=== PATIENT | female | born 1965 | race Caucasian/White ===

== ENCOUNTER → 2018-11-14 10:35 | Outpatient (CLI) | payer OTHER, SELFPAY ==
--- NOTE | 2018-11-14 10:36 | MM_ITS ---
MM Dig screening mamm BI w/CAD CAD Screening COMPARISON: Digital mammograms with CAD 10/29/2014 and analog mammograms 03/30/2007 INDICATION: There is a history of breast cancer in patient's paternal aunt. There is been previous biopsy left breast for benign disease. TECHNIQUE: Standard CC and MLO images were obtained. R2 CAD reviewed. FINDINGS: There is a markedly dense and heterogenic parenchymal pattern somewhat lessening the sensitivity of mammography. The findings are bilateral and symmetrical. There is no suspicious lesion and there are no suspicious microcalcifications. IMPRESSION: Moderately dense parenchymal pattern with no suspicious lesion seen BI-RADS Category: 1 Negative RECOMMENDED FOLLOW-UP: 1YR - 1 YEAR FOLLOW-UP (A letter has been sent to the patient regarding results of the study.)
== END ==
PROVIDERS: PCP Family Medicine; Visit Provider Obstetrics & Gynecology
DX: Z12.31 Encounter for screening mammogram for malignant neoplasm of breast (principal)
CPT/HCPCS: 77067

== ENCOUNTER 2018-12-01 15:30 | Outpatient (RCR) | payer OTHER, SELFPAY ==
--- NOTE | 2018-11-29 17:51 | HMH.PTOPEV ---
PT Outpatient Evaluation Rehab PT Outpatient Evaluation Start: 11/29/18 17:04 Freq: Status: Active Protocol: Document 11/29/18 17:04 ANA MARIA (Rec: 11/29/18 17:50 ANA MARIA [id number]) Electronically Signed By Irving David, PT 11/29/18 17:04 Outpatient Therapy Subjective History Subjective History Patient is a 53 year old female presenting to outpatient PT with reports of righ sided low back pain with RLE radicular symptoms of insidious onset starting 2017. Pt reports pain and numbness/tingling to R foot that centralizes with lumbar extension indicating disc pathology. No other comorbidities to report. Chief Complaint Pain Spasms Paresthesia Symptom Type Ache Dull Numbness Tingling Symptoms Relieved By Ice OTC Meds Prescription Meds Symptoms Aggravated By Supine Sitting Standing Bending/Stooping Physical Activity Walking Lifting Prior Functional Limitations None Current Functional Limitations Reaching Lifting Housework Driving Sleeping Standing Sitting Squatting Recreation Activity Walking Bending/Stooping Symptom Description Intermittent Level of pain today (0-10) 3 Pain scale - at its best (0-10) 0 Pain scale - at its worst (0-10) 6 Lumbopelvic Eval Posture Thoracic Spine Posture Standing Position Neutral Lumbar Spine Posture Standing Position Neutral Assistive device Assistive Devices None / NA Gait Observation General Gait Pattern Observation No Deviations/Normal Palapation tenderness right lumbar spinal tenderness Yes: 2/4 paraspinal tenderness Yes: 3/4 Accessory Movement L4 right L5 right S1
== END 2018-12-01 15:35 | disposition home or self-care (01) ==
LOC: PT 15:30
PROVIDERS: Visit Provider Emergency Medicine
DX: M54.31 Sciatica, right side (principal)
CPT/HCPCS: 97010; 97012; 97014; 97110; 97163; G0283

== ENCOUNTER → 2019-01-03 10:27 | Outpatient (POV) | payer OTHER, SELFPAY | PROVIDERS: Visit Provider Dermatology | DX: Z00.00 Encounter for general adult medical examination without abnormal findings (principal) ==

== ENCOUNTER 2019-06-10 07:56 | Outpatient (CLI) | payer OTHER, SELFPAY ==
[2019-06-10] VITALS (20 sets, daily range): BP systolic 98–125; BP diastolic 53–74; PULSE 72–86; RESP 16–18; TEMP 36.3–36.8; O2SAT 96–100; BMI 27.4
--- NOTE | 2019-06-10 10:11 | PC.NURSE ---
Notified Dr Arevalo that patients HGB today is 5.5, down from 6.3 yesterday; He states to notify him of the 1 hour post HH.
[2019-06-10 16:23] LABS: Hematocrit 27.6 % (37.0-47.0)
[2019-06-10 16:25] LABS: Hemoglobin 7.7 g/dL (12.2-16.2)
--- NOTE | 2019-06-10 16:30 | PC.NURSE ---
Notified Dr Arevalo that 1 hr post HH was 7.7 and 27.6
== END 2019-06-10 16:22 | disposition home or self-care (01) ==
LOC: INF 07:57
PROVIDERS: PCP Family Medicine; Visit Provider Family Medicine
DX: D64.9 Anemia, unspecified (principal)
CPT/HCPCS: 36415; 36430; 85014; 85018; 86850; P9016

== ENCOUNTER → 2019-07-17 09:46 | Outpatient (CLI) | payer BC, SELFPAY ==
--- NOTE | 2019-07-17 09:46 | CT_ITS ---
PROCEDURE: CT CHEST W CON CLINICAL HISTORY: colon cancer Colon cancer, evaluate for possible metastatic disease COMPARISON: No exams were available for comparison TECHNIQUE: 75 mL Optiray 350 Axial images obtained with sagittal and coronal reformats. All CT scans at the facility use one or more dose reduction, viz: automated exposure control, ma/kV adjustment per patient size (including targeted exams where dose is matched to indication, i.e. head), or iterative reconstruction technique. FINDINGS: No mediastinal or hilar mass or adenopathy. Normal heart size. Left lobe of the thyroid gland is enlarged with heterogeneous density which may be better evaluated with ultrasound for the presence of nodules if clinically desired. Calcified granuloma is present in the left upper lobe. There is a 8 mm nodular opacity in the extreme right lung base which is along the hemidiaphragm. This is nonspecific. A subpleural nodular density is present in the right CP angle posteriorly at 6 mm. There is a 4 mm noncalcified nodule in the left lung base posterior laterally. This is subpleural. There is some left apical scarring. No acute bony anomalies are evident. IMPRESSION: 1. Mildly enlarged left lobe of the thyroid gland with heterogeneous density which may be better evaluated with ultrasound if clinically warranted 2. There are 3 noncalcified nodules 2 in the right lung base and 1 in the left lung base. These are nonspecific. Suggest 6 month follow-up to confirm stability. Dictated by: Dillan Barreto MD 07/17/2019 16:24 Signed by: <Electronically signed by Dillan Barreto MD in [place]> 07/18/2019 10:02
--- NOTE | 2019-07-17 09:46 | CT_ITS ---
PROCEDURE: CT ABDOMEN PELVIS W CON CLINICAL HISTORY: colon cancer Evaluate for possible metastatic disease COMPARISON: CT CHEST W CON from 07/17/2019 TECHNIQUE: 75 mL Optiray 350 performed in conjunction with the chest CT Readi-Cat PO Axial images obtained with sagittal and coronal reformats. All CT scans at the facility use one or more dose reduction, viz: automated exposure control, ma/kV adjustment per patient size (including targeted exams where dose is matched to indication, i.e. head), or iterative reconstruction technique. FINDINGS: On the chest CT there was a 3.4 cm area of contrast enhancement in the dome of the liver centrally which would have corresponded to arterial phase images. This area has an unremarkable appearance on the portal phase and the delayed images. In the left hepatic lobe there is a 7 mm hypodense nodule. In the central aspect there is a 5 mm hypodense nodule. In the right hepatic lobe there is a 19 mm area of hypodensity. Just posterior to this in the right hepatic lobe there is an additional 6 mm hypodensity. These may be due to cyst. Suggest ultrasound correlation to confirm cystic nature of these nodules and to evaluate the possibility of a lesion in the hepatic dome. The spleen, adrenal glands, pancreas, gallbladder, and kidneys have an unremarkable appearance. No intestinal obstruction or free air is evident. The location of the colon cancer has not been made available at the time of the reading. There is however, thickening noted within the cecum which may be neoplastic in nature. This does not effect the ileocecal valve. There is some ill definition of the lateral margin of this area of thickening which could be due to subserosal extension. The appendix has an unremarkable appearance there is some increased soft tissue density in the right adnexal region just superior to this area which may be related to ovarian tissue. There are some small nodes in the left adnexa. No acute bony anomalies are evident. No lytic or blastic process apparent aside from probable small bilateral bone islands within the hips and pelvis. IMPRESSION: 1. Unusual immediate area of enhancement in the a padded dome measuring 3.4 cm. This does not persist and blends imperceptibly with the hepatic tissue on the delayed images possibly due to variations in enhancement of the liver. In addition, there are several hypodense lesions of the liver which may be due to cyst. Suggest ultrasound to confirm cystic nature and to evaluate the hepatic dome region. 2. Asymmetric thickening of the tip of the cecum posteriorly suspicious for neoplasm. There is some irregularity of the lateral wall of this area of thickening. Cannot exclude subserosal extension.. 3. Soft tissue density in the right adnexa adjacent to the area of thickening probably related to the right ovary as opposed to an area of adenopathy. Dictated by: Dillan Barreto MD 07/17/2019 16:25 Signed by: <Electronically signed by Dillan Barreto MD in [place]> 07/18/2019 10:16
== END ==
PROVIDERS: PCP Family Medicine; Visit Provider Surgery
DX: C18.9 Malignant neoplasm of colon, unspecified (principal)
CPT/HCPCS: 71260; 74177; Q9967

== ENCOUNTER → 2019-09-14 13:57 | Outpatient (CLI) | payer BC, SELFPAY ==
--- NOTE | 2019-09-14 14:00 | US_ITS ---
PROCEDURE: US THYROID CLINICAL INDICATION: THYROID ENLARGEMENT Thyroid nodule evaluation COMPARISON: CT CHEST W CON from 07/17/2019 FINDINGS: Right lobe: 3.7 x 0.9 x 1.4 cm with homogeneous echogenicity and no discrete nodule. Left lobe: 4.3 x 1.3 x 2 cm. In the upper pole there is a 2.6 x 1.4 cm mixed cystic and solid nodule which is well-circumscribed slightly hypoechoic with no obvious calcifications. This is a TR3 nodule which is mildly suspicious. Ultrasound-guided FNA suggested. In the lower pole there is a well-circumscribed 1.9 x 1.2 cm slightly hyperechoic nodule with small echogenic foci.. This is a TR 4 moderately suspicious nodule. Ultrasound-guided fine needle aspiration is suggested. Isthmus: Unremarkable Additional findings: IMPRESSION: There is a TR 3 mildly and a TR 4 moderately suspicious nodule of the left lobe of the thyroid gland. Fine-needle aspiration of both nodules suggested with ultrasound guidance Dictated by: Dillan Barreto MD 09/14/2019 17:34 Electronically signed by Dillan Barreto MD in [place] 09/14/2019 17:34
== END ==
PROVIDERS: PCP Family Medicine; Visit Provider Family Medicine
DX: E04.9 Nontoxic goiter, unspecified (principal)
CPT/HCPCS: 76536

== ENCOUNTER → 2019-09-27 12:42 | Outpatient (CLI) | payer BC, SELFPAY ==
--- NOTE | 2019-09-27 12:46 | US_ITS ---
PROCEDURE: US FNA THYROID CLINICAL INDICATION: LT TR3 NODULE Suspicious thyroid nodule nodules involving the left lobe COMPARISON: No exams were available for comparison TECHNIQUE: The thyroid nodules on the left were localized pre biopsy and biopsy route planned. Following obtaining informed consent, using aseptic technique and local anesthesia with buffered lidocaine, fine-needle aspiration was performed of the both of the nodules on the left nodule a upper pole and nodule be lower pole using sonographic guidance. 2 passes were made into each nodule with a 21 gauge gauge needle. Specimen was given to cytology. FINDINGS: CYTOLOGY: Nodule A upper pole: Negative for malignant cells. Nodule B lower pole: Negative for malignant cells IMPRESSION: Uneventful ultrasound-guided fine needle aspiration the left lobe of the thyroid gland. FNA was performed of 2 nodules both showing benign findings. The patient tolerated the procedure well without evidence of immediate complications and left the ultrasound suite in stable condition. Dictated by: Dillan Barreto MD 10/18/2019 07:56 Electronically signed by Dillan Barreto MD in [place] 10/18/2019 07:56
== END ==
PROVIDERS: PCP Family Medicine; Visit Provider Family Medicine
DX: E04.1 Nontoxic single thyroid nodule (principal)
CPT/HCPCS: 10005; 76942

== ENCOUNTER → 2020-01-17 09:19 | Outpatient (CLI) | payer BC, SELFPAY ==
--- NOTE | 2020-01-17 09:19 | MM_ITS ---
PROCEDURE: MM DIG SCREENING MAMM BI W/CAD CLINICAL INDICATION: Routine Screening Mammogram There is a history of breast cancer patient's paternal aunt. There has been previous biopsy left breast for benign disease. 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 R2 CAD reviewed. FINDINGS: Moderate diffuse fibroglandular densities are seen in central portions of both breasts and the findings are bilateral and symmetrical. Octavio images were reviewed or showing no suspicious lesion in either breast. There are no suspicious microcalcifications. IMPRESSION: Stable moderately dense parenchymal pattern with no suspicious lesions seen BI-RAD Category: 1 Negative FOLLOW-UP: 1YR 1 Year Follow-up (A letter has been sent to the patient regarding results of the study.) Dictated by: Dr. Ata Cortez MD 01/22/2020 15:[address] Ata Cortez MD in [place] 01/22/2020 15:17
== END ==
PROVIDERS: PCP Obstetrics & Gynecology; Visit Provider Obstetrics & Gynecology
DX: Z12.31 Encounter for screening mammogram for malignant neoplasm of breast (principal)
CPT/HCPCS: 77063; 77067

== ENCOUNTER → 2020-01-23 15:23 | Outpatient (CLI) | payer BC, SELFPAY ==
--- NOTE | 2020-01-23 15:30 | MR_ITS ---
PROCEDURE: MR LUMBAR SPINE WO CON CLINICAL INDICATION: LUMBAGO WITH SCIATICA, DDD Low back pain right leg pain numbness and tingling COMPARISON: CT ABDOMEN PELVIS W CON from 07/17/2019 TECHNIQUE: Standard multiplanar multiecho sequences are performed without contrast. 3-D MIP and myelographic images are also rendered and reviewed FINDINGS: There is normal alignment. Spinal cord ends L1-L2 level. T11-T12, T12-L1, L1-L2 and L2-L3 have an unremarkable appearance. L3-L4: Degenerate disc disease with minimal bulging disc along with mild facet ligamentum hypertrophy with mild bilateral lateral recess and foraminal narrowing. L4-5: Mild concentric bulging disc along with facet ligamentum hypertrophy with bilateral lateral recess and foraminal narrowing. There is a small annular fissure of the disc posteriorly L5-S1: Minimal bulging disc with mild facet ligamentum hypertrophy with mild bilateral lateral recess narrowing. The disc does abut the anterior aspect of both S1 nerve roots slightly greater on the left No extruded herniated disc or canal stenosis is evident. Incidental note made of the hepatic cysts IMPRESSION: 1. L3-L4: Degenerate disc disease with minimal bulging disc along with mild facet ligamentum hypertrophy with mild bilateral lateral recess and foraminal narrowing. 2. L4-5: Mild concentric bulging disc along with facet ligamentum hypertrophy with bilateral lateral recess and foraminal narrowing. There is a small annular fissure of the disc posteriorly 3. L5-S1: Minimal bulging disc with mild facet ligamentum hypertrophy with mild bilateral lateral recess narrowing. The disc does abut the anterior aspect of both S1 nerve roots slightly greater on the left 4. No extruded herniated disc evident Dictated by: Dillan Barreto MD 01/24/2020 13:06 Electronically signed by Dillan Barreto MD in [place] 01/24/2020 13:06
== END ==
PROVIDERS: PCP Family Medicine; Visit Provider Family Medicine
DX: M54.41 Lumbago with sciatica, right side (principal); M51.36 Other intervertebral disc degeneration, lumbar region
CPT/HCPCS: 72148; 76376

== ENCOUNTER → 2021-02-12 16:23 | Outpatient (CLI) | payer BC, SELFPAY ==
--- NOTE | 2021-02-12 16:23 | MM_ITS ---
PROCEDURE: MM DIG SCREENING MAMM BI W/CAD Digital Breast Tomosynthesis Included CLINICAL INDICATION: screening There is a history of breast cancer in the patient's 2 paternal aunts. There has been a previous biopsy left breast for benign disease. COMPARISON: MG [facility] DIG MAMM-SCREEN HANNA from 10/29/2014 [facility] MM Dig screening mamm BI w/CAD from 11/14/2018 MG MM DIG SCREENING MAMM BI W/CAD from 01/17/2020 TECHNIQUE: Standard CC and MLO images and 3D Tomosynthesis was obtained. R2 CAD reviewed. FINDINGS: Moderate somewhat heterogenic fibroglandular densities are seen in the central portions of both breast and the findings are bilateral and symmetrical. There are no CAD markings. There is faint arterial calcification right breast. There is no suspicious lesion and no suspicious microcalcifications. IMPRESSION: Moderate breast density with no suspicious lesions seen BI-RAD Category: 2 Benign Finding(s) FOLLOW-UP: 1YR 1 Year Follow-up (A letter has been sent to the patient regarding results of the study.) Dictated by: Dr. Ata Cortez MD 02/14/2021 13:23 Dr. Ata Cortez MD in [place] 02/14/2021 13:23
== END ==
PROVIDERS: PCP Family Medicine; Visit Provider Obstetrics & Gynecology
DX: Z12.31 Encounter for screening mammogram for malignant neoplasm of breast (principal)
CPT/HCPCS: 77063; 77067

== ENCOUNTER → 2021-02-13 13:31 | Outpatient (POV) | payer BC, SELFPAY ==
[2021-02-13 13:51] VITALS: BP 120/78; PULSE 75; RESP 18; O2SAT 98; BMI 28.3
--- NOTE | 2021-02-13 14:23 | HMH.PMCON ---
Assessment and Plan (1) Degenerative disc disease Status: Chronic Category: Medical (2) Right sided sciatica Status: Chronic Category: Medical Code(s): M54.31 - Sciatica, right side - Assessment and plan all Dx Assessment and Plan for all problems:: Schedule L4-L5 lumbar epidural steroid injection for the patient. Given the efficacy of this in the past I do believe it would benefit her. She has been instructed to call the office if she has any issues prior to her next appointment. Patient is not on any anticoagulation therapy. I will follow-up with her after her injection reassess her symptoms at that time. Dr. Mancilla has reviewed this note and agrees with this plan of care. This note was dictated using voice recognition software and may contain errors or omissions HPI - Data of Consult Consult date: 02/13/21 Requesting Physician: Amber Flor APRN Primary Care Provider: Paul Arevalo MD - Consult Narrative Reason for consult: Back pain History of present illness: Ms. Grajeda is a 55 year old female who presents today for consultation regards to her low back pain. Patient was seen by a neurosurgeon last year. Patient was deemed not a surgical candidate at the time however she does have low back pain with radiation into her right lower leg. Patient was given 1 epidural steroid injection which gave her 6 months relief. Patient got over 80% relief during this time. Patient and I discussed repeating an epidural injection she is agreeable. She is not on any anticoagulation therapy. She tried and failed medication management. CC: Amber Flor APRN [facility] History I have reviewed the patient's past medical history: Yes Medical History: Reports:: Gastroesophageal Reflux Disease(GERD) Denies:: Cancer, Diabetes Mellitus Type 1, Diabetes Mellitus Type 2, Internal Pacemaker, Lung Disease, MRSA, Seizures *Have you ever received a pneumonia vaccine?: Yes *Have you received a flu vaccine this season?: Yes Other Medical History: Reports: Anemia Other Surgeries: Yes: No Previous Surgery, Cancer Surgery, Colonoscopy, Colon Resection, EGD, Tubal Ligation, Other. No: Pacemaker Amputation: No Fractures: No - *Social History Smoking Status: Never smoker Alcohol Intake: never Alcohol Intake Frequency:: holidays/special occasions only Substance Use Type: other, denies use *Occupational Status:: other Housing: house Household Members: spouse *Travel in the last 8 weeks: None Family Hx:: Unable to obtain Review of Systems - Review of Systems ROS General: no recent weight change, no fever, no sleep disturbances Respiratory: no cough, no shortness of air, no recurring pulmonary infections Cardiovascular/Peripheral Vascular: No chest pain, No palpitations, no edema, no shortness of breath. Gastrointestinal: no new onset incontinence, normal bowel movements reported Genitourinary: no new onset incontinence Musculoskeletal: Back pain, leg pain Psychiatric: normal mood/ affect Neurological: [denies new onset weakness in extremities], [denies new onset balance issues] Meds Home Medications Medication Instructions Recorded Confirmed Type cholecalciferol (vitamin D3) 25 1,000 unit PO DAILY 01/12/20 10/11/20 History mcg (1,000 unit) capsule loratadine 10 mg tablet 10 mg PO DAILY 01/12/20 10/11/20 History cephalexin 500 mg capsule 500 mg PO Q12H 10 Days #20 cap 08/31/20 10/11/20 Rx celecoxib 50 mg capsule 50 mg PO DAILY 09/10/20 10/11/20 History fluticasone propionate 50 1 spray INTRANASAL DAILY 09/10/20 10/11/20 History mcg/actuation nasal spray,suspension phentermine 37.5 mg tablet 37.5 mg PO DAILY #30 tab 09/10/20 10/11/20 Rx rhubarb root extract 4 mg tablet mg PO 09/10/20 10/11/20 History bupropion HCl 75 mg tablet 75 mg PO BID #60 tab 10/11/20 10/11/20 Rx Allergies Allergy/AdvReac Type Severity Reaction Status Date / Time No Known Allergies Allergy Verified 02/06/21 15:
== END ==
PROVIDERS: PCP Family Medicine; Visit Provider Clinical Nurse Specialist Family Health
DX: M54.31 Sciatica, right side (principal); M54.9 Dorsalgia, unspecified
CPT/HCPCS: 99202; G0463

== ENCOUNTER 2021-02-21 10:57 | Day surgery (SDC) | payer BC, SELFPAY ==
[2021-02-21 11:57] VITALS: BP 120/78; PULSE 50; RESP 18; TEMP 36.6; O2SAT 100; BMI 28.3
[2021-02-21 12:25] VITALS: BP 133/82; PULSE 82; RESP 20; O2SAT 98
[2021-02-21 12:26] VITALS: BP 132/81; PULSE 74; RESP 20; O2SAT 98
--- NOTE | 2021-02-21 12:26 | HMH.PMPROC ---
- Procedure Date: 02/21/21 Time: 12:26 Anesthesiologist:: Imtiaz Mancilla MD Complications:: None Pre-procedure Diagnosis:: Degenerative disc disease of lumbar spine with lumbar radiculopathy symptoms Post-procedure Diagnosis:: Same Indications for Procedure:: Patient is a pleasant 55-year-old white female who we are treating for low back pain with lumbar radiculopathy symptoms. She has increasing pain in her low back radiating down her right leg. She has had a previous lumbar epidural steroid injection in [place] this did give her significant relief. She did not go back to this doctor because she did not like her however she did get significant relief in her pain is now returned we will do repeat lumbar epidural steroid injection here. Procedure Details:: Lumbar epidural steroid injection under fluoroscopy Informed consent was obtained and the risk and benefits of the procedure was explained to the patient. The patient was taken to the procedure room. The patient was placed prone on the procedure table. The patient was prepped and draped in sterile fashion. C-arm fluoroscopy was used to view the lumbar spine. Skin and subcutaneous tissues were anesthetized using lidocaine. I placed an 18-gauge epidural needle and advanced into the L4-L5 interspace using fluoroscopic guidance and [id number] to air. After confirmation of needle placement in the epidural space with dye I injected 2 mL of lidocaine 1.5% with Depo-Medrol 80 mg. Patient tolerated the procedure well with no complications. Plan and Disposition:: We will follow-up with her in 2 weeks. Will reevaluate symptoms at that time.
[2021-02-21 12:45] VITALS: BP 141/88; PULSE 68; RESP 20; O2SAT 100
== END 2021-02-21 12:45 | disposition home or self-care (01) ==
LOC: SC.PAINP 10:59
PROVIDERS: PCP Family Medicine; Visit Provider Anesthesiology
DX: M51.16 Intervertebral disc disorders with radiculopathy, lumbar region (principal); K21.9 Gastro-esophageal reflux disease without esophagitis; Z90.49 Acquired absence of other specified parts of digestive tract; Z90.79 Acquired absence of other genital organ(s)
CPT/HCPCS: 62323; J1040; Q9966

== ENCOUNTER → 2021-03-08 14:59 | Outpatient (CLI) | payer BC, SELFPAY ==
[2021-03-08 15:07] VITALS: BMI 23.3
== END ==
PROVIDERS: PCP Family Medicine; Visit Provider Nurse Practitioner Family
DX: T78.40XA Allergy, unspecified, initial encounter (principal)

== ENCOUNTER → 2021-03-27 15:17 | Outpatient (POV) | payer BC, SELFPAY ==
[2021-03-27 15:24] VITALS: BP 117/70; PULSE 81; RESP 18; BMI 28.1
--- NOTE | 2021-03-27 15:37 | P.CONS_ITS ---
[facility] Pain Management SOAP Note Subjective:: Patient is a pleasant 55 -year-old white female who presents today for follow-up after L4-L5 lumbar epidural steroid injection. Patient got good relief with her injection. She rates her pain today 2 out of 10 overall doing quite well. Patient I discussed repeating her injection in several weeks. Her pain does come back at times. She did do some traveling which increased her pain. ROS General: no recent weight change, no fever, no sleep disturbances Respiratory: no cough, no shortness of air, no recurring pulmonary infections Cardiovascular/Peripheral Vascular: No chest pain, No palpitations, no edema, no shortness of breath. Gastrointestinal: no new onset incontinence, normal bowel movements reported Genitourinary: no new onset incontinence Musculoskeletal: Back pain, leg pain Psychiatric: normal mood/ affect Neurological: [denies new onset weakness in extremities], [denies new onset balance issues] Objective:: Physical Exam General: Alert and oriented x3, no acute distress, pleasant and cooperative, [on room air] Lungs: Resps E/U, Symmetrical chest expansion, Eyes: PERRL Musculoskeletal: Flexion and extension of lumbar spine somewhat guarded secondary to pain, deep tendon reflexes normal, strength in upper and lower extremities [5/5], slightly antalgic gait noted Neurological: speech clear, firewall security 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 She is been instructed to call the office if she has any issues prior to her next appointment. Dr. Mancilla has reviewed this note and agrees with this plan of care. This note was dictated using voice recognition software and may contain errors or omissions [facility] History I have reviewed the patient's past medical history: Yes Medical History: Reports:: Cancer, Gastroesophageal Reflux Disease(GERD) Denies:: Diabetes Mellitus Type 1, Diabetes Mellitus Type 2, Internal Pacemaker, Lung Disease, MRSA, Seizures *Have you ever received a pneumonia vaccine?: Yes *Have you received a flu vaccine this season?: Yes Other Medical History: Reports: Anemia. Denies: Blood Transfusion Reaction Other Surgeries: Yes: No Previous Surgery, Cancer Surgery, Colonoscopy, Colon Resection, EGD, Tubal Ligation, Other (breast biopsy). No: Pacemaker Amputation: No Fractures: No - *Social History Smoking Status: Never smoker Alcohol Intake: never Alcohol Intake Frequency:: holidays/special occasions only Substance Use Type: other, denies use *Occupational Status:: other Housing: house Household Members: spouse *Travel in the last 8 weeks: None Family Hx:: Unable to obtain
== END ==
PROVIDERS: PCP Family Medicine; Visit Provider Clinical Nurse Specialist Family Health
DX: M51.16 Intervertebral disc disorders with radiculopathy, lumbar region (principal)
CPT/HCPCS: 99212; G0463

== ENCOUNTER 2021-04-25 09:05 | Day surgery (SDC) | payer BC, SELFPAY ==
[2021-04-25 09:28] VITALS: BP 130/70; PULSE 77; RESP 18; TEMP 36.4; O2SAT 97; BMI 29.1
[2021-04-25 09:55] VITALS: BP 141/85; PULSE 75; RESP 18; O2SAT 98
[2021-04-25 09:56] VITALS: BP 141/85; PULSE 75; RESP 18; O2SAT 98
[2021-04-25 10:06] VITALS: BP 136/72; PULSE 73; RESP 18; O2SAT 97
--- NOTE | 2021-04-25 10:16 | HMH.PMPROC ---
- Procedure Date: 04/25/21 Time: 10:16 Anesthesiologist:: Imtiaz Mancilla MD Complications:: None Pre-procedure Diagnosis:: Degenerative disc disease of lumbar spine with lumbar radiculopathy symptoms Post-procedure Diagnosis:: Same Indications for Procedure:: This patient is a pleasant 55-year-old white female who we are treating for low back pain with lumbar radiculopathy symptoms. She has done well with previous injections. Pain is just now starting to come back after traveling. Will do repeat lumbar epidural steroid injection under fluoroscopy today. Procedure Details:: Informed consent was obtained and the risk and benefits of the procedure was explained to the patient. The patient was taken to the procedure room. The patient was placed prone on the procedure table. The patient was prepped and draped in sterile fashion. C-arm fluoroscopy was used to view the lumbar spine. Skin and subcutaneous tissues were anesthetized using lidocaine. I placed an 18-gauge epidural needle and advanced into the L4-L5 interspace using fluoroscopic guidance and [id number] to air. After confirmation of needle placement in the epidural space with dye I injected 2 mL of lidocaine 1.5% with Depo-Medrol 80 mg. Patient tolerated the procedure well with no complications. Plan and Disposition:: We will follow-up with her and 2 weeks. Will reevaluate symptoms at that time.
== END 2021-04-25 10:07 | disposition home or self-care (01) ==
PROVIDERS: PCP Family Medicine; Visit Provider Anesthesiology
DX: M51.16 Intervertebral disc disorders with radiculopathy, lumbar region (principal); K21.9 Gastro-esophageal reflux disease without esophagitis; D64.9 Anemia, unspecified; Z85.038 Personal history of other malignant neoplasm of large intestine; Z90.49 Acquired absence of other specified parts of digestive tract; Z90.79 Acquired absence of other genital organ(s)
CPT/HCPCS: 62323; J1040; Q9966

== ENCOUNTER 2021-06-16 16:59 | Emergency (ER) | payer BC, SELFPAY ==
[2021-06-16 17:00] VITALS: BP 149/73; PULSE 71; RESP 20; O2SAT 98; BMI 28.3
--- NOTE | 2021-06-16 18:17 | HMH.EDUTC ---
[facility] [place] Disposition Clinical Impression: Need for Tdap vaccination Laceration of left index finger Qualifiers: Encounter type: initial encounter Damage to nail status: with damage Foreign body presence: without foreign body Qualified Code(s): S61.311A - Laceration without foreign body of left index finger with damage to nail, initial encounter Disposition: Home, Self-Care Condition on Discharge: Good Instructions: DI for Avulsion Laceration (Not Requiring Sutures) Additional Instructions: Keep the wounds clean and dry. Follow up with your regular doctor. Apply the topical antibiotics as directed. Watch for signs of infection, such as redness, drainage, swelling, etc. GO TO THE ER FOR ANY WORSENING SYMPTOMS If it starts back bleeding, please hold pressure on it for 10 ot 15 minutes. Prescriptions: Mupirocin [Bactroban 2% Ointment 22gm tube] 1 applicatio TP TID 7 Days #1 tube Transmission Status: [facility] Referrals: Paul Arevalo MD [Primary Care Provider] - Time of Disposition: 18:21 Medical Decision Making - Medical Records Medical records reviewed: No: I reviewed the patient's medical records. - Ari Inquiry Pt receiving controlled substance: No Vital Signs: 06/16/21 17:00 06/16/21 18:22 Temperature 98.5 F Temperature Source Oral Pulse Rate 71 Pulse Rate [Left Radial] 71 Respiratory Rate 20 20 Blood Pressure 149/73 H Blood Pressure [Right Arm] 149/73 H Blood Pressure Mean [Right Arm] 98 Blood Pressure Source Automatic Cuff Blood Pressure Source [Right Arm] Automatic Cuff Blood Pressure Position Sitting Blood Pressure Position [Right Arm] Sitting 02 Sat by Pulse Oximetry 98 Oxygen Delivery Method Room Air Room Air Orders (Tests/Meds): ED MEDICATIONS Discontinued Medications Generic Name Dose Route Start Last Admin Trade Name Freq PRN Reason Stop Dose Admin Tetanus/Reduced Diphtheria/Acell Pertussis 0.5 ml 06/16/21 17:18 06/16/21 17:30 Tet/Diphth/Pert-Adult 0.5ml Syringe IM 06/16/21 17:19 0.5 ml .ONCE ONE Administration [facility] [place] HPI - General Stated complaint: AO 06/16 1230 lac L index finger Time Seen by Provider: 06/16/21 17:05 Mode of Arrival: Ambulatory Source of Information: Patient Limitations: No Limitations Description of Symptoms (Recalled from Triage Doc. by RN): cut left finger while cutting butter HEENT Symptoms (Recalled from RN notes): No Resp Symptoms (Recalled from RN notes): No Skin Symptoms (Recalled from RN notes): Yes MS Symptoms (Recalled from RN notes): No Functional Status (Recalled from RN notes): wnl - History of Present Illness Provider Complaint: She has a laceration on her left index finger. She did this right before she came in here. - Related Data Home Medications Medication Instructions Recorded Confirmed cholecalciferol (vitamin D3) 25 1,000 unit PO DAILY 01/12/20 02/21/21 mcg (1,000 unit) capsule loratadine 10 mg tablet 10 mg PO DAILY 01/12/20 02/21/21 celecoxib 50 mg capsule 50 mg PO DAILY 09/10/20 02/21/21 fluticasone propionate 50 1 spray INTRANASAL DAILY 09/10/20 02/21/21 mcg/actuation nasal spray,suspension rhubarb root extract 4 mg tablet 1 mg PO DAILY 09/10/20 02/21/21 Phentermine HCl 37.5 mg PO DAILY 02/21/21 02/21/21 buPROPion HCL [Wellbutrin SR 75mg 75 mg PO BID 02/21/21 02/21/21 Tablet] cephALEXin [Keflex 500mg Cap] 500 mg PO Q12H 02/21/21 02/21/21 Previous Rx's Medication Instructions Recorded Mupirocin [Bactroban 2% Ointment 1 applicatio TP TID 7 Days #1 tube 06/16/21 22gm tube] Allergies Allergy/AdvReac Type Severity Reaction Status Date / Time No Known Allergies Allergy Verified 02/21/21 12:12 - Worker's Comp Is this a Worker's Comp case?: No [facility] History - Hepatitis A Screen Drug use history?: No High risk sexual behaviors?: No History of sexually transmitted infection?: No Currently employe
[2021-06-16 18:22] VITALS: BP 149/73; PULSE 71; RESP 20; TEMP 36.9; O2SAT 98
== END 2021-06-16 18:26 | disposition home or self-care (01) ==
PROVIDERS: Emergency Provider Nurse Practitioner Family; PCP Family Medicine
DX: S61.311A Laceration without foreign body of left index finger with damage to nail, initial encounter (principal); W26.0XXA Contact with knife, initial encounter; Y92.010 Kitchen of single-family (private) house as the place of occurrence of the external cause; K21.9 Gastro-esophageal reflux disease without esophagitis; Z23 Encounter for immunization
CPT/HCPCS: 90471; 90715; 99202; G0463

== ENCOUNTER → 2021-06-17 16:12 | Outpatient (CLI) | payer BC, SELFPAY | PROVIDERS: PCP Family Medicine; Visit Provider Family Medicine | DX: G47.33 Obstructive sleep apnea (adult) (pediatric) (principal); R40.0 Somnolence; R06.83 Snoring; E66.9 Obesity, unspecified | CPT/HCPCS: G0399 ==

== ENCOUNTER → 2021-09-13 09:03 | Outpatient (CLI) | payer BC, SELFPAY | PROVIDERS: PCP Family Medicine; Visit Provider Family Medicine | DX: Z11.52 Encounter for screening for COVID-19 (principal) | CPT/HCPCS: C9803; U0003; U0005 ==

== ENCOUNTER 2021-10-03 08:58 | Emergency (ER) | payer BC, SELFPAY ==
[2021-10-03 09:00] VITALS: BP 142/87; PULSE 85; RESP 16; TEMP 37; O2SAT 99; BMI 29.9
--- NOTE | 2021-10-03 09:32 | HMH.EDUTC ---
[facility] [place] Disposition Clinical Impression: Sinusitis Qualifiers: Sinusitis location: unspecified location Chronicity: unspecified Qualified Code(s): J32.9 - Chronic sinusitis, unspecified Disposition: Home, Self-Care Condition on Discharge: Good Instructions: Sinusitis, DI for Sinusitis Additional Instructions: *Monitor Temp, Over the counter Motrin or Tylenol as directed/as needed Tylenol every 4 hours and Motrin every 6 hours (as long as your family doctor has told you that you can take it) for fever or pain. and straight to ER if unable to lower temp less than 101.0 after medication given *Warm salt water gargles may help to soothe the throat *Throat Lozenges *Warm fluids like tea with honey may help to soothe the throat *Sleep elevated *Humidifier/Vaporizer Take antibiotics as prescribed Follow up IMMEDIATELY for new or worsening symptoms or no Noticeable improvement over the next 48-72 hours. 911 for difficulty breathing or swallowing You were tested for today for COVID19 your test result should be back in the next 24-48 hours, you may check the [facility] My Health Portal for your results You was given a handout with instructions for Self Quarantine and Self isolation for while you wait on test results and what to do if they are positive If you are positive the Health Dept will be contacting you also Make sure to take your Vitamins Vit. C Vit D and Zinc if you can take them Prescriptions: Amoxicillin/Potassium Clav [Augmentin 875-125 Tablet] 1 tab PO Q12H 7 Days #14 tab Transmission Status: Received by [facility] methylPREDNISolone [Medrol 4mg tab] 4 mg PO DIRECTED #21 tab Transmission Status: Received by [facility] Referrals: Paul Arevalo MD [Primary Care Provider] - As needed Forms: Work/School Release Time of Disposition: 09:48 Medical Decision Making - Ari Inquiry Pt receiving controlled substance: No Ari was queried for this patient: No Vital Signs: 10/03/21 09:00 Temperature 98.6 F Temperature Source Oral Pulse Rate [Right Brachial] 85 Respiratory Rate 16 Blood Pressure [Right Arm] 142/87 H Blood Pressure Mean [Right Arm] 105 Blood Pressure Source [Right Arm] Automatic Cuff Blood Pressure Position [Right Arm] Sitting 02 Sat by Pulse Oximetry 99 Oxygen Delivery Method Room Air Orders (Tests/Meds): ORDERS Category Date Time Status Rapid PCR Covid and Flu A/B Stat Lab 10/03/21 09:50 Received Medical Decision Narrative: Discussed xray and patient and she declined states that she will return if pain continues [facility] [place] HPI - General Stated complaint: cough, congestion, pain in back Time Seen by Provider: 10/03/21 09:32 Mode of Arrival: Ambulatory Source of Information: Patient Limitations: No Limitations Description of Symptoms (Recalled from Triage Doc. by RN): PATIENT C/O COUGH, RIGHT SIDE RIB PAIN, CONGESTION, AND RUNNY NOSE X 2 DAYS HEENT Symptoms (Recalled from RN notes): Yes Resp Symptoms (Recalled from RN notes): Yes Skin Symptoms (Recalled from RN notes): No MS Symptoms (Recalled from RN notes): No Functional Status (Recalled from RN notes): WNL - History of Present Illness Provider Complaint: Patient states that she was recently on a cruise States that she has been having sinus pain and pressure along with cough for over week and has started having some pain in her right lower back area States that she is not sure if she may have pulled something from coughing or may have a UTI States that today she was still hurting so she came in - Related Data Home Medications Medication Instructions Recorded Confirmed celecoxib 50 mg capsule 200 mg PO DAILY cap 07/02/21 10/03/21 Previous Rx's Medication Instructions Recorded Amoxicillin/Potassium Clav 1 tab PO Q12H 7 Days #14 tab 10/03/21 [Augmentin 875-125 Tablet] methylPREDNISolone [Medrol 4mg 4 mg PO DIRECTED #21 tab 10/03/21 tab] Allergies Allergy/AdvReac
[2021-10-03 09:54] LABS: Coronavirus 19, PCR Not Detected (NotDetected); Influenza A, PCR Not Detected (NotDetected); Influenza B, PCR Not Detected (NotDetected)
[2021-10-03 10:17] VITALS: BP 142/87; PULSE 85; RESP 16; TEMP 37; O2SAT 99
[2021-10-03 19:02] LABS: Apearance,Urine Clear (Clear); Bilirubin,Urine Negative (Negative); Blood, Urine Negative (Negative); Color,Urine Yellow (Yellow); Glucose,Urine (UA) Negative (Negative); Ketones,Urine Negative (Negative); Protein,Urine Negative (Negative); Specific Gravity, Urine 1.015 (1.005-1.030); UTC Leukocyte Esterase,Urine Negative (Negative); UTC Nitrate,Urine Negative (Negative); Urobilinogen,Urine 0.2 EU/dl (0.2)
== END 2021-10-03 10:20 | disposition home or self-care (01) ==
PROVIDERS: Emergency Provider Nurse Practitioner; PCP Family Medicine
DX: J32.9 Chronic sinusitis, unspecified (principal); K21.9 Gastro-esophageal reflux disease without esophagitis; G43.709 Chronic migraine without aura, not intractable, without status migrainosus; Z79.899 Other long term (current) drug therapy; Z85.038 Personal history of other malignant neoplasm of large intestine
CPT/HCPCS: 81003; 99203; C9803; G0463; U0003; U0005

== ENCOUNTER → 2021-12-12 16:31 | Outpatient (CLI) | payer BC, SELFPAY | PROVIDERS: Visit Provider Nurse Practitioner | DX: Z20.822 Contact with and (suspected) exposure to COVID-19 (principal) | CPT/HCPCS: C9803; U0003; U0005 ==

== ENCOUNTER → 2021-12-16 18:03 | Outpatient (CLI) | payer BC, SELFPAY | PROVIDERS: PCP Family Medicine; Visit Provider Nurse Practitioner | DX: U07.1 COVID-19 (principal) | CPT/HCPCS: C9803; U0003; U0005 ==

== ENCOUNTER → 2022-01-13 14:23 | Outpatient (CLI) | payer BC, SELFPAY ==
--- NOTE | 2022-01-13 14:23 | US_ITS ---
FINAL REPORT CLINICAL HISTORY: post menopausal bleeding FINDINGS: Transvaginal sonographic images of the pelvis were obtained. The uterus is retroverted and measures 5.6 x 3.9 x 3.6 cm. The endometrium measures 3 mm, which is within normal limits. There is a 2.3 cm fundal fibroid. The right ovary measures 1.6 cm in length and left ovary measures 1.7 cm in length. Normal blood flow seen to the ovaries. Small follicles are present. There is no evidence of free fluid. IMPRESSION: Retroverted uterus with a 2.3 cm fundal fibroid. Reviewed, Interpreted and Dictated by Etienne August MD Transcribed by Cherelle Mariano Authenticated by Etienne August MD on 01/13/2022 04:35:49 PM [facility]
== END ==
PROVIDERS: PCP Family Medicine; Visit Provider Obstetrics & Gynecology
DX: N95.0 Postmenopausal bleeding (principal)
CPT/HCPCS: 76830

== ENCOUNTER 2022-03-03 17:45 | Emergency (ER) | payer BC, SELFPAY ==
[2022-03-03 19:30] VITALS: BP 151/88; PULSE 84; RESP 18; TEMP 36.9; O2SAT 97; BMI 30.9
--- NOTE | 2022-03-03 19:40 | XR_ITS ---
PROCEDURE INFORMATION: Exam: XR Chest Exam date and time: 03/03/2022 7:43 PM Age: 56 years old Clinical indication: Cough; Additional info: Cough and congestion TECHNIQUE: Imaging protocol: XR of the chest. Views: 2 views. COMPARISON: CT CHEST W CON 07/17/2019 12:28 PM. Prior report not available. FINDINGS: Lungs: No acute pulmonary findings. No pulmonary consolidation. Lung volumes within normal limits. A tiny nodule seen in the posterior left lung base on the previous CT is not well visualized on this plain x-ray. Pulmonary vessels do not appear significantly congested. Pleural spaces: Unremarkable. No significant pleural effusion. No pneumothorax. Heart/Mediastinum: Borderline enlarged cardiac silhouette. Small calcified aorto-pulmonic window and left hilar lymph nodes, chronic compared with the prior CT. Bones/joints: Mild thoracolumbar scoliosis.There are spinal degenerative changes, with multilevel disc narrrowing and spondylosis. IMPRESSION: 1. Borderline cardiomegaly. 2. No acute pulmonary findings; no consolidation. 3. Additional nonemergency and chronic findings as above.
--- NOTE | 2022-03-03 19:53 | HMH.EDUTC ---
[facility] [place]position Clinical Impression: Acute bronchitis Qualifiers: Bronchitis organism: unspecified organism Qualified Code(s): J20.9 - Acute bronchitis, unspecified Disposition: Home, Self-Care Condition on Discharge: Good Instructions: DI for Acute Bronchitis Additional Instructions: Drink plenty of fluids. Take tylenol or ibuprofen for pain or fever. Take the medications as directed. Follow up with your regular doctor. GO TO THE ER FOR ANY WORSENING SYMPTOMS Don't start the oral steroids until tomorrow, since you had the shot here today. The cough medication (promethazine dm) will make you drowsy, so don't drive or operate heavy machinery after taking it. Prescriptions: Promethazine/Dextromethorphan [Promethazine-Dm Syrup] 5 ml PO Q6HP PRN #240 ml PRN Reason: Cough Transmission Status: Received by [facility] methylPREDNISolone [Medrol] 4 mg PO DIRECTED 6 Days #21 packet Transmission Status: Received by [facility] guaiFENesin [Mucinex 600mg tablet] 1 - 2 tab PO BIDP PRN #30 tab PRN Reason: Congestion Transmission Status: Received by [facility] Azithromycin [Z-Gabe 250mg Tab*] 250 mg PO UD DOSE PK #6 tab Transmission Status: Received by [facility] Referrals: Paul Aervalo MD [Primary Care Provider] - Forms: Work/School Release Time of Disposition: 20:44 Medical Decision Making - Medical Records Medical records reviewed: No: I reviewed the patient's medical records. - Ari Inquiry Pt receiving controlled substance: No Vital Signs: 03/03/22 19:30 03/03/22 20:40 Temperature 98.5 F 98.5 F Temperature Source Oral Pulse Rate 84 Pulse Rate [Right Brachial] 84 Respiratory Rate 18 18 Blood Pressure 151/88 H Blood Pressure [Right Arm] 151/88 H Blood Pressure Mean [Right Arm] 109 Blood Pressure Source [Right Arm] Automatic Cuff Blood Pressure Position [Right Arm] Sitting 02 Sat by Pulse Oximetry 97 Oxygen Delivery Method Room Air - Lab Data Lab results reviewed: Yes: I reviewed the patient's lab results. Orders (Tests/Meds): ED MEDICATIONS Discontinued Medications Generic Name Dose Route Start Last Admin Trade Name Freq PRN Reason Stop Dose Admin Ceftriaxone Sodium 1 gm 03/03/22 20:20 03/03/22 20:35 Ceftriaxone 1gm Vial IM 03/03/22 20:21 1 gm ONCE ONE Administration Lidocaine HCl 0 ml 03/03/22 20:20 03/03/22 20:35 Lidocaine 1% 5ml Pf Vial IM 03/03/22 20:21 2 ml ONCE ONE Administration Methylprednisolone Sodium Succinate 125 mg 03/03/22 20:20 03/03/22 20:35 Methylprednisolone Sod Succ 125mg Vial IM 03/03/22 20:21 125 mg ONCE ONE Administration [facility] [place] - General Stated complaint: cough and congestion Time Seen by Provider: 03/03/22 20:15 Mode of Arrival: Ambulatory Source of Information: Patient Limitations: No Limitations Description of Symptoms (Recalled from Triage Doc. by RN): PATIENT C/O SOA AND COUGH CAUSING PAIN TO CHEST AND UPPER BACK HEENT Symptoms (Recalled from RN notes): No Resp Symptoms (Recalled from RN notes): Yes Skin Symptoms (Recalled from RN notes): No MS Symptoms (Recalled from RN notes): No Functional Status (Recalled from RN notes): WNL - History of Present Illness Provider Complaint: She has been coughing and feeling bad for the past 5 days. She states that she has coughed so much her chest and back is sore. - Related Data Home Medications Medication Instructions Recorded Confirmed celecoxib 50 mg capsule 200 mg PO DAILY cap 07/02/21 03/03/22 Previous Rx's Medication Instructions Recorded Azithromycin [Z-Gabe 250mg Tab*] 250 mg PO UD DOSE PK #6 tab 03/03/22 Promethazine/Dextromethorphan 5 ml PO Q6HP PRN #240 ml 03/03/22 [Promethazine-Dm Syrup] guaiFENesin [Mucinex 600mg tablet] 1 - 2 tab PO BIDP PRN #30 tab 03/03/22 methylPREDNISolone [Medrol] 4 mg PO DIRECTED 6 Days #21 03/03/22 packet
[2022-03-03 20:40] VITALS: BP 151/88; PULSE 84; RESP 18; TEMP 36.9; O2SAT 97
== END 2022-03-03 20:50 | disposition home or self-care (01) ==
PROVIDERS: Emergency Provider Nurse Practitioner Family; PCP Family Medicine
DX: J20.9 Acute bronchitis, unspecified (principal); K21.9 Gastro-esophageal reflux disease without esophagitis; Z85.038 Personal history of other malignant neoplasm of large intestine; Z88.2 Allergy status to sulfonamides
CPT/HCPCS: 71046; 96372; 99213; G0463; J0696

== ENCOUNTER 2022-03-07 14:24 | Emergency (ER) | payer BC, SELFPAY ==
[2022-03-07 14:30] VITALS: BP 129/78; PULSE 69; RESP 19; TEMP 37; O2SAT 98; BMI 29.0
--- NOTE | 2022-03-07 14:54 | HMH.EDUTC ---
[facility] [place] Disposition Clinical Impression: Migraine Qualifiers: Migraine type: unspecified Status migrainosus presence: without status migrainosus Intractability: not intractable Qualified Code(s): G43.909 - Migraine, unspecified, not intractable, without status migrainosus Disposition: Home, Self-Care Condition on Discharge: Good Instructions: DI for Migraine Prescriptions: Promethazine HCl 12.5 mg PO TID PRN 30 Days #10 tab PRN Reason: nausea/vomiting Transmission Status: Received by [id number] Ubrogepant [Ubrelvy] 100 mg PO DAILY PRN 30 Days #16 tab PRN Reason: Migraine Headache Transmission Status: Received by [id number] Referrals: Paul Arevalo MD [Primary Care Provider] - Time of Disposition: 15:23 Medical Decision Making - Ari Inquiry Pt receiving controlled substance: No Vital Signs: 03/07/22 14:30 03/07/22 15:10 Temperature 98.6 F 98.6 F Temperature Source Oral Pulse Rate 69 Pulse Rate [Right Brachial] 69 Respiratory Rate 19 19 Blood Pressure 129/78 Blood Pressure [Right Arm] 129/78 Blood Pressure Mean [Right Arm] 95 Blood Pressure Source [Right Arm] Automatic Cuff Blood Pressure Position [Right Arm] Sitting 02 Sat by Pulse Oximetry 98 Oxygen Delivery Method Room Air Orders (Tests/Meds): ED MEDICATIONS Discontinued Medications Generic Name Dose Route Start Last Admin Trade Name Freq PRN Reason Stop Dose Admin Ketorolac Tromethamine 60 mg 03/07/22 15:03 03/07/22 15:10 Ketorolac 60mg/2ml Vial IM 03/07/22 15:04 60 mg ONCE ONE Administration Promethazine HCl 25 mg 03/07/22 15:03 03/07/22 15:10 Promethazine Hcl 25mg/Ml 1ml Vial IM 03/07/22 15:04 25 mg ONCE ONE Administration Medical Decision Narrative: Patient given Toradol and Phenerghan IM and stated she wanted to go home and lay down [facility] [place] HPI - General Stated complaint: migraine Time Seen by Provider: 03/07/22 14:54 Mode of Arrival: Ambulatory Source of Information: Patient Limitations: No Limitations Description of Symptoms (Recalled from Triage Doc. by RN): PATIENT C/O MIGRAINE AND VOMITING THAT STARTED LAST NIGHT HEENT Symptoms (Recalled from RN notes): Yes Resp Symptoms (Recalled from RN notes): No Skin Symptoms (Recalled from RN notes): No MS Symptoms (Recalled from RN notes): No Functional Status (Recalled from RN notes): WNL - History of Present Illness Provider Complaint: Patient had GI bug last night, then developed migraine headache last night. She gets a migraine 2-3 times a year. Took old RX of Fiorinal, but it didn't help. Has photosensitivity, nausea. Pain behind left eye. Onset (ago): day(s) (1) Location: head Relieving factors: none Exacerbating factors: none Associated symptoms: headaches, nausea/vomiting Treatments prior to arrival: NSAID, aspirin - Related Data Home Medications Medication Instructions Recorded Confirmed celecoxib 50 mg capsule 200 mg PO DAILY cap 07/02/21 03/03/22 Previous Rx's Medication Instructions Recorded Azithromycin [Z-Gabe 250mg Tab*] 250 mg PO UD DOSE PK #6 tab 03/03/22 Promethazine/Dextromethorphan 5 ml PO Q6HP PRN #240 ml 03/03/22 [Promethazine-Dm Syrup] guaiFENesin [Mucinex 600mg tablet] 1 - 2 tab PO BIDP PRN #30 tab 03/03/22 methylPREDNISolone [Medrol] 4 mg PO DIRECTED 6 Days #21 03/03/22 packet Promethazine HCl 12.5 mg PO TID PRN 30 Days #10 tab 03/07/22 Ubrogepant [Ubrelvy] 100 mg PO DAILY PRN 30 Days #16 tab 03/07/22 Allergies Allergy/AdvReac Type Severity Reaction Status Date / Time Sulfa (Sulfonamide Allergy Verified 03/03/22 20:21 Antibiotics) sulfamethoxazole Allergy Verified 03/03/22 20:21 [From Bactrim] trimethoprim [From Bactrim] Allergy Verified 03/03/22 20:21 - Worker's Comp Is this a Worker's Comp case?: No [facility] History - Hepatitis A Screen Drug use history?: No High risk sexual behaviors?: No History of sexually transmitted infection?: No Cu
[2022-03-07 15:10] VITALS: BP 129/78; PULSE 69; RESP 19; TEMP 37; O2SAT 98
== END 2022-03-07 15:29 | disposition home or self-care (01) ==
PROVIDERS: Emergency Provider Physician Assistant; PCP Family Medicine
DX: G43.909 Migraine, unspecified, not intractable, without status migrainosus (principal); K21.9 Gastro-esophageal reflux disease without esophagitis; Z88.2 Allergy status to sulfonamides
CPT/HCPCS: 96372; 99212; G0463

== ENCOUNTER → 2022-06-05 10:03 | Outpatient (CLI) | payer BC, SELFPAY ==
--- NOTE | 2022-06-05 10:07 | XR_ITS ---
FINAL REPORT CLINICAL HISTORY: LT ANKLE PAIN x 6 weeks after a fall FINDINGS: LEFT FOOT Three views were obtained. There is no acute fracture or dislocation. The joint spaces appear normal. No soft tissue abnormality is identified. IMPRESSION: No acute process. Reviewed, Interpreted and Dictated by Etienne August MD Transcribed by Lorena Mcgowan Authenticated and . [facility]
--- NOTE | 2022-06-05 10:07 | XR_ITS ---
FINAL REPORT CLINICAL HISTORY: LT ANKLE PAIN x 6 weeks after a fall FINDINGS: LEFT ANKLE Three views were obtained. There is soft tissue swelling about the ankle. The mortise appears intact. There is a 5 mm ossific density inferior to the lateral malleolus, may be related to a small avulsion fracture of uncertain age. IMPRESSION: Avulsion fragment inferior to the lateral malleolus, age indeterminate. Reviewed, Interpreted and Dictated by Etienne August MD Transcribed by Lorena Mcgowan Authenticated and [facility]
== END ==
PROVIDERS: PCP Family Medicine; Visit Provider Physician Assistant
DX: M25.572 Pain in left ankle and joints of left foot (principal)
CPT/HCPCS: 73610; 73630

== ENCOUNTER 2022-06-26 14:26 | Outpatient (RCR) | payer BC, SELFPAY | END 2022-06-26 15:30 | disposition home or self-care (01) | LOC: PT 14:26 | PROVIDERS: Visit Provider Orthopaedic Surgery | DX: M25.572 Pain in left ankle and joints of left foot (principal) | CPT/HCPCS: 97760 ==

== ENCOUNTER → 2022-07-03 16:32 | Outpatient (CLI) | payer BC, SELFPAY ==
--- NOTE | 2022-07-03 16:32 | MR_ITS ---
PROCEDURE INFORMATION: Exam: MR Left Lower Extremity Joint Without Contrast; Ankle Exam date and time: 07/03/2022 4:42 PM Age: 56 years old Clinical indication: Pain; Ankle; Left; Additional info: Ankle pain. Patient twisted ankle 8wks ago. Lateral sided ankle pain. Swelling in ankle. TECHNIQUE: Imaging protocol: Magnetic resonance imaging of the Left lower extremity without contrast. Exam focused on the ankle. COMPARISON: CR XR ANKLE LT MIN 3V 06/05/2022 10:14 AM FINDINGS: Bones and cartilage: Minimal marrow edema/contusion involving the lateral malleolus. A small adjacent ossific loose body/ avulsed fracture fragment is again seen. Artifact limits this study. Osseous cystic/edematous change adjacent to the calcaneocuboid joint, secondary to arthropathy. No dislocation of the ankle. Joint spaces: Small tibiotalar and subtalar joint effusions visualized. Effusion is identified lateral to the talus. LIGAMENTS: Distal tibiofibular syndesmosis: No visualized tear. Anterior talofibular ligament: No visualized tear. Posterior talofibular ligament: No visualized tear. Calcaneofibular ligament: Mild edema adjacent to the calcaneofibular ligament, suggestive of ligament sprain. Deltoid ligament complex: Heterogeneous signal intensity of the deltoid ligament, without visualized tear. TENDONS: Flexor tendons of foot: Unremarkable as visualized. Tibialis posterior tendon: Unremarkable as visualized. Peroneal tendons: Minimal tenosynovitis of the posterior tibialis tendon and peroneal tendons. Extensor tendons of foot: Unremarkable as visualized. Tibialis anterior tendon: Unremarkable as visualized. Achilles tendon: Edema is seen anterior to the Achilles tendon, consistent with paratenonitis. Tarsal canal (Sinus tarsi): Small cystic collections of fluid are identified dorsal to the talonavicular joint and within the sinus tarsi, consistent with ganglion cysts. Muscles: No visualized acute abnormality. Soft tissues: Minimal fluid within the retrocalcaneal bursa. Plantar fascia: Intact, as visualized. Evaluation limited by artifact. IMPRESSION: 1. Minimal marrow edema/contusion involving the lateral malleolus. A small adjacent ossific loose body/ avulsed fracture fragment is again seen. 2. Small effusions. 3. Achilles paratenonitis. 4. Minimal tenosynovitis of the posterior tibialis tendon and peroneal tendons. 5. Mild edema adjacent to the calcaneofibular ligament, suggestive of ligament sprain. 6. Additional findings described above.
== END ==
PROVIDERS: PCP Family Medicine; Visit Provider Orthopaedic Surgery
DX: M25.572 Pain in left ankle and joints of left foot (principal)
CPT/HCPCS: 73721

== ENCOUNTER 2022-07-13 15:28 | Outpatient (RCR) | payer BC, SELFPAY | END 2022-07-13 15:30 | disposition home or self-care (01) | LOC: PT 15:28 | PROVIDERS: PCP Family Medicine; Visit Provider Orthopaedic Surgery | DX: M25.572 Pain in left ankle and joints of left foot (principal) | CPT/HCPCS: 97163 ==

== ENCOUNTER → 2022-08-21 09:59 | Outpatient (CLI) | payer BC, SELFPAY ==
--- NOTE | 2022-08-21 10:03 | XR_ITS ---
FINAL REPORT CLINICAL HISTORY: ANKLE PAIN HX OF FX COMPARISON: 06/05/2022 FINDINGS: LEFT ANKLE Three views of the left ankle were obtained. A transverse avulsion fracture at the tip of the left lateral malleolus is noted without bony union. The joint spaces and mortise are intact. There is no soft tissue abnormality. IMPRESSION: Transverse avulsion fracture at the tip of the lateral malleolus without bony union. No new abnormality. Reviewed, Interpreted and Dictated by Colten Hogan MD Transcribed by Cherelle Mariano Authenticated and [facility]
== END ==
PROVIDERS: PCP Family Medicine; Visit Provider Orthopaedic Surgery
DX: M25.572 Pain in left ankle and joints of left foot (principal)
CPT/HCPCS: 73610

== ENCOUNTER → 2022-10-19 12:09 | Outpatient (CLI) | payer BC, SELFPAY ==
--- NOTE | 2022-10-19 12:18 | XR_ITS ---
FINAL REPORT CLINICAL HISTORY: lt ankle pain, hx of fx in March COMPARISON: July 2022 FINDINGS: LEFT ANKLE Three views. Redemonstration of an avulsion fracture of the tip of the lateral malleolus. No definite fusion of the fracture fragments. Fracture fragment appears more corticated. IMPRESSION: Stable avulsion fracture of the tip of the lateral malleolus. Reviewed, Interpreted and Dictated by Colten Hogan MD Transcribed by Rl Aguiar Authenticated and [facility]
== END ==
PROVIDERS: PCP Family Medicine; Visit Provider Orthopaedic Surgery
DX: S82.832A Other fracture of upper and lower end of left fibula, initial encounter for closed fracture (principal)
CPT/HCPCS: 73610

== ENCOUNTER 2023-04-14 23:40 | Emergency (ER) | payer BC, SELFPAY ==
[2023-04-14 23:40] VITALS: BP 177/99; PULSE 80; RESP 16; TEMP 37; O2SAT 99; BMI 27.4
--- NOTE | 2023-04-14 23:55 | ECG_ITS ---
APPROVED REPORT Exam: Resting ECG HR:71 bpm ECG Measurements Heart Rate 71 AXES DC 153 P 70 QRSd 84 QRS 34 QT 398 T 50 QTc 420 Conclusion SINUS RHYTHM NORMAL ECG UNCONFIRMED REPORT Electronically signed by : Herman Pedersen MD 04/15/2023 17:12:56
--- NOTE | 2023-04-15 | XR_ITS ---
PROCEDURE INFORMATION: Exam: XR Chest Exam date and time: 04/14/2023 11:56 PM Age: 57 years old Clinical indication: Other: High BP; Prior surgery; Surgery date: 6+ months; Surgery type: Port TECHNIQUE: Imaging protocol: Radiologic exam of the chest. Views: 2 views. COMPARISON: CR XR CHEST 2V 03/03/2022 7:43 PM FINDINGS: Tubes, catheters and devices: Right chest wall Port-A-Cath in good position. Lungs: Clear lungs. Pleural spaces: No pneumothorax. No sizable pleural effusion. Heart/Mediastinum: No cardiomegaly. Bones/joints: Unremarkable. IMPRESSION: Clear lungs.
[2023-04-15 00:01] VITALS: BP 161/98; PULSE 75; O2SAT 96
[2023-04-15 00:09] LABS: Basophils # 0.1 K/mm3 (0-0.2); Basophils % 1.1 % (0.1-2.0); Eosinophils # 0.2 K/mm3 (0.0-0.4); Eosinophils % 3.9 % (0.1-12.0); Hematocrit 40.6 % (37.0-47.0); Hemoglobin 12.8 g/dL (12.2-16.2); Lymphocytes # 1.4 K/mm3 (0.7-4.5); Lymphocytes % 33.5 % (10-50); Mean Corpuscular HGB Conc 31.6 g/dL (31.8-35.4); Mean Corpuscular Hemoglobin 28.6 pg (27.0-31.2); Mean Corpuscular Volume 90.3 fl (81-99); Mean Platelet Volume 10.3 fl (7.4-10.4); Monocytes # 0.8 K/mm3 (0.1-1.0); Monocytes % 19.3 % (1.7-9.3); Neutrophils # 1.7 K/mm3 (1.8-7.8); Neutrophils % 42.1 % (37.0-80.0); Platelet Count 116 K/mm3 (142-424); White Blood Count 4.1 K/mm3 (4.8-10.8)
--- NOTE | 2023-04-15 00:09 | PC.NURSE ---
pt back from xray
[2023-04-15 00:13] LABS: Chloride 99 mmol/L (98-107); Sodium 138 mmol/L (136-145)
[2023-04-15 00:14] LABS: Potassium 3.7 mmoL/L (3.5-5.1)
[2023-04-15 00:16] LABS: Alanine Aminotransferase 64 U/L (12-78); Albumin Level 3.5 g/dl (3.5-5.0); Alkaline Phosphatase 476 U/L (38-126); Anion Gap 10.7 mEq/L (5-15); Aspartate Amino Transferase 90 U/L (14-36); Bilirubin,Total 0.5 mg/dl (0.2-1.3); Blood Urea Nitrogen 8 mg/dl (7-17); Carbon Dioxide 32 mmol/L (22.0-30.0); Creatinine Clearance Estimated 143 mL/min (50-200); Estimated Glomerular Filt Rate 126 ml/min (>60); GFR (African American) 153 ML/MIN (>60)
[2023-04-15 00:17] LABS: Albumin/Globulin Ratio 1.3 (1.1-1.8); Calcium 9.2 mg/dl (8.4-10.2); Globulin 2.8 g/dL (1.3-3.2); Glucose 107 mg/dl (74-100); Total Protein,Serum 6.3 g/dl (6.3-8.2)
[2023-04-15 00:30] VITALS: BP 157/98; PULSE 75; O2SAT 96
--- NOTE | 2023-04-15 00:34 | CT_ITS ---
PROCEDURE INFORMATION: Exam: CT Head Without Contrast Exam date and time: 04/15/2023 12:50 AM Age: 57 years old Clinical indication: Pain; Headache TECHNIQUE: Imaging protocol: Computed tomography of the head without contrast. Radiation optimization: All CT scans at this facility use at least one of these dose optimization techniques: automated exposure control; mA and/or kV adjustment per patient size (includes targeted exams where dose is matched to clinical indication); or iterative reconstruction. REPORTING DATA: Count of CT and Cardiac NM exams in prior 12 months: This patient has received 0 known CTs and 0 known cardiac nuclear medicine studies in the 12 months prior to the current study. COMPARISON: No relevant prior studies available. FINDINGS: Brain: No evidence for acute transcortical infarct. No mass effect or midline shift. No extra-axial collection. No acute intracranial hemorrhage. Basal cisterns are patent. Cerebral ventricles: No ventriculomegaly. Paranasal sinuses: Visualized sinuses are unremarkable. No fluid levels. Mastoid air cells: Visualized mastoid air cells are well aerated. Bones/joints: Unremarkable. No acute fracture. Soft tissues: Unremarkable. IMPRESSION: No hydrocephalus, acute intracranial hemorrhage, or mass effect.
--- NOTE | 2023-04-15 00:46 | HMH.EDHA ---
Discharge Plan Disposition Patient Disposition: Home, Self-Care Chief Complaint: Headache Prescriptions Prescriptions: No Action lisinopril 20 mg tablet 20 mg PO DAILY olanzapine 5 mg tablet 5 mg PO DAILY amlodipine 10 mg tablet 10 mg PO DAILY dexamethasone 4 mg tablet 4 mg PO WEEKLY Ubrelvy 100 mg tablet 100 mg PO DAILY Label Comments: TAKE 1 TABLET BY MOUTH DAILY NEEDED FOR MIGRAINE HEADACHE Referrals Follow up/Referrals: Paul Arevalo MD [Primary Care Provider] - See instructions Clinical Impressions Clinical Impression: Hypertensive urgency, Colon cancer, Headache Instructions Patient Instructions: DI for Headache Discharge ED Provider: Sheri (ED),Ren Fernandez Headache HPI General Chief Complaint: Headache Stated Complaint: HBP Time Seen by Provider: 04/15/23 00:46 Mode of Arrival: Ambulatory Source of Information: Patient, Spouse and Medical Record Limitations: No Limitations Description of Symptoms (Recalled from ER Triage Doc. by RN): pt c/o MOONEY and elevated bp x 2weeks since starting chemo. pt started on norvasc today. History of Present Illness HPI Narrative: pt with elevated bp reported related to chemo for gi cancer - pt with assoc headache - has been compliant with meds Complaint: headache Onset (ago): day(s) Onset description: gradual Location: diffuse Severity: moderate Quality: different than previous headaches Context: other (gi cancer ) Associated symptoms: nausea Treatments prior to arrival: acetaminophen and ibuprofen Related Data Home Medications Medication Instructions Recorded Confirmed amlodipine 10 mg tablet 10 mg PO DAILY High blood pressure 04/14/23 04/14/23 dexamethasone 4 mg tablet 4 mg PO WEEKLY chemo 04/14/23 04/14/23 lisinopril 20 mg tablet 20 mg PO DAILY High blood pressure 04/14/23 04/14/23 olanzapine 5 mg tablet 5 mg PO DAILY . 04/14/23 04/14/23 ubrogepant 100 mg tablet (Ubrelvy) 100 mg PO DAILY Headache 04/14/23 04/14/23 Allergies Allergy/AdvReac Type Severity Reaction Status Date / Time Sulfa (Sulfonamide Allergy Verified 10/20/22 09:46 Antibiotics) sulfamethoxazole Allergy Verified 10/20/22 09:46 [From Bactrim] trimethoprim [From Bactrim] Allergy Verified 10/20/22 09:46 [facility] History Hepatitis A Screen Attestation statement:: This patient has been screened for Hepatitis A risk factors. I have reviewed the patient's past medical history: Yes Medical History: Reports: Cancer, Gastroesophageal Reflux Disease(GERD) and Migraine; Denies: Diabetes Mellitus Type 1, Diabetes Mellitus Type 2, Internal Pacemaker, Lung Disease, MRSA or Seizures Other Medical History: Reports Anemia and Arthritis; Denies Blood Transfusion Reaction Other Surgeries: No Pacemaker Amputation: No Fractures: No Comment: colon cancer, 08/09/19, took 14 inches of bowel ovaries removed 08/09/19 Social History Smoking Status: Never smoker Alcohol Intake: never Alcohol Intake Frequency:: holidays/special occasions only Substance Use Type: denies use Occupational Status: other Housing: house Household Members: spouse Family Hx:: Cancer, Diabetes, Hypertension, Stroke and Other PFSH [facility] Disclaimer: The information contained in this section may have been updated after the patient was seen, as this information can be updated by other users. Social History Smoking Status: Never smoker alcohol intake: never substance use type: denies use current occupational status: other Travel in the last 8 weeks: Inside the [place] household members: spouse housing: house current occupational exposures/hazards: No caffeine: No ROS Obtained: Yes All systems reviewed & no additional complaints except as documented Physical Exam General General appearance: alert Head Head exam: normocephalic Eye Eye exam: Present PERRL and EOMI ENT ENT exam: Present muc
[2023-04-15 00:52] LABS: Troponin I < 0.01 ng/ml (0.00-0.034)
[2023-04-15 01:00] VITALS: BP 147/90; PULSE 69; O2SAT 94
[2023-04-15 01:30] VITALS: BP 141/91; PULSE 78; RESP 16; O2SAT 96
[2023-04-15 01:55] VITALS: BP 141/91; PULSE 68; RESP 16; TEMP 37; O2SAT 96
== END 2023-04-15 02:06 | disposition home or self-care (01) ==
PROVIDERS: Emergency Provider Emergency Medicine; PCP Family Medicine
DX: I16.0 Hypertensive urgency (principal); R51.9 Headache, unspecified; C18.9 Malignant neoplasm of colon, unspecified
CPT/HCPCS: 70450; 71046; 80053; 84484; 85025; 93005; 96374; 96375; 99285; J2405

== ENCOUNTER 2023-05-13 20:30 | Emergency (ER) | payer OTHER, BC, SELFPAY ==
[2023-05-13 20:22] VITALS: BP 158/90; PULSE 90; O2SAT 97
[2023-05-13 20:30] VITALS: BP 154/98; PULSE 109; O2SAT 98
--- NOTE | 2023-05-13 20:37 | ECG_ITS ---
APPROVED REPORT Exam: Resting ECG HR:97 bpm ECG Measurements Heart Rate 97 AXES AR 148 P 62 QRSd 85 QRS 7 QT 340 T 34 QTc 395 Conclusion SINUS RHYTHM NORMAL ECG UNCONFIRMED REPORT Electronically signed by : Herman Pedersen MD 05/14/2023 21:30:44
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
[2023-05-13 21:00] VITALS: BP 155/88; PULSE 100; O2SAT 98
[2023-05-13 21:04] VITALS: BP 160/82; PULSE 98; RESP 16; TEMP 36.8; O2SAT 98
[2023-05-13 21:21] LABS: Chloride 104 mmol/L (98-107)
[2023-05-13 21:22] LABS: Potassium 3.8 mmoL/L (3.5-5.1)
[2023-05-13 21:24] LABS: Alanine Aminotransferase 100 U/L (12-78); Albumin Level 3.7 g/dl (3.5-5.0); Albumin/Globulin Ratio 1.2 (1.1-1.8); Alkaline Phosphatase 454 U/L (38-126); Aspartate Amino Transferase 106 U/L (14-36); Bilirubin,Total 0.5 mg/dl (0.2-1.3); Blood Urea Nitrogen 10 mg/dl (7-17); Calcium 9.2 mg/dl (8.4-10.2); Carbon Dioxide 26 mmol/L (22.0-30.0); Estimated Glomerular Filt Rate 102 ml/min (>60); Ethyl Alcohol < 10 mg/dl (0-10); GFR (African American) 124 ML/MIN (>60); Globulin 3.2 g/dL (1.3-3.2); Glucose 112 mg/dl (74-100); Total Protein,Serum 6.9 g/dl (6.3-8.2)
[2023-05-13 21:30] LABS: Activated Partial Thrombo Time 26.6 seconds (22.8-30.6); INR 0.95 (0.9-1.1); Prothrombin Time 10.3 seconds (10.1-12.5)
--- NOTE | 2023-05-13 21:30 | PC.NURSE ---
rounded on patient at this time. Updated on POC. No new needs and pain remains the same
[2023-05-13 21:36] LABS: Microscopic, Urine URINE MICROSCOPIC (MICROSCOPIC)
[2023-05-13 21:43] LABS: Anion Gap 13.8 mEq/L (5-15)
[2023-05-13 21:44] LABS: Sodium 140 mmol/L (136-145)
[2023-05-13 21:56] VITALS: BMI 25.9
[2023-05-13 21:57] LABS: Appearance,Urine CLEAR (Clear); Bilirubin,Urine Negative (Negative); Blood, Urine Negative (Negative); Color,Urine YELLOW (Yellow); Glucose,Urine (UA) Negative (Negative); Ketones,Urine Negative (Negative); Leukocyte Esterase,Urine TRACE (Negative); Nitrate,Urine Negative (Negative); PH,Urine 5.5 (5.0-8.5); Protein,Urine Negative (Negative); Urobilinogen,Urine 0.2 EU/dl (0.2)
[2023-05-13 22:10] LABS: Bacteria,Urine Trace /lpf; Mucus,Urine Trace /lpf
[2023-05-13 22:18] LABS: Amphetamine/Metha Screen,Urine Negative ng/ml (<1000); Benzodiazepines Screen,Urine Negative ng/ml (<200)
[2023-05-13 22:19] LABS: Barbiturates Screen,Urine Negative ng/ml (<200)
[2023-05-13 22:20] LABS: Cannabinoid Screen,Urine Negative ng/ml (<50); Cocaine Screen,Urine Negative ng/ml (<300)
[2023-05-13 22:21] LABS: Methadone Screen,Urine Negative ng/ml (<300); Opiate Screen,Urine Negative ng/ml (<300)
[2023-05-13 22:22] LABS: Phencyclidine Screen,Urine Negative ng/ml (<25)
--- NOTE | 2023-05-13 23:00 | PC.NURSE ---
rounded on patient at this time. Updated on POC. Drink provided. No new needs
[2023-05-14 00:27] VITALS: BP 150/85; PULSE 901; RESP 16; TEMP 36.6
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
[2023-05-14 03:46] VITALS: BMI 25.9
== END 2023-05-14 00:47 | disposition home or self-care (01) ==
PROVIDERS: Emergency Provider Emergency Medicine; PCP Family Medicine
DX: S20.212A Contusion of left front wall of thorax, initial encounter (principal); R91.8 Other nonspecific abnormal finding of lung field; K76.9 Liver disease, unspecified; K76.89 Other specified diseases of liver; V43.62XA Car passenger injured in collision with other type car in traffic accident, initial encounter
CPT/HCPCS: 70450; 70496; 71045; 71250; 72125; 72128; 72131; 72170; 74176; 80053; 80305; 81001; 85610; 85730; 93005; 93041; 96361; 96374; 99285; J0131; J1642; Q9967

== ENCOUNTER → 2023-09-09 13:13 | Outpatient (CLI) | payer BC, SELFPAY ==
[2023-09-09 13:33] LABS: Hematocrit 31.4 % (37.0-47.0); Hemoglobin 10.3 g/dL (12.2-16.2); Mean Corpuscular HGB Conc 32.9 g/dL (31.8-35.4); Mean Corpuscular Hemoglobin 25.4 pg (27.0-31.2); Mean Corpuscular Volume 77.2 fl (81-99); Platelet Count 276 K/mm3 (142-424); Red Blood Count 4.06 M/mm3 (4.20-5.40); Red Cell Distribution Width 18.2 % (11.5-17.5); White Blood Count 5.9 K/mm3 (4.8-10.8)
[2023-09-09 14:26] LABS: Alanine Aminotransferase 20 U/L (12-78); Albumin Level 3.4 g/dl (3.5-5.0); Albumin/Globulin Ratio 1.2 (1.1-1.8); Alkaline Phosphatase 192 U/L (38-126); Anion Gap 14.3 mEq/L (5-15); Aspartate Amino Transferase 36 U/L (14-36); Bilirubin,Total 0.8 mg/dl (0.2-1.3); Blood Urea Nitrogen 6 mg/dl (7-17); Calcium 9.3 mg/dl (8.4-10.2); Carbon Dioxide 27 mmol/L (22.0-30.0); Chloride 95 mmol/L (98-107); Estimated Glomerular Filt Rate 86 ml/min (>60); GFR (African American) 104 ML/MIN (>60); Globulin 2.8 g/dL (1.3-3.2); Glucose 113 mg/dl (74-100); Potassium 4.3 mmoL/L (3.5-5.1); Sodium 132 mmol/L (136-145); Total Protein,Serum 6.2 g/dl (6.3-8.2)
[2023-09-11 10:11] LABS: Prealbumin 11 mg/dL (10-36)
== END ==
PROVIDERS: PCP Family Medicine; Visit Provider Surgery
DX: C19 Malignant neoplasm of rectosigmoid junction (principal)
CPT/HCPCS: 36415; 80053; 84134; 85014; 85018; 85048; 85049

== ENCOUNTER → 2023-09-10 11:08 | Outpatient (CLI) | payer BC, SELFPAY ==
--- NOTE | 2023-09-10 11:19 | XR_ITS ---
FINAL REPORT CLINICAL HISTORY: SOB COMPARISON: None FINDINGS: Two views of the chest were obtained. A right chest port is present with its tip in the lower superior vena cava. The heart size and pulmonary vascularity are within normal limits. The mediastinum is normal. There is a patchy left base opacity, atelectasis or pneumonia. There is no pneumothorax. The bony thorax is intact. IMPRESSION: Patchy left base opacity, atelectasis or pneumonia. Reviewed, Interpreted and Dictated by Ahmet Rivera III, MD Transcribed by Christi Dunbar Authenticated and [facility]
== END ==
PROVIDERS: PCP Family Medicine; Visit Provider Internal Medicine Pulmonary Disease
DX: R06.02 Shortness of breath (principal)
CPT/HCPCS: 71046

== ENCOUNTER 2023-09-13 15:31 | Observation (INO) | payer BC, SELFPAY ==
[2023-09-13 16:28] VITALS: BP 119/70; PULSE 107; RESP 16; TEMP 36.8; O2SAT 96; BMI 21.8
--- NOTE | 2023-09-13 17:25 | CT_ITS ---
PROCEDURE INFORMATION: Exam: CT Abdomen And Pelvis With Contrast Exam date and time: 09/13/2023 6:05 PM Age: 57 years old Clinical indication: Abdominal pain; Generalized; Additional info: Diffuse pain, previous colon cancer TECHNIQUE: Imaging protocol: Computed tomography of the abdomen and pelvis with contrast. Radiation optimization: All CT scans at this facility use at least one of these dose optimization techniques: automated exposure control; mA and/or kV adjustment per patient size (includes targeted exams where dose is matched to clinical indication); or iterative reconstruction. Contrast material: ISOVUE; Contrast volume: 75 ml; Contrast route: IV; REPORTING DATA: Count of CT and Cardiac NM exams in prior 12 months: This patient has received 8 known CTs and 0 known cardiac nuclear medicine studies in the 12 months prior to the current study. COMPARISON: CT ABDOMEN PELVIS WO CON 05/13/2023 10:01 PM FINDINGS: Tubes, catheters and devices: Central venous catheter terminates in the right atrium. Lungs: Ground-glass opacities in the right upper lobe, lingula, and left lower lobe. Mild right lower lobe atelectasis. 5 mm noncalcified nodule versus atelectasis in the right costophrenic sulcus. Diaphragm: Small hiatal hernia. Liver: Status post resection of the lateral segment of the left hepatic lobe. Resection defect in the posterior segment of the right lobe. New 2.6 cm and 1.2 cm low-density lesions in the medial segment of the left hepatic lobe. Unchanged 0.9 cm medial segment left lobe, 0.5 cm posterior segment right lobe, and 4.1 cm posterior segment right lobe cysts. 2.7 cm hypervascular lesion in the right hepatic lobe at the dome appears to have been present at is a subtle hypodense lesion previously. Scattered calcified granulomas. Gallbladder and bile ducts: Status post cholecystectomy. No significant biliary ductal dilitation. Pancreas: Normal. No ductal dilation. Spleen: Calcified granulomas in the spleen. No splenomegaly. Adrenal glands: Normal. No mass. Kidneys and ureters: Normal. No hydronephrosis. Stomach and bowel: Status post right hemicolectomy. Extensive distal ileal small bowel wall thickening. No bowel obstruction. Sigmoid colon diverticulosis. Appendix: No evidence of appendicitis. Intraperitoneal space: Interval development of a large amount of ascites. Mesenteric fatty infiltration in the right lower quadrant. Vasculature: Unremarkable. No abdominal aortic aneurysm. Lymph nodes: Unremarkable. No enlarged lymph nodes. Urinary bladder: Unremarkable as visualized. Reproductive: Unremarkable as visualized. Bones/joints: Punctate sclerotic lesion at L5 is unchanged and is probably a bone island. Mild lumbar spine degenerative change. Soft tissues: Scarring from previous ventral laparotomy. Small fat containing umbilical hernia. IMPRESSION: 1. Previous hepatic segmentectomy. 2. New low-density lesions in the medial segment left lobe are suspicious for metastatic disease. 3. Interval development of a large amount of ascites. Infiltrative appearance to the mesentery in the right lower quadrant could be secondary to the ascites but raises possibility of omental carcinomatosis. 4. Extensive distal ileal small bowel wall thickening consistent with enteritis which could be secondary to infection, ischemia, or radiation. 5. Ground-glass densities at the lung bases could be atelectasis or pneumonia. 6. Possible 5 mm noncalcified nodule at the right lung base versus atelectasis. Recommend attention on follow-up. 7. 2.7 cm hypervascular lesion at the dome of the liver is probably a benign lesion and, if needed, could be characterized with liver MRI. 8. Prior granulomatous disease. Elect
--- NOTE | 2023-09-13 17:27 | HMH.EDGENADL ---
Discharge Plan Disposition Patient Disposition: Admitted Chief Complaint: Abdominal Pain Clinical Impressions Clinical Impression: Metastatic disease, Abdominal pain, Abdominal carcinomatosis, Nausea Discharge ED Provider: Mook Sierra General Adult HPI General Chief complaint: Abdominal Pain Stated complaint: vomiting, diarrhea Time Seen by Provider: 09/13/23 17:00 Mode of Arrival: Wheelchair Source of Information: Patient Limitations: No Limitations Description of Symptoms (Recalled from ER Triage Doc. by RN): Pt arrives via wheelchair from home. C/O severe abdominal pain with intermittent cramping that began last night. Pt states that she woke up this morning with nausea, vomiting and diarrhea. History of Present Illness HPI narrative: Patient is a 57-year-old female with past medical history of colon cancer status postresection, previous partial lobectomy of the liver who presents emergency department for evaluation of abdominal pain. Onset was acute, occurring last night middle of the night, waking her from sleep, location varies but is predominantly radiating bilateral upper quadrants and periumbilical. There is associated nonbloody vomiting, last bowel movement this afternoon. No other acute complaints at this time. Related Data Home Medications Medication Instructions Recorded Confirmed lisinopril 20 mg tablet 20 mg PO DAILY High blood pressure 04/14/23 09/10/23 olanzapine 5 mg tablet 5 mg PO DAILY . 04/14/23 09/10/23 ubrogepant 100 mg tablet (Ubrelvy) 100 mg PO DAILY Headache 04/14/23 09/10/23 furosemide 40 mg tablet (Lasix) 40 mg PO DAILY 09/10/23 09/10/23 spironolactone 100 mg tablet 100 mg PO DAILY 09/10/23 09/10/23 Allergies Allergy/AdvReac Type Severity Reaction Status Date / Time Sulfa (Sulfonamide Allergy Verified 09/10/23 10:21 Antibiotics) sulfamethoxazole Allergy Verified 09/10/23 10:21 [From Bactrim] trimethoprim [From Bactrim] Allergy Verified 09/10/23 10:21 [facility] Disclaimer: The information contained in this section may have been updated after the patient was seen, as this information can be updated by other users. Medical History (Updated 09/13/23 @ 20:23 by Mook Sierra MD) Dysrhythmia Surgical History (Updated 09/10/23 @ 11:03 by Tonya Larsen) History of colonoscopy History of partial surgical removal of colon History of removal of both ovaries History of surgery of liver History of tubal ligation Family History Other Cancer Hypertension Social History (Updated 09/10/23 @ 10:27 by Tonya Larsen) Smoking Status: Never smoker alcohol intake: never substance use type: denies use current occupational status: other Travel in the last 8 weeks: None household members: spouse housing: house current occupational exposures/hazards: No caffeine: No ROS Obtained: Yes Systems reviewed as appropriate & no additional complaints except as documented Physical Exam General General appearance: alert and in no apparent distress Head Head exam: atraumatic and normocephalic Eye Eye exam: Present PERRL and EOMI ENT ENT exam: Present mucous membranes moist Neck Neck exam: Present normal inspection Chest Chest inspection: Present normal inspection and symmetric chest wall rise Respiratory Respiratory exam: Present normal lung sounds bilaterally; Absent respiratory distress Cardiovascular Cardiovascular exam: Present regular rate and normal rhythm Abdominal Exam Abdominal exam: Present soft, tenderness (Diffuse) and other (Well-healed midline surgical scar); Absent guarding, rebound or rigidity Extremities Exam Extremities exam: Present normal inspection and other (No pitting edema) Neurological Exam Neurological exam: Present alert Psychiatric Psychiatric exam: Present normal affect Skin Skin exam: Present warm and dry Medical Decision Making Ari Inquiry Pt receiving controlled sub
[2023-09-13 17:48] LABS: Basophils % 0.4 % (0.1-2.0); Eosinophils % 0.4 % (0.1-12.0); Hematocrit 38.3 % (37.0-47.0); Hemoglobin 12.5 g/dL (12.2-16.2); Lymphocytes % 11.3 % (10-50); Mean Corpuscular HGB Conc 32.6 g/dL (31.8-35.4); Mean Corpuscular Volume 76.6 fl (81-99); Monocytes # 0.5 K/mm3 (0.1-1.0); Monocytes % 5.7 % (1.7-9.3); Neutrophils # 7.4 K/mm3 (1.8-7.8); Neutrophils % 82.2 % (37.0-80.0); Platelet Count 277 K/mm3 (142-424); Red Blood Count 5.01 M/mm3 (4.20-5.40)
[2023-09-13 17:52] LABS: Chloride 98 mmol/L (98-107)
[2023-09-13 17:53] LABS: Potassium 4.3 mmoL/L (3.5-5.1); Sodium 133 mmol/L (136-145)
[2023-09-13 17:55] LABS: Alanine Aminotransferase 24 U/L (12-78); Alkaline Phosphatase 199 U/L (38-126); Anion Gap 12.3 mEq/L (5-15); Aspartate Amino Transferase 43 U/L (14-36); Bilirubin,Total 0.8 mg/dl (0.2-1.3); Blood Urea Nitrogen 9 mg/dl (7-17); Carbon Dioxide 27 mmol/L (22.0-30.0); Creatinine Clearance Estimated 95 mL/min (50-200); Estimated Glomerular Filt Rate 102 ml/min (>60); GFR (African American) 124 ML/MIN (>60); Lactic Acid 1.3 mmol/L (0.7-2.1)
[2023-09-13 17:56] LABS: Albumin Level 3.5 g/dl (3.5-5.0); Albumin/Globulin Ratio 1.1 (1.1-1.8); Calcium 8.9 mg/dl (8.4-10.2); Globulin 3.2 g/dL (1.3-3.2); Glucose 119 mg/dl (74-100); Lipase 60 U/L (23-300); Total Protein,Serum 6.7 g/dl (6.3-8.2)
[2023-09-13 19:00] VITALS: BP 105/70; PULSE 99; O2SAT 96
--- NOTE | 2023-09-13 19:17 | PC.NURSE ---
Dr. Sierra in room giving update on scans
--- NOTE | 2023-09-13 19:23 | PC.NURSE ---
O/p with transfer center at this time.
--- NOTE | 2023-09-13 19:30 | PC.NURSE ---
o/p with at this time.
[2023-09-13 19:34] LABS: Microscopic, Urine URINE MICROSCOPIC (MICROSCOPIC)
[2023-09-13 19:35] LABS: Appearance,Urine CLEAR (Clear); Blood, Urine Negative (Negative); Color,Urine YELLOW (Yellow); Glucose,Urine (UA) Negative (Negative); Ketones,Urine Negative (Negative); Leukocyte Esterase,Urine Negative (Negative); Nitrate,Urine Negative (Negative); PH,Urine 5.5 (5.0-8.5); Protein,Urine TRACE (Negative); Urobilinogen,Urine 0.2 EU/dl (0.2)
[2023-09-13 19:44] LABS: Bilirubin,Urine 2+ (Negative)
[2023-09-13 20:00] VITALS: BP 119/80; PULSE 103; O2SAT 96
[2023-09-13 20:04] LABS: RBC,Urine Occasional #/hpf (0-3)
[2023-09-13 20:16] VITALS: BMI 22.8
[2023-09-13 20:28] VITALS: BP 119/80; PULSE 109; RESP 17; TEMP 36.6; O2SAT 94
--- NOTE | 2023-09-13 20:33 | PC.NURSE ---
Report to [facility]; awaiting transaport
[2023-09-13 20:50] VITALS: BP 129/87; PULSE 109; RESP 16; TEMP 36.8; O2SAT 97
--- NOTE | 2023-09-13 21:08 | PC.NURSE ---
pt arrived to floor via wheelchair @[id number]
[2023-09-14 04:00] VITALS: BP 118/76; PULSE 94; RESP 16; TEMP 37.1; O2SAT 94; BMI 22.7
--- NOTE | 2023-09-14 06:47 | PC.NURSE ---
pt has rest well since DTA. weakness noted, uses standby and walker. pain controlled per MAR. otherwise, no complaints and still awaiting bed at . pt states her will drive her there when bed opens, refuses EMS transport.
[2023-09-14 07:47] VITALS: BP 144/84; PULSE 96; RESP 17; TEMP 37.1; O2SAT 96
--- NOTE | 2023-09-14 08:57 | EXP.HP ---
History of Present Illness *Admission Date: 09/13/23 *Reason for visit:: Abdominal cramping with nausea and vomiting and some diarrhea [facility] Disclaimer: The information contained in this section may have been updated after the patient was seen, as this information can be updated by other users. Medical History (Updated 09/13/23 @ 21:05 by Mary Alonzo RN) Dysrhythmia Tachycardia Surgical History (Updated 09/13/23 @ 21:05 by Mary Alonzo RN) History of cholecystectomy History of colonoscopy History of partial surgical removal of colon History of removal of both ovaries History of surgery of liver History of tubal ligation Family History (Updated 09/13/23 @ 21:06 by Mary Alonzo RN) Pancreatic cancer Mother Cancer Hypertension Multiple myeloma Father Social History (Updated 09/13/23 @ 21:07 by Mary Alonzo RN) Smoking Status: Never smoker alcohol intake: current substance use type: denies use current occupational status: other Travel in the last 8 weeks: None household members: spouse housing: house current occupational exposures/hazards: No caffeine: No Meds Home Medications and Allergies Home Medications Medication Instructions Recorded Confirmed Type ubrogepant 100 mg tablet (Ubrelvy) 100 mg PO DAILY PRN Headache 04/14/23 09/10/23 History spironolactone 100 mg tablet 100 mg PO DAILY 09/10/23 09/13/23 History Bacillus coagulans-inulin 1 1 cap PO DAILY 09/13/23 09/13/23 History billion cell-250 mg capsule (Probiotic Formula (inulin)) cholestyramine-aspartame 4 gram 1 ea PO BID 09/14/23 History oral powder for susp in a packet (Cholestyramine Light) furosemide 20 mg tablet 20 mg PO DAILY 09/14/23 09/14/23 History lisinopril 20 mg tablet 20 mg PO DAILY 09/14/23 History pantoprazole 40 mg tablet,delayed 40 mg PO DAILY 09/14/23 History release potassium chloride 20 mEq 40 meq PO BID 09/14/23 History tablet,extended release(part/cryst) ursodiol 300 mg capsule 300 mg PO BID 09/14/23 History New Prescriptions to Start Prescriptions: Allergies Allergy/AdvReac Type Severity Reaction Status Date / Time Sulfa (Sulfonamide Allergy Verified 09/10/23 10:21 Antibiotics) sulfamethoxazole Allergy Verified 09/10/23 10:21 [From Bactrim] trimethoprim [From Bactrim] Allergy Verified 09/10/23 10:21 Exam Data for Last 24 hours Vital signs and Labs for Last 24 Hours: Temp Pulse Resp BP Pulse Ox O2 Del Method 98.7 F 96 H 17 144/84 H 96 Room Air 09/14/23 07:47 09/14/23 07:47 09/14/23 07:47 09/14/23 07:47 09/14/23 07:47 09/14/23 07:47 Laboratory Results - last 24 hr 09/13/23 17:37: WBC 9.0, RBC 5.01, Hgb 12.5, Hct 38.3, MCV 76.6 L, MCH 25.0 L, MCHC 32.6, RDW 18.0 H, Plt Count 277, MPV 9.0, Neut % (Auto) 82.2 H, Lymph % (Auto) 11.3, [place] % (Auto) 5.7, Eos % (Auto) 0.4, Baso % (Auto) 0.4, Neut # (Auto) 7.4, Lymph # (Auto) 1.0, [place] # (Auto) 0.5, Eos # (Auto) 0.0, Baso # (Auto) 0.0, Sodium 133 L, Potassium 4.3, Chloride 98, Carbon Dioxide 27, Anion Gap 12.3, BUN 9, Creatinine 0.60, Estimated Creat Clear 95, Estimated GFR 102, Est GFR ( Amer) 124, Glucose 119 H, Lactate 1.3, Calcium 8.9, Total Bilirubin 0.8, AST 43 H, ALT 24, Alkaline Phosphatase 199 H, Total Protein 6.7, Albumin 3.5, Globulin 3.2, Albumin/Globulin Ratio 1.1, Lipase 60 09/13/23 19:27: Urine Color Yellow, Urine Appearance Clear, Urine pH 5.5, Ur Specific [place] 1.020, Urine Protein Trace, Urine Glucose (UA) Negative, Urine Ketones Negative, Urine Blood Negative, Urine Nitrate Negative, Urine Bilirubin 2+ A, Urine Urobilinogen 0.2, Ur Leukocyte Esterase Negative, Urine RBC Occasional, Urine WBC None, Ur Squamous Epith Cells 5-10, Urine Bacteria None I & O for Last 24 hours: Intake & Output 09/11/23 09/12/23 09/13/23 09/14/23 11:59 11:59 11:59 11:59 Intake Total 947 / 947 Output Total 0 / 0 Balance 947 / 947 [place]
--- NOTE | 2023-09-14 12:25 | EXP.ACUTE.PN ---
Subjective *Date: 09/14/23 *Time: 12:25 Interval history: Patient with metastatic colon cancer, treated at , admitted overnight with intractable vomiting with plans to be transferred to . Patient feels better today, does not want to go to now, plan for outpatient f/u with oncologist. Medical Exam Vital signs and Labs for Last 24 Hours: Vital Signs Temp Pulse Pulse Resp BP BP Pulse Ox 09/14/23 11:00 09/14/23 09:00 09/14/23 07:47 98.7 F 96 H 17 144/84 H 96 09/14/23 06:44 09/14/23 04:53 09/14/23 04:00 98.8 F 94 H 16 118/76 94 L 09/14/23 02:38 09/14/23 01:00 09/13/23 23:00 09/13/23 21:56 09/13/23 21:00 09/13/23 20:50 98.3 F 109 H 16 129/87 97 09/13/23 20:28 97.9 F 109 H 17 119/80 09/13/23 20:00 103 H 119/80 96 09/13/23 19:00 99 H 105/70 L 96 09/13/23 16:28 98.2 F 107 H 16 119/70 96 O2 Del Method 09/14/23 11:00 Room Air 09/14/23 09:00 Room Air 09/14/23 07:47 Room Air 09/14/23 06:44 Room Air 09/14/23 04:53 Room Air 09/14/23 04:00 Room Air 09/14/23 02:38 Room Air 09/14/23 01:00 Room Air 09/13/23 23:00 Room Air 09/13/23 21:56 Room Air 09/13/23 21:00 Room Air 09/13/23 20:50 Room Air 09/13/23 20:28 Room Air 09/13/23 20:00 Room Air 09/13/23 19:00 Room Air 09/13/23 16:28 Room Air Intake and Output 09/13/23 09/14/23 09/14/23 23:59 07:59 15:59 Intake Total 947 / 1187 240 / 1187 Output Total 0 / 0 Balance 947 / 1187 240 / 1187 Intake: Intake, Oral Amount 240 / 480 240 / 480 Intake, Other Amount Intake, Total IV Amount 697 / 697 Lactated Ringers 1000ML 1,000 697 / 697 ml @ 75 mls/hr IV .[id number] [facility] Rx#:[id number] Output: Output, Urine Amount 0 / 0 Other: Intake, Other Source Saline Solution Number of Unmeasured Voids 1 Weight 136 lb 14.4 oz 136 lb 9 oz Patient Weight 09/14/23 23:59 Weight 136 lb 9 oz Laboratory Results - last 24 hr 09/13/23 17:37: WBC 9.0, RBC 5.01, Hgb 12.5, Hct 38.3, MCV 76.6 L, MCH 25.0 L, MCHC 32.6, RDW 18.0 H, Plt Count 277, MPV 9.0, Neut % (Auto) 82.2 H, Lymph % (Auto) 11.3, [place] % (Auto) 5.7, Eos % (Auto) 0.4, Baso % (Auto) 0.4, Neut # (Auto) 7.4, Lymph # (Auto) 1.0, [place] # (Auto) 0.5, Eos # (Auto) 0.0, Baso # (Auto) 0.0, Sodium 133 L, Potassium 4.3, Chloride 98, Carbon Dioxide 27, Anion Gap 12.3, BUN 9, Creatinine 0.60, Estimated Creat Clear 95, Estimated GFR 102, Est GFR ( Amer) 124, Glucose 119 H, Lactate 1.3, Calcium 8.9, Total Bilirubin 0.8, AST 43 H, ALT 24, Alkaline Phosphatase 199 H, Total Protein 6.7, Albumin 3.5, Globulin 3.2, Albumin/Globulin Ratio 1.1, Lipase 60 09/13/23 19:27: Urine Color Yellow, Urine Appearance Clear, Urine pH 5.5, Ur Specific [place] 1.020, Urine Protein Trace, Urine Glucose (UA) Negative, Urine Ketones Negative, Urine Blood Negative, Urine Nitrate Negative, Urine Bilirubin 2+ A, Urine Urobilinogen 0.2, Ur Leukocyte Esterase Negative, Urine RBC Occasional, Urine WBC None, Ur Squamous Epith Cells 5-10, Urine Bacteria None I & O for Labs for Last 24 Hours: Intake & Output 09/11/23 09/12/23 09/13/2309/14/23 23:59 23:59 23:59 23:59 Intake Total 1187 / 1187 Output Total 0 / 0 Balance 1187 / 1187 Weight 136 lb 14.4 oz 136 lb 9 oz Constitutional: Present no acute distress (weight loss evident) Assessment and Plan *Assessment and plan (1) Vomiting: Status: Acute Category: Medical Code(s): R11.10 - Vomiting, unspecified (2) Nausea: Status: Acute Category: Medical Code(s): R11.0 - Nausea (3) Abdominal pain: Status: Acute Category: Medical Code(s): R10.9 - Unspecified abdominal pain (4) Abdominal carcinomatosis: Status: Acute Category: Medical Code(s): C76.2 - Malignant neoplasm of abdomen (5) Metastatic disease: Status: Acute Cat
--- NOTE | 2023-09-14 12:40 | EXP.HPDC ---
General Admission date:: 09/13/23 Discharge date: 09/14/23 *Admission Date: 09/13/23 *Chief complaint: Abdominal cramping; nausea and vomiting. *History of present illness: Ms. Grajeda is a 57-year-old female with a history of cecal cancer with Metachromous metastasis to the liver 09/2022 with colon resection 2019 and chemotherapy; 07/05/2023 exploratory lap with lysis of adhesions, liver ultrasound, segment 5 microwave ablation, left lateral segmentectomy, segment 7 partial hepatectomy, cholecystectomy by Dr. Flowers at [facility]. With the latest surgery in June 2023 she was hospitalized for 22 days and required mechanical ventilation for 3 days due to acute respiratory failure. After the acute illness she was unable to walk or even move her legs and that she went to [facility] for rehab. There she was able to again walk with a walker. She did develop abdominal cramping during this time and required 3 more days of hospitalization at for an ileitis. She has had also had several paracentesis for fluid accumulation/ascites. She has developed neuropathy and had extreme lower extremity edema which greatly improved with the addition of Lasix and spironolactone She had sudden onset of abdominal cramping p.m. of 09/12/2023 followed by day of vomiting and some diarrhea. She states since her cholecystectomy she does have diarrhea most of the time in small amounts. She states she had hot and cold chills as well and has sweating episodes. She has a minimal dry cough. She denies any hematemesis hematochezia or melena. With evaluation in the emergency room vital signs were stable. Patient received hydromorphone as well as morphine along with Phenergan and Zofran for discomfort and nausea and vomiting. She received a couple liters of fluid boluses as well. Case was discussed with admitting physician at who accepted the patient and would put her hide on the waiting list. She was admitted at [facility] for symptom control. Kidney function was normal couple of the liver function studies were elevated and electrolytes were normal. BUN and creatinine were normal as well. At the time of this exam patient is to experience some nausea and abdominal cramping. Her wish at this point is to be discharged and to follow-up with her oncology group at the [facility]. She does not want to be admitted to . She will discuss with Dr. Arevalo. [facility] Disclaimer: The information contained in this section may have been updated after the patient was seen, as this information can be updated by other users. Medical History (Updated 09/14/23 @ 12:27 by Paul Arevalo MD) Colon cancer Degenerative disc disease Dysrhythmia Metastatic disease Tachycardia Surgical History (Updated 09/13/23 @ 21:05 by Mary Alonzo RN) History of cholecystectomy History of colonoscopy History of partial surgical removal of colon History of removal of both ovaries History of surgery of liver History of tubal ligation Family History (Updated 09/13/23 @ 21:06 by Mary Alonzo RN) Pancreatic cancer Mother Cancer Hypertension Multiple myeloma Father Social History (Updated 09/13/23 @ 21:07 by Mary Alonzo RN) Smoking Status: Never smoker alcohol intake: current substance use type: denies use current occupational status: other Travel in the last 8 weeks: None household members: spouse housing: house current occupational exposures/hazards: No caffeine: No Review of Systems Constitutional Constitutional: Reports body ache(s), Reports chills, Reports excessive sweating, Reports fatigue, Denies fever(s), Denies frequent falls, Reports headache(s), Reports poor appetite, Reports weakness and Reports weight loss Eyes Eyes: Denies change in vision ENT Ears, Nose, Mouth, and Throat: Reports dizziness, Reports dry mouth, Denies otalgia, Reports headache(s) and Denies sore throat *
--- NOTE | 2023-09-14 13:24 | HMH.PHAINT1 ---
Pharmacy Intervention Comments: DISCHARGE MEDICATION COUNSELING PROVIDED. DISCUSSED STARTING THE FOLLOWING: -ZOFRAN 4 MG ODT (FOR N/V, EVERY 6 HOURS NEEDED, PLACE UNDER TONGUE AND ALLOW TO DISSOLVE, CONSTIPATION/HEADACHE POSSIBLE) -OXYCODONE 5 MG (FOR PAIN, EVERY 4 HOURS NEEDED, IF NOT IN PAIN YOU DONT HAVE TO TAKE, SEDATION, CONSTIPATION, DIZZINESS POSSIBLE, TAKE WITH FOOD/SNACK IT MAY CAUSE UPSET STOMACH) -PROMETHAZINE (FOR N/V, EVERY 6 HOURS NEEDED, DIZZINESS, SEDATION, DRY MOUTH, CONSTIPATION POSSIBLE) PATIENT VERBALIZED NO QUESTIONS AT THIS TIME.
--- NOTE | 2023-09-15 15:27 | CARE MANAGER ---
Called and spoke with patient to discuss recent discharge. Patient states that she is doing better, no concerns voiced at time of call. She also states that she has started all new medication and plans to call and schedule a f/u appt with Dr. Arevalo.
== END 2023-09-14 13:52 | disposition home or self-care (01) ==
LOC: ER 16:15 → 2ND 20:23
PROVIDERS: Admitting Provider Family Medicine; Emergency Provider Emergency Medicine; PCP Family Medicine; Visit Provider Family Medicine
DX: R11.10 Vomiting, unspecified (principal); Z79.899 Other long term (current) drug therapy; R11.0 Nausea; R10.9 Unspecified abdominal pain; C18.0 Malignant neoplasm of cecum; C78.7 Secondary malignant neoplasm of liver and intrahepatic bile duct; C79.89 Secondary malignant neoplasm of other specified sites
CPT/HCPCS: 74177; 80053; 81001; 83605; 83690; 85025; 99285; G0378; J0131; J2405; Q9967

== ENCOUNTER → 2023-09-24 13:07 | Outpatient (CLI) | payer BC, SELFPAY ==
--- NOTE | 2023-09-24 13:53 | CA_ITS ---
APPROVED REPORT EXAM: Comprehensive 2D, Doppler, and color-flow Echocardiogram Copier Operator: Melany Connelly, RT(R) Ht: 5 ft 5 in Wt: 135lbs BSA: 1.67 BP: 119/74 mmHg Indications: cecal Cancer, mets to liver, just completed chemo 05/2023, recent liver resection, arrhythmia, dilated pulmonary artery seen on CT chest. 2D Dimensions LVOT 1.95 cm (M/F) 1.5-2.5 LVEF (Shepherd's) 65.40 % F: 54 - 74 LV Volume 57.30 mL F: 46 - 106 LV Volume Index 34.11 mL/m2 F: 29 - 61 LA Volume 45.30 mL LA Volume Index 26.96 mL/m2 (M/F) 16-34 M-Mode Dimensions RVDd 3.15 cm (0.9-2.6) LA Diam 3.84 cm (1.9-4.0) LVDd 3.76 cm (3.5-5.7) Ao Diam 2.40 cm (2.0-3.7) LVDs 2.94 cm (3.5-5.7) IVSd 0.90 cm (0.6-1.1) PWd 0.72 cm (0.6-1.1) EF (Teich) 44.90% FS 21.80% EDV (Teich) 60.40 mL TAPSE 1.61 (<1.7) ESV (Teich) 33.30 mL LV Diastology E Decel Time 150.00 (160-240 msec) E/A Ratio 0.7 MED E' 8.90 (< 7 cm/sec) E'/MED E' Ratio 6.26 (>14) LAT E' 10.20 (<10 cm/sec) E/LAT E' Ratio 5.46 (>14) Mitral Valve MV E Max Alvaro. 56.00 (40-130 cm/s) MV A Velocity 82.00 (40-130 cm/s) E/A Ratio 0.68 MV Decel. Time 150.00 (160-240 ms) MV PHT 44.00 ms Tricuspid Valve TR P. Velocity 271.00 cm/s RAP Estimate 10.00 mmHg RVSP 39.50 mmHg Left Ventricle The left ventricle is normal size. The left ventricular systolic function is normal. The left ventricular ejection fraction is within the normal range. There is normal left ventricular wall thickness. There is normal LV segmental wall motion. Diastolic function is indeterminate. LVEF is 55%. Right Ventricle Right ventricle moderately is moderately dilated. Mildly dilated. The right ventricular systolic function is mildly reduced. Atria Left atrium is mildly dilated. Right atrium is mildly dilated. The interatrial septum is not well visualized. Aortic Valve The aortic valve is mildly thickened. There is no aortic valvular stenosis. No aortic regurgitation is present. Mitral Valve The mitral valve leaflets are mildly thickened. No evidence of mitral valve stenosis. Mild mitral regurgitation. Tricuspid Valve The tricuspid valve leaflets are thin and pliable. Mild tricuspid regurgitation. RVSP is 30 mmHg+ RA pressure. Pulmonic Valve The pulmonary valve is normal in structure. Trace pulmonic regurgitation. Great Vessels The aortic root is normal in size. The ascending aorta is normal in size. The IVC is not well-visualized. Pericardium There is no pericardial effusion. Other Information Study Quality: Technically Difficult Conclusion The difficult study due to poor acoustic windows. Normal LV systolic function. Moderate RV dilation with mild reduction in RV systolic function. Mild MR. Mild TR. RVSP 30 mmHg + RA pressure. Electronically signed by : Aisha Thomas MD 09/28/2023 20:59:45
== END ==
PROVIDERS: PCP Family Medicine; Visit Provider Internal Medicine Pulmonary Disease
DX: R06.02 Shortness of breath (principal); I49.9 Cardiac arrhythmia, unspecified
CPT/HCPCS: 93225; 93306; 94060; 94618; 94727; 94729

== ENCOUNTER → 2023-10-01 13:29 | Outpatient (CLI) | payer BC, SELFPAY ==
[2023-10-01 13:47] LABS: Hematocrit 35.4 % (37.0-47.0); Hemoglobin 11.5 g/dL (12.2-16.2); Mean Corpuscular HGB Conc 32.5 g/dL (31.8-35.4); Mean Corpuscular Hemoglobin 24.5 pg (27.0-31.2); Mean Corpuscular Volume 75.4 fl (81-99); Platelet Count 319 K/mm3 (142-424); Red Blood Count 4.69 M/mm3 (4.20-5.40); Red Cell Distribution Width 18.4 % (11.5-17.5); White Blood Count 6.7 K/mm3 (4.8-10.8)
[2023-10-01 15:04] LABS: Alanine Aminotransferase 21 U/L (12-78); Albumin Level 3.3 g/dl (3.5-5.0); Albumin/Globulin Ratio 1.1 (1.1-1.8); Alkaline Phosphatase 187 U/L (38-126); Anion Gap 13.2 mEq/L (5-15); Aspartate Amino Transferase 41 U/L (14-36); Bilirubin,Total 0.7 mg/dl (0.2-1.3); Blood Urea Nitrogen 7 mg/dl (7-17); Calcium 9.4 mg/dl (8.4-10.2); Carbon Dioxide 28 mmol/L (22.0-30.0); Chloride 95 mmol/L (98-107); Estimated Glomerular Filt Rate 85 ml/min (>60); GFR (African American) 103 ML/MIN (>60); Glucose 106 mg/dl (74-100); Potassium 4.2 mmoL/L (3.5-5.1); Sodium 132 mmol/L (136-145); Total Protein,Serum 6.3 g/dl (6.3-8.2)
[2023-10-03 08:09] LABS: Prealbumin 10 mg/dL (10-36)
== END ==
PROVIDERS: PCP Family Medicine; Visit Provider Surgery
DX: C18.0 Malignant neoplasm of cecum (principal)
CPT/HCPCS: 36415; 80053; 84134; 85014; 85018; 85048; 85049

== ENCOUNTER 2023-11-02 06:02 | Inpatient (IN) | payer BC, SELFPAY ==
[2023-11-02] VITALS (14 sets, daily range): BP systolic 89–111; BP diastolic 46–66; PULSE 67–90; RESP 18–87; TEMP 36.4–37; O2SAT 90–98; BMI 22.4; BMI 23.5
--- NOTE | 2023-11-02 06:12 | ECG_ITS ---
APPROVED REPORT Exam: Resting ECG HR:81 bpm ECG Measurements Heart Rate 81 AXES LA 149 P 112 QRSd 84 QRS 91 QT 382 T 84 QTc 419 Conclusion SINUS RHYTHM BORDERLINE RIGHT AXIS DEVIATION [QRS AXIS > 90] LOW QRS VOLTAGE IN EXTREMITY LEADS [QRS DEFLECTION < 0.5 mV IN LIMB LEADS] MINIMAL ST DEPRESSION [0.025+ mV ST DEPRESSION] BORDERLINE ECG UNCONFIRMED REPORT Electronically signed by : Herman Pedersen MD 11/02/2023 16:51:57
--- NOTE | 2023-11-02 06:20 | PC.NURSE ---
EKG done on pt, she has been provided with warm blankets, pillow and call light. Family at bedside. No other questions or concerns at this time.
--- NOTE | 2023-11-02 06:39 | XR_ITS ---
FINAL REPORT CLINICAL HISTORY: cp soa,,,hx of cancer COMPARISON: 09/10/2023 FINDINGS: SINGLE-VIEW CHEST There is cardiomegaly. Right chest port terminates at the SVC. The mediastinum is normal. There is large right effusion and consolidation in the right upper lobe. There is no pneumothorax. IMPRESSION: Large right effusion with consolidation in the right upper lobe. Reviewed, Interpreted and Dictated by Etienne August MD Transcribed by Lorena Mcgowan Authenticated and [facility]
--- NOTE | 2023-11-02 06:39 | CT_ITS ---
FINAL REPORT TECHNIQUE: The patient was injected with IV contrast. Axial images were obtained through the chest in a PE protocol. 3-D reconstruction images were also performed. Individualized dose reduction techniques using automated exposure control or adjustment of the MA and/or KV according to patient's size were employed. CLINICAL HISTORY: cp soa Cancer pt 100 cc of isovue 370 40 ml saline COMPARISON: 05/13/2023 FINDINGS: There is a right upper anterior chest port terminating in the SVC. There is heterogeneous thyroid parenchyma which is stable, probably due to diffuse goiter.. Mediastinal vasculature is adequately opacified. No pulmonary artery filling defects are identified to suggest PE. There is no aortic dissection. There is no axillary adenopathy. There is no hilar or mediastinal adenopathy. The heart size is normal. There is no pericardial or pleural effusion. There has been interval development of a large right pleural effusion. Effusion occupies majority of the left hemithorax. There is new airspace opacity and atelectasis in the right upper lobe. There is new, scar or atelectasis at the left base. Limited images of the upper abdomen reveals development of moderate ascites. There are benign-appearing cysts in the liver, largest measures 4.1 cm. There are also scattered calcifications in the liver. IMPRESSION: No pulmonary embolus or dissection. Large right effusion occupying the majority of the right hemithorax. There is shift to the mediastinal structures to the left. Reviewed, Interpreted and Dictated by Etienne August MD Transcribed by Lorena Mcgowan Authenticated and [facility]
--- NOTE | 2023-11-02 06:43 | HMH.EDCP ---
Discharge Plan Disposition Patient Disposition: Admitted Condition: Fair Clinical Impressions Clinical Impression: Malignant pleural effusion Discharge ED Provider: Maximo Marshall HPI <Oleg Williamson MD - Last Filed: 11/02/23 07:20> General Chief Complaint: Chest Pain Stated Complaint: chest pain Time Seen by Provider: 11/02/23 06:30 Mode of Arrival: EMS Source of Information: Patient Limitations: No Limitations Description of Symptoms (Recalled from ER Triage Doc. by RN): pt reports about 1 hour ago she woke up and went to bathroom and started to have right scapula pain that went thru to mid chest, pt reports hurts to take a deep breath, reports having nausea History of Present Illness HPI narrative: This 58-year-old female actively being treated for colon cancer presents to the ER with concerns of right-sided chest pain radiating to the center of her chest, sharp, she is also having shortness of breath. She states it is very painful for her to take a deep breath. Patient also had bilious emesis 2 days ago, but has been able to tolerate oral intake in the last 48 hours. She states she is having dysuria. No fevers. She has no history of blood clot, however she is reportedly being evaluated for potential blood clot in the liver. Her at bedside provides additional history and states that she had paracentesis last week for fluid in the abdomen. They know that her cancer is metastatic to the liver. She gets treatments at . She received 324 mg of aspirin prior to arrival with EMS per their report. Patient states she was recently diagnosed with SVT and started on metoprolol 25 mg for rate control. Related Data Home Medications Medication Instructions Recorded Confirmed ubrogepant 100 mg tablet (Ubrelvy) 100 mg PO DAILY PRN Headache 04/14/23 11/02/23 spironolactone 100 mg tablet 100 mg PO DAILY 09/10/23 11/02/23 pantoprazole 40 mg tablet,delayed 40 mg PO DAILY 09/14/23 11/02/23 release ursodiol 300 mg capsule 300 mg PO BID 09/14/23 11/02/23 Bacillus coagulans-inulin 1 1 cap PO DAILY 11/02/23 11/02/23 billion cell-250 mg capsule (Probiotic Formula (inulin)) gabapentin 300 mg capsule 300 mg PO BID 11/02/23 11/02/23 ondansetron 4 mg disintegrating 4 mg PO Q6HP PRN nausea and 11/02/23 11/02/23 tablet vomiting Previous Rx's Medication Instructions Recorded oxycodone 5 mg tablet 5 mg PO Q4H PRN pain #30 tabs 09/14/23 promethazine 25 mg tablet 25 mg PO Q6H PRN nausea and 09/14/23 vomiting #30 tabs metoprolol succinate 25 mg 25 mg PO DAILY #90 tabs 10/28/23 tablet,extended release 24 hr Allergies Allergy/AdvReac Type Severity Reaction Status Date / Time Sulfa (Sulfonamide Allergy Verified 10/28/23 13:20 Antibiotics) sulfamethoxazole Allergy Verified 10/28/23 13:20 [From Bactrim] trimethoprim [From Bactrim] Allergy Verified 10/28/23 13:20 PFSH <Oleg Williamson MD - Last Filed: 11/02/23 07:20> PFSH Disclaimer: The information contained in this section may have been updated after the patient was seen, as this information can be updated by other users. Medical History (Updated 11/02/23 @ 11:13 by Maximo Marshall MD) Colon cancer Degenerative disc disease Dyspnea on exertion Dysrhythmia Hepatic cyst Lesion of liver Metastatic disease Multiple pulmonary nodules Right sided sciatica Right ventricular hypertrophy SVT (supraventricular tachycardia) Tachycardia Surgical History History of cholecystectomy History of colonoscopy History of partial surgical removal of colon History of removal of both ovaries History of surgery of liver History of tubal ligation Hx of BSO (bilateral salpingo-oophorectomy) Family History Mother Pancreatic cancer Father Multiple myeloma Other Cancer Hypertension Social History Smoking Status: Never smoker alcohol intake: current substance use type: denies use current occupational status: other Travel in the last 8 weeks: None household members: spouse housing: house current occupational exposures/hazards: No caffeine: No <Oleg Willaimson MD - Last Filed: 11/02/23 07:20> ROS Obtained: Yes All systems reviewed & no additional complaints except as documented Constitutional Constitutional: Denies chills, Denies fever(s), Denies headache(s) and Denies weakness Eyes Eyes: Denies change in vision ENT Ears, Nose, Mouth, and Throat: Denies dizziness, Denies headache(s), Denies nasal congestion and Denies sore throat Cardiovascular Cardiovascular: Reports chest pain, Reports dyspnea and Denies leg edema Respiratory Respiratory: Denies cough, Reports dyspnea and Reports pain on inspiration Gastrointestinal Gastrointestingal: Reports vomiting; Denies constipation, diarrhea or nausea Genitourinary Female Genitourinary: Reports dysuria Musculoskeletal Musculoskeletal: Denies arthralgias, Denies myalgias, Denies numbness and Denies tingling Integumentary/Breasts Skin/Breast: Denies change in pigmentation Neurologic Neurologic: Denies dizziness, Denies headache(s), Denies numbness, Denies tingling and Denies weakness Physical Exam <Oleg Williamson MD - Last Filed: 11/02/23 07:20> General General appearance: alert and in no apparent distress Head Head exam: atraumatic and normocephalic Eye Eye exam: Present PERRL and EOMI ENT ENT exam: Present mucous membranes moist Neck Neck exam: Present normal inspection and full ROM Chest Chest inspection: Present symmetric chest wall rise; Absent tenderness Respiratory Respiratory exam: Present normal lung sounds bilaterally and other (Saturating 87% on room air while talking, pain with deep inspiration, placed the patient on 2 L nasal cannula, now saturating 94%); Absent respiratory distress, wheezes or stridor Cardiovascular Cardiovascular exam: Present regular rate and normal rhythm Abdominal Exam Abdominal exam: Present soft and tenderness (Mild epigastric tenderness); Absent distention, guarding or rebound Comment: Nonacute abdomen Extremities Exam Extremities exam: Present full ROM; Absent tenderness Neurological Exam Neurological exam: Present alert, oriented X3 and CN II-XII intact; Absent motor sensory deficit Psychiatric Psychiatric exam: Present normal affect and normal mood Skin Skin exam: Present warm and dry HEART Score <Oleg Williamson MD - Last Filed: 11/02/23 07:20> HEART Score HEART Score assessment performed?: Yes History (anamnesis): Moderately suspicious ECG: Non-specific disturbance Age: 45-65 years Risk factors: 1-2 risk factors Troponin: </= normal limit HEART Score: 4 <Maximo Marshall MD - Last Filed: 11/02/23 11:13> HEART Score HEART Score: 4 Critical Care <Oleg Williamson MD - Last Filed: 11/02/23 07:20> Critical Care Time Critical Care Time: No Medical Decision Making <Oleg Williamson MD - Last Filed: 11/02/23 07:20> Ari Inquiry Pt receiving controlled substance: No Vital Signs Vital Signs: 11/02/23 06:03 11/02/23 06:19 11/02/23 06:30 Temperature 98.2 F Temperature Source Oral Pulse Rate 82 Pulse Rate [Right] 82 Respiratory Rate 18 Blood Pressure 99/58 L Blood Pressure [Right Arm] 111/56 L Blood Pressure Mean 75 Blood Pressure Mean [Right Arm] 74 Blood Pressure Source [Right Arm] Automatic Cuff Blood Pressure Position [Right Arm] Supine 02 Sat by Pulse Oximetry 92 L 90 L Oxygen Delivery Method Room Air Nasal Cannula Oxygen Flow Rate (LPM) 2 11/02/23 07:00 11/02/23 07:30 11/02/23 08:00 Temperature Temperature Source Pulse Rate 87 87 77 Pulse Rate [Right] Respiratory Rate 18 87 H 20 Blood Pressure 89/55 L 102/66 L 96/62 L Blood Pressure [Right Arm] Blood Pressure Mean 66 77 69 Blood Pressure Mean [Right Arm] Blood Pressure Source [Right Arm] Blood Pressure Position [Right Arm] 02 Sat by Pulse Oximetry 96 Oxygen Delivery Method Oxygen Flow Rate (LPM) 11/02/23 08:30 11/02/23 09:00 11/02/23 09:30 Temperature Temperature Source Pulse Rate 78 76 77 Pulse Rate [Right] Respiratory Rate 18 18 Blood Pressure 96/61 L 99/63 L 96/63 L Blood Pressure [Right Arm] Blood Pressure Mean 68 68 68 Blood Pressure Mean [Right Arm] Blood Pressure Source [Right Arm] Blood Pressure Position [Right Arm] 02 Sat by Pulse Oximetry 96 98 96 Oxygen Delivery Method Room Air Oxygen Flow Rate (LPM) 11/02/23 10:00 Temperature Temperature Source Pulse Rate 83 Pulse Rate [Right] Respiratory Rate Blood Pressure 104/61 L Blood Pressure [Right Arm] Blood Pressure Mean 76 Blood Pressure Mean [Right Arm] Blood Pressure Source [Right Arm] Blood Pressure Position [Right Arm] 02 Sat by Pulse Oximetry 97 Oxygen Delivery Method Room Air Oxygen Flow Rate (LPM) Lab Data Labs: Lab Results 11/02/23 06:10: WBC 5.4, RBC 4.59, Hgb 10.5 L, Hct 33.6 L, MCV 73.1 L, MCH 22.9 L, MCHC 31.3 L, RDW 17.9 H, Plt Count 263, MPV 7.8, Neut % (Auto) 60.6, Lymph % (Auto) 24.6, Phillips % (Auto) 12.5 H, Eos % (Auto) 1.8, Baso % (Auto) 0.4, Neut # (Auto) 3.3, Lymph # (Auto) 1.3, Phillips # (Auto) 0.7, Eos # (Auto) 0.1, Baso # (Auto) 0.0, PT 10.9, INR 1.01, Sodium 130 L, Potassium 3.9, Chloride 97 L, Carbon Dioxide 30, Anion Gap 6.9, BUN 8, Creatinine 0.70, Estimated Creat Clear 83, Estimated GFR 85, Est GFR ( Amer) 103, Glucose 111 H, Calcium 8.6, Total Bilirubin 0.6, AST 35, ALT 17, Alkaline Phosphatase 158 H, Troponin I < 0.01, Total Protein 6.5, Albumin 3.1 L, Globulin 3.4 H, Albumin/Globulin Ratio 0.9 L, Lipase 108 11/02/23 08:15: Urine Color Yellow, Urine Appearance Clear, Urine pH 6.0, Ur Specific [place] 1.020, Urine Protein Negative, Urine Glucose (UA) Negative, Urine Ketones Negative, Urine Blood Negative, Urine Nitrate Positive, Urine Bilirubin Negative, Urine Urobilinogen 0.2, Ur Leukocyte Esterase 1+ A, Urine RBC None, Urine WBC 50-100, Ur Squamous Epith Cells Occasional, Urine Bacteria 4+ 11/02/23 09:23: Troponin I < 0.01 11/02/23 06:10 11/02/23 06:10 Response Orders (Tests/Meds): ED MEDICATIONS Discontinued Medications Generic Name Dose Route Start Last Admin Trade Name Freq PRN Reason Stop Dose Admin Lactated Ringer's 1,000 mls @ 999 mls/hr 11/02/23 06:42 11/02/23 06:45 Lactated Ringer's 1000 Ml Bag IV 11/02/23 07:42 999 mls/hr .Q1H1M ONE Administration Iopamidol 100 ml 11/02/23 07:28 12/12/23 07:29 Iopamidol-370 (76%);100ml Bottle IV 11/02/23 07:29 100 ml ONCE ONE Administration Morphine Sulfate 4 mg 11/02/23 06:42 11/02/23 06:46 Morphine 4mg/Ml Syringe IV 11/02/23 06:43 4 mg ONCE ONE Administration Morphine Sulfate 4 mg 11/02/23 10:05 11/02/23 10:15 Morphine 4mg/Ml Syringe IV 11/02/23 10:06 4 mg ONCE ONE Administration Ondansetron HCl 4 mg 11/02/23 06:39 11/02/23 06:45 Ondansetron 4mg/2ml Vial IV 11/02/23 06:40 4 mg ONCE ONE Administration Sodium Chloride 50 ml 11/02/23 07:28 11/02/23 07:30 0.9 % Sodium Chloride 50 Ml Vial IV 11/02/23 07:29 40 ml ONCE ONE Administration Sodium Chloride 10 ml 11/02/23 07:28 11/02/23 07:29 Sodium Chloride 0.9% 10ml Syr (Rad Only) IV 11/02/23 07:29 10 ml ONCE ONE Administration ORDERS Category Date Time Status CTA Chest [CT angio chest PE protocol] Stat Cat Scan 11/02/23 06:39 Completed CXR --portable [XR chest portable] Stat Exams 11/02/23 06:39 Completed CBC w/Auto Diff [Complete Blood Count Auto Diff] Stat Lab 11/02/23 06:10 Completed CMP [Comprehensive Metabolic Panel] Stat Lab 11/02/23 06:10 Completed Complete Blood Count Auto Diff AMLAB Lab 11/03/23 06:00 Ordered Comprehensive Metabolic Panel AMLAB Lab 11/03/23 06:00 Ordered Lipase Stat Lab 11/02/23 06:10 Completed Magnesium AMLAB Lab 11/03/23 06:00 Ordered PT INR [Prothrombin Time INR] Stat Lab 11/02/23 06:10 Completed Trop I [Troponin I] Stat Lab 11/02/23 06:10 Completed Troponin I Q3H Lab 11/02/23 09:23 Completed Troponin I Q3H Lab 11/02/23 12:45 Ordered Urinalysis and Microscopic Stat Lab 11/02/23 08:15 Completed Urine Culture Stat Micro 11/02/23 08:15 Received MDM Narrative Medical Decision Narrative: In summary, this 58year old female with active colon cancer that is metastatic presents to the emergency department today with chest pain, shortness of breath, pain with deep inspiration, recent bilious emesis, dysuria. On initial evaluation patient is not tachycardic, however on my evaluation her blood pressure is 99/56, she was only saturating 87% on room air so I placed her on 2 L nasal cannula which improved her oxygenation to 94%. Cardiopulmonary exam is otherwise reassuring. She has mild epigastric tenderness to palpation, no fluid wave, nonacute abdomen. Differential diagnosis includes but is not limited to ACS, PE, pneumonia, urinary tract infection, bowel obstruction, further metastatic disease, pericarditis. Based on these concerns, I ordered cardiac workup, CT imaging, chest x-ray, urinalysis. ECG personally interpreted demonstrates sinus rhythm, rate 81, borderline right axis deviation, normal intervals, no STEMI. Patient received IV fluids, IV morphine, IV Zofran for treatment. Labs personally reviewed demonstrate CBC with no leukocytosis, mild anemia with hemoglobin 10.5, decreased from 11.51-month ago, CMP with mild hyponatremia, sodium 130, similar to prior. Alkaline phosphatase elevated at 158, potentially consistent with patient's known liver metastases. Initial troponin less than 0.01 additional labs and imaging pending at the time of physician handoff. On reassessment patient remains stable but she is saturating between 90 and 92% on 2 L nasal cannula which is not a significantly robust improvement from her previous, further concerning me for PE. She is stable and does not require acute emergent intervention but continues to be closely monitored Patient handed off to Dr. Marshall for continued management and disposition.. <Maximo Marshall MD - Last Filed: 11/02/23 11:13> Vital Signs Vital Signs: 11/02/23 06:03 11/02/23 06:19 11/02/23 06:30 Temperature 98.2 F Temperature Source Oral Pulse Rate 82 Pulse Rate [Right] 82 Respiratory Rate 18 Blood Pressure 99/58 L Blood Pressure [Right Arm] 111/56 L Blood Pressure Mean 75 Blood Pressure Mean [Right Arm] 74 Blood Pressure Source [Right Arm] Automatic Cuff Blood Pressure Position [Right Arm] Supine 02 Sat by Pulse Oximetry 92 L 90 L Oxygen Delivery Method Room Air Nasal Cannula Oxygen Flow Rate (LPM) 2 11/02/23 07:00 11/02/23 07:30 11/02/23 08:00 Temperature Temperature Source Pulse Rate 87 87 77 Pulse Rate [Right] Respiratory Rate 18 87 H 20 Blood Pressure 89/55 L 102/66 L 96/62 L Blood Pressure [Right Arm] Blood Pressure Mean 66 77 69 Blood Pressure Mean [Right Arm] Blood Pressure Source [Right Arm] Blood Pressure Position [Right Arm] 02 Sat by Pulse Oximetry 96 Oxygen Delivery Method Oxygen Flow Rate (LPM) 11/02/23 08:30 11/02/23 09:00 11/02/23 09:30 Temperature Temperature Source Pulse Rate 78 76 77 Pulse Rate [Right] Respiratory Rate 18 18 Blood Pressure 96/61 L 99/63 L 96/63 L Blood Pressure [Right Arm] Blood Pressure Mean 68 68 68 Blood Pressure Mean [Right Arm] Blood Pressure Source [Right Arm] Blood Pressure Position [Right Arm] 02 Sat by Pulse Oximetry 96 98 96 Oxygen Delivery Method Room Air Oxygen Flow Rate (LPM) 11/02/23 10:00 Temperature Temperature Source Pulse Rate 83 Pulse Rate [Right] Respiratory Rate Blood Pressure 104/61 L Blood Pressure [Right Arm] Blood Pressure Mean 76 Blood Pressure Mean [Right Arm] Blood Pressure Source [Right Arm] Blood Pressure Position [Right Arm] 02 Sat by Pulse Oximetry 97 Oxygen Delivery Method Room Air Oxygen Flow Rate (LPM) Lab Data Labs: Lab Results 11/02/23 06:10: WBC 5.4, RBC 4.59, Hgb 10.5 L, Hct 33.6 L, MCV 73.1 L, MCH 22.9 L, MCHC 31.3 L, RDW 17.9 H, Plt Count 263, MPV 7.8, Neut % (Auto) 60.6, Lymph % (Auto) 24.6, Phillips % (Auto) 12.5 H, Eos % (Auto) 1.8, Baso % (Auto) 0.4, Neut # (Auto) 3.3, Lymph # (Auto) 1.3, Phillips # (Auto) 0.7, Eos # (Auto) 0.1, Baso # (Auto) 0.0, PT 10.9, INR 1.01, Sodium 130 L, Potassium 3.9, Chloride 97 L, Carbon Dioxide 30, Anion Gap 6.9, BUN 8, Creatinine 0.70, Estimated Creat Clear 83, Estimated GFR 85, Est GFR ( Amer) 103, Glucose 111 H, Calcium 8.6, Total Bilirubin 0.6, AST 35, ALT 17, Alkaline Phosphatase 158 H, Troponin I < 0.01, Total Protein 6.5, Albumin 3.1 L, Globulin 3.4 H, Albumin/Globulin Ratio 0.9 L, Lipase 108 11/02/23 08:15: Urine Color Yellow, Urine Appearance Clear, Urine pH 6.0, Ur Specific [place] 1.020, Urine Protein Negative, Urine Glucose (UA) Negative, Urine Ketones Negative, Urine Blood Negative, Urine Nitrate Positive, Urine Bilirubin Negative, Urine Urobilinogen 0.2, Ur Leukocyte Esterase 1+ A, Urine RBC None, Urine WBC 50-100, Ur Squamous Epith Cells Occasional, Urine Bacteria 4+ 11/02/23 09:23: Troponin I < 0.01 Response Orders (Tests/Meds): ED MEDICATIONS Discontinued Medications Generic Name Dose Route Start Last Admin Trade Name Freq PRN Reason Stop Dose Admin Lactated Ringer's 1,000 mls @ 999 mls/hr 11/02/23 06:42 11/02/23 06:45 Lactated Ringer's 1000 Ml Bag IV 11/02/23 07:42 999 mls/hr .Q1H1M ONE Administration Iopamidol 100 ml 11/02/23 07:28 11/02/23 07:29 Iopamidol-370 (76%);100ml Bottle IV 11/02/23 07:29 100 ml ONCE ONE Administration Morphine Sulfate 4 mg 11/02/23 06:42 11/02/23 06:46 Morphine 4mg/Ml Syringe IV 11/02/23 06:43 4 mg ONCE ONE Administration Morphine Sulfate 4 mg 11/02/23 10:05 11/02/23 10:15 Morphine 4mg/Ml Syringe IV 11/02/23 10:06 4 mg ONCE ONE Administration Ondansetron HCl 4 mg 11/02/23 06:39 11/02/23 06:45 Ondansetron 4mg/2ml Vial IV 11/02/23 06:40 4 mg ONCE ONE Administration Sodium Chloride 50 ml 11/02/23 07:28 11/02/23 07:30 0.9 % Sodium Chloride 50 Ml Vial IV 11/02/23 07:29 40 ml ONCE ONE Administration Sodium Chloride 10 ml 11/02/23 07:28 12/12/23 07:29 Sodium Chloride 0.9% 10ml Syr (Rad Only) IV 11/02/23 07:29 10 ml ONCE ONE Administration ORDERS Category Date Time Status CTA Chest [CT angio chest PE protocol] Stat Cat Scan 11/02/23 06:39 Completed CXR --portable [XR chest portable] Stat Exams 11/02/23 06:39 Completed CBC w/Auto Diff [Complete Blood Count Auto Diff] Stat Lab 11/02/23 06:10 Completed CMP [Comprehensive Metabolic Panel] Stat Lab 11/02/23 06:10 Completed Complete Blood Count Auto Diff AMLAB Lab 11/03/23 06:00 Ordered Comprehensive Metabolic Panel AMLAB Lab 11/03/23 06:00 Ordered Lipase Stat Lab 11/02/23 06:10 Completed Magnesium AMLAB Lab 11/03/23 06:00 Ordered PT INR [Prothrombin Time INR] Stat Lab 11/02/23 06:10 Completed Trop I [Troponin I] Stat Lab 11/02/23 06:10 Completed Troponin I Q3H Lab 11/02/23 09:23 Completed Troponin I Q3H Lab 11/02/23 12:45 Ordered Urinalysis and Microscopic Stat Lab 11/02/23 08:15 Completed Urine Culture Stat Micro 11/02/23 08:15 Received MDM Narrative Medical Decision Narrative: In summary, this 58year old female with active colon cancer that is metastatic presents to the emergency department today with chest pain, shortness of breath, pain with deep inspiration, recent bilious emesis, dysuria. On initial evaluation patient is not tachycardic, however on my evaluation her blood pressure is 99/56, she was only saturating 87% on room air so I placed her on 2 L nasal cannula which improved her oxygenation to 94%. Cardiopulmonary exam is otherwise reassuring. She has mild epigastric tenderness to palpation, no fluid wave, nonacute abdomen. Differential diagnosis includes but is not limited to ACS, PE, pneumonia, urinary tract infection, bowel obstruction, further metastatic disease, pericarditis. Based on these concerns, I ordered cardiac workup, CT imaging, chest x-ray, urinalysis. ECG personally interpreted demonstrates sinus rhythm, rate 81, borderline right axis deviation, normal intervals, no STEMI. Patient received IV fluids, IV morphine, IV Zofran for treatment. Labs personally reviewed demonstrate CBC with no leukocytosis, mild anemia with hemoglobin 10.5, decreased from 11.51-month ago, CMP with mild hyponatremia, sodium 130, similar to prior. Alkaline phosphatase elevated at 158, potentially consistent with patient's known liver metastases. Initial troponin less than 0.01 additional labs and imaging pending at the time of physician handoff. On reassessment patient remains stable but she is saturating between 90 and 92% on 2 L nasal cannula which is not a significantly robust improvement from her previous, further concerning me for PE. She is stable and does not require acute emergent intervention but continues to be closely monitored Patient handed off to Dr. Marshall for continued management and disposition.. RICHARD: CTA PE protocol was negative for PE, but was notable for large right-sided pleural effusion, probable malignant effusion. Patient did have mild shift of the mediastinum to the left. At this time, the case was discussed with transfer center who unfortunately did not have any beds available for immediate transfer at this time, the case was discussed with Dr. Arevalo and Dr. Arevalo after interactive discussion, agreed to admit the patient to the service. Pulmonology was consulted, Dr. Garrett, for pigtail catheter placement in the malignant effusion in a more controlled setting compared to the ED. Patient was stable at time of admission, still requiring 1 to 2 L nasal cannula.
[2023-11-02] MEDS: ONDANSETRON 4MG/2ML VIAL 4 MG IV (06:45)
[2023-11-02] MEDS: LACTATED RINGERS 1000ML 1,000 ML 999 ML IV (06:45)
[2023-11-02] MEDS: MORPHINE 4MG/ML SYRINGE 4 MG IV ×6 (06:46→22:16)
[2023-11-02 06:56] LABS: Basophils % 0.4 % (0.1-2.0); Eosinophils # 0.1 K/mm3 (0.0-0.4); Eosinophils % 1.8 % (0.1-12.0); Hematocrit 33.6 % (37.0-47.0); Hemoglobin 10.5 g/dL (12.2-16.2); Lymphocytes # 1.3 K/mm3 (0.7-4.5); Lymphocytes % 24.6 % (10-50); Mean Corpuscular HGB Conc 31.3 g/dL (31.8-35.4); Mean Corpuscular Hemoglobin 22.9 pg (27.0-31.2); Mean Corpuscular Volume 73.1 fl (81-99); Mean Platelet Volume 7.8 fl (7.4-10.4); Monocytes # 0.7 K/mm3 (0.1-1.0); Monocytes % 12.5 % (1.7-9.3); Neutrophils # 3.3 K/mm3 (1.8-7.8); Neutrophils % 60.6 % (37.0-80.0); Platelet Count 263 K/mm3 (142-424); Red Blood Count 4.59 M/mm3 (4.20-5.40); Red Cell Distribution Width 17.9 % (11.5-17.5); White Blood Count 5.4 K/mm3 (4.8-10.8)
[2023-11-02 06:58] LABS: Chloride 97 mmol/L (98-107); Potassium 3.9 mmoL/L (3.5-5.1); Sodium 130 mmol/L (136-145)
[2023-11-02 07:00] LABS: Blood Urea Nitrogen 8 mg/dl (7-17); Creatinine Clearance Estimated 83 mL/min (50-200); Estimated Glomerular Filt Rate 85 ml/min (>60); GFR (African American) 103 ML/MIN (>60)
[2023-11-02 07:01] LABS: Alanine Aminotransferase 17 U/L (12-78); Albumin Level 3.1 g/dl (3.5-5.0); Albumin/Globulin Ratio 0.9 (1.1-1.8); Alkaline Phosphatase 158 U/L (38-126); Anion Gap 6.9 mEq/L (5-15); Aspartate Amino Transferase 35 U/L (14-36); Bilirubin,Total 0.6 mg/dl (0.2-1.3); Calcium 8.6 mg/dl (8.4-10.2); Carbon Dioxide 30 mmol/L (22.0-30.0); Globulin 3.4 g/dL (1.3-3.2); Glucose 111 mg/dl (74-100); Lipase 108 U/L (23-300); Total Protein,Serum 6.5 g/dl (6.3-8.2)
[2023-11-02 07:02] LABS: INR 1.01 (0.9-1.1); Prothrombin Time 10.9 seconds (10.1-12.5)
[2023-11-02 07:14] LABS: Troponin I < 0.01 ng/ml (0.00-0.034)
--- NOTE | 2023-11-02 07:14 | PC.NURSE ---
PT TO CT VIA STRETCHER
[2023-11-02] MEDS: SODIUM CHLORIDE 0.9% 10ML SYR (RAD ONLY) 10 ML IV (07:29)
[2023-11-02] MEDS: IOPAMIDOL-370 (76%);100ML BOTTLE 100 ML IV (07:29)
[2023-11-02] MEDS: 0.9 % SODIUM CHLORIDE 50 ML VIAL IV (07:30)
--- NOTE | 2023-11-02 07:38 | PC.NURSE ---
pt is back to room from ct scan
[2023-11-02 08:18] LABS: Microscopic, Urine URINE MICROSCOPIC (MICROSCOPIC)
[2023-11-02 08:24] LABS: Appearance,Urine CLEAR (Clear); Bilirubin,Urine Negative (Negative); Blood, Urine Negative (Negative); Color,Urine YELLOW (Yellow); Glucose,Urine (UA) Negative (Negative); Ketones,Urine Negative (Negative); Leukocyte Esterase,Urine 1+ (Negative); Nitrate,Urine POSITIVE (Negative); Protein,Urine Negative (Negative); Urobilinogen,Urine 0.2 EU/dl (0.2)
[2023-11-02 08:36] LABS: Bacteria,Urine 4+ /lpf; Squamous Epithelial Cell,Urine Occasional #/hpf (0-5); WBC,Urine 50-100 #/hpf (0-3)
--- NOTE | 2023-11-02 09:30 | PC.NURSE ---
Dr. Marshall at for update on POC/results
--- NOTE | 2023-11-02 09:38 | PC.NURSE ---
calling for transfer to oncology unit
--- NOTE | 2023-11-02 09:44 | PC.NURSE ---
dr quiroga speaking with [facility]
--- NOTE | 2023-11-02 10:06 | PC.NURSE ---
PT COMPLAINING OF PAIN. MD NOTIFIED. 4MG OF MORPHINE ORDERED. AMORRISON VERIFIED
--- NOTE | 2023-11-02 10:11 | PC.NURSE ---
Dr Marshall speaking with Dr Arevalo
--- NOTE | 2023-11-02 10:16 | PC.NURSE ---
attempted to call pulmonology
--- NOTE | 2023-11-02 10:17 | PC.NURSE ---
Called [facility] to admit pt to Dr Arevalo
[2023-11-02 10:18] LABS: Troponin I < 0.01 ng/ml (0.00-0.034)
--- NOTE | 2023-11-02 10:36 | HMH.PHAINT1 ---
Pharmacy Intervention Comments: Med reconciliation completed using external fill history and list from office visit
--- NOTE | 2023-11-02 10:49 | PC.NURSE ---
pt ambulatory to restroom with assistance from spouse. No complications
--- NOTE | 2023-11-02 10:57 | PC.NURSE ---
REPORT GIVEN TO ANDREA PEDRO
--- NOTE | 2023-11-02 12:04 | PC.NURSE ---
COURTESY NOTE: afternoon round completed on pt. pt denies needing assistance at this time. call leander within reach. Akil SRNA
--- NOTE | 2023-11-02 12:38 | P.PN_ITS ---
Subjective *Date: 11/02/23 *Time: 13:04 Interval history: Patient with a history of metastatic colon cancer presented to [facility] ER this morning complaining of shortness of breath. CT PE protocol showed a very large right sided pleural effusion. was contacted and informed the ER doctor that they would not be able to accept a patient in transfer for the next week. Medical Exam Vital signs and Labs for Last 24 Hours: Vital Signs Temp Pulse Pulse Resp BP BP Pulse Ox 11/02/23 11:42 98.1 F 81 18 109/65 L 94 L 11/02/23 11:46 11/02/23 11:10 97.9 F 67 18 104/61 L 11/02/23 10:00 83 104/61 L 97 11/02/23 09:30 77 96/63 L 96 11/02/23 09:00 76 18 99/63 L 98 11/02/23 08:30 78 18 96/61 L 96 11/02/23 08:00 77 20 96/62 L 96 11/02/23 07:30 87 87 H 102/66 L 11/02/23 07:00 87 18 89/55 L 11/02/23 06:30 99/58 L 90 L 11/02/23 06:19 82 11/02/23 06:03 98.2 F 82 18 111/56 L 92 L O2 Del Method O2 Flow Rate 11/02/23 11:42 Nasal Cannula 2 11/02/23 11:46 Nasal Cannula 2 11/02/23 11:10 Nasal Cannula 2 11/02/23 10:00 Room Air 11/02/23 09:30 Room Air 11/02/23 09:00 11/02/23 08:30 11/02/23 08:00 11/02/23 07:30 11/02/23 07:00 11/02/23 06:30 Nasal Cannula 2 11/02/23 06:19 11/02/23 06:03 Room Air Intake and Output 11/01/23 11/02/23 11/02/23 23:59 07:59 15:59 Other: Weight 135 lb 141 lb 3 oz Patient Weight 11/02/23 23:59 Weight 141 lb 3 oz Laboratory Results - last 24 hr 11/02/23 06:10: WBC 5.4, RBC 4.59, Hgb 10.5 L, Hct 33.6 L, MCV 73.1 L, MCH 22.9 L, MCHC 31.3 L, RDW 17.9 H, Plt Count 263, MPV 7.8, Neut % (Auto) 60.6, Lymph % (Auto) 24.6, [place] % (Auto) 12.5 H, Eos % (Auto) 1.8, Baso % (Auto) 0.4, Neut # (Auto) 3.3, Lymph # (Auto) 1.3, [place] # (Auto) 0.7, Eos # (Auto) 0.1, Baso # (Auto) 0.0, PT 10.9, INR 1.01, Sodium 130 L, Potassium 3.9, Chloride 97 L, Carbon Dioxide 30, Anion Gap 6.9, BUN 8, Creatinine 0.70, Estimated Creat Clear 83, Estimated GFR 85, Est GFR ( Amer) 103, Glucose 111 H, Calcium 8.6, Total Bilirubin 0.6, AST 35, ALT 17, Alkaline Phosphatase 158 H, Troponin I < 0.01, Total Protein 6.5, Albumin 3.1 L, Globulin 3.4 H, Albumin/Globulin Ratio 0.9 L, Lipase 108 11/02/23 08:15: Urine Color Yellow, Urine Appearance Clear, Urine pH 6.0, Ur Specific [place] 1.020, Urine Protein Negative, Urine Glucose (UA) Negative, Urine Ketones Negative, Urine Blood Negative, Urine Nitrate Positive, Urine Bilirubin Negative, Urine Urobilinogen 0.2, Ur Leukocyte Esterase 1+ A, Urine RBC None, Urine WBC 50-100, Ur Squamous Epith Cells Occasional, Urine Bacteria 4+ 11/02/23 09:23: Troponin I < 0.01 I & O for Labs for Last 24 Hours: Intake & Output 10/30/23 10/31/23 11/01/23 11/02/23 23:59 23:59 23:59 23:59 Weight 141 lb 3 oz Comment:: Absent breath sounds on right Assessment and Plan *Assessment and plan (1) Chest pain: Status: Acute Category: Medical Code(s): R07.9 - Chest pain, unspecified (2) Dyspnea on exertion: Status: Acute Category: Medical Code(s): R06.09 - Other forms of dyspnea (3) Malignant pleural effusion: Status: Acute Category: Medical Code(s): J91.0 - Malignant pleural effusion (4) Metastatic disease: Status: Acute Category: Medical Code(s): C79.9 - Secondary malignant neoplasm of unspecified site (5) Colon cancer: Status: Acute Category: Medical Code(s): C18.9 - Malignant neoplasm of colon, unspecified (6) Hyponatremia: Status: Acute Category: Medical Code(s): E87.1 - Hypo-osmolality and hyponatremia (7) Anemia: Status: Acute Category: Medical Code(s): D64.9 - Anemia, unspecified Plan Spoke to Dr. Escobar, plan for thoracentesis. H&P to follow.
--- NOTE | 2023-11-02 12:48 | P.HP_ITS ---
History of Present Illness *Admission Date: 11/02/23 *Reason for visit:: chest pain and SOB *History of present illness: Ms. Grajeda is a 58-year-old female with a history of metastatic colon cancer and known liver Metastasis being treated at [facility] who presented to [facility] emergency room after awakening this a.m. around 430 with severe right-sided chest pain radiating up into the right shoulder, shortness of breath, nausea and vomiting. She states she thought she was having a heart attack. She presented to the ER via ambulance. Initial evaluation in the ER showed a blood pressure of 99/56 with O2 sats 87% on room air. She received IV fluids, IV morphine and Zofran for treatment. CBC showed no leukocytosis and mild anemia with a hemoglobin of 10.5. CMP with a sodium of 130. Alkaline phosphatase elevated at 158. Initial troponin troponin was less than 0.01. She was placed on oxygen at 2 L with sats ranging from 90 to 92%. CTA with PE protocol was negative for PE. A large right-sided pleural effusion was noted with probable malignant effusion. She did have mild shift of the mediastinum to the left. Physician in the ER did discuss the case with transfer center who unfortunately did not have a bed available for transfer. She was thus admitted to the services of Dr. Arevalo for ongoing treatment. Pulmonology, Dr. Escobar, was also consulted for removal of the pleural fluid. At the time of this exam patient was more comfortable after receiving morphine. She continued to have pain at a level of 4 from previous 20. Pain was intense with any movement or deep breathing and therefore her respiratory effort was shallow. She was able to speak in clear sentences. Presently she is not nauseated. To note patient did have a paracentesis last week and for a total of 5-6 paracentesis. She also had a second opinion by oncologist, Dr. Lott, at [facility] with extensive discussions over current treatment. He related to them that he felt like they were receiving excellent care from the team at . [facility] Disclaimer: The information contained in this section may have been updated after the patient was seen, as this information can be updated by other users. Medical History (Updated 11/02/23 @ 14:50 by Kathrin Escobar MD) Acute respiratory failure with hypoxia Colon cancer Degenerative disc disease Dyspnea on exertion Dysrhythmia Hepatic cyst Lesion of liver Metastatic disease Multiple pulmonary nodules Pleural effusion on right Right sided sciatica Right ventricular hypertrophy SVT (supraventricular tachycardia) Tachycardia Surgical History History of cholecystectomy History of colonoscopy History of partial surgical removal of colon History of removal of both ovaries History of surgery of liver History of tubal ligation Hx of BSO (bilateral salpingo-oophorectomy) Family History Mother Pancreatic cancer Father Multiple myeloma Other Cancer Hypertension Social History (Updated 11/02/23 @ 11:45 by Gabriela Mills, RN) Smoking Status: Never smoker alcohol intake: current substance use type: denies use current occupational status: other Travel in the last 8 weeks: None household members: spouse housing: house current occupational exposures/hazards: No caffeine: No Review of Systems Constitutional Constitutional: Denies fever(s), Denies frequent falls, Denies headache(s), Reports poor appetite and Denies weakness Eyes Eyes: Denies change in vision ENT Ears, Nose, Mouth, and Throat: Denies dizziness, Denies otalgia, Denies headache(s), Denies sore throat and Denies vertigo *Cardiovascular Cardiovascular: Reports chest pain (right sided into right shoulder), Reports claudication and Reports dyspnea *Respiratory Respiratory: Reports dyspnea, Denies hemoptysis and Reports pain with cough *Gastrointestinal Gastrointestinal: Denies abdominal pain, Denies constipation, Denies diarrhea, Denies dyspepsia, Denies hematemesis, Denies melena, Reports nausea and Reports vomiting *Genitourinary Genitourinary: Denies difficulty voiding *Musculoskeletal Musculoskeletal: Denies numbness and Denies tingling *Neurologic Neurologic: Denies dizziness, Denies frequent falls, Denies headache(s), Denies numbness, Denies tingling, Denies vertigo and Denies weakness Meds Home Medications and Allergies Home Medications Medication Instructions Recorded Confirmed Type ubrogepant 100 mg tablet (Ubrelvy) 100 mg PO DAILY PRN Headache 04/14/23 11/02/23 History spironolactone 100 mg tablet 100 mg PO DAILY 09/10/23 11/02/23 History oxycodone 5 mg tablet 5 mg PO Q4H PRN pain #30 tabs 09/14/23 11/02/23 Rx pantoprazole 40 mg tablet,delayed 40 mg PO DAILY 09/14/23 11/02/23 History release promethazine 25 mg tablet 25 mg PO Q6H PRN nausea and 09/14/23 11/02/23 Rx vomiting #30 tabs ursodiol 300 mg capsule 300 mg PO BID 09/14/23 11/02/23 History metoprolol succinate 25 mg 25 mg PO DAILY #90 tabs 10/28/23 11/02/23 Rx tablet,extended release 24 hr Bacillus coagulans-inulin 1 1 cap PO DAILY 11/02/23 11/02/23 History billion cell-250 mg capsule (Probiotic Formula (inulin)) duloxetine 30 mg capsule,delayed 30 mg PO DAILY 11/02/23 11/02/23 History release gabapentin 300 mg capsule 300 mg PO BID 11/02/23 11/02/23 History ondansetron 4 mg disintegrating 4 mg PO Q6HP PRN nausea and 11/02/23 11/02/23 History tablet vomiting New Prescriptions to Start Prescriptions: Allergies Allergy/AdvReac Type Severity Reaction Status Date / Time Sulfa (Sulfonamide Allergy Verified 10/28/23 13:20 Antibiotics) sulfamethoxazole Allergy Verified 10/28/23 13:20 [From Bactrim] trimethoprim [From Bactrim] Allergy Verified 10/28/23 13:20 Exam Data for Last 24 hours Vital signs and Labs for Last 24 Hours: Temp Pulse Resp BP Pulse Ox O2 Del Method O2 Flow Rate 98.1 F 81 18 109/65 L 94 L Nasal Cannula 2 11/02/23 11:42 11/02/23 11:42 11/02/23 11:42 11/02/23 11:42 11/02/23 11:42 11/02/23 11:46 11/02/23 11:46 Laboratory Results - last 24 hr 11/02/23 06:10: WBC 5.4, RBC 4.59, Hgb 10.5 L, Hct 33.6 L, MCV 73.1 L, MCH 22.9 L, MCHC 31.3 L, RDW 17.9 H, Plt Count 263, MPV 7.8, Neut % (Auto) 60.6, Lymph % (Auto) 24.6, [place] % (Auto) 12.5 H, Eos % (Auto) 1.8, Baso % (Auto) 0.4, Neut # (Auto) 3.3, Lymph # (Auto) 1.3, [place] # (Auto) 0.7, Eos # (Auto) 0.1, Baso # (Auto) 0.0, PT 10.9, INR 1.01, Sodium 130 L, Potassium 3.9, Chloride 97 L, Carbon Dioxide 30, Anion Gap 6.9, BUN 8, Creatinine 0.70, Estimated Creat Clear 83, Estimated GFR 85, Est GFR ( Amer) 103, Glucose 111 H, Calcium 8.6, Total Bilirubin 0.6, AST 35, ALT 17, Alkaline Phosphatase 158 H, Troponin I < 0.01, Total Protein 6.5, Albumin 3.1 L, Globulin 3.4 H, Albumin/Globulin Ratio 0.9 L, Lipase 108 11/02/23 08:15: Urine Color Yellow, Urine Appearance Clear, Urine pH 6.0, Ur Specific [place] 1.020, Urine Protein Negative, Urine Glucose (UA) Negative, Urine Ketones Negative, Urine Blood Negative, Urine Nitrate Positive, Urine Bilirubin Negative, Urine Urobilinogen 0.2, Ur Leukocyte Esterase 1+ A, Urine RBC None, Urine WBC 50-100, Ur Squamous Epith Cells Occasional, Urine Bacteria 4+ 11/02/23 09:23: Troponin I < 0.01 I & O for Last 24 hours: Intake & Output 10/31/23 11/01/23 11/02/23 11/03/23 11:59 11:59 11:59 11:59 Weight 141 lb 3 oz Constitutional Constitutional: mild distress and cooperative *Routine HEENT Exam Head: Present normocephalic and atraumatic Eye: Present PERRL; Absent conjunctival icterus, scleral injection or conjunctivae pink ENT: Present mucous membranes moist and oropharynx clear *Routine Neck Exam Neck: Present supple; Absent carotid bruit, lymphadenopathy or thyromegaly Routine Chest/Breast/Axilla Exam Chest wall: Present tenderness (right sided) *Routine Respiratory Exam Respiratory: Present decreased breath sounds (no audible BS on the right) and able to speak in complete sentences; Absent normal respiratory effort (shallow respiratory effort) Comments: left chest sounds are clear *Routine Cardiovascular Exam Cardiovascular: Present RRR *Routine Abdominal Exam Abdominal: Present soft and normoactive bowel sounds; Absent tenderness, distended or guarding *Routine Rectal Exam Rectal:: deferred *Routine Genitalia Exam Genitalia:: deferred *Routine Extremities Exam Extremities: Absent edema, calf tenderness or tenderness *Routine Neurological Exam Neurological: Present alert and oriented X3 Assessment and Plan *Assessment and plan (1) Chest pain: Status: Acute Category: Medical Code(s): R07.9 - Chest pain, unspecified (2) Dyspnea on exertion: Status: Acute Category: Medical Code(s): R06.09 - Other forms of dyspnea (3) Malignant pleural effusion: Status: Acute Category: Medical Code(s): J91.0 - Malignant pleural effusion (4) Metastatic disease: Status: Acute Category: Medical Code(s): C79.9 - Secondary malignant neoplasm of unspecified site (5) Colon cancer: Status: Acute Category: Medical Code(s): C18.9 - Malignant neoplasm of colon, unspecified (6) Hyponatremia: Status: Acute Category: Medical Code(s): E87.1 - Hypo-osmolality and hyponatremia (7) Anemia: Status: Acute Category: Medical Code(s): D64.9 - Anemia, unspecified Plan Dr. Arevalo did speak with Dr. Escobar who plans for thoracentesis. Will continue with pain and nausea management. Dr. Arevalo entry - Saw patient, agree with above note.
--- NOTE | 2023-11-02 13:03 | US_ITS ---
FINAL REPORT CLINICAL HISTORY: Pleural effusion-- rt thora done bedside per dr cruz-- 2780 ml drained and sent for labs FINDINGS: ULTRASOUND GUIDANCE FOR THORACENTESIS HISTORY: Shortness of breath, pleural effusion. FINDINGS: Ultrasound guidance was provided by radiology to the clinical service for performance of thoracentesis. Multiple images demonstrate a right pleural effusion. Reportedly, 2,780 mL were removed. Radiologist was not present for this procedure. IMPRESSION: Ultrasound guidance provided for thoracentesis. Please see the performing physician's report/notes for details of the findings. Reviewed, Interpreted and Dictated by Etienne August MD Transcribed by Patsy Slaughter PA-C Authenticated and [facility]
[2023-11-02] MEDS: OXYCODONE 5MG IMMEDIATE RELEASE TABLET 5 MG PO ×2 (13:46→21:15)
--- NOTE | 2023-11-02 14:46 | EXP.PULM.CON ---
History of Present Illness History of present illness: Ms. Grajeda is 58-year-old female no significant smoking history, cecal cancer with metachronous metastasis mets to the liver and ascites currently receiving paracentesis every 4 weeks presented to ER with right shoulder pain radiating to her chest and upon further imaging patient noted to have large right-sided pleural effusion pulmonary was called for further evaluation and management. [facility] Disclaimer: The information contained in this section may have been updated after the patient was seen, as this information can be updated by other users. Medical History (Updated 11/02/23 @ 14:50 by Kathrin Escobar MD) Acute respiratory failure with hypoxia Colon cancer Degenerative disc disease Dyspnea on exertion Dysrhythmia Hepatic cyst Lesion of liver Metastatic disease Multiple pulmonary nodules Pleural effusion on right Right sided sciatica Right ventricular hypertrophy SVT (supraventricular tachycardia) Tachycardia Surgical History History of cholecystectomy History of colonoscopy History of partial surgical removal of colon History of removal of both ovaries History of surgery of liver History of tubal ligation Hx of BSO (bilateral salpingo-oophorectomy) Family History Mother Pancreatic cancer Father Multiple myeloma Other Cancer Hypertension Social History (Updated 11/02/23 @ 11:45 by Gabriela Mills, RN) Smoking Status: Never smoker alcohol intake: current substance use type: denies use current occupational status: other Travel in the last 8 weeks: None household members: spouse housing: house current occupational exposures/hazards: No caffeine: No Review of Systems Constitutional Constitutional: Reports fatigue, Denies frequent falls, Denies headache(s) and Denies weakness Eyes Eyes: Denies eye discharge, Denies dry eyes, Denies irritation and Denies itchy eyes ENT Ears, Nose, Mouth, and Throat: Denies dizziness, Denies headache(s), Denies lip swelling, Denies throat swelling and Denies vertigo *Cardiovascular Cardiovascular: Reports chest pain, Reports dyspnea and Reports dyspnea on exertion Comments: Right Shoulder pain *Respiratory Respiratory: Denies chest congestion, Reports cough, Reports dyspnea, Reports dyspnea on exertion, Denies excessive phlegm production and Denies wheezing *Gastrointestinal Gastrointestinal: Denies abdominal pain, Denies belching and Denies cramping *Musculoskeletal Musculoskeletal: Denies numbness and Denies tingling *Neurologic Neurologic: Denies dizziness, Denies frequent falls, Denies headache(s), Denies numbness, Denies tingling, Denies vertigo and Denies weakness Psychiatric Psychiatric: Denies homicidal ideation and Denies suicidal ideation Endocrine Endocrine: Reports fatigue and Denies heat intolerance Hematologic/Lymphatic Hematologic/Lymphatic: Denies easy bleeding and Denies lymphadenopathy Allergic/Immunologic Allergic/Immunologic: Denies itchy eyes, Denies lip swelling, Denies throat swelling and Denies wheezing Pulmonology Exam Inpatient Vital signs and Labs for Last 24 Hours: Temp Pulse Resp BP Pulse Ox O2 Del Method O2 Flow Rate 98.1 F 81 18 109/65 L 94 L Nasal Cannula 2 11/02/23 11:42 11/02/23 11:42 11/02/23 11:42 11/02/23 11:42 11/02/23 11:42 11/02/23 13:00 11/02/23 13:00 Laboratory Results - last 24 hr 11/02/23 06:10: WBC 5.4, RBC 4.59, Hgb 10.5 L, Hct 33.6 L, MCV 73.1 L, MCH 22.9 L, MCHC 31.3 L, RDW 17.9 H, Plt Count 263, MPV 7.8, Neut % (Auto) 60.6, Lymph % (Auto) 24.6, [place] % (Auto) 12.5 H, Eos % (Auto) 1.8, Baso % (Auto) 0.4, Neut # (Auto) 3.3, Lymph # (Auto) 1.3, [place] # (Auto) 0.7, Eos # (Auto) 0.1, Baso # (Auto) 0.0, PT 10.9, INR 1.01, Sodium 130 L, Potassium 3.9, Chloride 97 L, Carbon Dioxide 30, Anion Gap 6.9, BUN 8, Creatinine 0.70, Estimated Creat Clear 83, Estimated GFR 85, Est GFR ( Amer) 103, Glucose 111 H, Calcium 8.6, Total Bilirubin 0.6, AST 35, ALT 17, Alkaline Phosphatase 158 H, Troponin I < 0.01, Total Protein 6.5, Albumin 3.1 L, Globulin 3.4 H, Albumin/Globulin Ratio 0.9 L, Lipase 108 11/02/23 08:15: Urine Color Yellow, Urine Appearance Clear, Urine pH 6.0, Ur Specific [place] 1.020, Urine Protein Negative, Urine Glucose (UA) Negative, Urine Ketones Negative, Urine Blood Negative, Urine Nitrate Positive, Urine Bilirubin Negative, Urine Urobilinogen 0.2, Ur Leukocyte Esterase 1+ A, Urine RBC None, Urine WBC 50-100, Ur Squamous Epith Cells Occasional, Urine Bacteria 4+ 11/02/23 09:23: Troponin I < 0.01 I & O for Labs for Last 24 Hours: Intake & Output 10/30/23 10/31/23 11/01/23 11/02/23 23:59 23:59 23:59 23:59 Intake Total 0 / 0 Balance 0 / 0 Weight 141 lb 3 oz Constitutional: Present moderate distress Head: Present normocephalic and atraumatic ENT: Present normal exam, normal oropharynx and mucous membranes moist Neck: Present normal inspection and full ROM Respiratory: Present respiratory distress, diminished air movement and able to speak in complete sentences; Absent wheezes or crackles Comment:: Decreased breath sounds right-sided lung [place] Cardiac: Present S1/S2, Tachycardia and radial pulses present GI: Present soft and distention; Absent tenderness or guarding Rectal (female): Present deferred (female): Present deferred Skin: Present intact; Absent cyanosis or jaundice Neuro: Present alert, awake and oriented x 3 Extremities: Present normal inspection; Absent clubbing or cyanosis Psychiatric: Present normal affect and cooperative Meds Home Medications and Allergies Home Medications Medication Instructions Recorded Confirmed Type ubrogepant 100 mg tablet (Ubrelvy) 100 mg PO DAILY PRN Headache 04/14/23 11/02/23 History spironolactone 100 mg tablet 100 mg PO DAILY 09/10/23 11/02/23 History oxycodone 5 mg tablet 5 mg PO Q4H PRN pain #30 tabs 09/14/23 11/02/23 Rx pantoprazole 40 mg tablet,delayed 40 mg PO DAILY 09/14/23 11/02/23 History release promethazine 25 mg tablet 25 mg PO Q6H PRN nausea and 09/14/23 11/02/23 Rx vomiting #30 tabs ursodiol 300 mg capsule 300 mg PO BID 09/14/23 11/02/23 History metoprolol succinate 25 mg 25 mg PO DAILY #90 tabs 10/28/23 11/02/23 Rx tablet,extended release 24 hr Bacillus coagulans-inulin 1 1 cap PO DAILY 11/02/23 11/02/23 History billion cell-250 mg capsule (Probiotic Formula (inulin)) duloxetine 30 mg capsule,delayed 30 mg PO DAILY 11/02/23 11/02/23 History release gabapentin 300 mg capsule 300 mg PO BID 11/02/23 11/02/23 History ondansetron 4 mg disintegrating 4 mg PO Q6HP PRN nausea and 11/02/23 11/02/23 History tablet vomiting New Prescriptions to Start Prescriptions: Allergies Allergy/AdvReac Type Severity Reaction Status Date / Time Sulfa (Sulfonamide Allergy Verified 10/28/23 13:20 Antibiotics) sulfamethoxazole Allergy Verified 10/28/23 13:20 [From Bactrim] trimethoprim [From Bactrim] Allergy Verified 10/28/23 13:20 Results Laboratory Findings 11/02/23 06:10 11/02/23 06:10 PT/INR, D-dimer PT 10.9 seconds (10.1-12.5) 11/02/23 06:10 INR 1.01 (0.9-1.1) 11/02/23 06:10 Abnormal lab findings: Abnormal Labs 11/02/23 11/02/23 06:10 08:15 Hgb 10.5 L Hct 33.6 L MCV 73.1 L MCH 22.9 L MCHC 31.3 L RDW 17.9 H [place] % (Auto) 12.5 H Sodium 130 L Chloride 97 L Glucose 111 H Alkaline Phosphatase 158 H Albumin 3.1 L Globulin 3.4 H Albumin/Globulin Ratio 0.9 L Ur Leukocyte Esterase 1+ A Assessment and Plan *Assessment and plan (1) Pleural effusion on right: Status: Acute Category: Medical Code(s): J90 - Pleural effusion, not elsewhere classified (2) Acute respiratory failure with hypoxia: Status: Acute Category: Medical Code(s): J96.01 - Acute respiratory failure with hypoxia Plan Ms. Grajeda is 58-year-old female no significant smoking history, cecal cancer with metachronous metastasis mets to the liver and ascites currently receiving paracentesis every 4 weeks presented to ER with right shoulder pain radiating to her chest and upon further imaging patient noted to have large right-sided pleural effusion pulmonary was called for further evaluation and management. # Acute hypoxic respiratory failure: # Right-sided pleural effusion: Patient admits gradual worsening respiratory distress. New oxygen, needing 2 L upon admission. Chest x-ray and CT chest showed large right-sided pleural effusion. Most recent chest x-ray from 09/10/2023 did not show any effusion. Afebrile. No evidence of leukocytosis. Plan: Will perform thoracentesis and F/U fluid studies along with pleural cytology. Recommend ultrasound abdomen for possible ascites # Thank you for involving pulmonary in this patient care. Will continue to follow.
--- NOTE | 2023-11-02 14:51 | HMH.PROCNOTE ---
[facility] [place] Procedure Note Date: 11/02/23 Time: 13:30 Procedure Note:: Procedure:Right Thoracentesis Indication for procedure: Pleural Effusion, Hypoxic Respiratory failure Referring Physician: Dr. Arevalo A time out was performed, and the chest x-ray was reviewed, the appropriate side was confirmed and marked. My hands were washed immediately prior to the procedure. I wore a surgical cap, mask with protective eyewear, sterile gown, and sterile gloves throughout the procedure. The patient was prepped and draped in a sterile manner using chlorhexidine scrub after the appropriate level was percussed and confirmed by ultrasound. 1% lidocaine was used to anesthetize the skin, ?subcutaneous tissue, superior aspect of the rib periosteum and parietal pleura.? A finder needle was then introduced at the seventh intercoastal space posteriorly?to locate the pleural fluid; straw colored fluid was aspirated. A 10-blade scalpel was used to carlos the skin at the insertion site. The [id number]-[id number] needle was then introduced through the skin incision into the pleural space using negative aspiration pressure and the red colorimetric indicator to confirm appropriate positioning of the needle. The thoracentesis catheter was then threaded without difficulty.? 2780 ml of straw-colored?fluid was removed without difficulty. The catheter was then removed. No immediate complications were noted during the procedure. A post-procedure chest X-ray is pending at the time of this note. The fluid will be sent for routine pleural studies, cultures along with cytopathology.? Patient tolerated the procedure well? Estimated blood loss is 2cc.
--- NOTE | 2023-11-02 14:53 | US_ITS ---
FINAL REPORT CLINICAL HISTORY: EVAL FOR ASCITES COMPARISON: CTA dated 11/02/2023 FINDINGS: Sonographic images of the abdomen were obtained. In the left lobe of the liver, there is a relatively hyperechoic solid mass measuring 1.8 cm in greatest dimension. There is a 2nd relatively hypoechoic mass in the posterior right lobe of the liver measuring 1.5 cm. There is a hyperechoic focus near the shar hepatis measuring 1.2 cm. Findings are concerning for metastases. There is a 3.8 cm cyst in the right lobe of the liver. There is moderate ascites in the pelvis. The focus in the lateral segment of the left lobe of the liver is subtly evident on CT. The common hepatic duct measures 4 mm, which is within normal limits. Limited images of the pancreas are unremarkable. The spleen size is normal. The right kidney measures 9.8 cm in length. The left kidney measures 10.7 cm in length. There is normal renal echogenicity. IMPRESSION: Multiple hyperechoic masses in the liver concerning for metastases. Benign-appearing cyst in the right lobe of the liver. Moderate pelvic ascites. Reviewed, Interpreted and Dictated by Etienne August MD Transcribed by Lorena Mcgowan Authenticated and [facility]
[2023-11-02] MEDS: ENOXAPARIN 40MG/0.4ML SYRINGE 40 MG SQ (16:29)
[2023-11-02 16:44] LABS: Chloride 98 mmol/L (98-107); Sodium 130 mmol/L (136-145)
[2023-11-02 16:45] LABS: Potassium 4.3 mmoL/L (3.5-5.1)
[2023-11-02 16:47] LABS: Alanine Aminotransferase 16 U/L (12-78); Alkaline Phosphatase 141 U/L (38-126); Anion Gap 4.3 mEq/L (5-15); Aspartate Amino Transferase 31 U/L (14-36); Bilirubin,Total 0.6 mg/dl (0.2-1.3); Blood Urea Nitrogen 6 mg/dl (7-17); Calcium 8.4 mg/dl (8.4-10.2); Carbon Dioxide 32 mmol/L (22.0-30.0); Creatinine Clearance Estimated 76 mL/min (50-200); Estimated Glomerular Filt Rate 73 ml/min (>60); GFR (African American) 89 ML/MIN (>60); Glucose 88 mg/dl (74-100)
[2023-11-02 18:12] LABS: Lactate Dehydrogenase 170 U/L (313-618)
--- NOTE | 2023-11-02 18:41 | PC.NURSE ---
Pt post thoracentesis. She remains on 2L O2 NC. Continues to have discomfort to chest area and (R) side. Pain medication increased per MD and administered. Call light within reach.
[2023-11-02] MEDS: PANTOPRAZOLE 40MG TABLET 40 MG PO (21:14)
[2023-11-02] MEDS: SPIRONOLACTONE 25MG TABLET 100 MG PO (21:14)
[2023-11-02] MEDS: METOPROLOL SUCCINATE XL 25MG TABLET 25 MG PO (21:14)
[2023-11-03] VITALS (8 sets, daily range): BP systolic 93–106; BP diastolic 53–59; PULSE 65–85; RESP 17–18; TEMP 36.8–37; O2SAT 92–95; BMI 22.5
[2023-11-03] MEDS: MORPHINE 4MG/ML SYRINGE 4 MG IV ×4 (00:51→12:25)
--- NOTE | 2023-11-03 05:34 | PC.NURSE ---
Patient has not been able to sleep much this shift. Has been in quite some pain. See MAR. states it does get better with medication but does come right back after sometime. Pain has stayed in the mid sternal region and up into the right shoulder. Patient is independent when walking to the bathroom. States the pain is worse when she tries to get up. Patient remains on 2L NC but says she feels much better and would like to go home today. did call this shift with a bed assignment. RN when and told the patient of the assignment and the patient and her both stated they would like to stay at this hospital instead. RN notified Pulmonary and Mickey of the patient refusal to go to they were okay with that. RN educated patient that if they do not take this bed and in the even they would need a bed at they would have to be put back on the waitlist. Patient and voiced understanding. RN notified transfer center of the refusal.
[2023-11-03 06:27] LABS: Chloride 98 mmol/L (98-107); Potassium 4.5 mmoL/L (3.5-5.1); Sodium 129 mmol/L (136-145)
[2023-11-03 06:29] LABS: Blood Urea Nitrogen 6 mg/dl (7-17); Creatinine Clearance Estimated 83 mL/min (50-200); Estimated Glomerular Filt Rate 85 ml/min (>60); GFR (African American) 103 ML/MIN (>60)
[2023-11-03 06:30] LABS: Alanine Aminotransferase 16 U/L (12-78); Albumin Level 2.8 g/dl (3.5-5.0); Albumin/Globulin Ratio 0.9 (1.1-1.8); Alkaline Phosphatase 138 U/L (38-126); Anion Gap 3.5 mEq/L (5-15); Aspartate Amino Transferase 34 U/L (14-36); Bilirubin,Total 0.6 mg/dl (0.2-1.3); Calcium 8.4 mg/dl (8.4-10.2); Carbon Dioxide 32 mmol/L (22.0-30.0); Glucose 90 mg/dl (74-100); Magnesium 1.9 mg/dl (1.6-2.3); Total Protein,Serum 5.8 g/dl (6.3-8.2)
[2023-11-03 07:41] LABS: Basophils % 0.5 % (0.1-2.0); Eosinophils # 0.1 K/mm3 (0.0-0.4); Eosinophils % 2.1 % (0.1-12.0); Hematocrit 30.4 % (37.0-47.0); Hemoglobin 9.6 g/dL (12.2-16.2); Lymphocytes # 1.3 K/mm3 (0.7-4.5); Lymphocytes % 24.5 % (10-50); Mean Corpuscular HGB Conc 31.7 g/dL (31.8-35.4); Mean Corpuscular Hemoglobin 23.3 pg (27.0-31.2); Mean Corpuscular Volume 73.5 fl (81-99); Monocytes # 0.6 K/mm3 (0.1-1.0); Monocytes % 11.1 % (1.7-9.3); Neutrophils # 3.2 K/mm3 (1.8-7.8); Neutrophils % 61.7 % (37.0-80.0); Platelet Count 230 K/mm3 (142-424); Red Blood Count 4.13 M/mm3 (4.20-5.40); Red Cell Distribution Width 17.7 % (11.5-17.5); White Blood Count 5.2 K/mm3 (4.8-10.8)
--- NOTE | 2023-11-03 08:23 | EXP.ACUTE.PN ---
Subjective *Date: 11/03/23 *Time: 08:43 Interval history: Patient feeling better today. Had thoracentesis yesterday and 2780mL of fluid was removed. Denies any SOA. Still having some right shoulder pain and a slight headache. Medical Exam Vital signs and Labs for Last 24 Hours: Vital Signs Temp Pulse Pulse Resp BP BP Pulse Ox 11/03/23 07:44 98.5 F 65 17 106/59 L 95 11/03/23 06:55 11/03/23 04:00 80 11/03/23 05:00 11/03/23 00:00 80 11/02/23 20:00 90 11/03/23 04:00 98.6 F 83 18 93/58 L 94 L 11/03/23 03:00 11/03/23 01:00 11/03/23 00:00 98.4 F 82 18 99/59 L 95 11/02/23 23:00 11/02/23 21:00 11/02/23 20:00 11/02/23 20:00 98.6 F 83 18 100/46 L 96 11/02/23 18:38 11/02/23 17:00 11/02/23 15:56 97.5 F L 74 18 101/60 L 98 11/02/23 14:49 11/02/23 13:00 11/02/23 11:42 98.1 F 81 18 109/65 L 94 L 11/02/23 11:46 11/02/23 11:10 97.9 F 67 18 104/61 L 11/02/23 10:00 83 104/61 L 97 11/02/23 09:30 77 96/63 L 96 11/02/23 09:00 76 18 99/63 L 98 11/02/23 08:30 78 18 96/61 L 96 O2 Del Method O2 Flow Rate 11/03/23 07:44 Nasal Cannula 2 11/03/23 06:55 Nasal Cannula 2 11/03/23 04:00 11/03/23 05:00 Nasal Cannula 2 11/03/23 00:00 11/02/23 20:00 11/03/23 04:00 Nasal Cannula 2 11/03/23 03:00 Nasal Cannula 2 11/03/23 01:00 Nasal Cannula 2 11/03/23 00:00 Nasal Cannula 2 11/02/23 23:00 Nasal Cannula 2 11/02/23 21:00 Nasal Cannula 2 11/02/23 20:00 Nasal Cannula 2 11/02/23 20:00 Nasal Cannula 2 11/02/23 18:38 Nasal Cannula 2 11/02/23 17:00 Nasal Cannula 2 11/02/23 15:56 Room Air 11/02/23 14:49 Nasal Cannula 2 11/02/23 13:00 Nasal Cannula 2 11/02/23 11:42 Nasal Cannula 2 11/02/23 11:46 Nasal Cannula 2 11/02/23 11:10 Nasal Cannula 2 11/02/23 10:00 Room Air 11/02/23 09:30 Room Air 11/02/23 09:00 11/02/23 08:30 Intake and Output 11/02/23 11/03/23 11/03/23 19:59 03:59 11:59 Intake Total 240 / 240 Output Total 0 / 0 0 / 0 0 / 0 Balance 240 / 240 0 / 240 0 / 240 Intake: Intake, Oral Amount 240 / 240 Output: Output, Urine Amount 0 / 0 0 / 0 0 / 0 Other: Number of Unmeasured Voids 1 1 1 Weight 135 lb 4.8 oz Patient Weight 11/03/23 11:59 Weight 135 lb 4.8 oz Laboratory Results - last 24 hr 11/02/23 08:15: Urine Color Yellow, Urine Appearance Clear, Urine pH 6.0, Ur Specific [place] 1.020, Urine Protein Negative, Urine Glucose (UA) Negative, Urine Ketones Negative, Urine Blood Negative, Urine Nitrate Positive, Urine Bilirubin Negative, Urine Urobilinogen 0.2, Ur Leukocyte Esterase 1+ A, Urine RBC None, Urine WBC 50-100, Ur Squamous Epith Cells Occasional, Urine Bacteria 4+ 11/02/23 09:23: Troponin I < 0.01 11/02/23 16:29: Sodium 130 L, Potassium 4.3, Chloride 98, Carbon Dioxide 32 H, Anion Gap 4.3 L, BUN 6 L, Creatinine 0.80, Estimated Creat Clear 76, Estimated GFR 73, Est GFR ( Amer) 89, Glucose 88 D, Calcium 8.4, Total Bilirubin 0.6, AST 31, ALT 16, Alkaline Phosphatase 141 H, Lactate Dehydrogenase 170 L, Total Protein 6.0 L, Albumin 3.0 L, Globulin 3.0, Albumin/Globulin Ratio 1.0 L 11/03/23 05:29: WBC 5.2, RBC 4.13 L, Hgb 9.6 L, Hct 30.4 L, MCV 73.5 L, MCH 23.3 L, MCHC 31.7 L, RDW 17.7 H, Plt Count 230, MPV 9.0, Neut % (Auto) 61.7, Lymph % (Auto) 24.5, [place] % (Auto) 11.1 H, Eos % (Auto) 2.1, Baso % (Auto) 0.5, Neut # (Auto) 3.2, Lymph # (Auto) 1.3, [place] # (Auto) 0.6, Eos # (Auto) 0.1, Baso # (Auto) 0.0, Sodium 129 L, Potassium 4.5, Chloride 98, Carbon Dioxide 32 H, Anion Gap 3.5 L, BUN 6 L, Creatinine 0.70, Estimated Creat Clear 83, Estimated GFR 85, Est GFR ( Amer) 103, Glucose 90, Calcium 8.4, Magnesium 1.9, Total Bilirubin 0.6, AST 34, ALT 16, Alkaline Phosphatase 138 H, Total Protein 5.8 L, Albumin 2.8 L, Globulin 3.0, Albumin/Globulin Ratio 0.9 L I & O for Labs for Last 24 Hours: Intake & Output 10/31/23 11/01/23 11/02/23 11/03/23 11:59 11:59 11:59 11:59 Intake Total 240 / 240 Output Total 0 / 0 Balance 240 / 240 Weight 141 lb 3 oz 135 lb 4.8 oz Constitutional: Present no acute distress Respiratory: Present decreased breath sounds (right) Cardiac: Present Reg Rate and Rhythm GI: Present soft; Absent distention or tenderness Extremities: Absent edema Skin: Present intact Neuro: Present alert and awake Assessment and Plan *Assessment and plan (1) Malignant pleural effusion: Status: Acute Category: Medical Code(s): J91.0 - Malignant pleural effusion (2) Chest pain: Status: Acute Qualifiers: Chest pain type: unspecified Qualified Code(s): R07.9 - Chest pain, unspecified Category: Medical Code(s): R07.9 - Chest pain, unspecified (3) Dyspnea on exertion: Status: Acute Category: Medical Code(s): R06.09 - Other forms of dyspnea (4) Metastatic disease: Status: Acute Qualifiers: Area of secondary neoplastic involvement: unspecified site Qualified Code(s): C79.9 - Secondary malignant neoplasm of unspecified site Category: Medical Code(s): C79.9 - Secondary malignant neoplasm of unspecified site (5) Colon cancer: Status: Acute Qualifiers: Colon location: unspecified part of colon Qualified Code(s): C18.9 - Malignant neoplasm of colon, unspecified Category: Medical Code(s): C18.9 - Malignant neoplasm of colon, unspecified (6) Hyponatremia: Status: Acute Category: Medical Code(s): E87.1 - Hypo-osmolality and hyponatremia (7) Anemia: Status: Acute Qualifiers: Anemia type: unspecified type Qualified Code(s): D64.9 - Anemia, unspecified Category: Medical Code(s): D64.9 - Anemia, unspecified Plan No post procedure CXR in the chart. Will order one today. Abdominal U/S pending. Will discuss further care with Dr. Arevalo. Pulmonology to follow. Dr. Arevalo entry - Saw patient, agree with above note. Supplemental O2 at 3 L now, will wean today, repeat CXR now, await radiology results.
--- NOTE | 2023-11-03 08:28 | XR_ITS ---
FINAL REPORT CLINICAL HISTORY: pleural effusion post thoracentesis FINDINGS: TWO-VIEW CHEST There is moderate cardiomegaly. Chest port tip terminates in the SVC. The mediastinum is normal. There is dense right lower lobe consolidation with overlying atelectasis. There is no pneumothorax. IMPRESSION: Dense right lower lobe consolidation with atelectasis. Reviewed, Interpreted and Dictated by Etienne August MD Transcribed by Lorena Mcgowan Authenticated and [facility]
[2023-11-03] MEDS: ONDANSETRON 4MG/2ML VIAL 4 MG IV ×2 (08:42→15:53)
--- NOTE | 2023-11-03 09:33 | EXP.PULM.PN ---
Subjective *Date: 11/03/23 *Time: 11:51 Interval history: No acute respiratory events overnight. Admits improvement in her symptoms. Pulmonology Exam Inpatient Vital signs and Labs for Last 24 Hours: Temp Pulse Resp BP Pulse Ox O2 Del Method O2 Flow Rate 98.5 F 71 17 106/59 L 95 Nasal Cannula 2 11/03/23 07:44 11/03/23 08:00 11/03/23 07:44 11/03/23 07:44 11/03/23 07:44 11/03/23 07:44 11/03/23 07:44 Laboratory Results - last 24 hr 11/02/23 09:23: Troponin I < 0.01 11/02/23 16:29: Sodium 130 L, Potassium 4.3, Chloride 98, Carbon Dioxide 32 H, Anion Gap 4.3 L, BUN 6 L, Creatinine 0.80, Estimated Creat Clear 76, Estimated GFR 73, Est GFR ( Amer) 89, Glucose 88 D, Calcium 8.4, Total Bilirubin 0.6, AST 31, ALT 16, Alkaline Phosphatase 141 H, Lactate Dehydrogenase 170 L, Total Protein 6.0 L, Albumin 3.0 L, Globulin 3.0, Albumin/Globulin Ratio 1.0 L 11/03/23 05:29: WBC 5.2, RBC 4.13 L, Hgb 9.6 L, Hct 30.4 L, MCV 73.5 L, MCH 23.3 L, MCHC 31.7 L, RDW 17.7 H, Plt Count 230, MPV 9.0, Neut % (Auto) 61.7, Lymph % (Auto) 24.5, [place] % (Auto) 11.1 H, Eos % (Auto) 2.1, Baso % (Auto) 0.5, Neut # (Auto) 3.2, Lymph # (Auto) 1.3, [place] # (Auto) 0.6, Eos # (Auto) 0.1, Baso # (Auto) 0.0, Sodium 129 L, Potassium 4.5, Chloride 98, Carbon Dioxide 32 H, Anion Gap 3.5 L, BUN 6 L, Creatinine 0.70, Estimated Creat Clear 83, Estimated GFR 85, Est GFR ( Amer) 103, Glucose 90, Calcium 8.4, Magnesium 1.9, Total Bilirubin 0.6, AST 34, ALT 16, Alkaline Phosphatase 138 H, Total Protein 5.8 L, Albumin 2.8 L, Globulin 3.0, Albumin/Globulin Ratio 0.9 L I & O for Labs for Last 24 Hours: Intake & Output 10/31/23 11/01/23 11/02/23 11/03/23 23:59 23:59 23:59 23:59 Intake Total 240 / 240 Output Total 0 / 0 0 / 0 Balance 240 / 240 0 / 0 Weight 141 lb 3 oz 135 lb 4.8 oz Constitutional: Present moderate distress Head: Present normocephalic and atraumatic ENT: Present normal exam, normal oropharynx and mucous membranes moist Neck: Present normal inspection and full ROM Respiratory: Present respiratory distress, diminished air movement and able to speak in complete sentences; Absent wheezes or crackles Comment:: Improved aeration. Worsening noted to decreased breath sounds especially on right lower lung field Cardiac: Present S1/S2, Tachycardia and radial pulses present GI: Present soft and distention; Absent tenderness or guarding Rectal (female): Present deferred (female): Present deferred Skin: Present intact; Absent cyanosis or jaundice Neuro: Present alert, awake and oriented x 3 Extremities: Present normal inspection; Absent clubbing or cyanosis Psychiatric: Present normal affect and cooperative Assessment and Plan *Assessment and plan (1) Pleural effusion on right: Status: Acute Category: Medical Code(s): J90 - Pleural effusion, not elsewhere classified (2) Acute respiratory failure with hypoxia: Status: Acute Category: Medical Code(s): J96.01 - Acute respiratory failure with hypoxia Plan Ms. Grajeda is 58-year-old female no significant smoking history, cecal cancer with metachronous metastasis mets to the liver and ascites currently receiving paracentesis every 4 weeks presented to ER with right shoulder pain radiating to her chest and upon further imaging patient noted to have large right-sided pleural effusion pulmonary was called for further evaluation and management. # Acute hypoxic respiratory failure: # Right-sided pleural effusion: Patient admits gradual worsening respiratory distress. New oxygen, needing 2 L upon admission. Chest x-ray and CT chest showed large right-sided pleural effusion. Most recent chest x-ray from 09/10/2023 did not show any effusion. Afebrile. No evidence of leukocytosis. Interval update: Chest X-ray this morning improved but noted to have reaccumulation of fluid. Will hold off on performing any further thoracentesis at this point of time given abdominal ultrasound continue to showe ascitic fluid. Patient exploring the possible Pleurx drain for her ascitic fluid. Respiratory status and oxygen was improved, weaned to room air, this morning saturating 94% on room air. Plan: Incentive spirometry Follow with pleural fluid studies Follow in pulmonary clinic in 4 to 6 weeks with repeat chest x-ray PA lateral. # Thank you for involving pulmonary in this patient care. Will continue to follow.
[2023-11-03] MEDS: DULOXETINE 30MG CAPSULE.DR 30 MG PO (09:48)
[2023-11-03] MEDS: ENOXAPARIN 40MG/0.4ML SYRINGE 40 MG SQ (09:48)
[2023-11-03] MEDS: SPIRONOLACTONE 25MG TABLET 100 MG PO (09:48)
--- NOTE | 2023-11-03 10:29 | PC.NURSE ---
room air saturation 95%
[2023-11-03] MEDS: PROMETHAZINE HCL 25MG/ML 1ML VIAL 6.25 MG IV (13:19)
[2023-11-03] MEDS: PROMETHAZINE 25MG TABLET 25 MG PO (17:11)
[2023-11-04 12:50] LABS: Albumin, Body Fluid 1.2 g/dL (Not Estab.); Glucose, Body Fluid 102 mg/dL (.); Protein, Body Fluid 2.3 g/dL (.)
--- NOTE | 2023-11-04 13:57 | CARE MANAGER ---
Called and spoke with patient regarding recent discharge. She stated that she is doing well and is aware of f/u appts. No concerns voiced at time of call.
[2023-11-08 16:24] LABS: pH, Body Fluid 7.4 (Not Estab.)
--- NOTE | 2023-11-16 15:17 | EXP.DC.SUM ---
General Admission date:: 11/02/23 Discharge date: 11/03/23 HPI HPI HPI: Ms. Grajeda is a 58-year-old female with a history of metastatic colon cancer and known liver Metastasis being treated at [facility] who presented to [facility] emergency room after awakening this a.m. around 430 with severe right-sided chest pain radiating up into the right shoulder, shortness of breath, nausea and vomiting. She states she thought she was having a heart attack. She presented to the ER via ambulance. Initial evaluation in the ER showed a blood pressure of 99/56 with O2 sats 87% on room air. She received IV fluids, IV morphine and Zofran for treatment. CBC showed no leukocytosis and mild anemia with a hemoglobin of 10.5. CMP with a sodium of 130. Alkaline phosphatase elevated at 158. Initial troponin troponin was less than 0.01. She was placed on oxygen at 2 L with sats ranging from 90 to 92%. CTA with PE protocol was negative for PE. A large right-sided pleural effusion was noted with probable malignant effusion. She did have mild shift of the mediastinum to the left. Physician in the ER did discuss the case with transfer center who unfortunately did not have a bed available for transfer. She was thus admitted to the services of Dr. Arevalo for ongoing treatment. Pulmonology, Dr. Escobar, was also consulted for removal of the pleural fluid. At the time of this exam patient was more comfortable after receiving morphine. She continued to have pain at a level of 4 from previous 20. Pain was intense with any movement or deep breathing and therefore her respiratory effort was shallow. She was able to speak in clear sentences. Presently she is not nauseated. To note patient did have a paracentesis last week and for a total of 5-6 paracentesis. She also had a second opinion by oncologist, Dr. Lott, at [facility] with extensive discussions over current treatment. He related to them that he felt like they were receiving excellent care from the team at . Hospital Course Hospital Course Hospital Course: Dr. Arevalo did speak with pulmonology who planned a thoracentesis. Nausea and pain management were continued. The ride attendant saw the patient and performed a thoracentesis removing 2780 mL of straw-colored fluid. The patient did feel much better after the thoracentesis. She denied any shortness of air but was still having some right shoulder pain and a slight headache. She had an abdominal ultrasound done as well to check for fluid in the abdominal cavity. She had a repeat chest x-ray which showed some reaccumulation of fluid. Her abdominal ultrasound continue to show some ascitic fluid as well. The patient was exploring the possibility of a Pleurx drain for her ascitic fluid. Her respiratory status and oxygen had improved and she was weaned to room air. She was stable will be discharged home with an incentive spirometer and will follow-up in the pulmonology clinic in 4 to 6 weeks with a repeat chest x-ray. Exam Data for Last 24 hours Vital signs and Labs for Last 24 Hours: Temp Pulse Resp BP Pulse Ox O2 Del Method O2 Flow Rate 98.2 F 85 17 98/53 L 92 L Room Air 2 11/03/23 11:28 11/03/23 16:00 11/03/23 11:28 11/03/23 11:28 11/03/23 11:28 11/03/23 17:00 11/03/23 09:00 Narrative: Constitutional Constitutional: mild distress and cooperative *Routine HEENT Exam Head: Present normocephalic and atraumatic Eye: Present PERRL; Absent conjunctival icterus, scleral injection or conjunctivae pink ENT: Present mucous membranes moist and oropharynx clear *Routine Neck Exam Neck: Present supple; Absent carotid bruit, lymphadenopathy or thyromegaly Routine Chest/Breast/Axilla Exam Chest wall: Present tenderness (right sided) *Routine Respiratory Exam Respiratory: Present decreased breath sounds (no audible BS on the right) and able to speak in complete sentences; Absent normal respiratory effort (shallow respiratory effort) Comments: left chest sounds are clear *Routine Cardiovascular Exam Cardiovascular: Present RRR *Routine Abdominal Exam Abdominal: Present soft and normoactive bowel sounds; Absent tenderness, distended or guarding *Routine Rectal Exam Rectal:: deferred *Routine Genitalia Exam Genitalia:: deferred *Routine Extremities Exam Extremities: Absent edema, calf tenderness or tenderness *Routine Neurological Exam Neurological: Present alert and oriented X3 DS: Diagnosis Discharge Diagnosis (1) Pleural effusion on right: Status: Acute Code(s): J90 - Pleural effusion, not elsewhere classified (2) Acute respiratory failure with hypoxia: Status: Acute Code(s): J96.01 - Acute respiratory failure with hypoxia Meds Home Medications and Allergies Home Medications Medication Instructions Recorded Confirmed Type ubrogepant 100 mg tablet (Ubrelvy) 100 mg PO DAILY PRN Headache 04/14/23 11/02/23 History spironolactone 100 mg tablet 100 mg PO DAILY 09/10/23 11/02/23 History oxycodone 5 mg tablet 5 mg PO Q4H PRN pain #30 tabs 09/14/23 11/02/23 Rx pantoprazole 40 mg tablet,delayed 40 mg PO DAILY 09/14/23 11/02/23 History release promethazine 25 mg tablet 25 mg PO Q6H PRN nausea and 09/14/23 11/02/23 Rx vomiting #30 tabs ursodiol 300 mg capsule 300 mg PO BID 09/14/23 11/02/23 History metoprolol succinate 25 mg 25 mg PO DAILY #90 tabs 10/28/23 11/02/23 Rx tablet,extended release 24 hr Bacillus coagulans-inulin 1 1 cap PO DAILY 11/02/23 11/02/23 History billion cell-250 mg capsule (Probiotic Formula (inulin)) duloxetine 30 mg capsule,delayed 30 mg PO DAILY 11/02/23 11/02/23 History release gabapentin 300 mg capsule 300 mg PO BID 11/02/23 11/02/23 History ondansetron 4 mg disintegrating 4 mg PO Q6HP PRN nausea and 11/02/23 11/02/23 History tablet vomiting New Prescriptions to Start Prescriptions: Allergies Allergy/AdvReac Type Severity Reaction Status Date / Time Sulfa (Sulfonamide Allergy Verified 10/28/23 13:20 Antibiotics) sulfamethoxazole Allergy Verified 10/28/23 13:20 [From Bactrim] trimethoprim [From Bactrim] Allergy Verified 10/28/23 13:20 Discharge Plan Disposition Patient Disposition: Home, Self-Care Condition: Fair Discharge Order Discharge Orders: Discharge Order (Routine); Ordered 11/03/23 Ordered By: Paul Arevalo Follow up Plan Follow up with: Paul Arevalo MD [Primary Care Provider] - 11/10/23 2:00 pm Kathrin Escobar MD [Physician] - 12/15/23 1:00 pm (4-6 weeks) Prescriptions/Medication Reconciliation: Continued spironolactone 100 mg tablet 100 mg PO DAILY metoprolol succinate 25 mg tablet extended release 24 hr 25 mg PO DAILY Qty: 90 3RF gabapentin 300 mg capsule 300 mg PO BID Probiotic Formula (inulin) 1 billion-250 cell-mg capsule 1 cap PO DAILY ondansetron 4 mg tablet,disintegrating 4 mg PO Q6HP PRN (Reason: nausea and vomiting) duloxetine 30 mg capsule,delayed release(DR/EC) 30 mg PO DAILY Ubrelvy 100 mg tablet 100 mg PO DAILY PRN (Reason: Headache) Patient Comments: TAKE 1 TABLET BY MOUTH DAILY NEEDED FOR MIGRAINE HEADACHE pantoprazole 40 mg tablet,delayed release (DR/EC) 40 mg PO DAILY ursodiol 300 mg capsule 300 mg PO BID promethazine 25 mg tablet 25 mg PO Q6H PRN (Reason: nausea and vomiting) Qty: 30 1RF oxycodone 5 mg tablet 5 mg PO Q4H PRN (Reason: pain) Qty: 30 0RF Other Ambulatory Orders: XR chest 2V (Routine) Timeframe: 4 Weeks Facility: [facility] - Location: Radiology Ordered By: Kathrin Escobar Problem Reconciliation Problems Reviewed?: Yes Patient Discharge Instructions ACTIVITY: Continue current activity DIET: continue same diet Patient Instructions: DI for Thoracentesis, DI for Urinary Tract Infection (UTI), DI for Surgical Site Infection, DI for Pleural Effusion Providers Primary Care Provider: Paul Arevalo Admit Provider: Paul Arevalo Attending Provider: Paul Arevalo
== END 2023-11-03 17:25 | disposition home or self-care (01) | DRG 374 ==
LOC: ER 07:36 → 2ND 10:21
PROVIDERS: Emergency Medicine; Internal Medicine Adolescent Medicine; Internal Medicine Pulmonary Disease; Admitting Provider Family Medicine; Emergency Provider Emergency Medicine; PCP Family Medicine; Visit Provider Family Medicine
DX: C18.0 Malignant neoplasm of cecum (principal); J96.01 Acute respiratory failure with hypoxia; C78.7 Secondary malignant neoplasm of liver and intrahepatic bile duct; E87.1 Hypo-osmolality and hyponatremia; J91.0 Malignant pleural effusion; D63.0 Anemia in neoplastic disease; Z86.718 Personal history of other venous thrombosis and embolism
CPT/HCPCS: 32555; 36415; 71045; 71046; 71275; 76705; 80053; 81001; 82042; 82945; 83615; 83690; 83735; 83986; 84155; 84484; 85025; 85610; 87070; 87086; 87205; 93005; 99285; J2405; Q9967

== ENCOUNTER 2023-11-11 14:00 | Outpatient (RCR) | payer BC, SELFPAY | END 2023-11-11 15:00 | disposition home or self-care (01) | LOC: OT 14:00 | PROVIDERS: PCP Family Medicine; Visit Provider Nurse Practitioner Acute Care | DX: R53.1 Weakness (principal); K52.9 Noninfective gastroenteritis and colitis, unspecified; C78.7 Secondary malignant neoplasm of liver and intrahepatic bile duct | CPT/HCPCS: 97110; 97164; 97165 ==

== ENCOUNTER 2023-11-11 15:00 | Outpatient (RCR) | payer BC, SELFPAY | END 2023-11-11 16:10 | disposition home or self-care (01) | LOC: PT 15:00 | PROVIDERS: PCP Family Medicine; Visit Provider Nurse Practitioner Acute Care | DX: K52.9 Noninfective gastroenteritis and colitis, unspecified (principal); C78.7 Secondary malignant neoplasm of liver and intrahepatic bile duct; R53.1 Weakness | CPT/HCPCS: 97010; 97110; 97112; 97116; 97163; 97164; 97530 ==

== ENCOUNTER 2023-12-01 12:54 | Outpatient (CLI) | payer BC, SELFPAY ==
--- NOTE | 2023-12-01 12:54 | MR_ITS ---
APPROVED REPORT Household Cook: CLINICAL INDICATION Possible moderate RV dilation on TTE, evaluate for ARVC TECHNIQUE Image Acquisition: Cardiac magnetic resonance (CMR) was performed on Siemens Espree MRI 1.5T scanner. Software platform sequences were performed using the Siemens WelVU MR B19 platform. A set of three-plane, low-resolution, large [id number] localizers were initially acquired. Then axial, coronal, sagittal TrueFISP, as well as axial HASTE images, were obtained. These were followed by gated TrueFISP breathold cinematic sequences obtained in the short axis with 8 mm slices and 2 mm gaps, 2-chamber (vertical long axis), 3-chamber, 4-chamber (horizontal long axis). A bolus of contrast was injected intravenously with first-pass sequences obtained in the short axis and four-chamber planes. After approximately 10 minutes, a TI chair inspector sequence was performed to determine the optimal TI time. Using the optimized TI time, delayed contrast enhancement segmented inversion???recovery TurboFLASH sequences were obtained in the short axis, 2-chamber, 3-chamber, and 4-chamber projections. 2D-velocity phase mapping was performed. Functional parameters were calculated by offline analysis on an independent workstation ([employer], [facility]). Contrast: ProHance??? (Gadoteridol) FINDINGS MORPHOLOGY AND FUNCTION Left ventricle: The left ventricle is normal in size. The indexed left ventricular end-diastolic volume (LVEDVi) is 66 ml/m2 (reference range 57-105 ml/m2 in males, 56-96 ml/m2 in females). Normal left ventricular systolic function is present. There is normal left ventricular wall thickness. There are no regional wall motion abnormalities noted. LVEF is calculated at 63% (reference range 57-77%). Right ventricle: The right ventricle is normal in size. The indexed right ventricular end-diastolic volume (RVEDVi) is 87 ml/m2 (reference range 61-121 ml/m2 in males, 48-112 ml/m2 in females). Normal right ventricular systolic function is present. RVEF is calculated at 53% (reference range 52-72% in males, 51-71% in females). Atria: The left atrium is mildly dilated. The maximum indexed left atrial volume is 55 ml/m2 (reference range 26-52 ml/m2 in males, 27-53 ml/m2 in females). The right atrium is normal in size. The maximum indexed right atrial volume is 30 ml/m2 (reference range 18-90 ml/m2). Aorta: The diameter of the aortic annulus is normal, measuring 22 mm (coronal view reference range 21-30 mm in males, 19-27 mm in females). The diameter of the aortic sinus is normal, measuring 30 mm (coronal view reference range 25-42 mm in males, 24-36 mm in females). The diameter of the sinotubular junction is normal, measuring 26 mm (coronal view reference range 18-32 mm in males, 18-28 mm in females). The diameters of the ascending and descending thoracic aorta are normal. Main pulmonary artery: The main pulmonary artery diameter is normal. Pericardium: The pericardial thickness is normal. The pericardial thickness measures 1.0 cm (normal < 4.0 cm). There is no pericardial effusion. VALVES The valvular morphologies in the visualized sequences appear normal. There is no significant valvular stenosis or regurgitation of the mitral, aortic, tricuspid, or pulmonic valve noted visually. Systolic anterior motion of the mitral valve is not visualized. Ratio of pulmonary to systemic flow, Qp:Qs ratio = 1.45 (normal < or = 1.2), demonstrating possible evidence of interatrial shunt. TISSUE CHARACTERIZATION Resting Perfusion: Normal myocardial blood flow at rest. No evidence of resting hypoperfusion. Myocardial Fibrosis and/or edema: Normal gadolinium kinetics are present. No evidence of late gadolinium enhancement is noted, consistent with absence of myocardial scarring, infarction, or necrosis. T2-weighted imaging demonstrates no evidence of myocardial edema or inflammation. OTHER Small, round hyperintense hepatic mass, measuring 5 mm in diameter. This is most consistent with hepatic cyst. IMPRESSION Normal LV size with normal LV systolic function. LVEDVi= 66 ml/m2 and LVEF= 63%. Normal RV size with normal RV systolic function. RVEDVi= 87 ml/m2 and RVEF= 53%. Mild LA enlargement. No CMR evidence of myocardial scarring, infarction, or necrosis. No evidence of myocardial edema or inflammation. Perfusion analysis demonstrates normal blood flow at rest with no evidence of resting hypoperfusion. Ratio of pulmonary to systemic flow, Qp:Qs ratio = 1.45 (normal < or = 1.2), demonstrating possibleevidence of interatrial shunt. Hepatic cyst is incidentally noted. Overall, this CMR demonstrates normal biventricular systolic size and function. There is no CMR-evidence of ARVC. COMPARISON None CRITICAL RESULT None COMMUNICATION Per this written report The findings of this cardiac MR were reviewed, reported, and signed by John Thomas MD (Med Aide). Conclusion Electronically signed by : Aisha Thomas MD 12/14/2023 13:39:07
[2023-12-01] MEDS: SODIUM CHLORIDE 0.9% 10ML SYR (RAD ONLY) 10 ML IV (14:31)
[2023-12-01] MEDS: SODIUM CHLORIDE 0.9% 50ML BAG 25 ML IV (14:31)
[2023-12-01] MEDS: GADOTERIDOL INJ 17ML SYRINGE 13 ML IV (14:31)
== END 2023-12-01 23:59 ==
LOC: RAD 12:54
PROVIDERS: PCP Family Medicine; Visit Provider Internal Medicine
DX: I47.10 Supraventricular tachycardia, unspecified (principal); I51.7 Cardiomegaly; R06.09 Other forms of dyspnea; C18.0 Malignant neoplasm of cecum; C78.7 Secondary malignant neoplasm of liver and intrahepatic bile duct
CPT/HCPCS: 75561; A9576

== ENCOUNTER 2024-09-16 18:58 | Emergency (ER) | payer BC, MEDICARE, SELFPAY ==
[2024-09-16 19:15] VITALS: BP 128/77; PULSE 79; RESP 17; TEMP 36.7; O2SAT 99; BMI 26.1
--- NOTE | 2024-09-16 19:21 | ED_ITS ---
Discharge Plan Disposition Patient Disposition: Home, Self-Care Condition: Good Prescriptions Prescriptions: New amoxicillin 875 mg tablet 875 mg PO BID 10 Days Qty: 20 0RF benzonatate 100 mg capsule 100 mg PO TID PRN (Reason: cough) Qty: 30 0RF No Action metoprolol succinate 25 mg tablet extended release 24 hr 12.5 mg PO BID Qty: 180 3RF duloxetine 30 mg capsule,delayed release(DR/EC) 30 mg PO DAILY pantoprazole 40 mg tablet,delayed release (DR/EC) 40 mg PO DAILY ferrous sulfate [FeroSul] 325 mg (65 mg iron) tablet 325 mg PO DAILY Feosol Bifera 28 mg tablet 1 tab PO DAILY Probiotic Formula (inulin) 1 billion-250 cell-mg capsule 1 cap PO DAILY Referrals Follow up/Referrals: Paul Arevalo MD [Primary Care Provider] - See instructions Activity Restrictions/Add. Instructions Additional Instructions/Restrictions: *Monitor Temp, Over the counter Motrin or Tylenol as directed/as needed Tylenol every 4 hours and Motrin every 6 hours (as long as your family doctor has told you that you can take it) for fever or pain. and straight to ER if unable to lower temp less than 101.0 after medication given *Warm salt water gargles may help to soothe the throat *Throat Lozenges? *Warm fluids like tea with honey may help to soothe the throat? *Sleep elevated *Humidifier/Vaporizer * *If you did not take Penicillin shot or was unable to, start taking antibiotic immediately and make sure that you take it for the FULL length of time although you should start to feel better in 24-48 hours *change toothbrush and toothpaste 24-48 hours after starting to take antibiotics so you do not reinfect yourself Monitor Temp. Tylenol and/or Ibuprofen as needed. ER if fever is no less than 101 despite alternating Tylenol and Ibuprofen * Encourage fluids, water, Gatorade, powerade, pedialyte if infant/toddler/or child *Cold fluids, popsicles and ice cream may feel good on his throat Follow up IMMEDIATELY for new or worsening symptoms or no Noticeable improvement over the next 48-72 hours. 911 for difficulty breathing or swallowing Clinical Impressions Clinical Impression: Strep throat Instructions Patient Instructions: DI for Strep Throat, Strep Throat, Amoxicillin Print Language Print Language: Mongolian Discharge ED Provider: Amie Reyez [facility] General Stated complaint: ? right ear infection Mode of Arrival: Ambulatory Source of Information: Patient Limitations: No Limitations Time Seen by Provider: 09/16/24 19:21 Description of Symptoms (Recalled from Triage Doc. by RN): PATIENT C/O RIGHT EAR PAIN/FULLNESS, COUGH, SORE THROAT AND RUNNY NOSE SINCE WEDNESDAY HEENT Symptoms (Recalled from RN notes): Yes Resp Symptoms (Recalled from RN notes): Yes Skin Symptoms (Recalled from RN notes): No MS Symptoms (Recalled from RN notes): No Functional Status (Recalled from RN notes): WNL History of Present Illness Provider Complaint: Patient states that since about Wed she has been having sore scratchy throat, pain and fullness in her right ear, cough and runny nose States her grandson had strep throat last week and not sure if she may have caught strep off him or have an ear infection Related Data Home Medications ?Medication ?Instructions ?Recorded ?Confirmed pantoprazole 40 mg tablet,delayed 40 mg PO DAILY 09/14/23 09/16/24 release duloxetine 30 mg capsule,delayed 30 mg PO DAILY 11/02/23 09/16/24 release Bacillus coagulans-inulin 1 1 cap PO DAILY 09/16/24 09/16/24 billion cell-250 mg capsule (Probiotic Formula (inulin)) ferrous sulfate 325 mg (65 mg 325 mg PO DAILY 09/16/24 09/16/24 iron) tablet (FeroSul) iron polysaccharide complex-iron 1 tab PO DAILY 09/16/24 09/16/24 heme polypeptide 28 mg tablet (Feosol Bifera) Previous Rx's ?Medication ?Instructions ?Recorded metoprolol succinate 25 mg 12.5 mg (1/2 x 25 mg) PO BID #180 06/13/24 tablet,extended release 24 hr tabs amoxicillin 875 mg tablet 875 mg PO BID 10 days #20 tabs 09/16/24 benzonatate 100 mg capsule 100 mg PO TID PRN cough #30 caps 09/16/24 Allergies Allergy/AdvReac Type Severity Reaction Status Date / Time Sulfa (Sulfonamide Allergy Verified 06/13/24 13:36 Antibiotics) sulfamethoxazole Allergy Verified 06/13/24 13:36 [From Bactrim] trimethoprim [From Bactrim] Allergy Verified 06/13/24 13:36 Worker's Comp Is this a Worker's Comp case?: No [facility] Disclaimer: The information contained in this section may have been updated after the patient was seen, as this information can be updated by other users. Medical History Acute respiratory failure with hypoxia Pleural effusion on right SVT (supraventricular tachycardia) Right ventricular hypertrophy Dyspnea on exertion Tachycardia Metastatic disease Dysrhythmia Lesion of liver Hepatic cyst Multiple pulmonary nodules Degenerative disc disease Colon cancer Right sided sciatica Surgical History History of cholecystectomy History of partial surgical removal of colon History of surgery of liver History of removal of both ovaries History of colonoscopy History of tubal ligation Hx of BSO (bilateral salpingo-oophorectomy) Family History Mother Pancreatic cancer Father Multiple myeloma Other Cancer Hypertension Social History Smoking Status: Never smoker alcohol intake: current alcohol intake frequency: holidays/special occasions only substance use type: denies use current occupational status: other Travel in the last 8 weeks: None household members: spouse housing: house current occupational exposures/hazards: No caffeine: No ROS Obtained: Yes All systems reviewed & no additional complaints except as documented and Yes Systems reviewed as appropriate & no additional complaints except as documented Constitutional Constitutional: Reports system reviewed and no additional complaints, except as documented, Reports as per HPI and Reports headache(s) ENT Ears, Nose, Mouth, and Throat: Reports system reviewed and no additional complaints, except as documented, Reports as per HPI, Reports otalgia, Reports headache(s), Reports nasal congestion, Reports nasal discharge and Reports sore throat Cardiovascular Cardiovascular: Reports system reviewed and no additional complaints, except as documented and Reports as per HPI Respiratory Respiratory: Reports system reviewed and no additional complaints, except as documented, Reports as per HPI and Reports cough Gastrointestinal Gastrointestingal: Reports system reviewed and no additional complaints, except as documented and as per HPI Neurologic Neurologic: Reports headache(s) Physical Exam General General appearance: alert and in no apparent distress ENT ENT exam: Present mucous membranes moist Expanded ENT Exam TM/Canal exam: Right TM: erythema (mild) and bulging Nose exam: Absent sinus tenderness Throat exam: Present tonsillar erythema Respiratory Respiratory exam: Present normal lung sounds bilaterally; Absent respiratory distress or wheezes Cardiovascular Cardiovascular exam: Present regular rate, normal rhythm and normal heart sounds Neurological Exam Neurological exam: Present alert, oriented X3 and normal gait Medical Decision Making Medical Records Screening: Per USPSTF and CDC recommendations, given the prevalence of disease in our region, it is our hospital?s policy to screen for HIV and viral Hepatitis for all patients aged 18 and over and those with ongoing risk factors. Ari Inquiry Pt receiving controlled substance: No Ari was queried for this patient: No Vital Signs: 09/16/24 19:15 Temperature 98.0 F Temperature Source Oral Pulse Rate [Left Brachial] 79 Respiratory Rate 17 Blood Pressure [Left Arm] 128/77 Blood Pressure Mean [Left Arm] 94 Blood Pressure Source [Left Arm] Automatic Cuff Blood Pressure Position [Left Arm] Sitting 02 Sat by Pulse Oximetry 99 Oxygen Delivery Method Room Air Lab Data Lab results reviewed: Yes I reviewed the patient's lab results.
[2024-09-16 19:28] LABS: UTC Strep Screen (Rapid) Positive (Negative)
[2024-09-16 19:35] VITALS: BP 128/77; PULSE 79; RESP 17; TEMP 36.7; O2SAT 99
[2024-09-16] MEDS: AMOXICILLIN 500MG CAPSULE 500 MG PO (19:35)
== END 2024-09-16 19:37 | disposition home or self-care (01) ==
PROVIDERS: Emergency Provider Nurse Practitioner; PCP Family Medicine
DX: J02.0 Streptococcal pharyngitis (principal); H92.01 Otalgia, right ear; R05.9 Cough, unspecified; R09.89 Other specified symptoms and signs involving the circulatory and respiratory systems
CPT/HCPCS: 87880; 99212; G0381

== ENCOUNTER 2024-09-26 18:04 | Emergency (ER) | payer BC, MEDICARE, SELFPAY ==
[2024-09-26] VITALS (7 sets, daily range): BP systolic 107–141; BP diastolic 63–88; PULSE 73–88; RESP 13–16; TEMP 36.6–36.8; O2SAT 93–100; BMI 25.6
--- NOTE | 2024-09-26 18:11 | [facility].EDGENADL ---
Discharge Plan Disposition Patient Disposition: Home, Self-Care Condition: Good Prescriptions Prescriptions: No Action metoprolol succinate 25 mg tablet extended release 24 hr 12.5 mg PO BID Qty: 180 3RF duloxetine 30 mg capsule,delayed release(DR/EC) 30 mg PO DAILY pantoprazole 40 mg tablet,delayed release (DR/EC) 40 mg PO DAILY ferrous sulfate [FeroSul] 325 mg (65 mg iron) tablet 325 mg PO DAILY Feosol Bifera 28 mg tablet 1 tab PO DAILY Probiotic Formula (inulin) 1 billion-250 cell-mg capsule 1 cap PO DAILY amoxicillin 875 mg tablet 875 mg PO BID 10 Days Qty: 20 0RF benzonatate 100 mg capsule 100 mg PO TID PRN (Reason: cough) Qty: 30 0RF Referrals Follow up/Referrals: Paul Arevalo MD [Primary Care Provider] - See instructions Enoc Sidhu II, MD [Staff Physician] - See instructions Activity Restrictions/Add. Instructions Additional Instructions/Restrictions: Try to stay hydrated drinking water or Gatorade in small amounts. If you lose the ability to keep down liquids have increasing pain or any other worsening signs or symptoms return to the ER. I have given you the phone number of Dr. Sidhu of gastroenterology. Please call in the morning to schedule an appointment for endoscopy. Clinical Impressions Clinical Impression: Abdominal pain, epigastric Print Language Print Language: [place] Discharge ED Provider: Yoni Horner General Adult HPI <CONOR Kumar - Last Filed: 09/26/24 21:16> General Chief complaint: PAIN Stated complaint: back pain, severe indigestion Time Seen by Provider: 09/26/24 18:11 History of Present Illness HPI narrative: Patient presents for evaluation of epigastric abdominal pain. Patient has had epigastric abdominal pain since Wednesday. She states is located directly in the middle of her upper abdomen radiating to her back. Patient has a significant past medical history of right sided colon cancer status post right hemicolectomy with primary anastomosis, metastatic disease to her liver status post chemotherapy and resection. She has been doing well for quite some time however this weekend she began having epigastric abdominal pain that radiated to her back. She denied any fevers chills hemoptysis hematochezia melena vomiting or diarrhea but she did report nausea. She also reports that in regards to her bowel movements that she has had liquid bowel movements for some time. She has been able to eat and had pizza today. She is passing flatus. Related Data Home Medications ?Medication ?Instructions ?Recorded ?Confirmed pantoprazole 40 mg tablet,delayed 40 mg PO DAILY 09/14/23 09/16/24 release duloxetine 30 mg capsule,delayed 30 mg PO DAILY 11/02/23 09/16/24 release Bacillus coagulans-inulin 1 1 cap PO DAILY 09/16/24 09/16/24 billion cell-250 mg capsule (Probiotic Formula (inulin)) ferrous sulfate 325 mg (65 mg 325 mg PO DAILY 09/16/24 09/16/24 iron) tablet (FeroSul) iron polysaccharide complex-iron 1 tab PO DAILY 09/16/24 09/16/24 heme polypeptide 28 mg tablet (Feosol Bifera) Previous Rx's ?Medication ?Instructions ?Recorded metoprolol succinate 25 mg 12.5 mg (1/2 x 25 mg) PO BID #180 06/13/24 tablet,extended release 24 hr tabs amoxicillin 875 mg tablet 875 mg PO BID 10 days #20 tabs 09/16/24 benzonatate 100 mg capsule 100 mg PO TID PRN cough #30 caps 09/16/24 Allergies Allergy/AdvReac Type Severity Reaction Status Date / Time Sulfa (Sulfonamide Allergy Verified 06/13/24 13:36 Antibiotics) sulfamethoxazole Allergy Verified 06/13/24 13:36 [From Bactrim] trimethoprim [From Bactrim] Allergy Verified 06/13/24 13:36 [facility] <CONOR Kumar - Last Filed: 09/26/24 21:16> [facility] Disclaimer: The information contained in this section may have been updated after the patient was seen, as this information can be updated by other users. Medical History Acute respiratory failure with hypoxia Pleural effusion on right SVT (supraventricular tachycardia) Right ventricular hypertrophy Dyspnea on exertion Tachycardia Metastatic disease Dysrhythmia Lesion of liver Hepatic cyst Multiple pulmonary nodules Degenerative disc disease Colon cancer Right sided sciatica Surgical History History of cholecystectomy History of partial surgical removal of colon History of surgery of liver History of removal of both ovaries History of colonoscopy History of tubal ligation Hx of BSO (bilateral salpingo-oophorectomy) Family History Mother Pancreatic cancer Father Multiple myeloma Other Cancer Hypertension Social History Smoking Status: Never smoker alcohol intake: current alcohol intake frequency: holidays/special occasions only substance use type: denies use current occupational status: other Travel in the last 8 weeks: None household members: spouse housing: house current occupational exposures/hazards: No caffeine: No Other Medical History Have you received the Flu Vaccine for this season: No Have you received the Pneumonia Vaccine: No <CONOR Kumar - Last Filed: 09/26/24 21:16> ROS Obtained: Yes Systems reviewed as appropriate & no additional complaints except as documented Physical Exam <CONOR Kumar - Last Filed: 09/26/24 21:16> General General appearance: alert and in no apparent distress Respiratory Respiratory exam: Present normal lung sounds bilaterally Cardiovascular Cardiovascular exam: Present regular rate; Absent normal rhythm Abdominal Exam Abdominal exam: Present normal bowel sounds Neurological Exam Neurological exam: Present alert and oriented X3 Medical Decision Making <CONOR Kumar - Last Filed: 09/26/24 21:16> Medical Records Medical records reviewed: Yes I reviewed the patient's medical records. Screening: Per USPSTF and CDC recommendations, given the prevalence of disease in our region, it is our hospital?s policy to screen for HIV and viral Hepatitis for all patients aged 18 and over and those with ongoing risk factors. Ari Inquiry Pt receiving controlled substance: No Vital Signs: 09/26/24 18:24 09/26/24 18:30 09/26/24 19:00 Temperature 98.3 F Temperature Source Oral Pulse Rate 73 88 Pulse Rate [Left Radial] 73 Respiratory Rate 13 Blood Pressure 129/85 112/75 Blood Pressure [Right Arm] 141/88 H Blood Pressure Mean 100 87 Blood Pressure Mean [Right Arm] 105 02 Sat by Pulse Oximetry 100 96 93 L Oxygen Delivery Method Room Air 09/26/24 19:30 09/26/24 20:00 09/26/24 20:30 Temperature Temperature Source Pulse Rate 77 84 84 Pulse Rate [Left Radial] Respiratory Rate Blood Pressure 107/70 L 116/70 108/63 L Blood Pressure [Right Arm] Blood Pressure Mean 82 80 74 Blood Pressure Mean [Right Arm] 02 Sat by Pulse Oximetry 99 96 96 Oxygen Delivery Method 09/26/24 21:05 Temperature 97.8 F Temperature Source Pulse Rate 78 Pulse Rate [Left Radial] Respiratory Rate 16 Blood Pressure 109/65 L Blood Pressure [Right Arm] Blood Pressure Mean Blood Pressure Mean [Right Arm] 02 Sat by Pulse Oximetry Oxygen Delivery Method Room Air Lab Data Lab results reviewed: Yes I reviewed the patient's lab results. Lab Results 09/26/24 18:21: WBC 6.1, RBC 5.17, Hgb 14.3, Hct 42.8, MCV 82.7, MCH 27.7, MCHC 33.5, RDW 18.1 H, Plt Count 150, MPV 9.8, Neut % (Auto) 66.6, Lymph % (Auto) 20.3, [place] % (Auto) 10.1 H, Eos % (Auto) 1.7, Baso % (Auto) 1.3, Neut # (Auto) 4.1, Lymph # (Auto) 1.2, [place] # (Auto) 0.6, Eos # (Auto) 0.1, Baso # (Auto) 0.1, PT 10.5, INR 0.93, Sodium 138, Potassium 4.3, Chloride 101, Carbon Dioxide 30, Anion Gap 11.3, BUN 18 H, Creatinine 0.80, Estimated Creat Clear 65, Estimated GFR 73, Est GFR ( Amer) 88, Glucose 124 H, Calcium 9.5, Magnesium 2.1, Total Bilirubin 0.9, AST 124 H, ALT 97 H, Alkaline Phosphatase 304 H, Troponin I < 0.01, NT-Pro-B Natriuret Pep 101, Total Protein 7.2, Albumin 4.3, Globulin 2.9, Albumin/Globulin Ratio 1.5, Lipase 159, HIV 1&2 Antibody Rapid Nonreactive 09/26/24 19:46: Lactate 1.3 09/26/24 18:21 09/26/24 18:21 Orders (Tests/Meds): ED MEDICATIONS Discontinued Medications Generic Name Dose Route Start Last Admin Trade Name Freq PRN Reason Stop Dose Admin Acetaminophen 1,000 mg 09/26/24 18:33 09/26/24 18:45 Acetaminophen 1,000mg/100ml Vial IV 09/26/24 18:34 1,000 mg ONCE ONE Administration Belladonna Alkaloids 60 ml 09/26/24 18:33 09/26/24 18:45 Belladonna Alkaloids 60 Ml Ml PO 09/26/24 18:34 60 ml ONCE ONE Administration Iopamidol 80 ml 09/26/24 19:15 09/26/24 19:16 Iopamidol-370 (76%);100ml Bottle IV 09/26/24 19:16 80 ml ONCE ONE Administration Morphine Sulfate 2 mg 09/26/24 18:33 09/26/24 18:45 Morphine 2mg/Ml Syringe IV 09/26/24 18:34 2 mg ONCE ONE Administration Sodium Chloride 50 ml 09/26/24 19:15 09/26/24 19:16 0.9 % Sodium Chloride 50 Ml Vial IV 09/26/24 19:16 50 ml ONCE ONE Administration Sodium Chloride 10 ml 09/26/24 19:15 09/26/24 19:16 Sodium Chloride 0.9% 10ml Syr (Rad Only) IV 09/26/24 19:16 10 ml ONCE ONE Administration ORDERS Category Date Time Status CT abdomen pelvis w con Stat Cat Scan 09/26/24 18:[address] angio chest - dissection Stat Cat Scan 09/26/24 18:33 Completed BNP [NT Pro Brain Natriuretic Pep.] Stat Lab 09/26/24 18:21 Completed CBC w/Auto Diff [Complete Blood Count Auto Diff] Stat Lab 09/26/24 18:21 Completed CMP [Comprehensive Metabolic Panel] Stat Lab 09/26/24 18:21 Completed HIV (1&2) Antibody Rapid Stat Lab 09/26/24 18:21 Completed Hep C Ab with Reflex to RNA Stat Lab 09/26/24 18:21 Received INR [Prothrombin Time INR] Stat Lab 09/26/24 18:21 Completed Lactic Acid Stat Lab 09/26/24 19:46 Completed Lipase Stat Lab 09/26/24 18:21 Completed Magnesium Stat Lab 09/26/24 18:21 Completed Trop I [Troponin I] Stat Lab 09/26/24 18:21 Completed Medical Decision Narrative: In summary patient is a 1-year-old female who presents to the emergency department for evaluation of epigastric abdominal pain. Patient is hemodynamically stable upon arrival, afebrile. Physical exam is remarkable for exquisite tenderness to palpation in the epigastrium without rebound or guarding or rigidity. Bowel sounds normal active. No lower abdominal tenderness. Normal breath sounds normal heart sounds normal sinus rhythm on the bedside monitor.. Differential diagnosis includes pancreatitis versus gastritis versus esophagitis versus bowel obstruction versus cancer recurrence etc. Initial workup will be conducted with hematologic labs CT scan chest abdomen pelvis. Initial interventions include crystalloid bolus Tylenol morphine. Initial workup reviewed by me shows that her CBC shows a normal white count with no shift, glucose of 124, and AST of 124 and ALT of 97 and alk phos of 384 and a bilirubin 0.9, troponin is less than 0.01 lipase is 159 and the remainder of her hematologic labs are nonactionable. My informal interpretation of her CT scan of her chest abdomen pelvis shows no acute thoracic abnormalities however patient does have a dilated debris-filled stomach but no obvious bowel obstruction bowel dilatation free fluid etc. patient does have a large amount of stool in her colon but again no colonic distention.. Upon repeat evaluation patient reported significant improvement in her discomfort and is tolerating oral intake. I had interactive discussion with the patient regarding her findings and gave her the option of either admission for possible endoscopy versus a trial of going home. Patient via patient directed decision making and discharge elected to go home with strict return precautions.. <Yoni Horner MD - Last Filed: 09/26/24 22:53> Vital Signs: 09/26/24 18:24 09/26/24 18:30 09/26/24 19:00 Temperature 98.3 F Temperature Source Oral Pulse Rate 73 88 Pulse Rate [Left Radial] 73 Respiratory Rate 13 Blood Pressure 129/85 112/75 Blood Pressure [Right Arm] 141/88 H Blood Pressure Mean 100 87 Blood Pressure Mean [Right Arm] 105 02 Sat by Pulse Oximetry 100 96 93 L Oxygen Delivery Method Room Air 09/26/24 19:30 09/26/24 20:00 09/26/24 20:30 Temperature Temperature Source Pulse Rate 77 84 84 Pulse Rate [Left Radial] Respiratory Rate Blood Pressure 107/70 L 116/70 108/63 L Blood Pressure [Right Arm] Blood Pressure Mean 82 80 74 Blood Pressure Mean [Right Arm] 02 Sat by Pulse Oximetry 99 96 96 Oxygen Delivery Method 09/26/24 21:05 Temperature 97.8 F Temperature Source Pulse Rate 78 Pulse Rate [Left Radial] Respiratory Rate 16 Blood Pressure 109/65 L Blood Pressure [Right Arm] Blood Pressure Mean Blood Pressure Mean [Right Arm] 02 Sat by Pulse Oximetry Oxygen Delivery Method Room Air Lab Data Lab Results 09/26/24 18:21: WBC 6.1, RBC 5.17, Hgb 14.3, Hct 42.8, MCV 82.7, MCH 27.7, MCHC 33.5, RDW 18.1 H, Plt Count 150, MPV 9.8, Neut % (Auto) 66.6, Lymph % (Auto) 20.3, [place] % (Auto) 10.1 H, Eos % (Auto) 1.7, Baso % (Auto) 1.3, Neut # (Auto) 4.1, Lymph # (Auto) 1.2, [place] # (Auto) 0.6, Eos # (Auto) 0.1, Baso # (Auto) 0.1, PT 10.5, INR 0.93, Sodium 138, Potassium 4.3, Chloride 101, Carbon Dioxide 30, Anion Gap 11.3, BUN 18 H, Creatinine 0.80, Estimated Creat Clear 65, Estimated GFR 73, Est GFR ( Amer) 88, Glucose 124 H, Calcium 9.5, Magnesium 2.1, Total Bilirubin 0.9, AST 124 H, ALT 97 H, Alkaline Phosphatase 304 H, Troponin I < 0.01, NT-Pro-B Natriuret Pep 101, Total Protein 7.2, Albumin 4.3, Globulin 2.9, Albumin/Globulin Ratio 1.5, Lipase 159, HIV 1&2 Antibody Rapid Nonreactive 09/26/24 19:46: Lactate 1.3 Orders (Tests/Meds): ED MEDICATIONS Discontinued Medications Generic Name Dose Route Start Last Admin Trade Name Freq PRN Reason Stop Dose Admin Acetaminophen 1,000 mg 09/26/24 18:33 09/26/24 18:45 Acetaminophen 1,000mg/100ml Vial IV 09/26/24 18:34 1,000 mg ONCE ONE Administration Belladonna Alkaloids 60 ml 09/26/24 18:33 09/26/24 18:45 Belladonna Alkaloids 60 Ml Ml PO 09/26/24 18:34 60 ml ONCE ONE Administration Iopamidol 80 ml 09/26/24 19:15 09/26/24 19:16 Iopamidol-370 (76%);100ml Bottle IV 09/26/24 19:16 80 ml ONCE ONE Administration Morphine Sulfate 2 mg 09/26/24 18:33 09/26/24 18:45 Morphine 2mg/Ml Syringe IV 09/26/24 18:34 2 mg ONCE ONE Administration Sodium Chloride 50 ml 09/26/24 19:15 09/26/24 19:16 0.9 % Sodium Chloride 50 Ml Vial IV 09/26/24 19:16 50 ml ONCE ONE Administration Sodium Chloride 10 ml 09/26/24 19:15 09/26/24 19:16 Sodium Chloride 0.9% 10ml Syr (Rad Only) IV 09/26/24 19:16 10 ml ONCE ONE Administration ORDERS Category Date Time Status CT abdomen pelvis w con Stat Cat Scan 09/26/24 18:[address] angio chest - dissection Stat Cat Scan 09/26/24 18:33 Completed BNP [NT Pro Brain Natriuretic Pep.] Stat Lab 09/26/24 18:21 Completed CBC w/Auto Diff [Complete Blood Count Auto Diff] Stat Lab 09/26/24 18:21 Completed CMP [Comprehensive Metabolic Panel] Stat Lab 09/26/24 18:21 Completed HIV (1&2) Antibody Rapid Stat Lab 09/26/24 18:21 Completed Hep C Ab with Reflex to RNA Stat Lab 09/26/24 18:21 Received INR [Prothrombin Time INR] Stat Lab 09/26/24 18:21 Completed Lactic Acid Stat Lab 09/26/24 19:46 Completed Lipase Stat Lab 09/26/24 18:21 Completed Magnesium Stat Lab 09/26/24 18:21 Completed Trop I [Troponin I] Stat Lab 09/26/24 18:21 Completed ECG Data Tracing #1: I reviewed this ECG and interpreted as documented below: (Sinus rhythm 69 beats a minute without ST or T wave changes concerning for acute ischemia. NC 162, QRS 82, QTc 411) Medical Decision Narrative: In summary patient is a 59-year-old female who presents to the emergency department for evaluation of epigastric abdominal pain. Patient is hemodynamically stable upon arrival, afebrile. Physical exam is remarkable for exquisite tenderness to palpation in the epigastrium without rebound or guarding or rigidity. Bowel sounds normal active. No lower abdominal tenderness. Normal breath sounds normal heart sounds normal sinus rhythm on the bedside monitor.. Differential diagnosis includes pancreatitis versus gastritis versus esophagitis versus bowel obstruction versus cancer recurrence etc. Initial workup will be conducted with hematologic labs CT scan chest abdomen pelvis. Initial interventions include crystalloid bolus Tylenol morphine. Initial workup reviewed by me shows that her CBC shows a normal white count with no shift, glucose of 124, and AST of 124 and ALT of 97 and alk phos of 384 and a bilirubin 0.9, troponin is less than 0.01 lipase is 159 and the remainder of her hematologic labs are nonactionable. My informal interpretation of her CT scan of her chest abdomen pelvis shows no acute thoracic abnormalities however patient does have a dilated debris-filled stomach but no obvious bowel obstruction bowel dilatation free fluid etc. patient does have a large amount of stool in her colon but again no colonic distention.. Upon repeat evaluation patient reported significant improvement in her discomfort and is tolerating oral intake. I had interactive discussion with the patient regarding her findings and gave her the option of either admission for possible endoscopy versus a trial of going home. Patient via patient directed decision making and discharge elected to go home with strict return precautions. I was consulted by the NEPTALI, and we discussed the complexity of the problems being addressed. I approved the treatment and management plan for this patient's care in the Emergency Department, thus performing a substantive portion of the medical decision making. Yoni Horner MD Critical Care <CONOR Kumar - Last Filed: 09/26/24 21:16> Critical Care Time Critical Care Time: No
--- NOTE | 2024-09-26 18:22 | ECG_ITS ---
APPROVED REPORT Exam: Resting ECG HR:69 bpm ECG Measurements Heart Rate 69 AXES MO 162 P 72 QRSd 82 QRS 30 QT 391 T 54 QTc 411 Conclusion Sinus rhythm Low voltage EKG Electronically signed by : RODERICK MELISSA, 09/26/2024 23:06:46
--- NOTE | 2024-09-26 18:33 | CT_ITS ---
PROCEDURE INFORMATION: Exam: CTA Chest With Contrast Exam date and time: 09/26/2024 7:14 PM Age: 59 years old Clinical indication: Other: Epigastric abd pain; Additional info: Epigastric abdominal pain TECHNIQUE: Imaging protocol: Computed tomographic angiography of the chest with contrast. Exam focused on the arteries. 3D rendering (Not supervised by radiologist): MIP and/or 3D reconstructed images were created by the technologist. Radiation optimization: All CT scans at this facility use at least one of these dose optimization techniques: automated exposure control; mA and/or kV adjustment per patient size (includes targeted exams where dose is matched to clinical indication); or iterative reconstruction. Contrast material: ISOVUE 370; Contrast volume: 80 ml; Contrast route: INTRAVENOUS (IV); COMPARISON: CT ANGIO CHEST PE PROTOCOL 11/02/2023 7:17 AM FINDINGS: Pulmonary arteries: Normal. No pulmonary emboli. Aorta: Unremarkable. No aortic aneurysm. No aortic dissection. Lungs: Scattered atelectasis left lower lobe. No consolidation. No masses. Pleural spaces: Unremarkable. No pneumothorax. No pleural effusion. Heart: Unremarkable. No cardiomegaly. No pericardial effusion. Lymph nodes: Unremarkable. No enlarged lymph nodes. Bones/joints: Unremarkable. No acute fracture. Soft tissues: Unremarkable. IMPRESSION: No acute findings.
--- NOTE | 2024-09-26 18:33 | CT_ITS ---
PROCEDURE INFORMATION: Exam: CT Abdomen And Pelvis With Contrast Exam date and time: 09/26/2024 7:14 PM Age: 59 years old Clinical indication: Abdominal pain; Additional info: Gastric abdominal pain TECHNIQUE: Imaging protocol: Computed tomography of the abdomen and pelvis with contrast. 3D rendering (Not supervised by radiologist): MIP and/or 3D reconstructed images were created by the technologist. Radiation optimization: All CT scans at this facility use at least one of these dose optimization techniques: automated exposure control; mA and/or kV adjustment per patient size (includes targeted exams where dose is matched to clinical indication); or iterative reconstruction. Contrast material: ISOVUE; Contrast volume: 80 ml; Contrast route: IV; COMPARISON: CT ABDOMEN PELVIS W CON 09/13/2023 6:05 PM FINDINGS: Liver: Status post resection of the lateral segment of the left hepatic lobe. Resection defect in the posterior segment of the right lobe. 2.6 cm and 1.2 cm low-density lesions in the medial segment of the left hepatic lobe. Unchanged 0.9 cm medial segment left lobe, 0.5 cm posterior segment right lobe, and 4.1 cm posterior segment right lobe cysts Gallbladder and biliary ducts: Cholecystectomy. No ductal dilation. Pancreas: Normal. No ductal dilation. Spleen: Normal. No splenomegaly. Adrenal glands: Normal. No mass. Kidneys and ureters: Normal. No hydronephrosis. Stomach and bowel: Constipation. No colitis or bowel obstruction Appendix: Appendectomy Intraperitoneal space: Unremarkable. No free air. No significant fluid collection. Vasculature: Unremarkable. No abdominal aortic aneurysm. Lymph nodes: Unremarkable. No enlarged lymph nodes. Urinary bladder: Unremarkable as visualized. Reproductive: Unremarkable as visualized. Bones/joints: Unremarkable. No acute fracture. Soft tissues: Diastasis of the rectus abdominis muscles without hina hernia. IMPRESSION: No change in liver lesions when compared to 09/13/2023. MRI can be obtained to further evaluate these findings No acute intra-abdominal or intrapelvic abnormality.
[2024-09-26 18:45] LABS: Basophils # 0.1 K/mm3 (0-0.2); Basophils % 1.3 % (0.1-2.0); Eosinophils # 0.1 K/mm3 (0.0-0.4); Eosinophils % 1.7 % (0.1-12.0); Hematocrit 42.8 % (37.0-47.0); Hemoglobin 14.3 g/dL (12.2-16.2); Lymphocytes # 1.2 K/mm3 (0.7-4.5); Lymphocytes % 20.3 % (10-50); Mean Corpuscular HGB Conc 33.5 g/dL (31.8-35.4); Mean Corpuscular Hemoglobin 27.7 pg (27.0-31.2); Mean Corpuscular Volume 82.7 fl (81-99); Mean Platelet Volume 9.8 fl (7.4-10.4); Monocytes # 0.6 K/mm3 (0.1-1.0); Monocytes % 10.1 % (1.7-9.3); Neutrophils # 4.1 K/mm3 (1.8-7.8); Neutrophils % 66.6 % (37.0-80.0); Platelet Count 150 K/mm3 (142-424); Red Blood Count 5.17 M/mm3 (4.20-5.40); Red Cell Distribution Width 18.1 % (11.5-17.5); White Blood Count 6.1 K/mm3 (4.8-10.8)
[2024-09-26] MEDS: BELLADONNA ALKALOIDS 60 ML ML PO (18:45)
[2024-09-26] MEDS: ACETAMINOPHEN 1,000MG/100ML VIAL 1000 MG IV (18:45)
[2024-09-26] MEDS: MORPHINE 2MG/ML SYRINGE 2 MG IV (18:45)
[2024-09-26 18:56] LABS: Albumin Level 4.3 g/dl (3.5-5.0); Chloride 101 mmol/L (98-107); Potassium 4.3 mmoL/L (3.5-5.1); Sodium 138 mmol/L (136-145)
[2024-09-26 18:58] LABS: Lipase 159 U/L (23-300)
[2024-09-26 18:59] LABS: Alanine Aminotransferase 97 U/L (12-78); Albumin/Globulin Ratio 1.5 (1.1-1.8); Alkaline Phosphatase 304 U/L (38-126); Anion Gap 11.3 mEq/L (5-15); Aspartate Amino Transferase 124 U/L (14-36); Bilirubin,Total 0.9 mg/dl (0.2-1.3); Blood Urea Nitrogen 18 mg/dl (7-17); Carbon Dioxide 30 mmol/L (22.0-30.0); Creatinine Clearance Estimated 65 mL/min (50-200); Estimated Glomerular Filt Rate 73 ml/min (>60); GFR (African American) 88 ML/MIN (>60); Globulin 2.9 g/dL (1.3-3.2); Magnesium 2.1 mg/dl (1.6-2.3); Total Protein,Serum 7.2 g/dl (6.3-8.2)
[2024-09-26 19:00] LABS: Calcium 9.5 mg/dl (8.4-10.2); Glucose 124 mg/dl (74-100)
[2024-09-26 19:02] LABS: INR 0.93 (0.9-1.1); Prothrombin Time 10.5 seconds (10.1-12.5)
[2024-09-26 19:09] LABS: NT Pro Brain Natriuretic Pep. 101 pg/mL (0-125)
[2024-09-26] MEDS: IOPAMIDOL-370 (76%);100ML BOTTLE 80 ML IV (19:16)
[2024-09-26] MEDS: 0.9 % SODIUM CHLORIDE 50 ML VIAL IV (19:16)
[2024-09-26] MEDS: SODIUM CHLORIDE 0.9% 10ML SYR (RAD ONLY) 10 ML IV (19:16)
[2024-09-26 19:23] LABS: Troponin I < 0.01 ng/ml (0.00-0.034)
[2024-09-26 20:21] LABS: Lactic Acid 1.3 mmol/L (0.7-2.1)
[2024-09-26 20:54] LABS: HIV (1&2) Antibody Rapid NONREACTIVE (NONREACTIVE)
[2024-09-28 07:20] LABS: HCV Ab Non Reactive (Non Reactive)
== END 2024-09-26 21:06 | disposition home or self-care (01) ==
PROVIDERS: Physician Assistant; Emergency Provider Emergency Medicine; PCP Family Medicine
DX: R10.13 Epigastric pain (principal); M54.9 Dorsalgia, unspecified
CPT/HCPCS: 71275; 74177; 80053; 83605; 83690; 83735; 83880; 84484; 85025; 85610; 86803; 87389; 93005; 96374; 96375; 99285; J0131; J2270; Q9967

== ENCOUNTER 2024-09-26 22:51 | Inpatient (IN) | payer BC, MEDICARE, SELFPAY ==
--- NOTE | 2024-09-26 22:59 | ED_ITS ---
Discharge Plan Disposition Patient Disposition: Admitted Condition: Fair Clinical Impressions Clinical Impression: Epigastric abdominal pain Discharge ED Provider: Yoni Horner General Adult HPI <CONOR Kumar - Last Filed: 09/26/24 23:18> General Chief complaint: Nausea/Vomiting/Diarrhea Stated complaint: nausea Time Seen by Provider: 09/26/24 22:59 History of Present Illness HPI narrative: Patient Jimmy presents for epigastric abdominal pain and nausea. Patient was just seen here's evening by myself. She was going to attempt to manage at home however patient has had return of her symptoms. She is intolerant of any oral intake. Please see my H&P earlier this date for previous medical history. Related Data Home Medications ?Medication ?Instructions ?Recorded ?Confirmed pantoprazole 40 mg tablet,delayed 40 mg PO HS 09/14/23 09/27/24 release Bacillus coagulans-inulin 1 1 cap PO DAILY 09/16/24 09/27/24 billion cell-250 mg capsule (Probiotic Formula (inulin)) ferrous sulfate 325 mg (65 mg 325 mg PO DAILY 09/16/24 09/27/24 iron) tablet (FeroSul) duloxetine 60 mg capsule,delayed 60 mg PO DAILY 09/27/24 09/27/24 release Previous Rx's ?Medication ?Instructions ?Recorded metoprolol succinate 25 mg 12.5 mg (1/2 x 25 mg) PO BID #180 06/13/24 tablet,extended release 24 hr tabs Allergies Allergy/AdvReac Type Severity Reaction Status Date / Time Sulfa (Sulfonamide Allergy Verified 06/13/24 13:36 Antibiotics) sulfamethoxazole Allergy Verified 06/13/24 13:36 [From Bactrim] trimethoprim [From Bactrim] Allergy Verified 06/13/24 13:36 PFSH <CONOR Kumar - Last Filed: 09/26/24 23:18> [facility] Disclaimer: The information contained in this section may have been updated after the patient was seen, as this information can be updated by other users. Medical History (Updated 09/28/24 @ 09:08 by Paul Arevalo MD) Metastatic colon cancer to liver Acute respiratory failure with hypoxia Pleural effusion on right SVT (supraventricular tachycardia) Right ventricular hypertrophy Dyspnea on exertion Tachycardia Dysrhythmia Lesion of liver Hepatic cyst Multiple pulmonary nodules Degenerative disc disease Right sided sciatica Surgical History History of cholecystectomy History of partial surgical removal of colon History of surgery of liver History of removal of both ovaries History of colonoscopy History of tubal ligation Hx of BSO (bilateral salpingo-oophorectomy) Family History Mother Pancreatic cancer Father Multiple myeloma Other Cancer Hypertension Social History Smoking Status: Never smoker alcohol intake: current alcohol intake frequency: holidays/special occasions only substance use type: denies use current occupational status: other Travel in the last 8 weeks: None household members: spouse housing: house current occupational exposures/hazards: No caffeine: No Other Medical History Have you received the Flu Vaccine for this season: No Have you received the Pneumonia Vaccine: No <CONOR Kumar - Last Filed: 09/26/24 23:18> ROS Obtained: Yes Systems reviewed as appropriate & no additional complaints except as documented Physical Exam <CONOR Kumar - Last Filed: 09/26/24 23:18> General General appearance: alert Respiratory Respiratory exam: Present normal lung sounds bilaterally Cardiovascular Cardiovascular exam: Present regular rate Neurological Exam Neurological exam: Present alert Medical Decision Making <CONOR Kumar - Last Filed: 09/26/24 23:18> Medical Records Medical records reviewed: Yes I reviewed the patient's medical records. Screening: Per USPSTF and CDC recommendations, given the prevalence of disease in our region, it is our hospital?s policy to screen for HIV and viral Hepatitis for all patients aged 18 and over and those with ongoing risk factors. Ari Inquiry Pt receiving controlled substance: No Vital Signs: 09/26/24 23:01 09/27/24 01:23 Temperature 97.6 F 98.7 F Temperature Source Oral Oral Pulse Rate 73 Pulse Rate [Apical] 73 Respiratory Rate 20 18 Blood Pressure 106/61 L Blood Pressure [Right Arm] 127/91 H Blood Pressure Mean [Right Arm] 103 Blood Pressure Source [Right Arm] Manual Cuff/ Auscultation Blood Pressure Position [Right Arm] Supine 02 Sat by Pulse Oximetry 98 Oxygen Delivery Method Room Air Room Air Lab Data Lab results reviewed: Yes I reviewed the patient's lab results. 09/28/24 06:50 09/28/24 06:50 Orders (Tests/Meds): ED MEDICATIONS Generic Name Dose Route Start Last Admin Trade Name Edward PRN Reason Stop Dose Admin Acetaminophen 650 mg 09/27/24 13:53 09/28/24 11:54 Acetaminophen 325mg Tab PO 10/27/24 13:52 650 mg Q6HP PRN Administration Breakthru Mild Pain (1-3) Enoxaparin Sodium 40 mg 09/27/24 10:15 09/28/24 08:30 Enoxaparin 40mg/0.4ml Syringe SUBCUT 10/27/24 10:14 40 mg DAILY SANDRA Administration Heparin Sodium (Porcine) 500 unit 09/28/24 15:45 Heparin Lock Flush 500 Units/5ml Syr IV 09/28/24 15:46 ONCE ONE Sodium Chloride 1,000 mls @ 50 mls/hr 09/27/24 01:21 09/27/24 20:42 Sod Chlor 0.9% 1000ml Bag IV 10/26/24 23:14 50 mls/hr .Q20H SANDRA Administration Metoclopramide HCl 5 mg 09/27/24 15:15 09/28/24 08:30 Metoclopramide Hcl 10mg/2ml Vial IVP 10/27/24 15:14 5 mg Q6H SANDRA Administration Morphine Sulfate 2 mg 09/27/24 01:21 09/28/24 06:05 Morphine 2mg/Ml Syringe IV 10/26/24 23:09 2 mg Q4HP PRN Administration Severe Pain (7-10) Ondansetron HCl 4 mg 09/27/24 08:55 09/28/24 06:05 Ondansetron 4mg/2ml Vial IV 10/27/24 08:54 4 mg Q8HP PRN Administration Nausea Phenol 0 ml 09/27/24 13:52 09/27/24 13:57 Phenol Throat [place] 177 Ml Bottle MM 10/27/24 13:51 1 spray NEEDED PRN Administration Cough Sodium Chloride 10 ml 09/27/24 10:18 Sodium Chloride 0.9% 10ml Flush Syringe IV 10/27/24 10:17 NEEDED PRN Maintain IV Site Discontinued Medications Generic Name Dose Route Start Last Admin Trade Name Edward PRN Reason Stop Dose Admin Benzocaine/Butamben/Tetracaine HCl 1 gm 09/26/24 23:41 Tetracaine/Benzocaine/Butamben 56 Gm [place] TP 10/26/24 23:40 NEEDED PRN (AIR DEFENSE SPECIALIST USE ONLY) Pain per Pt Gadoteridol 15 ml 09/28/24 11:04 09/28/24 11:05 Gadoteridol Inj 20ml Syringe IV 09/28/24 11:05 15 ml ONCE ONE Administration Sodium Chloride 1,000 mls @ 999 mls/hr 09/26/24 23:07 09/26/24 23:46 Sod Chlor 0.9% 1000ml Bag IV 09/27/24 00:07 999 mls/hr .Q1H1M ONE Administration Sodium Chloride 1,000 mls @ 50 mls/hr 09/26/24 23:15 09/27/24 06:11 Sod Chlor 0.9% 1000ml Bag IV 10/26/24 23:14 Not Given .Q20H SANDRA Magnesium Citrate 10 oz 09/28/24 08:00 09/28/24 08:30 Magnesium Citrate 10oz Bottle PO 09/28/24 08:01 10 oz ONCE ONE Administration Morphine Sulfate 2 mg 09/26/24 23:10 Morphine 2mg/Ml Syringe IV 10/26/24 23:09 Q4HP PRN Severe Pain (7-10) Morphine Sulfate 2 mg 09/26/24 23:23 09/26/24 23:46 Morphine 2mg/Ml Syringe IV 09/26/24 23:24 2 mg ONCE ONE Administration Ondansetron HCl 4 mg 09/26/24 23:23 09/26/24 23:46 Ondansetron 4mg/2ml Vial IV 09/26/24 23:24 4 mg ONCE ONE Administration Sodium Chloride 10 ml 09/28/24 11:04 09/28/24 11:05 Sodium Chloride 0.9% 10ml Syr (Rad Only) IV 09/28/24 11:05 10 ml ONCE ONE Administration Sodium Chloride 25 ml 09/28/24 11:04 09/28/24 11:05 Sodium Chloride 0.9% 50ml Bag IV 09/28/24 11:05 25 ml ONCE ONE Administration ORDERS Category Date Time Status KUB (single view) [XR KUB] Stat Exams 09/26/24 23:07 Completed Medical Decision Narrative: In summary patient is a 59-year-old female who presents to the emergency department for evaluation of gastric abdominal pain. Patient is hemodynamically stable upon arrival, afebrile. Physical exam is remarkable for redemonstration of epigastric abdominal pain with no rebound or guarding or rigidity.. Differential diagnosis includes slow gastric transit versus gastric outlet obstruction either functional or mechanical etc. Initial workup was completed earlier this date during her previous visit. Initial interventions include our crystalloid bolus n.p.o. NG tube insertion and to intermittent low wall suction. As I described earlier I disagree with radiology read is that the patient has a markedly enlarged stomach with detritus suggestive of delayed gastric emptying either via mechanical or functional reasons. She attempted conservative management and went home however she has had return of her symptoms and is now intolerant of even water intake. Given that I had interactive discussion with Dr. Garcia who is on-call for Dr. Arevalo and she will be admitted for Dr. Arevalo were for further evaluation and care. <Yoni Horner MD - Last Filed: 09/28/24 15:44> Vital Signs: 09/26/24 23:01 09/27/24 01:23 Temperature 97.6 F 98.7 F Temperature Source Oral Oral Pulse Rate 73 Pulse Rate [Apical] 73 Respiratory Rate 20 18 Blood Pressure 106/61 L Blood Pressure [Right Arm] 127/91 H Blood Pressure Mean [Right Arm] 103 Blood Pressure Source [Right Arm] Manual Cuff/ Auscultation Blood Pressure Position [Right Arm] Supine 02 Sat by Pulse Oximetry 98 Oxygen Delivery Method Room Air Room Air Orders (Tests/Meds): ED MEDICATIONS Generic Name Dose Route Start Last Admin Trade Name Edward PRN Reason Stop Dose Admin Acetaminophen 650 mg 09/27/24 13:53 09/28/24 11:54 Acetaminophen 325mg Tab PO 10/27/24 13:52 650 mg Q6HP PRN Administration Breakthru Mild Pain (1-3) Enoxaparin Sodium 40 mg 09/27/24 10:15 09/28/24 08:30 Enoxaparin 40mg/0.4ml Syringe SUBCUT 10/27/24 10:14 40 mg DAILY SANDRA Administration Heparin Sodium (Porcine) 500 unit 09/28/24 15:45 Heparin Lock Flush 500 Units/5ml Syr IV 09/28/24 15:46 ONCE ONE Sodium Chloride 1,000 mls @ 50 mls/hr 09/27/24 01:21 09/27/24 20:42 Sod Chlor 0.9% 1000ml Bag IV 10/26/24 23:14 50 mls/hr .Q20H SANDRA Administration Metoclopramide HCl 5 mg 09/27/24 15:15 09/28/24 08:30 Metoclopramide Hcl 10mg/2ml Vial IVP 10/27/24 15:14 5 mg Q6H SANDRA Administration Morphine Sulfate 2 mg 09/27/24 01:21 09/28/24 06:05 Morphine 2mg/Ml Syringe IV 10/26/24 23:09 2 mg Q4HP PRN Administration Severe Pain (7-10) Ondansetron HCl 4 mg 09/27/24 08:55 09/28/24 06:05 Ondansetron 4mg/2ml Vial IV 10/27/24 08:54 4 mg Q8HP PRN Administration Nausea Phenol 0 ml 09/27/24 13:52 09/27/24 13:57 Phenol Throat [place] 177 Ml Bottle MM 10/27/24 13:51 1 spray NEEDED PRN Administration Cough Sodium Chloride 10 ml 09/27/24 10:18 Sodium Chloride 0.9% 10ml Flush Syringe IV 10/27/24 10:17 NEEDED PRN Maintain IV Site Discontinued Medications Generic Name Dose Route Start Last Admin Trade Name Freq PRN Reason Stop Dose Admin Benzocaine/Butamben/Tetracaine HCl 1 gm 09/26/24 23:41 Tetracaine/Benzocaine/Butamben 56 Gm [place] TP 10/26/24 23:40 NEEDED PRN (AIR DEFENSE SPECIALIST USE ONLY) Pain per Pt Gadoteridol 15 ml 09/28/24 11:04 09/28/24 11:05 Gadoteridol Inj 20ml Syringe IV 09/28/24 11:05 15 ml ONCE ONE Administration Sodium Chloride 1,000 mls @ 999 mls/hr 09/26/24 23:07 09/26/24 23:46 Sod Chlor 0.9% 1000ml Bag IV 09/27/24 00:07 999 mls/hr .Q1H1M ONE Administration Sodium Chloride 1,000 mls @ 50 mls/hr 09/26/24 23:15 09/27/24 06:11 Sod Chlor 0.9% 1000ml Bag IV 10/26/24 23:14 Not Given .Q20H SANDRA Magnesium Citrate 10 oz 09/28/24 08:00 09/28/24 08:30 Magnesium Citrate 10oz Bottle PO 09/28/24 08:01 10 oz ONCE ONE Administration Morphine Sulfate 2 mg 09/26/24 23:10 Morphine 2mg/Ml Syringe IV 10/26/24 23:09 Q4HP PRN Severe Pain (7-10) Morphine Sulfate 2 mg 09/26/24 23:23 09/26/24 23:46 Morphine 2mg/Ml Syringe IV 09/26/24 23:24 2 mg ONCE ONE Administration Ondansetron HCl 4 mg 09/26/24 23:23 09/26/24 23:46 Ondansetron 4mg/2ml Vial IV 09/26/24 23:24 4 mg ONCE ONE Administration Sodium Chloride 10 ml 09/28/24 11:04 09/28/24 11:05 Sodium Chloride 0.9% 10ml Syr (Rad Only) IV 09/28/24 11:05 10 ml ONCE ONE Administration Sodium Chloride 25 ml 09/28/24 11:04 09/28/24 11:05 Sodium Chloride 0.9% 50ml Bag IV 09/28/24 11:05 25 ml ONCE ONE Administration ORDERS Category Date Time Status KUB (single view) [XR KUB] Stat Exams 09/26/24 23:07 Completed Medical Decision Narrative: In summary patient is a 59-year-old female who presents to the emergency department for evaluation of gastric abdominal pain. Patient is hemodynamically stable upon arrival, afebrile. Physical exam is remarkable for redemonstration of epigastric abdominal pain with no rebound or guarding or rigidity.. Differential diagnosis includes slow gastric transit versus gastric outlet obstruction either functional or mechanical etc. Initial workup was completed earlier this date during her previous visit. Initial interventions include our crystalloid bolus n.p.o. NG tube insertion and to intermittent low wall suction. As I described earlier I disagree with radiology read is that the patient has a markedly enlarged stomach with detritus suggestive of delayed gastric emptying either via mechanical or functional reasons. She attempted conservative management and went home however she has had return of her symptoms and is now intolerant of even water intake. Given that I had interactive discussion with Dr. Garcia who is on-call for Dr. Arevalo and she will be admitted for Dr. Arevalo were for further evaluation and care I was consulted by the NEPTALI, and we discussed the complexity of the problems being addressed. I approved the treatment and management plan for this patient's care in the Emergency Department, thus performing a substantive portion of the medical decision making. Yoni Horner MD. Critical Care <CONOR Kumar - Last Filed: 09/26/24 23:18> Critical Care Time Critical Care Time: No
[2024-09-26 23:01] VITALS: BP 127/91; PULSE 73; RESP 20; TEMP 36.4; O2SAT 98; BMI 25.7
--- NOTE | 2024-09-26 23:07 | XR_ITS ---
PROCEDURE INFORMATION: Exam: XR Abdomen Exam date and time: 09/26/2024 11:48 PM Age: 59 years old Clinical indication: Device placement; Gi device; Nasogastric tube; Additional info: Ng tube placement after placement TECHNIQUE: Imaging protocol: Radiologic exam of the abdomen. Views: Frontal supine view of the abdomen. 1 View. COMPARISON: CT ABDOMEN PELVIS W CON 09/26/2024 7:14 PM FINDINGS: NG tube is seen with its tip in the stomach along the greater curvature. Gastrointestinal tract: Normal. No bowel dilation. Bones/joints: Unremarkable. IMPRESSION: NG tube is seen with its tip in the stomach along the greater curvature.
[2024-09-26] MEDS: MORPHINE 2MG/ML SYRINGE 2 MG IV (23:46)
[2024-09-26] MEDS: ONDANSETRON 4MG/2ML VIAL 4 MG IV (23:46)
[2024-09-26] MEDS: 0.9 % SODIUM CHLORIDE 1000ML 1,000 ML 999 ML IV (23:46)
[2024-09-27] VITALS (7 sets, daily range): BP systolic 101–150; BP diastolic 61–90; PULSE 66–81; RESP 16–18; TEMP 36.6–37.1; O2SAT 94–96; BMI 25.7
[2024-09-27] MEDS: 0.9 % SODIUM CHLORIDE 1000ML 1,000 ML 50 ML IV ×2 (02:20→20:42)
[2024-09-27] MEDS: MORPHINE 2MG/ML SYRINGE 2 MG IV ×3 (02:44→12:37)
--- NOTE | 2024-09-27 02:55 | PC.NURSE ---
patient arrived to overflow unit via stretcher @01:31
--- NOTE | 2024-09-27 06:08 | PC.NURSE ---
pt has rested t/o shift, has ambulated to bathroom two times this shift, no complaints of nausea, did complain of pain one time and was treated per JAZMINE REARDON at 58 in R nare, remains on room air
--- NOTE | 2024-09-27 08:55 | P.HP_ITS ---
History of Present Illness *Admission Date: 09/27/24 *Reason for visit:: epigastric pain, nausea *History of present illness: In summary patient is a 59-year-old female who presents to the emergency department for evaluation of gastric abdominal pain. Patient is hemodynamically stable upon arrival, afebrile. Physical exam is remarkable for redemonstration of epigastric abdominal pain with no rebound or guarding or rigidity.. Differential diagnosis includes slow gastric transit versus gastric outlet obstruction either functional or mechanical etc. Initial workup was completed earlier this date during her previous visit. Initial interventions include our crystalloid bolus n.p.o. NG tube insertion and to intermittent low wall suction. As I described earlier I disagree with radiology read is that the patient has a markedly enlarged stomach with detritus suggestive of delayed gastric emptying either via mechanical or functional reasons. She attempted conservative management and went home however she has had return of her symptoms and is now intolerant of even water intake. Given that I had interactive discussion with Dr. Dominguez who is on-call for Dr. Arevalo and she will be admitted for Dr. Arevalo were for further evaluation and care. (above as per ER physician) The patient states she has had horrible reflux type symptoms for the past few weeks that have progressively worsened. She was having epigastric pain and nausea but did not vomit. Her bowels have been moving normally. She states she has had some mild relief of her abdominal pain since the NG tube was inserted. [facility] Disclaimer: The information contained in this section may have been updated after the patient was seen, as this information can be updated by other users. Medical History (Updated 09/27/24 @ 10:07 by Paul Arevalo MD) Metastatic colon cancer to liver Acute respiratory failure with hypoxia Pleural effusion on right SVT (supraventricular tachycardia) Right ventricular hypertrophy Dyspnea on exertion Tachycardia Dysrhythmia Lesion of liver Hepatic cyst Multiple pulmonary nodules Degenerative disc disease Right sided sciatica Surgical History History of cholecystectomy History of partial surgical removal of colon History of surgery of liver History of removal of both ovaries History of colonoscopy History of tubal ligation Hx of BSO (bilateral salpingo-oophorectomy) Family History Mother Pancreatic cancer Father Multiple myeloma Other Cancer Hypertension Social History Smoking Status: Never smoker alcohol intake: current alcohol intake frequency: holidays/special occasions only substance use type: denies use current occupational status: other Travel in the last 8 weeks: None household members: spouse housing: house current occupational exposures/hazards: No caffeine: No Other Medical History Have you received the Flu Vaccine for this season: No Have you received the Pneumonia Vaccine: No Review of Systems Constitutional Constitutional: Denies chills, Denies fever(s), Reports headache(s) and Reports weakness Eyes Eyes: Denies blurry vision and Denies diplopia ENT Ears, Nose, Mouth, and Throat: Reports headache(s), Denies nasal congestion and Denies sore throat *Cardiovascular Cardiovascular: Reports chest pain (epigastric pain radiating into her chest) and Reports dyspnea *Respiratory Respiratory: Denies cough, Reports dyspnea and Denies wheezing *Gastrointestinal Gastrointestinal: Reports abdominal pain (epigastric), Reports nausea and Denies vomiting *Genitourinary Genitourinary: Denies difficulty voiding and Denies dysuria *Musculoskeletal Musculoskeletal: Denies arthralgias *Neurologic Neurologic: Reports headache(s) and Reports weakness Allergic/Immunologic Allergic/Immunologic: Denies wheezing Meds Home Medications and Allergies Home Medications ?Medication ?Instructions ?Recorded ?Confirmed ?Type pantoprazole 40 mg tablet,delayed 40 mg PO HS 09/14/23 09/27/24 History release metoprolol succinate 25 mg 12.5 mg (1/2 x 25 mg) PO BID #180 06/13/24 09/27/24 Rx tablet,extended release 24 hr tabs Bacillus coagulans-inulin 1 1 cap PO DAILY 09/16/24 09/27/24 History billion cell-250 mg capsule (Probiotic Formula (inulin)) ferrous sulfate 325 mg (65 mg 325 mg PO DAILY 09/16/24 09/27/24 History iron) tablet (FeroSul) duloxetine 60 mg capsule,delayed 60 mg PO DAILY 09/27/24 09/27/24 History release New Prescriptions to Start Prescriptions: Allergies Allergy/AdvReac Type Severity Reaction Status Date / Time Sulfa (Sulfonamide Allergy Verified 06/13/24 13:36 Antibiotics) sulfamethoxazole Allergy Verified 06/13/24 13:36 [From Bactrim] trimethoprim [From Bactrim] Allergy Verified 06/13/24 13:36 Exam Data for Last 24 hours Vital signs and Labs for Last 24 Hours: Temp Pulse Resp BP Pulse Ox O2 Del Method 97.9 F 66 16 110/67 96 Room Air 09/27/24 08:00 09/27/24 08:00 09/27/24 08:00 09/27/24 08:00 09/27/24 08:00 09/27/24 08:00 I & O for Last 24 hours: Intake & Output 09/24/24 09/25/24 09/26/24 09/27/24 10:59 11:59 11:59 11:59 Output Total 0 / 0 Balance 0 / 0 Weight 154 lb 8.175 oz Constitutional Constitutional: no acute distress *Routine HEENT Exam Head: Present normocephalic and atraumatic Eye: Present EOMI and PERRL ENT: Present mucous membranes dry and other ( NG tube in place) *Routine Neck Exam Neck: Present supple and full ROM *Routine Respiratory Exam Respiratory: Present CTA bilaterally *Routine Cardiovascular Exam Cardiovascular: Present RRR *Routine Abdominal Exam Abdominal: Present soft, normoactive bowel sounds and tenderness (epigastric area) *Routine Rectal Exam Rectal:: deferred *Routine Genitalia Exam Genitalia:: deferred *Routine Extremities Exam Extremities: Absent cyanosis, clubbing or edema *Routine Skin Exam Skin: Present intact; Absent erythema *Routine Neurological Exam Neurological: Present alert and oriented X3 H&P: Result Impressions Abdominal CT No change in liver lesions when compared to 09/13/2023. MRI can be obtained to further evaluate these findings No acute intra-abdominal or intrapelvic abnormality. Chest CTA - nothing acute KUB - NG tube is seen with its tip in the stomach along the greater curvature. Assessment and Plan *Assessment and plan (1) Epigastric abdominal pain: Status: Acute Category: Medical Code(s): R10.13 - Epigastric pain (2) Nausea: Status: Acute Category: Medical Code(s): R11.0 - Nausea (3) Vomiting: Status: Resolved Category: Medical Code(s): R11.10 - Vomiting, unspecified Plan NG has helped abdominal pain slightly. Will order zofran for nausea. May need GI consult. Will discuss with Dr. Arevalo. Dr. Arevalo entry - Saw patient, agree with above note. She has improved since NG tube was placed. Will continue to monitor for now, she does not need GI consult at this time, add DVT prophylaxis
--- NOTE | 2024-09-27 09:13 | HMH.PHAINT1 ---
Pharmacy Intervention Comments: Home medication list verified using list from outpatient pharmacy
[2024-09-27] MEDS: ENOXAPARIN 40MG/0.4ML SYRINGE 40 MG SUBCUT (10:34)
[2024-09-27] MEDS: ONDANSETRON 4MG/2ML VIAL 4 MG IV (12:37)
[2024-09-27] MEDS: ACETAMINOPHEN 325MG TAB 650 MG PO (13:57)
[2024-09-27] MEDS: PHENOL THROAT SPRAY 177 ML BOTTLE MM (13:57)
--- NOTE | 2024-09-27 15:04 | EXP.GE.CONS ---
History of Present Illness *Admission Date: 09/27/24 *History of present illness: Mrs. Grajeda is a 59-year-old female with a prior history of colon cancer in 2019. She underwent right hemicolectomy (Etienne Novak MD at the [facility]). In 2021 she was discovered to have hepatic metastasis. She did have chemotherapy between November and May 2023 and then had right hepatectomy with a couple of ablations. The patient did have postop complications after right hepatectomy and spent 17 days in the hospital. She has done fairly well subsequently and has had surveillance imaging (MRI and CAT scan) show full remission. Over the last week she has developed progressive nausea and epigastric abdominal pain that radiates into her shoulders. She has had bloating, belching and early satiety. She reports no nausea. She states this has been accompanied by a headache. She does not have heartburn and is on pantoprazole. Her last EGD was at the time of her colonoscopy in 2019. She has had routine surveillance colonoscopy since her surgery. The patient did have imaging here showing evidence of liver resection of lateral segment of the left hepatic lobe and posterior segment of the right lobe. There was evidence of obstipation. She states she has had some mild relief of her abdominal pain since the NG tube was inserted. [facility] Disclaimer: The information contained in this section may have been updated after the patient was seen, as this information can be updated by other users. Medical History (Updated 09/27/24 @ 15:10 by Enoc Sidhu II, MD) Metastatic colon cancer to liver Acute respiratory failure with hypoxia Pleural effusion on right SVT (supraventricular tachycardia) Right ventricular hypertrophy Dyspnea on exertion Tachycardia Dysrhythmia Lesion of liver Hepatic cyst Multiple pulmonary nodules Degenerative disc disease Right sided sciatica Surgical History History of cholecystectomy History of partial surgical removal of colon History of surgery of liver History of removal of both ovaries History of colonoscopy History of tubal ligation Hx of BSO (bilateral salpingo-oophorectomy) Family History Mother Pancreatic cancer Father Multiple myeloma Other Cancer Hypertension Social History Smoking Status: Never smoker alcohol intake: current alcohol intake frequency: holidays/special occasions only substance use type: denies use current occupational status: other Travel in the last 8 weeks: None household members: spouse housing: house current occupational exposures/hazards: No caffeine: No Review of Systems Constitutional Constitutional: Reports headache(s) and Reports weakness ENT Ears, Nose, Mouth, and Throat: Reports headache(s) *Neurologic Neurologic: Reports headache(s) and Reports weakness Meds Home Medications and Allergies Home Medications ?Medication ?Instructions ?Recorded ?Confirmed ?Type pantoprazole 40 mg tablet,delayed 40 mg PO HS 09/14/23 09/27/24 History release metoprolol succinate 25 mg 12.5 mg (1/2 x 25 mg) PO BID #180 06/13/24 09/27/24 Rx tablet,extended release 24 hr tabs Bacillus coagulans-inulin 1 1 cap PO DAILY 09/16/24 09/27/24 History billion cell-250 mg capsule (Probiotic Formula (inulin)) ferrous sulfate 325 mg (65 mg 325 mg PO DAILY 09/16/24 09/27/24 History iron) tablet (FeroSul) duloxetine 60 mg capsule,delayed 60 mg PO DAILY 09/27/24 09/27/24 History release New Prescriptions to Start Prescriptions: Allergies Allergy/AdvReac Type Severity Reaction Status Date / Time Sulfa (Sulfonamide Allergy Verified 06/13/24 13:36 Antibiotics) sulfamethoxazole Allergy Verified 06/13/24 13:36 [From Bactrim] trimethoprim [From Bactrim] Allergy Verified 06/13/24 13:36 Exam (Inpt) Vital signs and Labs for Last 24 Hours: Temp Pulse Resp BP Pulse Ox O2 Del Method 97.9 F 66 16 110/67 96 Room Air 09/27/24 08:00 09/27/24 08:00 09/27/24 08:00 09/27/24 08:00 09/27/24 08:00 09/27/24 12:57 I & O for Labs for Last 24 Hours: Intake & Output 09/24/24 09/25/24 09/26/24 09/27/24 22:59 23:59 23:59 23:59 Output Total 0 / 0 Balance 0 / 0 Weight 154 lb 8.19 oz 154 lb 8.175 oz GI: Present distention and tenderness Comments:: The abdomen is somewhat decompressed after NG tube and normoactive bowel sounds, surgical abdomen scars noted, no hernias, no rebound or guarding, no masses Assessment and Plan *Assessment and plan (1) Nausea: Status: Acute Category: Medical Code(s): R11.0 - Nausea (2) Epigastric abdominal pain: Status: Acute Category: Medical Code(s): R10.13 - Epigastric pain (3) Abdominal distention: Status: Acute Category: Medical Code(s): R14.0 - Abdominal distension (gaseous) Plan 1. Nausea with epigastric abdominal pain, bloating and early satiety. There is no evidence of any gastric outlet obstruction on CAT scan or KUB. Given the fact that this is new onset, I would recommend EGD in the morning after decompression. The NG tube has been clamped but she did get relief from this. I would like to rule out gastric outlet obstruction or any other etiology (peptic ulcer disease, gastritis, gastroparesis, etc.). Her CAT scan did show evidence of some obstipation which may be playing some role. I will place her on low-dose metoclopramide through her IV.
[2024-09-27] MEDS: METOCLOPRAMIDE HCL 10MG/2ML VIAL 5 MG IVP ×2 (15:49→20:42)
--- NOTE | 2024-09-27 17:20 | PC.NURSE ---
Pt is currently sitting up in bed. NG is currently clamped per MD Arevalo order. Monitor for discomfort and distention. If symptoms reappear. Place pt back on low wall intermittent suction. Consent obtained for EGD and placed on chart. She denies any discomfort at this time. No abdominal distention. Pt has ambulated to with standby assist. Medications administered per jan. Call light within reach.
[2024-09-28] VITALS (13 sets, daily range): BP systolic 103–127; BP diastolic 54–80; PULSE 79–95; RESP 16–18; TEMP 36.8–36.9; O2SAT 91–98; BMI 25.7
--- NOTE | 2024-09-28 00:13 | PC.NURSE ---
pt asleep in bed. pt has had no complaints so far this shift.
[2024-09-28] MEDS: METOCLOPRAMIDE HCL 10MG/2ML VIAL 5 MG IVP ×2 (03:57→08:30)
--- NOTE | 2024-09-28 04:33 | PC.NURSE ---
Pt has rested well, has had no complaints, and denies nausea. Abdomen is soft and non tender. NG tube in place, and remained clamped t/o the night. NS is infusing @50 ml/hr to port in right chest. Pt ambulated to the bathroom, and tolerated well. Call light in reach, no needs at this time.
[2024-09-28] MEDS: ONDANSETRON 4MG/2ML VIAL 4 MG IV (06:05)
[2024-09-28] MEDS: MORPHINE 2MG/ML SYRINGE 2 MG IV (06:05)
[2024-09-28 07:04] LABS: Basophils % 0.7 % (0.1-2.0); Eosinophils # 0.1 K/mm3 (0.0-0.4); Eosinophils % 1.3 % (0.1-12.0); Hematocrit 40.1 % (37.0-47.0); Lymphocytes # 0.9 K/mm3 (0.7-4.5); Lymphocytes % 16.9 % (10-50); Mean Corpuscular HGB Conc 32.4 g/dL (31.8-35.4); Mean Corpuscular Hemoglobin 27.7 pg (27.0-31.2); Mean Corpuscular Volume 85.6 fl (81-99); Mean Platelet Volume 10.1 fl (7.4-10.4); Monocytes # 0.4 K/mm3 (0.1-1.0); Monocytes % 7.9 % (1.7-9.3); Neutrophils # 3.8 K/mm3 (1.8-7.8); Neutrophils % 73.2 % (37.0-80.0); Platelet Count 105 K/mm3 (142-424); Red Blood Count 4.68 M/mm3 (4.20-5.40); Red Cell Distribution Width 17.8 % (11.5-17.5); White Blood Count 5.2 K/mm3 (4.8-10.8)
[2024-09-28 07:13] LABS: Alanine Aminotransferase 101 U/L (12-78); Albumin Level 3.5 g/dl (3.5-5.0); Albumin/Globulin Ratio 1.5 (1.1-1.8); Alkaline Phosphatase 288 U/L (38-126); Anion Gap 15.2 mEq/L (5-15); Aspartate Amino Transferase 74 U/L (14-36); Bilirubin,Total 0.9 mg/dl (0.2-1.3); Blood Urea Nitrogen 13 mg/dl (7-17); Calcium 8.9 mg/dl (8.4-10.2); Carbon Dioxide 20 mmol/L (22.0-30.0); Chloride 105 mmol/L (98-107); Creatinine Clearance Estimated 65 mL/min (50-200); Estimated Glomerular Filt Rate 85 ml/min (>60); GFR (African American) 103 ML/MIN (>60); Globulin 2.3 g/dL (1.3-3.2); Glucose 66 mg/dl (74-100); Potassium 4.2 mmoL/L (3.5-5.1); Sodium 136 mmol/L (136-145); Total Protein,Serum 5.8 g/dl (6.3-8.2)
--- NOTE | 2024-09-28 07:20 | [facility].PROCNOTE ---
[facility] Procedure Note Date: 09/28/24 Time: 07:35 Procedure Note:: Upper Endoscopy Procedure Report: Esophagogastroduodenoscopy [] Endoscopost: Enoc Sidhu II, MD Referring Physician: Paul Arevalo MD Date of Procedure: September 28, 2024 Equipment: Olympus GIF 190 standard upper endoscope Sedation: MAC sedation Indications: Mrs. Grajeda is a 59-year-old female who is here for diagnostic upper endoscopy because have her epigastric pain and nausea. She has a prior history of colon cancer in 2019. She underwent right hemicolectomy (Etienne Novak MD at the [facility]). In 2021 it was discovered that she did have hepatic metastasis. She did have chemotherapy between November and May 2023 and then had right hepatectomy with a couple of ablations. The patient did have postop complications after right hepatectomy (Ren Saeed MD) and spent 17 days in the hospital. She has done fairly well subsequently and has had surveillance imaging (MRI and CAT scan) which have shown full remission. Over the last week she has developed progressive nausea and epigastric abdominal pain that radiates into her shoulders. She has had bloating, belching and early satiety. She reports no nausea. She states this has been accompanied by a headache. She does not have heartburn and is on pantoprazole. Her last EGD was at the time of her colonoscopy in 2019. She has had routine surveillance colonoscopy since her surgery. The patient did have imaging here showing evidence of liver resection of lateral segment of the left hepatic lobe and posterior segment of the right lobe. There was evidence of obstipation. She states she has had some mild relief of her abdominal pain since the NG tube was inserted. She has done well overnight. Her hemoglobin and hematocrit are normal. On 09/26, she did have CT scan of the abdomen and pelvis with no acute or intra-abdominal findings other than the surgical changes. She has had prior cholecystectomy. KUB showed no obstructive pattern either. Interestingly, the patient's liver chemistries yesterday were elevated with AST 74, ALT 101 and alkaline phosphatase 288. Her total bilirubin was 0.9. Her CAT scan had shown some obstipation. Procedure: Prior to the procedure, a history and physical exam was performed, and patient's medications and allergies were reviewed. The risks, benefits and alternatives of the sedation and procedure were discussed with the patient. All questions were answered and informed consent was obtained. The patient was brought to the procedure room. Patient identification and proposed procedure were verified by the physician and the nurse. The patient was placed in a left lateral decubitus position and the scope was passed under direct vision. Throughout the procedure, the patient's blood pressure, pulse, and oxygen saturations were monitored continuously. The upper GI endoscopy was accomplished without difficulty. The patient tolerated the procedure well. Findings: The scope was passed directly into the upper esophagus and advanced to the third portion of the duodenum. The post bulbar duodenum, ampulla and duodenal bulb were normal with normal mucosa and conniventes. Cold biopsies were taken from the duodenum. The scope was withdrawn through a normal duodenal bulb and pylorus into the stomach. There was evidence of moderate to marked linear reactive erosive gastropathy of the antrum and body which is presumably reactive. There was some coffee-ground and small amount of heme around some of the linear erosions. Cold biopsies were taken from the lesser curvature and incisura. Upon retroflexion, there were no fundic varices and there was a small 2 cm hiatal hernia. The scope was then withdrawn into the esophagus. There was no evidence of reflux esophagitis. There were very faint esophageal varices. The remainder of the esophageal mucosa was normal. Impression: 1. Moderate to marked linear erosive gastropathy of antrum/body with some small amount of heme/coffee-ground adjacent to erosions 2. Small 2 cm hiatal hernia 3. Very faint esophageal varices Plan: There was certainly no evidence of gastric outlet obstruction or retention of marked amount of fluid in the stomach. She was using NSAIDs fairly sparingly. I would discontinue these. Certainly her obstipation may be playing some role and we will address this. Lastly, she does have moderately elevated liver chemistries. There was no biliary ductal dilation on CAT scan. However, upon review there was a marked amount of retained digestive content with distended stomach. I would treat obstipation and continue oral metoclopramide presently and advance diet. Because of her elevated liver chemistries, I would consider MRCP. I will follow-up the biopsies.
--- NOTE | 2024-09-28 07:31 | SUR.OPER ---
Noted that pt's BS on AM labs was 66. FSBS obtained, 67. Anesthesia made aware of this. V/O for 1/2 amp of D50 to be admin. Med obtained from omni and given by Herbert Pappas CRNA.
--- NOTE | 2024-09-28 07:52 | MR_ITS ---
FINAL REPORT CLINICAL HISTORY: Epigastric pain/elevated LFTs and prior hepatobili COMPARISON: None FINDINGS: Multiplanar MR imaging of the abdomen was performed without and with contrast. 3D images were obtained and reviewed. The liver has an abnormal appearance. There are 2 hepatic cysts. The larger measures 31 mm and is located in the posterior right hepatic lobe. There is also a 13 mm mass in the medial segment of the left hepatic lobe which does not appear to represent a cyst or hemangioma. There is also a 23 mm area in the anterior segment of the right hepatic lobe which shows partial delayed enhancement. A presumed mass is noted in the posterior medial right hepatic lobe measuring 37 mm with tubular low-attenuation anterior to it which may represent thrombosed portal vein branch. The non cystic areas in the liver are of uncertain etiology but are most worrisome for neoplasm. This could represent metastatic disease or other neoplasm. The patient is post cholecystectomy. There is splenomegaly with the spleen measuring 13.6 cm in length. The kidneys are unremarkable. The adrenal glands and pancreas are within normal limits. IMPRESSION: Non cystic areas in the liver of uncertain etiology most worrisome for neoplasm. This could represent metastatic disease or other neoplasm. Reviewed, Interpreted and Dictated by Ahmet Rivera III, MD Transcribed by Mica Merino Authenticated and [facility]
[2024-09-28 08:00] LABS: POC Glucose,Bedside 109 (70-110)
[2024-09-28] MEDS: MAGNESIUM CITRATE 10OZ BOTTLE 10 OZ PO (08:30)
[2024-09-28] MEDS: ENOXAPARIN 40MG/0.4ML SYRINGE 40 MG SUBCUT (08:30)
[2024-09-28 08:36] LABS: POC Glucose,Bedside 67 (70-110)
--- NOTE | 2024-09-28 08:41 | EXP.ACUTE.PN ---
Subjective *Date: 09/28/24 *Time: 09:08 Interval history: Patient is feeling better this am. Went for an EGD this am and it showed moderate to marked linear erosive gastropathy of antrum/body with some small amount of heme/coffee-ground adjacent to erosions and faint esophageal varices. Her NG has been removed. Medical Exam Vital signs and Labs for Last 24 Hours: Vital Signs Temp Pulse Resp BP Pulse Ox O2 Del Method O2 Flow Rate 09/28/24 07:59 91 H 18 105/58 L 94 L Room Air 09/28/24 07:54 93 H 18 104/59 L 95 Room Air 09/28/24 07:44 98.4 F 95 H 18 116/64 98 Room Air 09/28/24 07:19 Nasal Cannula 5 09/28/24 05:00 Room Air 09/28/24 04:00 98.3 F 91 H 16 104/65 L 94 L Room Air 09/28/24 02:56 Room Air 09/28/24 01:00 Room Air 09/27/24 23:00 Room Air 09/27/24 21:00 Room Air 09/27/24 20:00 Room Air 09/27/24 19:42 98.3 F 81 18 107/66 L 94 L Room Air 09/27/24 18:33 Room Air 09/27/24 17:00 Room Air 09/27/24 15:47 98 F 74 16 103/65 L 94 L 09/27/24 15:00 Room Air 09/27/24 15:00 Room Air 09/27/24 12:57 Room Air 09/27/24 11:00 Room Air 09/27/24 09:00 Room Air Intake and Output 09/27/24 09/28/24 09/28/24 19:59 03:59 11:59 Intake Total 500 / 926 426 / 926 Output Total 375 / 375 0 / 375 0 / 375 Balance 125 / 551 426 / 551 0 / 551 Intake: Intake, Total IV Amount 500 / 926 426 / 926 0.9 % Sodium Chloride 1000ML 1, 500 / 926 426 / 926 000 ml @ 50 mls/hr IV .Q20H [facility] Rx#:[id number] Output: Output, Urine Amount 0 / 0 0 / 0 0 / 0 Output, Gastric Drainage Amount 375 / 375 Right Nare 375 / 375 Other: Number of Unmeasured Voids 3 1 1 Weight 154 lb 8.175 oz Patient Weight 09/28/24 11:59 Weight 154 lb 8.175 oz Laboratory Results - last 24 hr 09/28/24 06:50: WBC 5.2, RBC 4.68, Hgb 13.0, Hct 40.1, MCV 85.6, MCH 27.7, MCHC 32.4, RDW 17.8 H, Plt Count 105 L D, MPV 10.1, Neut % (Auto) 73.2, Lymph % (Auto) 16.9, [place] % (Auto) 7.9, Eos % (Auto) 1.3, Baso % (Auto) 0.7, Neut # (Auto) 3.8, Lymph # (Auto) 0.9, [place] # (Auto) 0.4, Eos # (Auto) 0.1, Baso # (Auto) 0.0, Sodium 136, Potassium 4.2, Chloride 105, Carbon Dioxide 20 L, Anion Gap 15.2 H, BUN 13 D, Creatinine 0.70, Estimated Creat Clear 65, Estimated GFR 85, Est GFR ( Amer) 103, Glucose 66 L, Calcium 8.9, Total Bilirubin 0.9, AST 74 H D, ALT 101 H, Alkaline Phosphatase 288 H, Total Protein 5.8 L, Albumin 3.5, Globulin 2.3, Albumin/Globulin Ratio 1.5 09/28/24 07:23: POC Glucose 67 L 09/28/24 07:52: POC Glucose 109 I & O for Labs for Last 24 Hours: Intake & Output 09/25/24 09/26/24 09/27/24 09/28/24 11:59 11:59 11:59 11:59 Intake Total 926 / 926 Output Total 0 / 0 375 / 375 Balance 0 / 0 551 / 551 Weight 154 lb 8.175 oz 154 lb 8.175 oz Constitutional: Present no acute distress Respiratory: Present CTA bilaterally Cardiac: Present Reg Rate and Rhythm GI: Present soft and tenderness (epigastric area); Absent distention Extremities: Absent edema Skin: Present intact Neuro: Present alert and awake Assessment and Plan *Assessment and plan (1) Epigastric abdominal pain: Status: Acute Category: Medical Code(s): R10.13 - Epigastric pain (2) Nausea: Status: Acute Category: Medical Code(s): R11.0 - Nausea (3) Vomiting: Status: Resolved Category: Medical Code(s): R11.10 - Vomiting, unspecified (4) Obstipation: Status: Acute Category: Medical Code(s): K59.00 - Constipation, unspecified (5) Gastropathy: Status: Acute Category: Medical Code(s): K31.9 - Disease of stomach and duodenum, unspecified (6) Elevated LFTs: Status: Acute Category: Medical Code(s): R79.89 - Other specified abnormal findings of blood chemistry Plan Dr. Sidhu wanted to treat the obstipation and continue oral metoclopramide. Due to her elevated liver chemistries, he has ordered an MRCP. Dr. Arevalo entry - Saw patient, agree with above note.
--- NOTE | 2024-09-28 09:07 | PC.NURSE ---
REPORT GIVEN TO JENNIFER MENDEZ AROUND 09. PT MOVED TO ROOM 207 AT THIS TIME VIS W/C.
[2024-09-28] MEDS: GADOTERIDOL INJ 20ML SYRINGE 15 ML IV (11:05)
[2024-09-28] MEDS: SODIUM CHLORIDE 0.9% 10ML SYR (RAD ONLY) 10 ML IV (11:05)
[2024-09-28] MEDS: SODIUM CHLORIDE 0.9% 50ML BAG 25 ML IV (11:05)
[2024-09-28] MEDS: ACETAMINOPHEN 325MG TAB 650 MG PO (11:54)
--- NOTE | 2024-09-28 13:29 | EXP.ANES.CKL ---
[facility] Disclaimer: The information contained in this section may have been updated after the patient was seen, as this information can be updated by other users. Medical History (Updated 09/28/24 @ 09:08 by Paul Arevalo MD) Metastatic colon cancer to liver Acute respiratory failure with hypoxia Pleural effusion on right SVT (supraventricular tachycardia) Right ventricular hypertrophy Dyspnea on exertion Tachycardia Dysrhythmia Lesion of liver Hepatic cyst Multiple pulmonary nodules Degenerative disc disease Right sided sciatica Surgical History History of cholecystectomy History of partial surgical removal of colon History of surgery of liver History of removal of both ovaries History of colonoscopy History of tubal ligation Hx of BSO (bilateral salpingo-oophorectomy) Family History Mother Pancreatic cancer Father Multiple myeloma Other Cancer Hypertension Social History Smoking Status: Never smoker alcohol intake: current alcohol intake frequency: holidays/special occasions only substance use type: denies use current occupational status: other Travel in the last 8 weeks: None household members: spouse housing: house current occupational exposures/hazards: No caffeine: No [facility] Anesthesia Checklist Patient Identification Patient Identification: Arm Band and Family Structural Data Admitted From: Inpatient Planned Operative Procedure/s: EGD Consent for Planned Operative Procedure(s) Verified: Yes Verified Documents: Surgical Consent and History and Physical NPO Status Verified Time NPO: 00:00 Additional verifications Patient : No Anesthesia Reactions: No Hx Blood Transfusions: No Blood Transfusion Reaction: No Cephalosporin Allergy: No Previous Colonoscopy: Yes Airway Assessment Mallampati Score:: Class III C-Spine Mobility Assessed: Yes TMJ Mobility Assessed: Yes Neurological Assessment Level of Consciousness: Awake, Alert, Appropriate and Follows Commands Hx Seizures: No Numbness or tingling in extremities: No Anesthesia Plan Anesthesia Risk discussed: Yes ASA Class: II Anesthesia Type: MAC
--- NOTE | 2024-09-29 13:17 | CARE MANAGER ---
Contacted patient related to hospital discharge. She had no new medications and is aware of follow up appointment. Denies questions or concerns. ANDREA Lindo
--- NOTE | 2024-10-02 16:12 | EXP.DC.SUM ---
General Admission date:: 09/27/24 Discharge date: 09/28/24 HPI HPI HPI: *History of present illness: In summary patient is a 59-year-old female who presents to the emergency department for evaluation of gastric abdominal pain. Patient is hemodynamically stable upon arrival, afebrile. Physical exam is remarkable for redemonstration of epigastric abdominal pain with no rebound or guarding or rigidity.. Differential diagnosis includes slow gastric transit versus gastric outlet obstruction either functional or mechanical etc. Initial workup was completed earlier this date during her previous visit. Initial interventions include our crystalloid bolus n.p.o. NG tube insertion and to intermittent low wall suction. As I described earlier I disagree with radiology read is that the patient has a markedly enlarged stomach with detritus suggestive of delayed gastric emptying either via mechanical or functional reasons. She attempted conservative management and went home however she has had return of her symptoms and is now intolerant of even water intake. Given that I had interactive discussion with Dr. Dominguez who is on-call for Dr. Arevalo and she will be admitted for Dr. Arevalo were for further evaluation and care. (above as per ER physician) The patient states she has had horrible reflux type symptoms for the past few weeks that have progressively worsened. She was having epigastric pain and nausea but did not vomit. Her bowels have been moving normally. She states she has had some mild relief of her abdominal pain since the NG tube was inserted. As per GI consult: Mrs. Grajeda is a 59-year-old female with a prior history of colon cancer in 2019. She underwent right hemicolectomy (Etienne Novak MD at the [facility]). In 2021 she was discovered to have hepatic metastasis. She did have chemotherapy between November and May 2023 and then had right hepatectomy with a couple of ablations. The patient did have postop complications after right hepatectomy and spent 17 days in the hospital. She has done fairly well subsequently and has had surveillance imaging (MRI and CAT scan) show full remission. Over the last week she has developed progressive nausea and epigastric abdominal pain that radiates into her shoulders. She has had bloating, belching and early satiety. She reports no nausea. She states this has been accompanied by a headache. She does not have heartburn and is on pantoprazole. Her last EGD was at the time of her colonoscopy in 2019. She has had routine surveillance colonoscopy since her surgery. The patient did have imaging here showing evidence of liver resection of lateral segment of the left hepatic lobe and posterior segment of the right lobe. There was evidence of obstipation. She states she has had some mild relief of her abdominal pain since the NG tube was inserted. Hospital Course Hospital Course Hospital Course: NG tube helped significantly to decrease the abdominal pain. She had Zofran for nausea as well. She was seen by gastroenterology who performed the EGD procedure with the following results:: Impression: 1. Moderate to marked linear erosive gastropathy of antrum/body with some small amount of heme/coffee-ground adjacent to erosions 2. Small 2 cm hiatal hernia 3. Very faint esophageal varices Plan: There was certainly no evidence of gastric outlet obstruction or retention of marked amount of fluid in the stomach. She was using NSAIDs fairly sparingly. I would discontinue these. Certainly her obstipation may be playing some role and we will address this. Lastly, she does have moderately elevated liver chemistries. There was no biliary ductal dilation on CAT scan. However, upon review there was a marked amount of retained digestive content with distended stomach. I would treat obstipation and continue oral metoclopramide presently and advance diet. Because of her elevated liver chemistries, I would consider MRCP. I will follow-up the biopsies. The above as per Dr. Sidhu NG tube was removed after EGD. She tolerated full liquids. She had multiple bowel movements after taking mag citrate. In the p.m. of 09/28/2024 she was okay to be discharged home with follow-up at [facility] the following week. MRCP was to be scheduled. She was also to follow-up with Dr. Arevalo. Exam Data for Last 24 hours Vital signs and Labs for Last 24 Hours: Temp Pulse Resp BP Pulse Ox O2 Del Method O2 Flow Rate 98.4 F 84 18 122/80 97 Room Air 5 09/28/24 07:44 09/28/24 12:30 09/28/24 12:30 09/28/24 12:30 09/28/24 12:30 09/28/24 12:30 09/28/24 07:19 Narrative: Constitutional: Present no acute distress Respiratory: Present CTA bilaterally Cardiac: Present Reg Rate and Rhythm GI: Present soft and tenderness (epigastric area); Absent distention Extremities: Absent edema Skin: Present intact Neuro: Present alert and awake DS: Diagnosis Discharge Diagnosis (1) Epigastric abdominal pain: Status: Acute Code(s): R10.13 - Epigastric pain (2) Nausea: Status: Acute Code(s): R11.0 - Nausea (3) Vomiting: Status: Resolved Code(s): R11.10 - Vomiting, unspecified (4) Obstipation: Status: Acute Code(s): K59.00 - Constipation, unspecified (5) Gastropathy: Status: Acute Code(s): K31.9 - Disease of stomach and duodenum, unspecified (6) Elevated LFTs: Status: Acute Code(s): R79.89 - Other specified abnormal findings of blood chemistry Meds Home Medications and Allergies Home Medications ?Medication ?Instructions ?Recorded ?Confirmed ?Type pantoprazole 40 mg tablet,delayed 40 mg PO HS 09/14/23 09/27/24 History release metoprolol succinate 25 mg 12.5 mg (1/2 x 25 mg) PO BID #180 06/13/24 09/27/24 Rx tablet,extended release 24 hr tabs Bacillus coagulans-inulin 1 1 cap PO DAILY 09/16/24 09/27/24 History billion cell-250 mg capsule (Probiotic Formula (inulin)) ferrous sulfate 325 mg (65 mg 325 mg PO DAILY 09/16/24 09/27/24 History iron) tablet (FeroSul) duloxetine 60 mg capsule,delayed 60 mg PO DAILY 09/27/24 09/27/24 History release New Prescriptions to Start Prescriptions: Allergies Allergy/AdvReac Type Severity Reaction Status Date / Time Sulfa (Sulfonamide Allergy Verified 06/13/24 13:36 Antibiotics) sulfamethoxazole Allergy Verified 06/13/24 13:36 [From Bactrim] trimethoprim [From Bactrim] Allergy Verified 06/13/24 13:36 Discharge Plan Disposition Patient Disposition: Home, Self-Care Condition: Fair Discharge Order Discharge Orders: Discharge Order (Routine); Ordered 09/28/24 Ordered By: Paul Arevalo Follow up Plan Follow up with: Paul Arevalo MD [Primary Care Provider] - 11/02/24 11:00 am Prescriptions/Medication Reconciliation: Continued metoprolol succinate 25 mg tablet extended release 24 hr 12.5 mg PO BID Qty: 180 3RF duloxetine 60 mg capsule,delayed release(DR/EC) 60 mg PO DAILY pantoprazole 40 mg tablet,delayed release (DR/EC) 40 mg PO HS ferrous sulfate [FeroSul] 325 mg (65 mg iron) tablet 325 mg PO DAILY Probiotic Formula (inulin) 1 billion-250 cell-mg capsule 1 cap PO DAILY Problem Reconciliation Problems Reviewed?: Yes Patient Discharge Instructions ACTIVITY: Ambulate as tolerated DIET: advance to your usual diet Patient Instructions: DI for Nausea -- Adult Print Language: Georgian Providers Primary Care Provider: Paul Arevalo Admit Provider: Colten Dominguez Attending Provider: Paul Arevalo
== END 2024-09-28 16:35 | disposition home or self-care (01) | DRG 392 ==
LOC: ER 23:18 → ICU 09-27 01:08 → 2ND 09-28 15:24 → ICU 09-28 15:24
PROVIDERS: Internal Medicine Adolescent Medicine; Internal Medicine Gastroenterology; Admitting Provider Family Medicine; Emergency Provider Emergency Medicine; PCP Family Medicine; Visit Provider Family Medicine
PROC: 0DJ08ZZ Inspection of Upper Intestinal Tract, Via Natural or Artificial Opening Endoscopic (ICD-10-PCS; CPT 43235; principal; 2024-09-28 07:30)
DX: K59.00 Constipation, unspecified (principal); I85.00 Esophageal varices without bleeding; Z85.038 Personal history of other malignant neoplasm of large intestine; R11.2 Nausea with vomiting, unspecified; K31.9 Disease of stomach and duodenum, unspecified; K44.9 Diaphragmatic hernia without obstruction or gangrene
CPT/HCPCS: 74018; 74183; 80053; 82962; 85025; 99285; A9576; J1642; J1650; J2270; J2405; J2765; J7030

== ENCOUNTER → 2025-04-12 06:41 | Outpatient (CLI) | payer BC, SELFPAY ==
--- OUTSIDE RECORDS SUMMARY | 2025-04-12 06:42 | XMS_ITS | Data Portability ---
Author Organization O[facility] Orta SEDGWICK CLOSED Address [address] [facility] [place] [address] Assessment Encounter Date Assessment Date Assessment LastModified by Organization Details LastModified Time 03/25/2020 03/25/2020 54-year-old female presenting for evaluation of lumbar back pain. Patient reports a 1-2 year history of worsening axial back pain with radiation down the right posterior lateral thigh to the knee. She does note neuropathic pain down to the foot. Pain is worse with increase his physical activity. She was able to do physical therapy as well as chiropractic therapy with limited benefit. She's been seen and evaluated by neurosurgery, Dr. Dash, and referred for injection therapy. She is undergone lumbar MRI imaging at [facility] but we do not currently have the MRI for review. Per Dr. 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 We did discuss injection therapy to help improve pain complaints. She would likely benefit from L5-S1 lumbar epidural steroid injection. Risks and benefits of the procedure were explained to the patient she wishes to proceed. We will plan to schedule the patient for L5-S1 lumbar epidural steroid injection at the next available appointment. I will plan to wait for review of her lumbar MRI before proceeding with injection therapy. In terms of medication management, patient currently takes gabapentin 600 mg twice a day and Celebrex when necessary. She does note some improvement in symptoms with the use of the medication. She recently underwent dose escalation of gabapentin. Patient will follow-up in one month for further evaluation. [email or web address] Not available 03/25/2020 13:15:51 10/19/2022 10/19/2022 Follow up yearly [email or web address] Not available 08/06/2022 07:56:56 03/01/2024 03/01/2024 Follow up yearly [email or web address] Not available 02/29/2024 09:00:37 11/06/2024 11/06/2024 F/u pending path [email or web address] Not available 11/06/2024 14:27:52 Plan of Treatment Reminders Order Date Submit Date Provider Last Modified By Organization Details Last Modified Time Details Appointments None recorded. Lab surgical pathology study 2023 024 [facility], [address] [place] [address], [phone], 16:21:01 surgical pathology study 2023 024 [facility], [address] [place] [address], [phone], 15:18:52 Referral None recorded. Procedures None recorded. Surgeries None recorded. Imaging None recorded. Medication Orders betamethaso ne dipropionat e 0.05 % topical cream 2021 022 [email or web address] Not available 14:59:24 Patient TargetsNo targets recorded. Patient Instructions Encounter Date Encounter Id Patient Instructions Last Modified By Organization Details Last Modified Time 03/25/2020 [id number] WRAP-UP Thank you for visiting [facility] at [facility] today. At today's visit the following were addressed: - MRI - SCHEDULE L5S1 LESI Thank you for visiting the [facility]. -Because of the high volume of calls we receive and the high demand for our clinical services, please allow for 24 hours for us to respond to patient calls. We are generally unable to discuss patient care advice over the telephone. If you are experiencing a medication side effect or complication, you can call and let us know, but we will typically not make a medication substitution or roll changer the telephone. -Acute exacerbations of pain and flare ups are quite common in chronic pain states and need to be dealt with as part of the long-term management plan. Please make an appointment with us if you wish to discuss a matter in any detail. Should you still need to call, please do so at . For additional information and services provided by our clinic you may visit our Pain Management Clinic website at: [email or web address] Thank you for choosing [facility]. It was a pleasure to see you in clinic today. Please contact us with any questions or concerns at . Not available 03/25/2020 12:36:11 Spent {{30# }} total minutes with the patient today. Greater than 50% of this time was spent counseling/coordin ation of care as documented in my assessment and plan above. We discussed injection therapy to assist with pain control. We reviewed conservative measures including gentle stretching as well as yoga/Pilates. We also discussed use of adjuncts including OTC NSAIDS/Tylenol when appropriate as well as use of ice/heat, massage and TENS. Not available 03/25/2020 12:36:48 10/19/2022 [id number] Risks/Benefits/O pt ions/Side Effects of diagnosis and treatment discussed. UV protection and signs of skin cancer discussed [email or web address] Not available 08/06/2022 07:56:56 03/01/2024 [id number] Risks/Benefits/O pt ions/Side Effects of diagnosis and treatment discussed. UV protection and signs of skin cancer discussed [email or web address] Not available 02/29/2024 09:00:40 11/06/2024 [id number] Risks/Benefits/O pt ions/Side Effects of diagnosis and treatment discussed. UV protection and signs of skin cancer discussed [email or web address] Not available 11/03/2024 12:59:29 Reason for Referral None Reported. 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 SEE SCANN ED REFER ENCE LAB REPOR T. PRINT ED REPOR T RECEI HANNY IN THE LABOR ATORY : 04/02 Not Available [facility] [address] [facility], [place], [address], 04/02/2020 17:31:28 03/01/20 24 03/01/2024 [facility] surgical SEE BELOW abnormal Depar tment of Patho logy Surgi lloyd Patho logy Repor t NAME: MARISA REYES PATH. :[id number] Copy to: Diagn osis: Right nasal bridg e: Basal cell carci noma, nodul ar type; incom plete ly excis ed. SOURC E OF SPECI MEN: SKIN BIOPS Y, RIGHT NASAL BRIDG E CLINI [facility] INFOR MATIO N: SPECI MEN COLLE CTION NOTES : ? BCC D48.5 NEOPL ASM OF UNCER TAIN BEHAV IOR OF SKIN Gross Descr iptio n: Recei hanny in forma enrique label ed with the patie nt's name and desig nated righ t nasal bridg e is a shave biops y of skin (0.6 x 0.3 x 0.1 cm). The epide rmal surfa ce is white and rough ened. The miguel n is inked blue. The speci men is bisec pam and entir tayler submi tted in one casse tte label ed A1. MT 03/02 09:35 AM Micro scopi c Descr iptio n: A micro scopi c exami natio n has been perfo rmed and the resul t(s) are as noted above . ELIZABETH GILBERT M.D. Caitlyn d Out Date: 03/03 15:18 Page 1 of 1 Not Available [facility] [address] [place] [address], [place], [phone], 03/03/2024 15:18:51 11/06/20 24 11/06/2024 [facility] surgical SEE BELOW abnormal Surgi lloyd Patho logy Repor t NAME: MARISA REYES PATH: [id number] DATE of : 09/20 8 Copy to: Diagn osis: Nasal bridg e scar: Basal cell carci noma, nodul ar type; incom plete ly excis ed. SOURC E OF SPECI MEN: SKIN BIOPS Y, SCAR ON NASAL BRIDG E CLINI [facility] INFOR MATIO N: D48.5 SPECI MEN COLLE CTION NOTES : R/O RECUR RENT BCC Gross Descr iptio n: Robby nt's name and date of verif ied. Recei hanny in forma enrique label ed with the patie nt's name and desig nated nasa l bridg e scar is a shave biops y of skin (0.5 x 0.5 x 0.1 cm). The epide rmal surfa ce is pale- starks/w mich, focal ly eryth emato us, and rough ened. The miguel n is inked blue. The speci men is bisec pam and entir tayler submi tted in one casse tte label ed A1. SB 11/06 08:25 PM Micro scopi c Descr iptio n: A micro scopi c exami natio n has been perfo rmed and the resul t(s) are as noted above . ELIZABETH GILBERT M.D. Caitlyn d Out Date: 11/07 16:20 Page 1 of 1 Not Available [facility] [address] [place] [address], [phone], 11/07/2024 16:21:01 Result Notes None recorded. Problems Name Problem SNOMED Code Status Onset Date Resolution Date Notes Provider Name and Address Organization Details Recorded Time Eczematou s dermatiti s of lower eyelid 445867873 Active 2015 From Automated Load;Provi lori: Olivia Mahan tatus: Active Not Available [facility] 6 10:39:48 Eczematou s dermatiti s of upper eyelid 577189579 Active 2015 From Automated Load;Provi lori: Andrei Mahan;Jim tatus: Active Not Available [facility] 6 10:39:48 Problem Notes None recorded. Procedures Surgical History Date Name Laterality Status Provider Name and Address Organization Details Recorded Time 11/06/20 24 Destruction MN Lesion; face, ear, eyelid, nose, lip completed BONNIE CHAVIRA MD [address] [place] [address], [phone], [facility] 11/08/2024 13:10:58 11/06/20 24 Destruction BN Lesions completed Stephanie Rick [facility] 11/06/2024 14:14:39 03/01/20 24 Biopsy Skin Lesion; Tangential completed Jerrica Seble [facility] 03/01/2024 09:14:35 10/19/20 22 Destruction Premalignant Lesion(s) completed [place] DyerWahl [facility] 10/19/2022 14:21:13 04/03/20 20 Injection, Interlaminar Epidural Steroid completed BRADFORD VERMA MD [address] [place] [address], [phone], [facility] 04/03/2020 09:29:39 11/03/20 19 Destruction Premalignant Lesion(s) [facility] [place] [facility] 11/03/2019 14:37:59 01/26/20 18 Destruction Premalignant Lesion(s) completed Clarita Graham [facility] 01/25/2018 16:54:11 Partial removal of colon completed Raya Cavazos [facility] 03/25/2020 11:58:21 Imaging Results None recorded. Procedure Notes None recorded. Medical Equipment None Reported. Allergies No known drug allergies Medications Name Sig Start Date Stop Date Status Note LastModified by Organization Details LastModified Time gabapenti n 600 mg tablet Take 1 tablet twice a day by oral route. active Not Available Not Available No t Available doxycycli ne hyclate 100 mg capsule Take 1 capsule twice a day by oral route. 2017 active Not Available Not Available Not Avai lable Claritin 10 mg tablet Every morning active Instruct ions: Take one tablet in the morning; Frequenc y: qam;Medi cation Descript ion: loratadi ne; Dosage:1 ; Route:or al; refills: 0; Quantity :30 tablet Not Available Not Available Not Available Celebrex 200 mg capsule Take 1 capsule every day by oral route. active Not Available Not Available No t Available betametha sone dipropion ate 0.05 % topical cream apply to affected areas PRN 2021 active Not Available Not Available Not Avai lable doxycycli ne hyclate 20 mg tablet 2 PO QHS 2017 active Not Available Not Available Not Avai lable Bactrim DS 800 mg-160 mg tablet Take 1 tablet every 12 hours by oral route for 10 days. 01/25 completed Not Available Not Available Not Available Vitamin D active Medicati on Descript ion: ergocalc iferol; Route:or al; refills: 0 Not Available Not Available Not Available Vitamin B12 active Medicati on Descript ion: cyanocob alamin; refills: 0 Not Available Not Available Not Available Vitals Date Recorded Body weight Body mass index (BMI) Body height Provider Name and Address Organization Details Last Updated DateTime 03/25/2020 36023.78 g 26.6 kg/m2 165.1 cm Raya Reeds [facility] 03/25/2020 11:41:53 Social History Question Answer Notes LastModified by Organizat ion Details LastModified Time Tobacco Smoking Status [facility] 12/03/2016 08:20:37 What Was The Date Of Your Most Recent Tobacco Screening? 03/25/2020 [email or web address] Information not available 03/25/2020 Sex: Female Functional Status None recorded. Mental Status None recorded. Family History Nothing Reported Notes:NO FAMILY HX OF MM SKI N CANCER Medical History Condition Response Varicose Veins Y Autoimmune disease N Skin Problems N Squamous Cell Carcinoma N Basal Cell Carcinoma Y Skin Cancer N Cancer Y Eczema Y Melanoma N Other Skin Condition N Acne Y Gynecological HistoryNo gynecological history recorded. Obstetrics History GPAL:G 0 P 0 0 0 0 Past Encounters Encounter ID Performer Location Encounter Start Date Encounter Closed Date Diagnosis/Indication Diagnosis SNOMED-CT Code Diagnosis ICD10 Code Diagnosis Note [id number] NOLA MARTINES [place] [address] [place] [address] 12/03/2016 08:04:36 12/03/2016 09:12:55 Rosacea 977450517 L71.9 flaring not clearing with 40mg qd and topicals not helped in pastincrea se Doxy 100mg qd-bid prn flare usually only has to take couple weeks for intermitte nt flares to control after she completes the last 3 days of bactrim she is on she will start doxy [id number] NOLA MARTINES [facility] [address] [place] [address] 01/25/2018 15:57:44 01/26/2018 08:02:07 Senile hyperkeratosis 384929025 L82.1 BENIGN APPEARANCE , PT REASSURED Actinic keratosis 007 L57.0 CRYO X 3AK'S VS SUPERFICIA L BCC DISCUSSED BIOPSY IF PERSISTANT RTCSEE PROCEDURE NOTEPATIEN T ADVISED WHAT TO EXPECT FROM FREEZING Solar lentiginosis 46829 2006 L81.4 BENIGN APPEARANCE , PT REASSURED Multiple b enign melanocytic nevi 446983586 D22.9 BENIGN APPEARANCE , PT REASSURED Rosacea 510950362 L71.9 MILD -MODERATE FLARES CONTINUE DOXYCYCLIN E 100 MG BID PRN FLARES THEN DECREASE TO DOXYCYCLIN E 40MG QHS MAINTENANC E CONT UV PROTECTION DAILY TOPICALS INEFFECTIV E IN PAST History of malignant basal cell neoplasm of skin 422612599 Z85.828 NO RECURENCE 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 Actinic keratosis 007 L57.0 Mid nasal bridge - LN Solar lentiginosis 49345 2006 L81.4 Reassuranc e and education regarding the disorder and options. Multiple b enign melanocytic nevi 499369726 D22.9 Reassuranc e and education regarding the disorder and options. History of malignant basal cell neoplasm of skin 066604103 Z85.828 left anterior vertex - doing well Generalize d essential telangiectasia 864355035 I78.1 Reassuranc e and education regarding the disorder and options. [id number] EPHRAIM DASH MD [facility] [address] [place] [address] 03/18/2020 10:05:43 03/18/2020 10:43:11 Lumbar radiculopathy 831555674 M54.16 [id number] BRADFORD VERMA MD [facility] [place] [address] 03/25/2020 11:40:59 03/25/2020 13:21:04 Lumbar radiculopathy 205212186 M54.16 [id number] BRADFORD VERMA MD [facility] [address] [facility], [address] [place] [id number] 04/03/2020 09:18:44 04/05/2020 08:49:28 Lumbar radiculopathy 257826709 M54.16 [id number] BONNIE CHAVIRA MD [facility] [address] [place] [address] 10/19/2022 13:44:15 10/19/2022 15:12:01 History of malignant basal cell neoplasm of skin 526606420 Z85.828 left anterior vertex - doing well Senile hyperkeratosis 39 6768171 L82.1 Reassuranc e Solar lentiginosis 26624 2006 L81.4 Reassuranc e Multiple b enign melanocytic nevi 920824257 D22.9 Reassuranc e Generalize d essential telangiectasia 925005712 I78.1 Reassuranc e Actinic keratosis 616410 007 L57.0 Left brow - LN Hemangioma 875741536 D18 .00 Reassuranc e and education regarding the disorder and options. Eczema 26422688 L30.9 per historyRef ill Betamethas one dipropiona te cream [id number] BONNIE CHAVIRA MD [facility] [address] [place] [address] 03/01/2024 08:37:31 03/01/2024 11:05:44 History of malignant basal cell neoplasm of skin 698096206 Z85.828 Left anterior vertex - doing well Solar lentiginosis 24208 2006 L81.4 Reassuranc e Multiple b enign melanocytic nevi 259959478 D22.9 Reassuranc e Hemangioma 603905694 D18 .00 Reassuranc e Raised duran orrheic keratosis 1083162152 83051 L82.1 Reassuranc e Neoplasm o f uncertain behavior of skin 27085112 D48.5 right nasal bridge -Recommend ed shave biopsy - r/o BCCpatient agreeable - informed consent signedphot o in chartsee procedure noteWould lean toward Mohs if (+)Wound care instructio n providedfo llow up pending path results [id number] BONNIE CHAVIRA MD [facility] [address] [place] [address] 11/06/2024 13:46:59 11/06/2024 14:49:19 History of malignant basal cell neoplasm of skin 677331624 Z85.828 Left anterior vertex - doing well Right nasal bridge - s/p Mohs - see below Raised duran orrheic keratosis 4854092553 34748 L82.1 Reassuranc e Solar lentiginosis 51851 2006 L81.4 Reassuranc e Neoplasm o f uncertain behavior of skin 01494705 D48.5 Inflamed s eborrheic keratosis 506921143 L82.0 LN x 1 Basal cell carcinoma of nose 342510144 C44.311 Scar on nasal bridge has a 4mm crust on rightEduca tion, thenshave removaland base destroyed with electrodes sication.R /O recurrent BCCConsent and photo obtainedSe e procedure notePt tolerated wellWound care informatio n providedF/ u pending path Health Concerns Section Related Observation LastModified by Organization Detai ls LastModified Time None Recorded Concern Status LastModified by Organization Details LastModified Time None Recorded Advance Directives Directive None Recorded Payers Insurance Date Sequence Insurance Name Policy Number Policy Crowley Covered Member ID Crowley Member ID Guarantor Name 04/03/2020 1 [employer] [id number] Marisa Grajeda [id number] Marisa Grajeda 10/16/[address] [facility] [id number] Marisa Grajeda [id number] Marisa Grajeda 11/16/2024 1 [place] [id number] Anselmo Grajeda [id number] 1 Marisa Grajeda Notes Date Note Type Note Provider Name and Address Organization Details Recorded Time 03/25/2020 text/html 54-year-old fema holger presenting for evaluation of lumbar back pain. Patient reports axial back pain with radiation down the right posterior thigh to the foot. She has undergone MRI imaging but we do not have the images for review. His undergone physical therapy and chiropractic therapy with only temporary relief. Her current regimen consists of gabapentin 600 mg twice a day and Celebrex when necessary. Visit today is being conducted via telehealth using both audio and video. Patient has expressed an understanding of the telehealth process and has consented. BRADFORD VERMA MD [address] [place] [address], [phone], [facility] 03/25/2020 13:16:12 10/19/2022 text/html ESTABLISHED [facility] ent Monitor: BCC LOCATION: left browDURATION: x monthsSYMPTOMS: roughTREATMENTS: none Denies any other new, changing, or bleeding lesions, or other rashes, feels {{well * not well}}, good mood and has {{no * a positive}} family history of melanoma. BONNIE CHAVIRA MD [address] [place] [address], [phone] 10/19/2022 14:56:41 03/01/2024 text/html Established [facility] ent Monitor: BCC LOCATION: mid nasal bridgeDURATION: x monthsSYMPTOMS: bleedsTREATMENTS: LN in 2019 Denies any other new, changing, or bleeding lesions, or other rashes, feels {{well * not well}}, good mood and has {{no * a positive}} family history of melanoma. BONNIE CHAVIRA MD [address] [place] [address], [phone] 03/01/2024 09:17:42 11/06/2024 text/html Established Ratna ent - presents for 4 month recheck s/p Mohs for bx proven BCC on Rt nasal bridge. Pt reports site continues to bleed and she thinks BCC is returning. Monitor: BCC denies any other new, changing, or bleeding lesions, or other rashes, feels {{well * not well}}, good mood and has {{no * a positive}} family history of melanoma. BONNIE CHAVIRA MD [address] [place] [address], [phone] 11/08/2024 13:11:51 OBGyn Episode No OBEpisode recorded.
== END ==
LOC: SL 06:41
PROVIDERS: PCP Family Medicine; Visit Provider Family Medicine
DX: R06.83 Snoring (principal); R06.81 Apnea, not elsewhere classified
CPT/HCPCS: G0399

== ENCOUNTER 2025-08-28 07:38 | Emergency (ER) | payer BC, SELFPAY ==
--- OUTSIDE RECORDS SUMMARY | 2024-11-02 07:00 | XMS_ITS ---
Author Organization [facility] Address [address] [facility] [address] [facility] [address] [place] [place] [id number] Care Team Providers Care Tile Erector Name Role Phone Paul Arevalo Primary Care Provider Allergies Allergen (clinical drug ingredient) Drug/Non Drug Allergy documented on EMR Reaction Allergy Type Onset Date Status sulfamethoxazole / trimethoprim Bactrim rash Drug Allergy Active REASON FOR VISIT discharge [facility] Encounters Encounter Location Date Provider Diagnosis [facility] [address] [facility] [address] [facility] [address] [place] [phone] 11/02/2024 Paul Arevalo Plan Of Treatment No Information Progress Notes * TARAS ERICB:1965 (59 yo F)Acc No.[id number]:11/02/2024 Progress Notes Patient: ALTHEA CHEN Provider: Thomas Arevalo M.D. :1965 A ge:59 Y S ex:Female Date:11/02/2024 Address[place] [id number] Subjective: * Chief Complaints: * 1 . discharge [facility]. * HPI: H PI: 59 year old female presents with c/o Here for follow up on:?[facility] hospitalization, see pt docs. * ROS: D [...] Sciatica, s/p lumbar epidural March 2020 at [facility] in [place], Metastatic disease of liver 2021, treated at . * Surgical History: B lood Transfusion- 2 units 05/2019, Colonoscopy - Adenocarcinoma 06/2019, [facility] - 08/09/2019, Epidural Injection - Rgiht leg 03/2020. * Hospitalization/Major Diagno stic [place]: [place] [facility] [place] * Family History: F ather: alive, [...] Electronic signature of Francine Arevalo MD on 08/28/2025 at 07:49 AM EDT Sign off status: Pending * Provider: Thomas Arevalo M.D. Date: 01/03/2024 Generated for Alicia bardales/Jad/Esa on: 07:49 AM EDT History and Physical Notes * HPI (History of Present Illness) Category Sub-Category Detail Notes Category Not es HPI Here for follow up on: [facility] hospitalizatio n, see pt docs
--- OUTSIDE RECORDS SUMMARY | 2025-02-17 06:00 | XMS_ITS ---
[facility] Address [address] [place] [phone] Care Team Providers Care Relay Tester Helper Name Role Phone Mickey Paul Primary Care Provider Allergies Allergen (clinical drug ingredient) Drug/Non Drug Allergy documented on EMR Reaction Allergy Type Onset Date Status sulfamethoxazole / trimethoprim Bactrim rash Drug Allergy Active Results Component Value Reference Range Notes sleep study Reviewed date:04/26/2025 07:55:03 AM Interpretation:severe ENEDINA and severe O2 desat Performing Lab: Notes/Report: severe ENEDINA and severe O2 desat REASON FOR VISIT migraine meds refilled and talk about a sleep study Medications Medication SIG (Take, Route, Frequency, Duration) Notes Start Date End Date Status DULoxetine HCl 60 MG 1 capsule Orally On ce a day; Duration: 30 day(s) Active Metoprolol Succinate 25 MG 1 capsule Ora lly Once a day Active Probiotic - as directed Orally Active Pantoprazole Sodium 40 MG 1 tablet Orall y Once a day; Duration: 30 day(s) Active Ursodiol 300 MG 1 capsule Orally Twi ce a day Active Feosol Bifera 28 MG 1 tablet Orally Once a day; Duration: 90 days 09/11/2024 Active Ubrelvy 100 MG 1 tablet as needed, may take second dose at least 2 hours after first dose up to 2 tablets per day as needed Orally Once a day 02/17/2025 Active Enoxaparin Sodium 30 MG/0.3ML 0.3 mL Injection every 12 hrs Active Methocarbamol 500 MG 1 tablet Orally randolph ry 4 hrs Active Ferrous Sulfate 325 (65 Fe) MG 1 tablet Orally bid Active Problems Problem Type SNOMED Code ICD Code Onset Dates Problem Status W/U Status Risk Notes Problem Migraine with aura (5392298) Migraine with aura and without status migrainosus, not intractable (G43.109) Active confirmed Vital Signs Blood pressure systolic 122 mm Hg 02/18/20 25 Blood pressure diastolic 72 mm Hg 025 Heart Rate 90 /min 02/17/2025 Height 65 in 02/17/2025 Weight 165.5 lbs 02/17/2025 BMI 27.54 kg/m2 02/17/2025 Encounters Encounter Location Date Provider Diagnosis [facility] [address] [place] [id number] 02/17/2025 Paul Arevalo Migraine with aura a nd without status migrainosus, not intractable G43.109 ; Snores R06.83 and Witnessed apneic spells R06.81 Assessments Encounter Date Diagnosis (ICD Code) Assessment Notes Treatment Notes Treatment Clinical Notes Section Notes 02/17/2025 Migraine with aura and without status migrainosus, not intractable (ICD-10 - G43.109) 02/17/2025 Snores (ICD-10 - R06.83) 02/17/2025 Witnessed apneic spells (ICD-10 - R06.81) Plan Of Treatment Medication Medication Name Sig Start Date Stop Date Notes Ubrelvy 100 MG 1 tablet as needed, may take second dose at least 2 hours after first dose up to 2 tablets per day as needed Orally Once a day 02/17/2025 Next Appt Details Follow Up: via phone to repo rt test results, Reason: Progress Notes * ERIC GRAJEDAB:1965 (59 yo F)Acc No.[id number]:02/17/2025 Progress Notes Patient: ALTHEA CHEN Provider: Thomas Arevalo M.D. :1965 A ge:59 Y S ex:Female Date:02/17/2025 Address:[address] [place], [place] [id number] Subjective: * Chief Complaints: * 1 . Migraine meds refilled and talk about a sleep study. * HPI: N eurology: 59 year old female presents with c/o headache P t presents today to discuss getting Ubrelvy. Pt sts that she was started on it at an ER visit and would like to see if this is something that Dr. Arevalo would prescribe for her. E NT/respiratory: Sleep Study: P t sts that her would like for her to get a sleep study done. * ROS: D ERMATOLOGY: no R supriya. [...] Sciatica, s/p lumbar epidural March 2020 at [facility] in [place], Metastatic disease of liver 2021, treated at . * Surgical History: B lood Transfusion- 2 units 05/2019, Colonoscopy - Adenocarcinoma 06/2019, [facility] 08/09/2019, RT Leg Epidural Injection - Rgiht leg 03/2020, Resection of Small Intestine 02/05/2025. * Hospitalization/Major Diagno stic Procedure: B [place]ck Pain- [facility] [place] 07/[place]. * Family History: F ather: alive, [...] ouside [place]: no. * Medications: T aking Methocarbamol 500 MG Tablet 1 tablet Orally every 4 hrs , Taking Enoxaparin Sodium 30 MG/0.3ML Solution Prefilled Syringe 0.3 mL Injection every 12 hrs , Taking Ferrous Sulfate 325 (65 Fe) MG Tablet [...] capsule Orally Once a day , Taking Feosol Bifera 28 MG Tablet 1 tablet Orally Once a day , Medication List reviewed and reconciled with the patient * Allergies: B actrim: rash - Allergy. Objective: * Vitals: W t: 165.5, Temp: 97.3, BP: 122/72, HR: 90, Nurse: FRANCINE, Ht: 65, BMI:27.54. * Examination: G eneral Examination: General Appearance: N AD. N eurologic Exam: I ntact, gait normal. Assessment: * Assessment: 1. M igraine with aura and without status migrainosus, not intractable - G43.109 (Primary) 2 . S nores - R06.83 3 . W itnessed apneic spells - R06.81 ? Plan: * Treatment: 2. S nores I maging: sleep study (Performed Date - 04/07/2025) s evere ENEDINA and severe O2 desat 3.?Witnessed apneic spells?Imaging: sleep study (Performed Date - 04/07/2025)?severe ENEDINA and severe O2 desat* Zaira Boyer 02/19/2025 11:59 :30 AM > faxed to Brittny Tompkins 04/18/2025 12:01:09 PM > pt is calling inquiring about these results, I do not see anything available on [employer] pt sts that [facility] no longer does them. sent to Zaira to contact Amie Peterson and see if they have any results.Zaira Boyer 04/18/2025 01:02:33 PM > lvm with sleep lab to get informationTaylorCorbinnn 04/18/2025 01:06:24 PM > spoke with Madalyn in the sleep lab; they are waiting for Dr. Shanks to read the results; patient informedSangPaul love 04/25/2025 10:43:59 PM EDT > Test shows severe sleep apnea. Patient needs to start CPAP treatment with AutoPAP 05/07, from [facility], sent to to inform.Brittny Ng 04/26/2025 07:54:58 AM EDT > see TE * Procedure Codes: 3 074F SYST BP LT 130 MM HG, 3078F DIAST BP < 80 MM HG * Follow Up: v ia phone to report test results * Images: Billing Information: * Visit Code: 43107 Office Visit, Est Pt., Level 3. * Procedure Codes: 3074F SYST BP LT 130 MM HG. 3078F DIAST BP < 80 MM HG. * Electronic signature of Francine Arevalo MD on 08/28/2025 at 07:50 AM EDT Sign off status: Pending * Provider: Thomas Arevalo M.D. Date: 0 02/17/2025 Generated for Alicia bardales/Jad/eTransmitting on: 1 07:50 AM EDT History and Physical Notes * HPI (History of Present Illness) Category Sub-Category Detail Notes Category Not es ENT/respiratory Sleep Study: Pt sts that her would like for her to get a sleep study done Neurology headache Pt presents toda y to discuss getting Ubrelvy. Pt sts that she was started on it at an ER visit and would like to see if this is something that Dr. Arevalo would prescribe for her Examination Category Sub-Category Detail Notes Category Not es General Examination General Appearance: NAD Neurologic Exam: Intact, gait normal
--- OUTSIDE RECORDS SUMMARY | 2025-02-23 06:00 | XMS_ITS ---
Author Organization [facility] Address [address] [place] [phone] Care Team Providers Care Aerospace Project Manager Name Role Phone Paul Arevalo Primary Care Provider REASON FOR VISIT Discharge F/U from , Discuss Order for Sleep Study Encounters Encounter Location Date Provider Diagnosis [facility] [address] [facility] [address] [place] [phone] 02/23/2025 Paul Arevalo Plan Of Treatment No Information Progress Notes * DEDE GRAJEDAMIRYAMB:1965 (59 yo F)Acc No.[id number]:02/23/2025 Progress Notes Patient: ALTHEA CHEN Provider: Thomas [...] 02/23/2025 Generated for Alicia bardales/Jad/Esa on: 1 07:49 AM EDT
--- OUTSIDE RECORDS SUMMARY | 2025-06-26 10:10 | XMS_ITS | Encounter Summary ---
Author Organization [facility] Address [address] [place] [address] Care Team Providers Care Video Game Creator Name Role Phone Paul Arevalo MD Primary Care Provider + [phone] Emerita Gao DDS Unavailable + Tuyet Hogue Unavailable Unavailable Suha Marshall MD Unavailable [phone] Reason for Referral * Imaging (Routine) - Pending Review Specialty Diagnoses / Procedures Referred By Contac t Referred To Contact Radiology Diagnoses Colon cancer metastasized to liver Procedures CT Pelvis w IV Contrast Ren Saeed MD [address] [address] Phone: tel: fax: Referral ID Status Reason Start Date Expiration Date V isits Requested Visits Authorized [id number] Pending Review 06/26/2025 12/26/2026 1 1 * Imaging (Routine) - Pending Review Specialty Diagnoses / Procedures Referred By Contac t Referred To Contact Radiology Diagnoses Colon cancer metastasized to liver Procedures CT Chest w IV Contrast Ren Saeed MD [address] [address] Phone: tel: fax: Referral ID Status Reason Start Date Expiration Date V isits Requested Visits Authorized [id number] Pending Review 06/26/2025 12/26/2026 1 1 * Imaging (Routine) - Pending Review Specialty Diagnoses / Procedures Referred By Chago zavala Referred To Contact Radiology Diagnoses Colon cancer metastasized to liver Procedures MR Abdomen w and wo IV Contrast Ren Saeed MD [address] [address] Phone: tel: fax: Referral ID Status Reason Start Date Expiration Date V isits Requested Visits Authorized [id number] Pending Review 06/26/2025 12/26/2026 1 1 Reason for Visit * Reason Comments Follow-up Encounter Details Date Type Department Care Team (Latest Contact Info) Description 06/26/2025 10:10 AM EDT Office Visit [facility] Multidisciplinary Oncology Clinic [address] [place] [phone] Ren Saeed MD [address] [phone] Colon cancer metastasized to liver (CMS/HCC) (Primary Dx) Social History Tobacco Use Types Packs/Day Years Used Date Smoking Tobacco: Never Passive Smoke Exposure: Never Smokeless Tobacco: Never Alcohol Use Standard Drinks/Week Comments Not Currently 0 (1 standard drink = 0.6 oz pur e alcohol) ocassionally, Humiliation, Afraid, Rape, and Kick questionnair e Answer Date Recorded Within the last year, have y ou been afraid of your partner or ex-partner? No 02/06/2025 Within the last year, have y ou been humiliated or emotionally abused in other ways by your partner or ex-partner? No Within the last year, have y ou been kicked, hit, slapped, or otherwise physically hurt by your partner or ex-partner? No 02/06/2025 Within the last year, have y ou been raped or forced to have any kind of sexual activity by your partner or ex-partner? No 02/06/2025 PHQ-2 Answer Date Recorded Patient Health Questionnaire-2 Score 0 06/26/2025 Hunger Vital Sign Answer Date Recorded Within the past 12 months, y ou worried that your food would run out before you got the money to buy more. Never true 02/07/20 Within the past 12 months, t he food you bought just didn't last and you didn't have money to get more. Never true 02/06/2025 PRAPARE - Transportation Answer Date Re corded In the past 12 months, has l ack of transportation kept you from medical appointments or from getting medications? No 01/20 In the past 12 months, has l ack of transportation kept you from meetings, work, or from getting things needed for daily living? No 02/06/2025 PHQ-9 Answer Date Recorded Patient Health Questionnaire-9 Score 0 03/06/2025 Housing Stability Vital Sign Answer Mehul e Recorded In the last 12 months, was t here a time when you were not able to pay the mortgage or rent on time? No 02/06/2025 In the past 12 months, how m any times have you moved where you were living? 0 02/06/2025 At any time in the past 12 m [facility], were you homeless or living in a [facility] (including now)? No 02/06/2025 CAGE ASSESSMENT Answer Date Recorded Cage unable to access Not on file 08/16/2023 Maximum number of drinks you had on a given occasion in the last month? 0 drinks 08/16/2023 How many alcoholic Beverages do you typically drink in a week? 0 - 7 per week 08/16/2023 Have you ever felt you should CUT down on your d rinking? 0 08/16/2023 Have you been ANNOYED by peo ple criticizing your drinking? 0 08/16/2023 Have you felt GUILTY about your drinking? 0 08/16/2023 Have you had a drink first t kim in the morning (EYE-FUR TRAPPER) to steady your nerves or to get rid of a hangover? 0 08/16/2023 CAGE Questionnaire Score 0 023 Utilities Answer Date Recorded In the past 12 months has th e electric, gas, oil, or water company threatened to shut off services in your home? No 02/06/2025 PHQ-2A Answer Date Recorded Depression Risk 2 08/26/2023 Comments No Sex and Gender Information Value Date Recorded Sex Assigned at Not on file Legal Sex Female 7:29 PM EDT Gender Identity Not on file Sexual Orientation Not on file documented as of this encounter Last Filed Vital Signs Vital Sign Reading Time Taken Comments Blood Pressure 113/76 06/26/2025 10:00 AM EDT Pulse 72 06/26/2025 10:00 AM EDT Temperature 37.2 C (98.9 F) 06/26/2025 10:00 AM EDT Respiratory Rate - - Oxygen Saturation 97% 06/26/2025 10: 00 AM EDT Inhaled Oxygen Concentration - - Weight 75.7 kg (166 lb 14.2 oz) 025 10:00 AM EDT Height 167.6 cm (5' 6 ) 06/26/2025 10:0 0 AM EDT Body Mass Index 26.94 06/26/2025 10:00 AM EDT documented in this encounter Functional Status * Over the past 2 weeks, how often have you been bothered by any of the following problems? Question Answer Date of Assessment Author Little interest or pleasure in doing things Not at all 06/26/2025 10:00 AM EDT Patricia Méndez Feeling down, depressed, or hopeless Not at all 06/26/2025 10:00 AM EDT Patricia Méndez Patient Health Questionnaire -2 Score 0 06/26/2025 10:00 AM EDT Patriica Méndez * Question Answer Date of Assessment Author Thoughts that you would be b shelton off or hurting yourself in some way Not at all 06/26/2025 10:00 AM EDT Patricia Méndez documented as of this encounter Miscellaneous Notes * Progress Notes - Mckenzie Leblanc - 06/26/2025 10:10 AM EDT Surgical Oncology Outpatient Progress note Chief complaint: Marisa Grajeda is a 59 y.o. seen in post-op follow-up s/p exploratory laparotomy, small bowel resection x2 with mesenteric lympadenopathy by Dr. Saeed and open incisional hernia repair by Dr. Robison in January 2025. Interval History: Pt reports that she feels tired today. She has been consistently fatigued. She was diagnosed with ENEDINA and started CPAP at night, which she states has not helped. She has been struggling with constipation daily. She has tried Miralax and OTC laxatives without relief. She has been taking an iron supplement for approximately one year. She reports some upper midline abdominal pain that feels like a muscle ache, particularly after sitting for long periods of time. She also has some sporadic sharp pains throughout the abdomen, but these are not precipitate and resolve quickly. She is wondering about the possibility of taking Wegovy for weight loss given her medical and surgical history. Treatment History: 08/09/19: terminal ileum, right colon , appendix, right colectomy revealed 3.7cm invasive moderatelydifferentiated adenocarcinoma, pT3 Negative margins, 0 of 14 nodes, no tumor deposits/perforation/LVI/PNI Right and left ovary and fallopian tube without pathologic alteration. NATALIA. 11/07/19: Chest: Stable left lower lobe 4 mm pulmonary nodule. Stable left upper lobe apical wedge-shaped scarring with focal calcification. No evidence of disease progression. Abdomen/Pelvis: Postsurgical changes from right colectomy and ileocolonic anastomosis. No evidence of disease recurrence or progression at the site of anastomosis. There is mild adjacent peritoneal inflammatory fat stranding and subcentimeter lymph nodes, nonspecific 10/22/20: Chest/Abdomen/Pelvis: No evidence of local recurrence or new met astatic disease in the abdomen. 10/21/21: Chest: No evidence of disease progression. Abdomen/Pelvis: No evidence of disease progression. 10/13/22: CT CAP No thoracic mets, at least 2 seemingly new low-attenuation liver lesions, bringingto bear the consideration of metastatic disease. 10/22/22: MRI Previously questioned 19 mm segment 3/left hepatic lesion is consistent with a new metastatic focus with 2 additional metastases in the superior and inferior right hepatic lobes (segment7 and 5). These were all present on recent CT from 10/13/2022 but appear new since 10/21/2021. Multiple other scattered hepatic cysts are scattered throughout the liver and stable hepatic dome focal nodular hyperplasia. No hepatic steatosis or morphologic features of cirrhosis. No additional metastases in the visualized upper abdomen. 11/24/2022: Chest: Stable small noncalcified nodules at the lung bases as described above. No new evidence of metastases in the thorax. Abdomen/Pelvis: Small interval increase in size of the previouslydemonstrated lesions in segment 3 in segment 7/6 as described above suspicious for metastases. Remainder of the previously described liver lesions are unchanged. MRI scan of the abdomen with contrastmay be more appropriate as part of follow-up imaging for evaluation of liver lesions. 07/05-07/27/23: Underwent an exploratory laparotomy with lysis of adhesions, left lateral segmentectomy, partial hepatectomy of segment 7, microwave ablation of segment 5, and cholecystectomy. Postop course notable for respiratory failure requiring reintubation, bronchoscopy, abx. Developed ascites and signs of decompensated cirrhosis physiology postop. Discharged to [facility]. 08/10/23: postop visit - still at [facility] but going home soon. Pt with large amount of fluid weight gain of ascites and peripheral edema which is pitting. Recommended increased diuretics. Will arrange paracentesis, hepatology consultation for management of what is decompensated cirrhosis physiology. 08/16- [facility] - underwent paracentesis x 2, diuresis, low salt diet. 08/26/23: follow-up. Slowly improving. Increased lasix to 40 qam and 20 qpm, continue spironolactone. Arranged repeat paracentesis. RTC 2 weeks. Keep hepatology appt for 1 mo. 09/07/23: follow-up. Continues to improve. Decreased Lasix to 40mg. Repeat labs to check potassium 09/09 locally. RTC [address] 09/20: No definitive evidence of recurrent cancer on outside CT imaging (peritoneal thickening/omental nodularity which is felt unchanged just looked different due to less ascites), signatera sent, plan for paracentesis with cytology with repeat CT scan after, recommend continuation of spironolactone 100mg with potassium supplementation repeat labs in 1 week locally. 09/29/23 CT a/p: 1. New hypoenhancing lesion in the posterior medial aspect of hepatic segment 8, nonspecific. Findings may represent an area of focal fat infiltration, however a metastatic lesion cannot be entirely excluded. Further evaluation with MRI is recommended. 2. Stable postsurgical changesin the liver and bowel. 3. Otherwise, no new site of disease in the abdomen or pelvis. 10/04/23 MRI liver: The abnormality described on the prior CT likely represents focal fat along themargin of hepatic segment 4 anterior to the right portal vein. There is a 10 mm nodule at the junction of hepatic segments 4 and 8 which is T1 hypointense, mildly T2 hyperintense, and does not retainEovist and 20 minute delay and is consistent with a small metastatic nodule. It is new compared to MRI June 14, 2023. 10/05/23 followup- will arrange IR MWA of new liver lesion. Repeat scan one month later and RTC. 11/02/23- Hospitalized in [facility] for right pleural effusion, drainage of 2.8L. Discussed PleurX catheter and proceeding with IR ablation after the new year. 11/12/23: Placement of tunneled peritoneal catheter placement 12/02/23: MWA 1cm R hepatic segment IV/VIII junctional lesion, met. 01/01/24: MRI shows no residual/recurrent disease. CEA undetectable. Signatera sent. Obtain CT chest. IR to remove pleurX catheter. RTC 3mo with repeat imaging. 04/11/24: Follow-up. CT chest/pelvis notable for L sided PNA confirmed clinically. MRI liver QASIM, stable FNH. Will give levofloxacin for CAP. Low iron levels, will give oral iron supplement and start bowel regimen. RTC 3mo with same imaging. 07/18/24: CT chest/pelvis and MRI liver QASIM. CEA <1.8. Signatera 0.17 (positive below analytical level), down from previous 1.2. Iron levels still low but not taking supplements. RTC 3mo. 10/03/24: Reviewed outside MRI which shows QASIM. CEA 2.7. Signatera 1.47. LFTs elevated, resume ursodiol. Continue iron supplementation (levels now normal). RTC 3mo with repeat scans and labs. 01/02/25: Imaging concerning for segment 7 and mesenteric progression. PET ordered and will discuss her at tumor board next week. 01/16/2025: Follow up for PET with Dr. Saeed. IR MWA scheduled for 01/25/2025, surgery with Dr. Saeed scheduled for 02/05/2025 01/25/25- IR MWA of seg 7 liver lesion 02/05/2025: patient underwent exploratory laparotomy, small bowel resection x2 with mesenteric lymphadenectomy by Dr. Saeed and open incisional hernia(5x8cm) repaired primarily with Dr. Robison. The procedure was tolerated well with no intraoperative complications. Surgical Pathology was significantfor no evidence of malignancy . The remainder of her hospital course was routine. [facility] Patient doing well and tolerating a soft diet. Incision looksgood with no issues. Will plan follow up with Dr. Saeed in 2 weeks for second post op visit. 03/06/2025: [facility] post follow up #2. Imaging shows appropriate ablation of known lesion, resectionof mesenteric mass, but concern for possible lesion growing along area of known portal vein clot. Plan for SHEILA MRI liver with eovist and follow-up signatera. 06/26/2025 - Follow-up. Imaging shows no evidence of metastatic disease with stable chronic post-operative changes. Plan for 3mo f/u with repeat scans. Past Medical History: Past Medical History: Diagnosis Date Abnormal uterine and vaginal bleeding, unspecified Abnormal uterine bleeding (AUB) Acute respiratory failure with hypoxia 07/08/2023 Intubated 07/15, Bronch with extensive mucous secretions 07/17: extubated, d/c Merrem COVID, resp viral panel, s. Penumo, legionella negative BAL NGTD Pulm consults following. Likely non-infectious inflammatory process Weaned methylpred to 60mg Prednisone daily 07/18: chest tube removed Benign neoplasm of connective and other soft tissue, unspecified Fibroids Colon cancer (CMS/HCC) Conversions - Other Ulcer Cough in adult pt states allergy related. MD randle done 06/29/23. states lungs clear Decompensated hepatic cirrhosis (CMS/HCC) 08/19/2023 Generalized hyperhidrosis Night sweats GERD (gastroesophageal reflux disease) History of transfusion 2019 Ileitis 08/16/2023 Liver cancer (CMS/HCC) Malignant neoplasm of colon, unspecified (CMS/HCC) Colon cancer Migraine, unspecified, not intractable, without status migrainosus Migraines Motion sickness Neuromuscular disorder (CMS/HCC) neuropathy Pain of upper abdomen Physical deconditioning 07/19/2023 Deconditioning from critical illness PT/OT following Pleural effusion 07/10/2023 Continued right pleural effusion on xray with large pocket on ultrasound 07/10 Thoracentesis performed, pigtail left in Place to WS today Continue to follow xray Postoperative anemia 07/06/2023 Trend Transfuse <7 Postoperative pain 07/08/2023 Continue prn oxy and dilaudid Sleep apnea no cpap. mouth guard in use Thyroid nodule Ventral hernia without obstruction or gangrene 02/01/2025 Past Surgical History: Past Surgical History: Procedure Laterality Date CHOLECYSTECTOMY 07/08/23 COLECTOMY PARTIAL / TOTAL Right w/appendectomy COLON SURGERY 07/2019 COLONOSCOPY N/A Colonoscopy from [facility] LIVER SURGERY Right 07/05/2023 ex lap, partial hepatectomy x 2 (seg 2/3, seg 7), MWA x 1 (seg 5), cholecystectomy OOPHORECTOMY 07/2019 with Colon surgery SMALL INTESTINE SURGERY 02/05/2025 small bowel resection x 2, ventral hernia repair TUBAL LIGATION N/A Tubal ligation from [facility] UPPER GASTROINTESTINAL ENDOSCOPY Social History: Tobacco: Tobacco Use: Low Risk (03/09/2025) Patient History Smoking Tobacco Use: Never Smokeless Tobacco Use: Never Passive Exposure: Never Alcohol: Alcohol Use: Low Risk (08/16/2023) CAGE ASSESSMENT Cage unable to access: Not on file Cage max number of drinks: 0 drinks Cage Beverages a week: 0 - 7 per week Cage Questionnaire cut down: 0 Cage questionnaire annoyed: 0 Cage questionnaire guilty: 0 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 Home Medications: Prior to Admission medications Medication Sig Start Date End Date Taking? Authorizing Provider Bacillus Coagulans-Inulin (Probiotic Formula) 1-250 BILLION-MG capsule Take 1 tablet by mouth daily. 02/12/25 Yes Richard Ghotra MD DULoxetine (Cymbalta) [address] capsule Take 1 capsule by mouth daily. Do not crush or chew. Yes Suha Marshall MD FeroSul 325 (65 Fe) MG tablet TAKE ONE TABLET BY MOUTH 2 TIMES A DAY WITH MEALS 02/02/25 Yes Suha Marshall MD pantoprazole (Protonix) 40 MG EC tablet Take 1 tablet (40 mg) by mouth daily. 01/05/25 Yes Richard Ghotra MD Probiotic Product (acidophilus probiotic blend) capsule Take 1 capsule by mouth daily. Yes Provider, Historical, MD promethazine (Phenergan) 25 MG tablet TAKE ONE TABLET BY MOUTH EVERY 8 HOURS NEEDED FOR NAUSEA/VOMITING 05/05/24 Yes Suha Marshall MD ubrogepant (Ubrelvy) 100 MG tablet Take 1 tablet by mouth 1 (one) time each day at the same time. 02/17/25 Yes Richard Ghotra MD ursodiol (Actigall) 300 MG capsule Take 1 capsule (300 mg) by mouth 2 (two) times a day. 01/05/25 Yes Richard Ghotra MD verapamil ER (Veralan PM) 120 MG 24 hr capsule Take 1 capsule (120 mg) by mouth nightly. 01/15/25 Yes Richard Ghotra MD methocarbamol (Robaxin) 500 MG tablet Take 1 tablet (500 mg) by mouth in the morning and 1 tablet (500 mg) at noon and 1 tablet (500 mg) in the evening and 1 tablet (500 mg) before bedtime. Do all this for 5 days. Patient not taking: Reported on 03/06/2025 02/11/25 02/16/25 Ren Saeed MD oxyCODONE (Roxicodone) 5 MG immediate release tablet Take 1 tablet (5 mg) by mouth every 6 hours asneeded for severe pain. Patient not taking: Reported on 03/06/2025 02/11/25 Robert Cervantes MD pantoprazole (Protonix) 40 MG EC tablet Take 1 tablet (40 mg) by mouth daily before breakfast. Do not crush, chew, or split. Patient not taking: Reported on 03/06/2025 02/11/25 Ren Saeed MD sodium phosphates (Osmoprep) 1.102-0.398 g tablet 10am take dose of 4 OsmoPrep tablets Q 15 w/ 8 oz. clear liquids for a total of 5 doses or 20 tablets. 6pm take dose of 4 OsmoPrep tablets Q 15 w/8 oz. clear liquids for a total of 3 doses or 12 tablets. 06/19/25 Etienne Novak MD Sodium Sulfate-Mag Sulfate-KCl (Sutab) 0103-183-118 MG tablet Take 12 tablets by mouth 1 time for 1dose. Follow retort condenser attendant instructions for colonoscopy. 06/19/25 06/19/25 Etienne Novak MD Review of Systems: 14 ROS was conducted and is otherwise negative unless noted in HPI. Physical exam: GENERAL: WD, WN, NAD. EYES: No scleral icterus or conjunctivitis HENT: Atraumatic, normocephalic, nares patent, mucus membranes moist NECK: Supple, no JVD, no evidence of bruit bilaterally RESP/CHEST: Symmetric expansion; non labored. CTA bilaterally. CARD: Regular rate and rhythm, no murmur Extremities: No cyanosis or clubbing. Pedal pulses palpable +2. GI: No organomegaly or masses. Soft, nondistended. BS present and normoactive x 4 quadrants. Mild tenderness to palpation just R of prior midline incision. SKIN: No rash, sores, lesions or subcutaneous nodules. NEURO: AAOx4. Motor intact and no focal deficits PSYCH: Mood and affect congruent and appropriate to situation. Objective: All laboratory, images, tracings, and vital sign data are personally reviewed unless otherwise noted. VITALS Visit Vitals BP 113/76 Pulse 72 Temp 37.2 ??C (98.9 ??F) Ht 1.676 m (5' 6 ) Wt 75.7 kg (166 lb 14.2 oz) SpO2 97% BMI 26.94 kg/m?? LABS Lab Results Component Value Date WBC 4.17 06/26/2025 HGB 12.6 06/26/2025 HCT 39.1 06/26/2025 PLT 116 (L) 06/26/2025 NA 141 06/26/2025 K 4.1 06/26/2025 CL 106 06/26/2025 CO2 24 06/26/2025 BUN 11 06/26/2025 CREATININE 0.74 06/26/2025 GLUCOSE 100 (H) 06/26/2025 CALCIUM 9.3 06/26/2025 MG 1.9 02/11/2025 PHOS 3.3 02/11/2025 Lab Results Component Value Date TP 6.3 06/26/2025 ALBUMIN 4.0 06/26/2025 AST 32 06/26/2025 ALT 31 06/26/2025 BILITOT 0.5 06/26/2025 CBIL <0.2 10/26/2023 ALKPHOS 329 (H) 06/26/2025 Lab Results Component Value Date APTT 25 01/04/2024 INR 1.0 01/18/2025 Lab Results Component Value Date PREALBUMIN 17.6 (L) 06/26/2025 PREALBUMIN 14.8 (L) 03/06/2025 PREALBUMIN 16.5 (L) 02/19/2025 Lab Results Component Value Date CEA <1.8 06/26/2025 CEA 2.5 03/06/2025 CEA 2.7 10/03/2024 Radiographics/Diagnostics: MR Abdomen w and wo IV Contrast (Results Pending) CT Chest w IV Contrast (Results Pending) CT Pelvis w IV Contrast (Results Pending) Pathology: Final Diagnosis (no units) Date/Time Value 02/05/2025 0826 A. ABDOMINAL WALL, EXCISION: - SKIN AND SUBCUTANEOUS TISSUE WITH SCAR AND FOREIGN BODY TYPE GIANT CELL REACTION. NEGATIVE FOR MALIGNANCY. B. OMENTUM, RESECTION: - NEGATIVE FOR MALIGNANCY. C. SIGMOID EPIPLOICA, EXCISION: - FAT NECROSIS. NEGATIVE FOR MALIGNANCY. D. SMALL BOWEL #1, RESECTION: - TWO (2) NODULES OF FIBROSIS WITH HYALINIZATION, 1.6 CENTIMETERS IN GREATEST DIMENSION. - NEGATIVE FOR MALIGNANCY. E. SMALL BOWEL #2, RESECTION: - ONE (1) NODULE OF FIBROSIS WITH HYALINIZATION, 1.5 CENTIMETERS IN GREATEST EXTENT. - NEGATIVE FOR MALIGNANCY. Comment (no units) Date/Time Value 11/06/2022 0939 The history of colonic adenocarcinoma is noted. The morphological and immunohistochemical profile (see below) support the above diagnosis. Addendum (no units) Date/Time Value 07/05/2023 0900 Per request, trichrome stain is performed on section of non-neoplastic liver. There is no significant fibrosis. Special Stain: B1-2 Carlos Manuel Trichrome Stain IHC: There are no tasks to display for the given criteria. All controls show appropriate reactivity. All immunohistochemistry, in situ hybridization, and histochemical tests were developed by and are performed at the [facility], [address] [place] [address]. All tests reported here, except those addressing HER2 (breast) and PD-L1 expression as predictive markers, have not been cleared by or approved by the US Food and Drug Administration (FDA). The FDA has determined that such clearance or approval is not necessary. The laboratory is regulated under CLIA as qualified to perform high-complexity testing. The tests are used for clinical purposes. They should not be regarded as investigational or for research. This assay has not been validated on decalcified tissues. Results should be interpreted with caution given the likelihood of false negativity on decalcified specimens. Assessment & Plan: Marisa Grajeda is a 59yo female with PMHx of colon cancer with metastasis to liver, peritoneal nodule, and incisional hernia now 5 months post-op from ex lap peritoneal nodule excision, small bowel resection x2, and incisional hernia repair. She is doing well clinically with minimal residual pain. Her signatera remains low-level positive, but her most recent result was decreased. Her scans show no evidence of metastatic disease with stable post-op changes. She does have persistent constipation, which is likely related to her iron supplementation. We willobtain iron studies from her lab work today. Pending those results, she will likely be able to stopher iron tablet. We also discussed the use of Metamucil, diet changes, and other laxative options (Milk of Magnesia, Magnesium citrate) to help improve her constipation. She does have a colonoscopy scheduled for October; if her constipation does not improve with discontinuation of iron and changesin bowel regiment, moving up her colonoscopy may be warranted. We recommend waiting to consider Wegovy until her constipation has resolved. We will see her back in clinic in 3 months with repeat scans. Mckenzie Leblanc, MS3 06/26/25 12:53 PM Iron levels WNL, messaged pt to stop iron. I saw and evaluated the patient with the medical/MANAGER COST/PA student. I discussed the case with the medical/MANAGER COST/PA student and agree with the findings and plan as documented. I personally performed the Examand Medical Decision Making. Ren Saeed MD [1] Allergies Allergen Reactions Sulfa Drugs Hives, Itching, Swelling and Rash Sulfamethoxazole-Trimethoprim Rash Cosigned by Ren Saeed MD at 07/09/2025 4:03 PM EDT documented in this encounter Plan of Treatment Upcoming Encounters Date Type Department Care Team (Late st Contact Info) Description 09/25/2025 7:30 AM EST Appointment [facility] [address], [address] [place] [address] 09/25/2025 9:20 AM EST Appointment [facility] [address] [place] [address] 10/02/2025 9:10 AM EST Office Visit [facility] Multidisciplinary Oncology Clinic [address] [place] [address] Ren Saeed MD [address] [facility] [address] [place] [address] 10/29/2025 10:10 AM EST Appointment [facility] Endoscopy [address] [place] [address] Etienne Novak MD [address] [place] [address] Scheduled Orders Name Type Priority Associated Diagnoses Orde r Schedule MR Abdomen w and wo IV Contrast Imaging Routine Colon cancer metastasized to liver (CMS/HCC) Expected: 09/25/2025, Expires: 12/28/2026 CT Chest w IV Contrast Imaging Routine Colon cancer metastasized to liver (CMS/HCC) Expected: 09/25/2025, Expires: 12/28/2026 CT Pelvis w IV Contrast Imaging Routine Colon cancer metastasized to liver (CMS/HCC) Expected: 09/25/2025, Expires: 12/28/2026 documented as of this encounter Goals Goal Patient Goal Type Associated Problems Recent Progress Patient-Stated? Author Autogenerat ed Goal Care Plan Autogenerated Problem Eve Gil documented as of this encounter Results * Iron & Total Iron Binding Capacity, Plasma (Includes Transferrin) (06/26/2025 9:58 AM EDT) Iron, Plasma 117 30 - 160 ug/dL 06/26/2025 11:16 AM EDT [facility] Transferrin, Plasma 233 200 - 360 mg/dL 06/26/2025 11:16 AM EDT [facility] Total Iron Binding Capacity, Plasma 291 240 - 450 ug/mL 06/26/2025 11:16 AM EDT [facility] Transferrin Saturation 40 14 - 50 % 06/26/2025 11:16 AM EDT [facility] Blood Venous blood specimen / Unknown (Port) Long-term Catheter / Unknown 06/26/2025 9:58 AM EDT 06/26/2025 10:21 AM EDT us Ren Saeed MD LAB BLOOD ORDERABLES Final R esult [facility] [address] [place] [address] * (ABNORMAL) Signatera Only Single Draw (06/26/2025 9:58 AM EDT) SIGNATERA TEST RESULT POSITIVE (A) 07/05/2025 11:13 PM EDT [facility] SIGNATERA MTM READOUT 5.35(A) MTM/ml 11:13 PM EDT [facility] Comment: Please see the attached PDF for more information. Limitations Signatera is a personalized, tumor-informed test for the longitudinal detection of circulating tumor DNA (ctDNA). Interval testing is recommended for all patients. Studies have demonstrated that when ctDNA is detected (Signatera Positive) following surgery or definitive treatment, the risk for disease relapse is high without further treatment. Conversely, when ctDNA is not detected, the patient may be considered at lower risk for relapse. For those with multiple timepoints, upward trending ctDNA levels are suggestive of increasing tumor burden (1,2). For a single time point in isolation, the absolute MTM/mL value has no known clinical significance and should not be compared across patients. Test results should be interpreted in context of other clinicopathological features. ctDNA detection sensitivity may be limited due to blood collection within two weeks of surgery and while the patient is on therapy. Signatera is a quantitative test and reports in units of mean tumor molecules per ml (MTM/mL), which is comprised of three measured components (plasma volume, cell free DNA (cfDNA) concentration, and Variant Allele Frequency (VAF)). The MTM/mL number will be qualified if any measured component falls outside the analytical measurement range for that component. The analytical sensitivity is 95% at the limit of detection (0.3 MTM/mL). Results obtained are specific to the assessed time point. A negative test result does not definitively indicate the absence of cancer. This test is not designed to detect or report germline variation, nor does it infer hereditary cancer risk for the patient. Each Signatera assay is designed to a single tumor for a given patient. At this time, multiple personalized Signatera assays cannot be developed for the same patient. This test is designed to detect ctDNA from the assayed tumor only; new primary tumors will not be detected. There is a low risk that a new primary may share a variant that could interfere with the Signatera test. Testing cannot be performed in patients who are , have a history of bone marrow transplant, or history of blood transfusion within three months. This test is expected to have limited sensitivity in cancer types such as GIST, renal cell carcinomas, primary brain tumors, and lymphoma due to limited ctDNA shed. 1 Ihsan SV, Devyn DE LEONC, Héctor JOE, et al. Personalized circulating tumor DNA analysis as a predictive biomarker in solid tumor patients treated with pembrolizumab. Nature Cancer. 2020;1(9):873-881. 2 Stuart TV, Kednal N, et al., Circulating Tumor DNA in Stage III Colorectal Cancer, beyond Minimal Residual Disease Detection, toward Assessment of Adjuvant Therapy Efficacy and Clinical Behavior of Recurrences. Clin Cancer Res. 2020; 28(3):507-517. Methodology FFPE samples are assessed by a pathologist to identify tumor margins and percent tumor content. Tumor DNA is extracted using Qiagen AllPrep. Whole genomic DNA is isolated from peripheral blood using QIAamp DNA Blood Mini Kit to provide a baseline DNA sequence. Circulating tumor DNA (ctDNA) is extracted from plasma derived from whole blood samples collected in cell-free DNA blood tubes (iPawn) using the QIAsymphony automated or manual extraction method (Qiagen). Using a proprietary algorithm, putative, clonal variants present in the tumor but absent in the germline DNA are identified to design the customized multiplex PCR assay. Whole-exome sequencing is performed on tumor and peripheral blood DNA using the proprietary RED INNOVA whole-exome sequencing assay. Pathology services are performed at [facility], [address] [place] [address], and whole exome sequencing is performed at [facility] (CLIA ID# [id number]), [address] [place] [address]. Disclaimer The extraction, library preparation, and sequencing for this test were performed by [facility] [address] [facility] [address], [place] [address] (CLIA ID [id number]). The data analysis and reporting for this test were performed by [employer] [address], [place] [address] (CLIA ID [id number]). This test was developed and its performance characteristics determined by [employer]. The test has not been cleared or approved by the U.S. Food and Drug Administration (FDA). CAP accredited, ISO 29853 certified, and CLIA certified. Pathology services and whole exome sequencing for this test were performed by [facility], [address] [place] [address] (CLIA ID [id number]). 2020 [employer]. All Rights Reserved. Blood Venous blood specimen / Unknown (Port) Long-term Catheter / Unknown 06/26/2025 9:58 AM EDT 06/26/2025 10:00 AM EDT us Ren Saeed MD [email or web address] BLOOD ORDERABLES Telma l Result [email or web address] [address] [place] [address], * CEA, Serum (06/26/2025 9:58 AM EDT) CEA, Serum <1.8 <4.0 ng/mL 06/26/2025 11:47 AM EDT [facility] Blood Venous blood specimen / Unknown (Port) Long-term Catheter / Unknown 06/26/2025 9:58 AM EDT 06/26/2025 10:21 AM EDT Narrative [facility] - 06/26/2025 11:47 AM EDT Normal range for smokers: < 5.5 ng/ml Normal range for non-smokers: <=4.0 ng/ml Performed by [employer] electrochemiluminescent immunoassay. Results obtained with different test methods or kits cannot be used interchangeably. Ren Saeed MD LAB BLOOD ORDERABLES Final R [facility] Performing Organization Address [facility] Co de Phone Number [facility] [address] [place] [address] * (ABNORMAL) Prealbumin, Plasma (06/26/2025 9:58 AM EDT) Prealbumin, Plasma 17.6(L) 20.0 - 41.0 mg/dL 06/26/2025 11:16 AM EDT [facility] Blood Venous blood specimen / Unknown (Port) Long-term Catheter / Unknown 06/26/2025 9:58 AM EDT 06/26/2025 10:21 AM EDT Ren Saeed MD LAB BLOOD ORDERABLES Final R [facility] Performing Organization Address [facility] Co de Phone Number [facility] [address] [place] [address] * (ABNORMAL) Comprehensive Metabolic Panel, Plasma (06/26/2025 9:58 AM EDT) Glucose, Plasma 100(H) 74 - 99 mg/dL 06/26/2025 11:16 AM EDT [facility] BUN, Plasma 11 8 - 23 mg/dL 06/26/2025 11:16 AM EDT [facility] Creatinine, Plasma 0.74 0.60 - 1.10 mg/dL 06/26/2025 11:16 AM EDT [facility] BUN/Creatinine Ratio 15 06/26/2025 11:16 AM EDT [facility] Sodium, Plasma 141 136 - 145 mmol/L 06/26/2025 11:16 AM EDT [facility] Potassium, Plasma 4.1 3.6 - 4.9 mmol/L 06/26/2025 11:16 AM EDT [facility] Chloride, Plasma 106 97 - 107 mmol/L 06/26/2025 11:16 AM EDT [facility] CO2, Plasma 24 22 - 29 mmol/L 06/26/2025 11:16 AM EDT [facility] Anion Gap 11 6 - 16 mmol/L 06/26/2025 11:16 AM EDT [facility] Total Calcium, Plasma 9.3 8.9 - 10.2 mg/dL 06/26/2025 11:16 AM EDT [facility] Total Protein 6.3 6.3 - 7.9 g/dL 06/26/2025 11:16 AM EDT [facility] Albumin, Plasma 4.0 3.5 - 5.2 g/dL 06/26/2025 11:16 AM EDT [facility] AST, Plasma 32 10 - 35 U/L 06/26/2025 11:16 AM EDT [facility] ALT, Plasma 31 10 - 35 U/L 06/26/2025 11:16 AM EDT [facility] Alkaline Phosphatase, Plasma 329(H) 46 - 142 U/L 06/26/2025 11:16 AM EDT [facility] Total Bilirubin, Plasma 0.5 0.2 - 1.1 mg/dL 06/26/2025 11:16 AM EDT [facility] eGFRcr 92.2 mL/min/1.7 3m*2 06/26/2025 11:16 AM EDT [facility] Comment:Reported eGFRcr in m L/min/1.73m2 is based the CKD-EPI 2020 equation that does not use a race coefficient. Blood Venous blood specimen / Unknown (Port) Long-term Catheter / Unknown 06/26/2025 9:58 AM EDT 06/26/2025 10:21 AM EDT us Ren Saeed MD LAB BLOOD ORDERABLES Final R esult [facility] [address] [place] [address] * (ABNORMAL) CBC and Differential (06/26/2025 9:58 AM EDT) WBC Count 4.17 3.70 - 10.30 10*3/uL LAB HEMATOLOGY METHOD 06/26/2025 10:32 AM EDT [facility] RBC Count 4.37 3.90 - 5.20 10*6/uL LAB HEMATOLOGY METHOD 06/26/2025 10:32 AM EDT [facility] HGB 12.6 11.2 - 15.7 g/dL LAB HEMATOLOGY METHOD 06/26/2025 10:32 AM EDT [facility] HCT 39.1 34.0 - 45.0 % LAB HEMATOLOGY METHOD 06/26/2025 10:32 AM EDT [facility] Platelet Count 116(L) 155 - 369 10*3/uL LAB HEMATOLOGY METHOD 06/26/2025 10:32 AM EDT [facility] MCV 90 79 - 98 fL LAB HEMATOLOGY METHOD 06/26/2025 10:32 AM EDT [facility] MCH 28.8 26.0 - 32.0 pg LAB HEMATOLOGY METHOD 06/26/2025 10:32 AM EDT [facility] MCHC 32.2 30.7 - 35.5 g/dL LAB HEMATOLOGY METHOD 06/26/2025 10:32 AM EDT [facility] RDW 13.6 11.5 - 14.5 % LAB HEMATOLOGY METHOD 06/26/2025 10:32 AM EDT [facility] MPV 12.7(H) 8.8 - 12.5 fL LAB HEMATOLOGY METHOD 06/26/2025 10:32 AM EDT [facility] nRBC 0.0 <=0.0 per 100 WBCs LAB HEMATOLOGY METHOD 06/26/2025 10:32 AM EDT [facility] Differential Type Automated LAB HEMATOLOGY METHOD 06/26/2025 10:32 AM EDT [facility] Neutrophils % 69 % LAB HEMATOLOGY METHOD 06/26/2025 10:32 AM EDT [facility] Lymphocytes % 15 % LAB HEMATOLOGY METHOD 06/26/2025 10:32 AM EDT [facility] Monocytes % 12 % LAB HEMATOLOGY METHOD 06/26/2025 10:32 AM EDT [facility] Eosinophils % 2 % LAB HEMATOLOGY METHOD 06/26/2025 10:32 AM EDT [facility] Basophils % 1 % LAB HEMATOLOGY METHOD 06/26/2025 10:32 AM EDT [facility] Immature Granulocytes % 1 % LAB HEMATOLOGY METHOD 06/26/2025 10:32 AM EDT [facility] Neutrophils Absolute 2.89 1.60 - 6.10 10*3/uL LAB HEMATOLOGY METHOD 06/26/2025 10:32 AM EDT [facility] Lymphocytes Absolute 0.64(L) 1.20 - 3.90 10*3/uL LAB HEMATOLOGY METHOD 06/26/2025 10:32 AM EDT [facility] Monocytes Absolute 0.49 0.30 - 0.90 10*3/uL LAB HEMATOLOGY METHOD 06/26/2025 10:32 AM EDT [facility] Eosinophils Absolute 0.09 0.00 - 0.50 10*3/uL LAB HEMATOLOGY METHOD 06/26/2025 10:32 AM EDT [facility] Basophils Absolute 0.04 0.00 - 0.10 10*3/uL LAB HEMATOLOGY METHOD 06/26/2025 10:32 AM EDT [facility] Immature Granulocytes Absolute 0.02 0.00 - 0.06 10*3/uL LAB HEMATOLOGY METHOD 06/26/2025 10:32 AM EDT [facility] Blood Venous blood specimen / Unknown (Port) Long-term Catheter / Unknown 06/26/2025 9:58 AM EDT 06/26/2025 10:23 AM EDT Narrative [facility] - 06/26/2025 10:32 AM EDT Therapeutic decision making should be based on absolute values, rather than percentages. us Ren Saeed MD LAB BLOOD ORDERABLES Final R esult [facility] [address] [place] [address] documented in this encounter Visit Diagnoses Diagnosis Colon cancer metastasized to liver- Primary documented in this encounter Additional Health Concerns Active Problems Noted Date Diagnosed Date Autogenerated Problem 06/11/2025 Assessment Noted Time PHQ-9 Depression Total Score: 0 03/06/20 25 2:14 PM EDT A fall risk assessment has been complete d for the patient 06/26/2025 10:00 AM EDT A Body Mass Index follow-up plan has been documented for the patient 07/04/2025 12:11 PM EDT documented as of this encounter Care Teams Video Game Creator Relationship Specialty Start Date End Date Paul Arevalo MD [address] [facility] [address] [place] [address] PCP - General 04/04/21 Emerita Gao DDS [address] [facility] [address] [place] [address] Dentist Dentist 07/21/21 Tuyet Hogue Dentist Dental Research Assistant Member 07/21/21 Suha Marshall MD [address] [facility] [address] [place] [address] Medical Oncologist Medical Oncology 11/29/22 documented as of this encounter
--- OUTSIDE RECORDS SUMMARY | 2025-07-26 06:30 | XMS_ITS ---
Author Organization [facility] Address [address] [facility] [address] [facility] [address] [place] [id number] Care Team Providers Care Pump Servicer Supervisor Name Role Phone Paul Arevalo Primary Care Provider Allergies Allergen (clinical drug ingredient) Drug/Non Drug Allergy documented on EMR Reaction Allergy Type Onset Date Status sulfamethoxazole / trimethoprim Bactrim rash Drug Allergy Active REASON FOR VISIT lower back pain; going into leg Encounters Encounter Location Date Provider Diagnosis [facility] [address] [place] [id number] 07/26/2025 Paul Arevalo Plan Of Treatment No Information Progress Notes * DEDE VILLAVICENCIOMIRYAMB:1965 (59 yo F)Acc No.[id number]:07/26/2025 Progress Notes Patient: ALTHEA CHEN Provider: Thomas [...] Sciatica, s/p lumbar epidural March 2020 at [facility] in [place], Metastatic disease of liver 2021, treated at . * Surgical History: B lood Transfusion- 2 units 05/2019, Colonoscopy - Adenocarcinoma 06/2019, [facility] 08/09/2019, RT Leg Epidural Injection - Rgiht leg 03/2020, Resection of Small Intestine 02/05/2025. * Hospitalization/Major Diagno stic Procedure: B ack Pain- [facility] [place] 07/[place]. * Family [...] * Procedure Codes: * Electronic signature of Frnacine Arevalo MD on 08/28/2025 at 07:49 AM EDT Sign off status: Pending * Provider: Thomas Arevalo M.D. Date: 0 07/26/2025 Generated for Alicia bardales/Jad/Esa on: 1 07:49 AM EDT History and Physical Notes * HPI (History of Present Illness) Category Sub-Category Detail Notes Category Not es Lower back Low Back Pain Pt states she is having lower back pain that raidates down her leg. Pt states this has been going on since
--- OUTSIDE RECORDS SUMMARY | 2025-08-14 06:30 | XMS_ITS ---
Author Organization [facility] Address [address] [place] [id number] Care Team Providers Care Cold Type Artist Name Role Phone Paul Arevalo Primary Care Provider [phone] Allergies Allergen (clinical drug ingredient) Drug/Non Drug [...] 01:37:41 PM Interpretation:Normal Performing Lab: Notes/Report: CLIA: [id number] Sen Tena MD, Packing Machine Pilot Can Router [facility]0 [facility] , [address], [place] [address] Test performed by [employer] Vitamin B12 739 934-1877 pg/mL P-Comprehensive Metabolic Pa laurie (CMP) Reviewed date:08/15/2025 01:37:41 PM Interpretation:alk phos 399 Performing Lab: Notes/Report: Test performed by [email or web address] [address] [place] [address] , [address], [place] [address] Sen Tena MD, Packing Machine Pilot Can Router CLIA: [id number] Sodium 142 135-145 mmol/L Potassium 4.4 3.5-5.3 [...] Interpretation:Normal Performing Lab: Notes/Report: Test performed by [email or web address] [address] [place] [address] , [place] [id number] Sen Tena MD, Packing Machine Pilot Can Router CLIA: [id number] Thyroxine Free (free T4) 1.35 0.86-1.76 ng/dL P-Iron Reviewed date:08/15/2025 01:37:41 PM Interpretation:Normal Performing Lab: Notes/Report: Test performed by [email or web address] [address] [place] [address] , [address], [place] [id number] Sen Tena MD, Packing Machine Pilot Can Router CLIA: [id number] Iron 93 37-145 ug/dL P-TSH reflex to FT4 Reviewed date:08/15/2025 01:37:41 PM Interpretation:0.02 Performing Lab: Notes/Report: Test performed by [email or web address] [address] [place] [address] , [address], [place] [address] Sen Tena MD, Packing Machine Pilot Can Router CLIA: [id number] TSH reflex to FT4 0.02 0.43-5.25 mU/L P-Vitamin D 25-Hydroxy Reviewed date:08/15/2025 01:37:41 PM Interpretation:40.9 Performing Lab: Notes/Report: Test performed by [email or web address] [address] [place] [address] , [address], [place] [address] Sen Tena MD, Packing Machine Pilot Can Router CLIA: [id number] Vitamin D 25-Hydroxy 40.9 30.0-100.0 ng/mL Interpretation [...] Risk Notes Problem Obstructive sleep apnea syndrome (98814858) ENEDINA on CPAP (G47.33) Active confirmed Vital Signs Blood pressure systolic 122 mm Hg 08/14/20 25 Blood pressure diastolic 70 mm Hg 025 Heart Rate 93 /min 08/14/2025 Height 65 in 08/14/2025 Weight 169 lbs 08/14/2025 BMI 28.12 kg/m2 08/14/2025 Encounters Encounter Location Date Provider Diagnosis [facility] [address] [place] [id number] 08/14/2025 Paul Arevalo ENEDINA on CPAP G47.33 [...] Notes * ERIC GRAJEDAB:1965 (59 yo F)Acc No.[id number]:08/14/2025 Patient: ALTHEA CHEN Provider: Thomas Arevalo M.D. :1965 A ge:59 Y S ex:Female Date:08/14/2025 Address:[address] [place], [place] [id number] Subjective: * Chief Complaints: * 1 . [...] Sciatica, s/p lumbar epidural March 2020 at [facility] in [place], Metastatic disease of liver 2021, treated at [...] Temp: 97.9, BP: 122/70, HR: 93, Nurse: igll, Ht: 65, BMI:28.12. * Examination: G eneral [...] - K59.09 & #160; 6 . B ME 28.0-28.9,adult - Z68.28 Plan: * Treatment: 2. [...] AM)?Normal* Value Reference Range V itamin B12 510 506-9324 - pg/mL * Brittny Ng 08/15/2025 01: [...] by Creatinine 79 >59 - mL/min/1.73m2 * Birttny Ng 08/15/2025 01: 37:35 PM EDT > [...] T4) 1.35 0.86-1.76 - ng/d L * [facility], IT support 08/15/2025 08:25:06 : This order [...] * Images: Billing Information: * Visit Code: 99871 Office Visit, Est Pt., Level 4. * Procedure Codes: 80511 CBC WITH AUTO DIFF. 1036F TOBACCO NON-USER. 3074F SYST BP LT 130 MM HG. 3078F DIAST BP < 80 MM HG. * Electronic signature of Francine Arevalo MD on 08/28/2025 at 07:49 AM EDT Sign off status: Pending * Provider: Thomas Arevalo M.D. Date: 0 08/14/2025 Generated for Jamarcusi ng/Faxing/eTransmitting on: 1 07:49 AM EDT History and [...]
[2025-08-28] VITALS (7 sets, daily range): BP systolic 108–132; BP diastolic 53–103; PULSE 65–85; RESP 15; TEMP 36.6–36.9; O2SAT 94–99; BMI 28.3
--- OUTSIDE RECORDS SUMMARY | 2025-08-28 07:52 | XMS_ITS | Encounter Summary ---
Author Organization [facility] Address [address] [place] [address] Care Team Providers Care Solutions Architect Consultant Name Role Phone Paul Arevalo MD Primary Care Provider + [phone] Emerita Gao DDS Unavailable + Tuyet Hogue Unavailable Unavailable Suha Marshall MD Unavailable [phone] Encounter Details Date Type Department Care Team (Late st Contact Info) Description 07/19/2023 Lab Requisition [facility] [address] [place] [address] Charles Mojica MD [address] [facility] [address] [place] [address] Encounter for general adult medical examination without abnormal findings Social History Tobacco Use Types Packs/Day Years Used Date Smoking Tobacco: Never Smokeless Tobacco: Never Alcohol Use Standard Drinks/Week Comments Yes 0 (1 standard drink = 0.6 oz pur e alcohol) ocassionally PHQ-2 Answer Date Recorded Patient Health Questionnaire-2 Score 0 06/15/2023 CAGE ASSESSMENT Answer Date Recorded Cage unable to access Not on file 07/12/2023 Cage max number of drinks Not on file 2022 Cage Beverages a week Not on file 07/12/2023 Have you ever felt you should CUT down on your d rinking? 0 07/12/2023 Have you been ANNOYED by people criticizing your drinking? 0 07/12/2023 Have you felt GUILTY about your drinking? 0 07/12/2023 Have you had a drink first t kim in the morning (EYE-METAL TILE SETTER) to steady your nerves or to get rid of a hangover? 0 07/12/2023 CAGE Questionnaire Score 0 023 Comments No Sex and Gender Information Value Date Recorded Sex Assigned at Not on file Legal Sex Female 7:29 PM EDT Gender Identity Not on file Sexual Orientation Not on file documented as of this encounter Functional Status * Calculated C-SSRS Risk Score (Lifetime/Recent) Answer Date of Assessment Author No Risk Indicated 07/22/2023 8:00 PM EDT Ahmet Diop RN * Question Answer Date of Assessment Author 1. Wish to be (Past 1 Month) No 023 8:00 PM EDT Ahmet Diop RN 2. Non-Specific Active Suici binu Thoughts (Past 1 Month) No 07/22/2023 8:00 PM EDT Peña Diop RN 6. Suicidal Behavior (Lifetime) No 8:00 PM EDT Ahmet Diop RN documented as of this encounter Plan of Treatment Upcoming Encounters Date Type Department Care Team (Late st Contact Info) Description 09/25/2025 7:30 AM EST Appointment [facility] Radiology [address] [place] [address] 09/25/2025 9:20 AM EST Appointment [facility] [address] [place] [address] 10/02/2025 9:10 AM EST Office Visit [facility] [address] [place] [address] Ren Saeed MD [address] [address] 10/29/2025 10:10 AM EST Appointment [facility] [address] [place] [address] Etienne Novak MD [address] [place] [address] documented as of this encounter Procedures Procedure Name Priority Date/Time Associated Diagnosis Comments MULTI DRUG RESISTANCE TEST Routine 07/19/2023 12:30 PM EDT Encounter for general adult medical examination without abnormal findings documented in this encounter Results * Multi Drug Resistance Test (07/19/2023 12:30 PM EDT) Culture No growth at day 2 07/21/2023 11:28 AM EDT [facility] Swab (Nares and Chantale Rectal) 07/19/2023 12:30 PM EDT 07/19/2023 6:47 PM EDT us Charles Mojica MD LAB MICROBIOLOGY - GEN ERAL ORDERABLES Final Result [facility] [address] [place] [address] documented in this encounter Visit Diagnoses Diagnosis Encounter for general adult medical examination without abnormal findings documented in this encounter Additional Health Concerns Infection Onset Date Last Indicated Resolved Time C. difficile Rule-Out 07/21/2023 07/21/20232022 11:41 AM EDT Gastrointestinal Rule-Out 07/22/2023 07/21/2023 9:16 AM EDT Assessment Noted Time A fall risk assessment has been complete d for the patient 06/29/2023 3:19 PM EDT A Body Mass Index follow-up plan has been documented for the patient 06/30/2023 1:27 PM EDT documented as of this encounter Care Teams Solutions Architect Consultant Relationship Specialty Start Date End Date Paul Arevalo MD [address] [facility] [address] [place] [address] PCP - General 04/04/21 Emerita Gao DDS [address] [place] [address] Dentist Dentist 07/21/21 Tuyet Hogue Dentist Dental Sheet Taker 07/21/21 Suha Marshall MD [address] [address] Medical Oncologist Medical Oncology 11/29/22 documented as of this encounter
--- OUTSIDE RECORDS SUMMARY | 2025-08-28 07:52 | XMS_ITS | Encounter Summary ---
Author Organization [facility] Address [address] [place] [address] Care Team Providers Care Shank Sander Name Role Phone Paul Arevalo MD Primary Care Provider + [phone] Emerita Gao DDS Unavailable + Tuyet Hogue Unavailable Unavailable Suha Marshall MD Unavailable [phone] Reason for Visit * Reason Comments Med Refill Encounter Details Date Type Department Care Team (Late st Contact Info) Description 09/05/2024 Refill [facility] [address] [place] [address] Eve Wayne, [place] [address] [phone] Social History Tobacco Use Types Packs/Day Years Used Date Smoking Tobacco: Never Passive Smoke Exposure: Never Smokeless Tobacco: Never Alcohol Use Standard Drinks/Week Comments Not Currently 0 (1 standard drink = 0.6 oz pur e alcohol) ocassionally, PHQ-2 Answer Date Recorded Patient Health Questionnaire-2 Score 0 04/11/2024 CAGE ASSESSMENT Answer Date Recorded Cage unable [...] drink first t kim in the morning (EYE-WATER RESTORATION TECHNICIAN) to steady your nerves or to get rid of a hangover? 0 08/16/2023 CAGE Questionnaire Score 0 023 PHQ-2A Answer Date Recorded Depression Risk 2 08/26/2023 Comments No Sex and Gender Information Value Date Recorded Sex Assigned at Not on file Legal Sex Female 7:29 PM EDT Gender Identity Not on file Sexual Orientation Not on file documented as of this encounter Plan of Treatment Upcoming Encounters Date Type Department Care Team (Late st Contact Info) Description 09/25/2025 7:30 AM EST Appointment [facility] Radiology [address] [place] [address] 09/25/2025 9:20 AM EST Appointment [facility] [address] [place] [address] 10/02/2025 9:10 AM EST Office Visit [facility] [address] [place] [phone] Ren Saeed MD [address] [phone] 10/29/2025 10:10 AM EST Appointment [facility] [address] [place] [phone] Etienne Novak MD [address] [facility] [address] [place] [phone] documented as of this encounter Visit Diagnoses Not on filedocumented in this encounter Additional Health Concerns Assessment Noted Time A fall risk assessment has been complete d for the patient 07/18/2024 2:49 PM EDT A Body Mass Index follow-up plan has been documented for the patient 07/27/2024 11:36 AM EDT documented as of this encounter Care Teams Shank Sander Relationship Specialty Start Date End Date Paul Arevalo MD [address] [facility] [address] [place] [id number] PCP - General 04/04/21 Emerita Gao DDS [address] [facility] [address] [place] [address] Dentist Dentist 07/21/21 Tuyet Hogue Dentist Dental Otolaryngologist 07/21/21 Suha Marshall MD [address] [facility] [address] [place] [address] Medical Oncologist Medical Oncology 11/29/22 documented as of this encounter
--- OUTSIDE RECORDS SUMMARY | 2025-08-28 07:52 | XMS_ITS | Encounter Summary ---
Author Organization [facility] Address [address] [place] [address] Care Team Providers Care Cable Installer Repairer Helper Name Role Phone Paul Arevalo MD Primary Care Provider + [phone] Emerita Gao DDS Unavailable + Tuyet Hogue Unavailable Unavailable Suha Marshall MD Unavailable [phone] Encounter Details Date Type Department Care Team (Late st Contact Info) Description 07/12/2023 Lab Requisition [facility] [address] [place] [address] Charles Mojica MD [address] [facility] [address] [place] [address] Encounter for general adult medical [...] drink first t kim in the morning (EYE-BUILDING CONSTRUCTION CONTRACTOR) to steady your nerves or to get [...] Date of Assessment Author No Risk Indicated 07/14/2023 8:00 PM EDT Patsy Etienne * Question Answer Date of Assessment Author 1. Wish to be (Past 1 Month) No 023 8:00 PM EDT Patsy Etienne 2. Non-Specific Active Suici binu Thoughts (Past 1 Month) No 07/14/2023 8:00 PM EDT Mali Etienne 6. Suicidal Behavior (Lifetime) No 8:00 PM EDT Patsy Etienne documented as of this encounter Plan of Treatment Upcoming Encounters Date Type Department Care Team (Late st Contact Info) Description 09/25/2025 7:30 AM EST Appointment [facility] Radiology [address]st [place] [address] 09/25/2025 9:20 AM EST Appointment [facility] CT [address]nd [place] [address] 10/02/2025 9:10 AM EST Office Visit [facility] Multidisciplinary Oncology Clinic [address] [place] [phone] Ren Saeed MD 800 [facility] [address] [place] [phone] 10/29/2025 10:10 AM EST Appointment [facility] Endoscopy [address] [place] [phone] Etienne Novak MD [address] [place] [phone] documented as of this encounter Procedures Procedure Name Priority Date/Time Associated Diagnosis Comments MULTI DRUG RESISTANCE TEST Routine 07/12/2023 9:00 AM EDT Encounter for general adult medical examination without abnormal findings documented in this encounter Results * Multi Drug Resistance Test (07/12/2023 9:00 AM EDT) Culture No growth at day 2 07/14/2023 11:28 AM EDT [facility] Swab Both anterior nares / Unknown 07/12/2023 9:00 AM EDT 07/12/2023 7:00 PM EDT us Charles Mojica MD LAB MICROBIOLOGY - GEN ERAL ORDERABLES Final Result [facility] [address] [place] [address] documented in this encounter Visit Diagnoses Diagnosis Encounter for general adult medical examination without abnormal findings documented in this encounter Additional Health Concerns Infection Onset Date Last Indicated Resolved Time Respiratory Rule-Out 07/14/2023 07/14/2023 023 11:58 AM EDT C. difficile Rule-Out 07/21/2023 07/21/20232022 11:41 AM EDT Gastrointestinal Rule-Out 07/22/2023 07/21/2023 9:16 AM EDT Assessment Noted Time A fall risk assessment has been complete d for the patient 06/29/2023 3:19 PM EDT A Body Mass Index follow-up plan has been documented for the patient 06/30/2023 1:27 PM EDT documented as of this encounter Care Teams Cable Installer Repairer Helper Relationship Specialty Start Date End Date Paul Arevalo MD [address] [facility] [address] [place] [address] PCP - General 04/04/21 Emerita Gao DDS [address] [place] [address] Dentist Dentist 07/21/21 Tuyet Hogue Dentist Dental Machine Rigger 07/21/21 Suha Marshall MD [address] [address] Medical Oncologist Medical Oncology 11/29/22 documented as of this encounter
--- OUTSIDE RECORDS SUMMARY | 2025-08-28 07:52 | XMS_ITS ---
Author Organization [facility] Address [address] [place] [address] Care Team Providers Care Rug Cleaner Hand Name Role Phone Paul Arevalo MD Primary Care Provider + [phone] Emerita Gao DDS Unavailable + Tuyet Hogue Unavailable Unavailable Suha Marshall MD Unavailable [phone] Active Problems Problem Noted Date Diagnosed Date Abdominal carcinomatosis 03/06/2025 Avulsion fracture of distal fibula 03/06/2025 Contusion of rib on left side 03/06/2025 Bulging lumbar disc 03/06/2025 DDD (degenerative disc disease), lumbar 03/06/20 25 Facet hypertrophy of lumbar region 03/06/2025 Dyspnea on exertion 03/06/2025 Dysrhythmia 03/06/2025 Headache 03/06/2025 Hepatic cyst 03/06/2025 Hx of BSO (bilateral salpingo-oophorectomy) 02/20 Hyperlipidemia 03/06/2025 Hypertensive urgency 03/06/2025 Hyponatremia 03/06/2025 Iron deficiency anemia due to chronic blood loss 03/06/2025 Iron deficiency anemia 03/06/2025 Laceration of left index finger 03/06/2025 Lesion of liver 03/06/2025 Malignant pleural effusion 03/06/2025 Metastatic disease 03/06/2025 Migraine with aura and witho ut status migrainosus, not intractable 03/06/2025 Migraine 03/06/2025 Multiple pulmonary nodules 03/06/2025 Nausea 03/06/2025 Obesity (BMI 30.0-34.9) 03/06/2025 Obstipation 03/06/2025 Other chronic pain 03/06/2025 Overweight (BMI 25.0-29.9) 03/06/2025 Polydipsia 03/06/2025 Postmenopausal bleeding 03/06/2025 Right ventricular hypertrophy 03/06/2025 Lumbago with sciatica, right side 03/06/2025 Sciatica, right side 03/06/2025 Strep throat 03/06/2025 SVT (supraventricular tachycardia) 03/06/2025 Thyroid enlargement 03/06/2025 Thyroid nodule 03/06/2025 Vitamin D deficiency 03/06/2025 Vomiting 03/06/2025 Malignant neoplasm of colon 03/06/2025 Abdominal pain, epigastric 03/06/2025 Chest pain 03/06/2025 Pleural effusion on right 03/06/2025 Incisional hernia, without obstruction or gangre ne 02/05/2025 Overview (02/06/2025): 02/05/2025: ex lap, SBRx2 w/ mesenteric lymphadenectomy [Cavnar] Primary hernia repair [Ricki] Overlapping malignant neoplasm of colon 10/29/20 Electrolyte abnormality 07/09/2023 Overview (02/06/2025): - daily/PRN CMP, Mg, Phos - replete as appropriate - goal: K>4, phos>3, mg>2 Transaminitis 07/08/2023 Overview (07/23/2023): - US duplex of portal venous and hepatic artery flow obtained 07/23/23 Anemia 07/06/2023 Overview (07/17/2023): Stable Transfuse <7 Neuropathy 07/06/2023 Overview (07/06/2023): 2/2 to chemotherapy Hypertension 07/06/2023 GERD (gastroesophageal reflux disease) Overview (07/14/2023): PPI History of migraine 07/06/2023 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 - OR on 07/05 for exlap with lysis of adhesions, liver US, segment 5 microwave ablation, left lateral segmentectomy, segment 7 partial hepatectomy, cholecystectomy with Dr. Saeed. . - 07/08 CT abdomen showing Extensive post procedural changes of the liver parenchyma. There is a gas containing fluid collection along the medial aspect of the right lobe as discussed. Sterility of this collection is indeterminate though an abscess could have a similar appearance. Eczematous dermatitis of left lower eyelid 01/22 Overview (03/06/2025): From Automated Load;Provider: Andrei Mahan;Status: Active Current Treatment and Therapy Plans (ONC) MED ONC OUTPATIENT ELECTROLYTE REPLACEMENT PROTOCOL* Plan Start Date: 03/08/2023 Plan Provider:Suha Marshall MD Linked Problems Adenocarcinoma of cecum (CMS /HCC) Treatment Medications No medications scheduled. Past Treatment and Therapy Plans Oncology Treatment Plan Name Start Date Discontinue Date Treatment Medications Discontinue Reason Plan Provider Cycles [id number]-PM C: BXQ-350 with [id number] + Bevacizumab: Leucovorin + Fluorouracil + OXALIplatin + Bevacizumab Every 14 Days x 2 Every 28 Days 11/30/2022 10/05/2023 5-FU (Adrucil) infusion - for home use ([facility] supplied)5-FU CHEMO INFUSION ([facility] SUPPLIED) CADD ORDERABLEbevacizu mab-awwb (MVASI)bevacizuma b-awwb (Mvasi) IVPBOxaliplatin (Eloxatin)OXALIpl atin (Eloxatin) IVPBRES - BXQ-350 1.5 mg/mL IVPBRES - BXQ-350 IVPB Therapy Complete Suha Marshall MD 7 of 9 cycles started Lifetime Dose Tracking * Chemical Lifetime Dose Automatic Entry Manual Entr y Fluoro Time 1.5 minutes 1.5 minutes 0 minutes Air Kerma 10 mGy 10 mGy 0 mGy CTDIvol 399 mGy 399 mGy 0 mGy Air Kerma Area Product 222.71 Gym 222.71 Gym 0 Gym Radiation (DLP) 1,609 mGy-cm 1,609 mGy-cm 0 mGy-cm Resolved Problems Problem Noted Date Diagnosed Date Resolved Date Sinusitis 03/06/2025 08/12/2025 Acute bronchitis 03/06/2025 08/12/2025 Ventral hernia without obstr uction or gangrene 02/01/2025 02/06/2025 Colon cancer metastasized to multiple sites 01/16/2025 03/03/2025 Overview (02/06/2025): 02/05/2025: ex lap, SBRx2 w/ mesenteric lymphadenectomy [Cavnar] Primary hernia repair [Ricki] Hepatocellular carcinoma 12/02/202310/2025 Decompensated hepatic cirrhosis 08/19/2023 02/06/2025 Ileitis 08/16/2023 02/06/2025 Physical deconditioning 07/19/202301/20 Overview (07/19/2023): Deconditioning from critical illness PT/OT following Pneumonia 07/14/2023 07/17/2023 Overview (07/14/2023): See acute respiratory failure Pleural effusion 07/10/2023 07/14/2023 Overview (07/11/2023): Continued right pleural effusion on xray with large pocket on ultrasound 07/10 Thoracentesis performed, pigtail left in Place to WS today Continue to follow xray Postoperative pain 07/08/2023 Overview (07/16/2023): Continue prn oxy and dilaudid Acute respiratory failure with hypoxia 07/08/2023 02/06/2025 Overview (07/19/2023): Intubated 07/15, Bronch with extensive mucous secretions 07/17: extubated, d/c Merrem COVID, resp viral panel, s. Penumo, legionella negative BAL NGTD Pulm consults following. Likely non-infectious inflammatory process Weaned methylpred to 60mg Prednisone daily 07/18: chest tube removed Metastasis to liver 07/08/2023 10/11/20 Overview (07/08/2023): See adenoma of cecum Leukocytosis 07/06/2023 07/18/2023 Overview (07/14/2023): WBCs downtrending Afebrile See PNA Pain of upper abdomen 2024
--- OUTSIDE RECORDS SUMMARY | 2025-08-28 07:52 | XMS_ITS | Encounter Summary ---
Author Organization [facility] Address [address] [place] [address] Care Team Providers Care Back Facer Name Role Phone Paul Arevalo MD Primary Care Provider + [phone] Emerita Gao DDS Unavailable + Tuyet Hogue Unavailable Unavailable Suha Marshall MD Unavailable [phone] Encounter Details Date Type Department Care Team (Late st Contact Info) Description 11/11/2022 Lab Requisition [facility] [address] [place] [phone] Suha Marshall MD 800 [facility] [address] [place] [address] Malignant neoplasm of cecum (CMS/HCC) Social History Tobacco Use Types Packs/Day Years Used Date Smoking Tobacco: Never Smokeless Tobacco: Never Alcohol Use Standard Drinks/Week Comments Yes 0 (1 standard drink = 0.6 oz pur e alcohol) ocassionally Comments No Sex and Gender Information Value Date Recorded Sex Assigned at Not on file Legal Sex Female 7:29 PM EDT Gender Identity Not on file Sexual Orientation Not on file COVID-19 Exposure Response Date Recorded In the last 10 days, have yo u been in contact with someone who was confirmed or suspected to have Coronavirus/COVID-19? No / Unsure 11/10/2022 1:21 PM EST documented as of this encounter Plan of Treatment Upcoming Encounters Date Type Department Care Team (Late st Contact Info) Description 09/25/2025 7:30 AM EST Appointment [facility] Radiology [address] 1st [place] [address] 09/25/2025 9:20 AM EST Appointment [facility] [address]nd [place] [address] 10/02/2025 9:10 AM EST Office Visit [facility] Multidisciplinary Oncology Clinic [address] [place] [address] Ren Saeed MD 800 [facility] [address] [place] [address] 10/29/2025 10:10 AM EST Appointment [facility] Endoscopy [address] [place] [address] Etienne Novak MD [address] [place] [address] documented as of this encounter Procedures Procedure Name Priority Date/Time Associated Diagnosis Comments PATHOLOGY TECHNICAL ONLY Routine 11/12/2022 7:04 AM EST Malignant neoplasm of cecum (CMS/HCC) documented in this encounter Results * Pathology, Technical Only (11/12/2022 7:04 AM EST) Final Diagnosis No report issued for this case number, accessioned for workflow purposes only. 11/16/2022 8:36 AM EST [facility] at 0836 EST Case Report Surgical Pathology Report Case: [id number] Authorizing Provider: Suha Marshall MD Collected: 11/12/2022 0704 Ordering Location: [facility] Received: 11/11/2022 1546 Pathologist: Mica Fallon MD Specimen: INSIDE BLOCK [id number] 11/16/2022 8:36 AM EST [facility] Tissue 11/12/2022 7:04 AM EST 11/11/2022 3:46 PM EST us Suha Marshall MD LAB PATHOLOGY ORDERABLES Final Result [facility] [address] [place] [address] documented in this encounter Visit Diagnoses Diagnosis Malignant neoplasm of cecum (CMS/HCC) Malignant neoplasm of cecum documented in this encounter Additional Health Concerns Infection Onset Date Last Indicated Resolved Time COVID-19 Rule-Out 02/22/2023 02/22/2023 02/22/2023 1:07 PM EDT Respiratory Rule-Out 07/14/2023 07/14/2023 023 11:58 AM EDT C. difficile Rule-Out 07/21/2023 07/21/20232022 11:41 AM EDT Gastrointestinal Rule-Out 07/22/2023 07/21/2023 9:16 AM EDT Assessment Noted Time A fall risk assessment has been complete d for the patient 11/10/2022 1:46 PM EST documented as of this encounter Care Teams Back Facer Relationship Specialty Start Date End Date Paul Arevalo MD [address] [facility] [address] [place] [address] PCP - General 04/04/21 Emerita Gao DDS [address] [place] [address] Dentist Dentist 07/21/21 Tuyet Hogue Dentist Dental Silverlight Developer 07/21/21 Suha Marshall MD 800 [facility] [address] [place] [address] Medical Oncologist Medical Oncology 11/29/22 documented as of this encounter
--- OUTSIDE RECORDS SUMMARY | 2025-08-28 07:52 | XMS_ITS | Encounter Summary ---
Author Organization [facility] Address [address] [place] [address] Care Team Providers Care Record Searcher Name Role Phone Paul Arevalo MD Primary Care Provider + [phone] Emerita Gao DDS Unavailable + Tuyet Hogue Unavailable Unavailable Suha Marshall MD Unavailable [phone] Reason for Visit * Reason Comments Med Refill Encounter Details Date Type Department Care Team (Late st Contact Info) Description 07/04/2025 Refill [facility] Oncology [facility] [address] [place] [address] Ren Saeed MD [address] [phone] Social History Tobacco Use Types Packs/Day Years [...] any time in the past 12 m [facility], were you homeless or living in a jail (including now)? No 02/06/2025 CAGE ASSESSMENT Answer [...] drink first t kim in the morning (EYE-SENIOR INSTRUCTOR) to steady your nerves or to get rid of a hangover? 0 08/16/2023 CAGE Questionnaire Score 0 023 Utilities Answer Date Recorded In the past 12 months has th e electric, gas, oil, or water [employer] threatened to shut off services in your home? No 02/06/2025 PHQ-2A Answer Date Recorded Depression Risk 2 08/26/2023 Comments No Sex and Gender Information Value Date Recorded Sex Assigned at Not on file Legal Sex Female 7:29 PM EDT Gender Identity Not on file Sexual Orientation Not on file documented as of this encounter Miscellaneous Notes * Telephone Encounter - Ren Saeed MD - 07/04/2025 11:18 AM EDT Pt instructed to discontinue medication based on normal iron levels. This must have been automated pharmacy renewal request. documented in this encounter Plan of Treatment Upcoming Encounters Date Type Department Care Team (Late st Contact Info) Description 09/25/2025 7:30 AM EST Appointment [facility] Radiology [address] [place] [address] 09/25/2025 9:20 AM EST Appointment [facility] CT [address] [place] [address] 10/02/2025 9:10 AM EST Office Visit [facility] Oncology [facility] [address] [place] [address] Ren Saeed MD [address] [address] 10/29/2025 10:10 AM EST Appointment [facility] [address] [place] [phone] Etienne Novak MD [address] [place] [address] documented as of this encounter Goals Goal Patient Goal Type Associated Problems Recent Progress Patient-Stated? Author Autogenerat ed Goal Care Plan Autogenerated Problem No Eve Betts documented as of this encounter Visit Diagnoses Not on filedocumented in this encounter Additional Health Concerns Active [...] documented as of this encounter Care Teams Record Searcher Relationship Specialty Start Date End Date Paul Arevalo MD [address] [facility] [address] [place] [address] PCP - General 04/04/21 Emerita Gao DDS [address] [facility] [address] [place] [address] Dentist Dentist 07/21/21 Tuyet Hogue Dentist Dental Griddle Cook 07/21/21 Suha Marshall MD [address] [facility] [address] [place] [address] Medical Oncologist Medical Oncology 11/29/22 documented as of this encounter
--- OUTSIDE RECORDS SUMMARY | 2025-08-28 07:52 | XMS_ITS | Clinical Summary ---
Author Organization [facility] Address [address] [place] [address] Care Team Providers Care Instruction Dean Name Role Phone Paul Arevalo MD Primary Care Provider + [phone] Allergies Active Allergy Reactions Criticality Noted Date Comments Sulfa Antibiotics Hives,Itching,Rash,Swelling High 1 12/13/2021 Medications DULoxetine (CYMBALTA) 60 MG capsule Take 1 capsule by mouth Daily. 10/26/2023 Active furosemide (LASIX) 40 MG tablet Take 1 tablet by mouth Daily. 08/27/2023 Active gabapentin (NEURONTIN) 300 MG capsule Take 1 capsule by mouth 2 (Two) Times a Day. 10/18/2023 Active lisinopril (PRINIVIL,ZESTR IL) 20 MG tablet Take 1 tablet by mouth Daily. 09/06/2023 Active metoprolol succinate XL (TOPROL-XL) 25 MG 24 hr tablet Take 1 tablet by mouth Daily. 10/28/2023 Active oxyCODONE (ROXICODONE) 5 MG immediate release tablet Take 1 tablet by mouth Every 4 (Four) Hours As Needed for Moderate Pain. 09/14/2023 Active promethazine (PHENERGAN) 25 MG tablet Take 1 tablet by mouth Every 6 (Six) Hours As Needed for Nausea or Vomiting. 09/14/2023 Active spironolactone (ALDACTONE) 100 MG tablet Take 1 tablet by mouth Daily. 08/20/2023 Active ursodiol (ACTIGALL) 300 MG capsule Take 1 capsule by mouth 2 (Two) Times a Day. 08/20/2023 Active Active Problems Problem Noted Date Diagnosed Date Overlapping malignant neoplasm of colon 10/29/20 23 Social History Tobacco Use Types Packs/Day Years Used Date Smoking Tobacco: Never Assessed PHQ-2 Answer Date Recorded Retired PHQ-9: Brief Depression Severity Measure Score 0 10/29/2023 Abuse Screen Answer Date Recorded Unsafe at Home or Work/School Not on file Feels Threatened by Someone? Not on file 07/2023 Does Anyone Keep You from Co ntacting Others or Doint Things Outside the Home? Not on file 08/30/2023 Physical Sign of Abuse Present Not on file 1 Housing Stability Answer Date Recorded Current Living Arrangements Not on file 07/2023 Potentially Unsafe Housing Conditions Not on hao e 08/30/2023 Family and Community Support Answer Mehul e Recorded Help with Day-to-Day Activities Not on file 08/30/2023 Lonely or Isolated Not on file 08/30/2023 Employment Answer Date Recorded Do you want help finding or keeping work or a saeed b? Not on file 08/30/2023 Disabilities Answer Date Recorded Concentrating, Remembering, or Making Decisions Difficulty Not on file 08/30/2023 Doing Errands Independently Difficulty Not on fi le 08/30/2023 Education Answer Date Recorded Help with school or training? Not on file Preferred Language Not on file 08/30/2023 PHQ-2 Answer Date Recorded Retired PHQ-9: Brief Depression Severity Measure Score 0 10/29/2023 Comments Unknown Sex and Gender Information Value Date Recorded Sex Assigned at Not on file Legal Sex Female 10:18 AM EDT Gender Identity Not on file Sexual Orientation Not on file Last Filed Vital Signs Vital Sign Reading Time Taken Comments Blood Pressure 117/69 10/29/2023 12:52 PM EST Pulse 93 10/29/2023 12:52 PM EST Temperature 37.3 C (99.2 F) 10/29/2023 12:52 PM EST Respiratory Rate 16 10/29/2023 12:52 PM EST Oxygen Saturation 96% 10/29/2023 12:52 PM EST Inhaled Oxygen Concentration - - Weight 64 kg (141 lb) 10/29/2023 12:52 PM EST Height 165.1 cm (5' 5 ) 10/29/2023 12:52 PM EST Body Mass Index 23.46 10/29/2023 12:52 PM EST Plan of Treatment Health Maintenance Due Date Last Done Comments Annual Gynecologic Pelvic an d Breast Exam 1963 MAMMOGRAM 2003 Pneumococcal Vaccine 50+ (1 of 1 - PCV) 2013 ZOSTER VACCINE (1 of 2) 2013 Hepatitis B (1 of 3 - Risk 3 -dose series) 2023 ANNUAL PHYSICAL 10/20/2023 INFLUENZA VACCINE 06/22/2025 10/22/2022 TDAP/TD VACCINES (3 - Td or Tdap) 06/16/2031 021, 01/25/1997 COLONOSCOPY Discontinued 11/02/2022, 07/23, 08/05/2020 COLORECTAL CANCER SCREENING Discontinued HEPATITIS C SCREENING Completed 08/16/2023, 023 COLOGUARD Discontinued COLON CANCER SCREENING 5 YEA R SIGMOIDOSCOPY Discontinued CT COLONOGRAPHY Discontinued FECAL OCCULT BLOOD TEST Discontinued FIT Testing (1 year) Discontinued Insurance Buddy ARCHEROMAR HOWELL [id number] [facility] PPO Care Teams Instruction Dean Relationship Specialty Start Date End Date Paul Arevalo MD [address] [place] [address] [place] [address] PCP - General Family Medicine 09/24/23
--- OUTSIDE RECORDS SUMMARY | 2025-08-28 07:52 | XMS_ITS | Encounter Summary ---
Author Organization [facility] Address [address] [place] [address] Care Team Providers Care Insole Tape Stitcher Uco Name Role Phone Paul Arevalo MD Primary Care Provider + [phone] Emerita Gao DDS Unavailable + Tuyet Hogue Unavailable Unavailable Suha Marshall MD Unavailable [phone] Encounter Details Date Type Department Care Team (Late st Contact Info) Description 09/21/2023 Lab Requisition [facility] [address] [place] [phone] Ren Saeed MD [address] [address] Malignant neoplasm of cecum (CMS/HCC) Social History Tobacco Use Types Packs/Day Years Used Date Smoking Tobacco: Never Passive Smoke Exposure: Never Smokeless Tobacco: Never Alcohol Use Standard Drinks/Week Comments Yes 0 (1 standard drink = 0.6 oz pur e alcohol) ocassionally, PHQ-2 Answer Date Recorded Patient Health Questionnaire-2 Score 0 2023 CAGE ASSESSMENT Answer Date Recorded Cage unable [...] drink first t kim in the morning (EYE-BLADDER CLE[employer]ER) to steady your nerves or to get [...] Description 09/25/2025 7:30 AM EST Appointment [facility] Radiology [address] [place] [address] 09/25/2025 9:20 AM EST Appointment [facility] [address] [place] [address] 10/02/2025 9:10 AM EST Office Visit [facility] [address] [place] [phone] Ren Saeed MD [address] [phone] 10/29/2025 10:10 AM EST Appointment [facility] [address] [place] [phone] Etienne Novak MD [address] [facility] [address] [place] [phone] documented as of this encounter Procedures Procedure Name Priority Date/Time Associated Diagnosis Comments HISTORICAL SURGICAL PATHOLOGY ADDENDUM Routine 09/21/2023 Malignant neoplasm of cecum (CMS/HCC) documented in this encounter Results * Historical Surgical Pathology Addendum (09/21/2023) Historical Case Information This case was collected on 07/05/2023 was originally reported as case [id number]. The entire surgical pathology report can be viewed as a scanned document attached to this report. 09/21/2023 2:06 PM EDT [facility] Case Report Historical Case Addendum/Amen dment Case: [id number] Authorizing Provider: Ren Saeed MD Collected: 09/21/2023 Ordering Location: [facility] Lab Received: 09/21/2023 1019 Pathologist: Reanna Beavers MD Specimen: [id number] 09/21/2023 2:06 PM EDT [facility] Addendum 09/21/2023 2:06 PM EDT [facility] at 1125 EDT Addendum 2 09/21/2023 2:06 PM EDT [facility] at 1125 EDT Addendum 3 09/21/2023 2:06 PM EDT [facility] at 1125 EDT Addendum 4 09/21/2023 2:06 PM EDT [facility] at 1125 EDT Addendum 5 09/21/2023 2:06 PM EDT [facility] at 1125 EDT Tissue 09/21/2023 09/21/2023 10: 19 AM EDT us Ren Saeed MD LAB PATHOLOGY ORDERABLES Fin al Result [facility] [address] [place] [address] documented in this encounter Visit Diagnoses Diagnosis Malignant neoplasm of cecum (CMS/HCC) Malignant neoplasm of cecum documented in this encounter Additional Health Concerns Assessment Noted Time A fall risk assessment has been complete d for the patient 2023 1:35 PM EDT A Body Mass Index follow-up plan has been documented for the patient 09/22/2023 1:30 PM EDT documented as of this encounter Care Teams Insole Tape Stitcher Uco Relationship Specialty Start Date End Date Paul Aervalo MD [address] [facility] [address] [place] [address] PCP - General 04/04/21 Emerita Gao DDS [address] [facility] [address] [place] [address] Dentist Dentist 07/21/21 Tuyet Hogue Dentist Dental Ip Paralegal 07/21/21 Suha Marshall MD [address] [facility] [address] [place] [phone] Medical Oncologist Medical Oncology 11/29/22 documented as of this encounter
--- OUTSIDE RECORDS SUMMARY | 2025-08-28 07:52 | XMS_ITS | Clinical Summary ---
Author Organization [facility] Address [address] 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 01/05/2025 Active verapamil ER (Veralan PM) 120 MG 24 hr capsule Take 1 capsule (120 mg) by mouth nightly. 01/15/2025 Active ursodiol (Actigall) 300 MG capsule Take 1 capsule (300 mg) by mouth 2 (two) times a day. 01/05/2025 Active Probiotic Product (acidophilus probiotic blend) capsule Take 1 capsule by mouth daily. Active FeroSul 325 (65 Fe) MG tablet TAKE ONE TABLET BY MOUTH 2 TIMES A DAY WITH MEALS 60 tablet 3 02/02/2025 Active Bacillus Coagulans-Inuli n (Probiotic Formula) 1-250 BILLION-MG capsule Take 1 tablet by mouth daily. 02/12/2025 Active ubrogepant (Ubrelvy) 100 MG tablet Take 1 tablet by mouth 1 (one) time each day at the same time. 02/17/2025 Active DULoxetine (Cymbalta) [address] capsule Take 1 capsule by mouth daily. Do not crush or chew. 30 capsule 3 05/11/2025 Active sodium phosphates (Osmoprep) 1.102-0.398 g tabletIndicatio ns:Bowel Evacuation 10am take dose of 4 OsmoPrep tablets Q 15 w/ 8 oz. clear liquids for a total of 5 doses or 20 tablets. 6pm take dose of 4 OsmoPrep tablets Q 15 w/ 8 oz. clear liquids for a total of 3 doses or 12 tablets. 32 tablet 06/19/2025 Active Active Problems Problem Noted Date Diagnosed Date Abdominal carcinomatosis 03/06/2025 Avulsion fracture of distal fibula 03/06/2025 Contusion of rib on left side 03/06/2025 Bulging lumbar disc 03/06/2025 DDD (degenerative disc disease), lumbar 03/06/20 Facet hypertrophy of lumbar region 03/06/2025 Dyspnea [...] (03/06/2025): From Automated Load;Provider: Andrei Mahan;Status: Active Resolved Problems Problem Noted Date Diagnosed Date Resolved Date Sinusitis 03/06/2025 08/12/2025 Acute bronchitis 03/06/2025 08/12/2025 Ventral hernia without obstr uction or gangrene 02/01/2025 02/06/2025 Colon cancer metastasized to multiple sites 01/16/2025 03/03/2025 Overview (02/06/2025): 02/05/2025: ex lap, SBRx2 w/ mesenteric lymphadenectomy [Darlin] Primary hernia repair [Ricki] Hepatocellular carcinoma 12/02/202310/2025 Decompensated hepatic cirrhosis 08/19/2023 02/06/2025 Ileitis 08/16/2023 02/06/2025 Physical deconditioning 07/19/2023 03/06/2025 Overview (07/19/2023): Deconditioning from critical illness PT/OT [...] See PNA Pain of upper abdomen 2024 Encounters Date Type Department Care Team Description 07/04/2025 Refill [facility] Multidisciplinary Oncology Clinic [address] [place] [phone] Ren Saeed MD 06/26/2025 10:10 AM EDT Office Visit [facility] Multidisciplinary Oncology Clinic [address] [place] [phone] Ren Saeed MD Colon cancer metastasized to liver (CMS/HCC) (Primary Dx) 06/26/2025 9:50 AM EDT Clinical Support [facility] Multidisciplinary Oncology Clinic [address] [place] [phone] Colon cancer metastasized to liver (CMS/HCC) 06/26/2025 Travel 06/22/2025 9:22 AM EDT - 06/22/2025 11:59 PM EDT Hospital Encounter [facility] [address] [place] [address] Colon cancer metastasized to liver (CMS/HCC) Discharge Disposition: Home or Self Care 06/22/2025 7:39 AM EDT - 06/22/2025 9:21 AM EDT Hospital Encounter [facility] Radiology [address] [place] [address] Colon cancer metastasized to liver (CMS/HCC) Discharge Disposition: Home or Self Care 06/22/2025 Travel 06/19/2025 Orders Only [facility] [address] [place] [phone] Etienne Novak MD 06/19/2025 Orders Only [facility] [address] [place] [address] Etienne Novak MD 06/14/2025 Telephone [facility] General Surgery [address], [address] [place] [address] Etienne Novak MD 06/14/2025 Orders Only [facility] [address] [place] [address] Etienne Novak MD 06/11/2025 Orders Only [facility] [address] [place] [phone] Etienne Novak MD Adenocarcinoma of cecum (CMS/HCC) (Primary Dx) from Last 3 Months Immunizations Immunization Administration Dates Next Due Hep A, Adult 04/10/2019,09/19/2018 Influenza, Unspecified 10/22/2022 Moderna COVID-19 Vaccine (Re d Cap) 12+ years 10/10/2021,12/20/2020,11/20/2020 TD (adult), 2 Lf tetanus tox oid, preservative free, adsorbed 01/25/1997 Tdap 06/16/2021 Family History Medical History Relation Name Comments Arthritis Father Jaylen [place] Cancer Father Jaylen [place] Hypertension Father Jaylen [place] Multiple myeloma Father Jaylen [place] FH: multipl e myeloma Cancer Mother Chloe [place] Hypertension Mother Chloe [place] Pancreatic cancer Mother Chloe [place] FH: pancre atic cancer Breast cancer Other FH: breast can cer Anesthesia problems Neg Hx Malig Hyperthermia Neg Hx Relation Name Status Comments Father Jaylen [place] Mother Chloe [place] Other Social History Tobacco Use Types Packs/Day Years Used Date Smoking Tobacco: Never Passive Smoke Exposure: Never Smokeless Tobacco: Never Tobacco Cessation:Counseling Given: Not Answered Alcohol Use Standard Drinks/Week Comments Not Currently [...] money to buy more. Never true 02/07/20 25 Within the past 12 months, t he [...] any time in the past 12 m [facility], were you homeless or living in a fpc (including now)? No 02/06/2025 CAGE ASSESSMENT Answer [...] drink first t kim in the morning (EYE-CAFE COOK) to steady your nerves or to get [...] F) 06/26/2025 10:00 AM EDT Respiratory Rate 16 03/06/2025 2:12 PM EDT Oxygen Saturation 97% 06/26/2025 10: 00 AM EDT Inhaled Oxygen Concentration - - Weight 75.7 kg (166 lb 14.2 oz) 025 10:00 AM EDT Height 167.6 cm (5' 6 ) 06/26/2025 10:0 0 AM EDT Body Mass Index 26.94 06/26/2025 10:00 AM EDT Plan of Treatment Upcoming Encounters Date Type Department Care Team (Late st Contact Info) Description 09/25/2025 7:30 AM EST Appointment [facility] S Radiology [address] [place] [address] 09/25/2025 9:20 AM EST Appointment [facility] [address] [place] [address] 10/02/2025 9:10 AM EST Office Visit [facility] [address] [place] [address] Ren Saeed MD [address] [facility] 1st [place] [address] 10/29/2025 10:10 AM EST Appointment [facility] End[facility] [address] [place] [address] Etienne Novak MD [address] [place] [address] Health Maintenance Due Date Last Done Comments [facility]-Infant/Child/Adol SDOH Screenings 1963 [facility]-Pneumococcal Vaccine: 50+ Years (1 of 2 - PCV) 1982 [facility]-Zoster Vaccines (1 of 2) 1982 [facility]-Pap Smear 1984 [facility]-Cervical Cancer Screening 1993 [facility]-HPV/Cotest 1993 [facility]-Breast Cancer Screening 2013 [facility]-RSV Vaccine: 60+ Years or (1 - Risk 60-74 years 1-dose series) 2023 [id number] Vaccine ( - 2024- season) 2025 10/10/2021, 12/20/2020, 11/20/2020 [facility]-Influenza Vaccine (#1) 2025 10/22/2022 [facility]- SDOH Screenings 08/09/2025 [facility]-Adult SDOH Screenings 08/09/2025 02/06/2025 Colonoscopy 11/01/2025 11/02/2022, 07/23, 08/05/2020 [facility]-Depression Screening 06/26/2026 025, 03/06/2025, 08/26/2023 [facility]-DTaP,Tdap,and Td Vaccines (2 - Td or Tdap) 06/16/2031 06/16/2021, 01/25/1997 [facility]-Hepatitis A Vaccines Completed 04/10/2019, 08/23 [facility]-HIV Screening Completed 08/16/2023, 11/24/2022 [facility]-Hepatitis C Screening Completed 08/16/2023, 03/2023 [facility]-Obesity Intervention Completed 025, 03/06/2025, 02/26/2025, Additional history exists HPV Vaccines Aged Out No longer eligi ble based on patient's age to complete this topic [facility]-HIB Vaccines Aged Out No longer e ligible based on patient's age to complete this topic [facility]-IPV Vaccines Aged Out No longer e ligible based on patient's age to complete this topic [facility]-Rotavirus Vaccines Aged Out No lo nger eligible based on patient's age to complete this topic Goals Goal Patient Goal Type Associated Problems Recent Progress Patient-Stated? Author Autogenerat ed Goal Care Plan Autogenerated Problem No [employer] Implanted Type Area Spooling Machine Operator Device Identifier Shelf Expiration Date Model / Serial / Lot Port Clearvue Power 8fr - [id number] Implanted:Qty: 1 on 11/06/2022 by Carlos Griffiths MD at [facility] [id number] / / Procedures Procedure Name Priority Date/Time Associated Diagnosis Comments IRON & TOTAL IRON BINDING CAPACITY, PLASMA (INCLUDES TRANSFERRIN) Add-On 06/26/2025 9:58 AM EDT Colon cancer metastasized to liver (CMS/HCC) SIGNATERA ONLY Routine 06/26/2025 9:58 AM EDT Colon cancer metastasized to liver (CMS/HCC) CEA, SERUM Routine 06/26/2025 9:58 AM EDT Colon cancer metastasized to liver (CMS/HCC) PREALBUMIN, PLASMA Routine 06/26/2025 9: 58 AM EDT Colon cancer metastasized to liver (CMS/HCC) COMPREHENSIVE METABOLIC PANEL, PLASMA Routine 06/26/2025 9:58 AM EDT Colon cancer metastasized to liver (CMS/HCC) CBC WITH AUTO DIFFERENTIAL Routine 06/26/2025 9:58 AM EDT Colon cancer metastasized to liver (CMS/HCC) CT PELVIS W IV CONTRAST Routine 06/22/20 10:21 AM EDT Colon cancer metastasized to liver (CMS/HCC) CT CHEST W IV CONTRAST Routine 10:21 AM EDT Colon cancer metastasized to liver (CMS/HCC) MR ABDOMEN W AND WO IV CONTRAST Routine 06/22/2025 8:46 AM EDT Colon cancer metastasized to liver (CMS/HCC) HEPATITIS C ANTIBODY - ED W/REFLEX TO HCV QUANT PCR STAT 08/16/2023 3:29 PM EDT ED HIV 1/2 ANTIBODY/ANTIGEN SCREEN WITH REFLEX TO HIV I/II DIFFERENTIATION STAT 08/16/2023 3:29 PM EDT COLONOSCOPY Routine 11/02/2022 11:43 AM EST Adenocarcinoma of cecum (CMS/HCC) from Last 3 Months or Most Recently Relevant to Health Maintenance Results * (ABNORMAL) Signatera Only Single Draw (06/26/2025 [...] pembrolizumab. Nature Cancer. 2020;1(9):873-881. 2 Stuart TV, Kendal N, et al., Circulating Tumor DNA in Stage III Colorectal Cancer, beyond Minimal Residual Disease Detection, toward Assessment of Adjuvant Therapy Efficacy and Clinical Behavior of Recurrences. Clin Cancer Res. 202; 28(3):507-517. Methodology FFPE samples are assessed by a pathologist to identify tumor margins and percent tumor content. Tumor DNA is extracted using Qiagen AllPrep. Whole genomic DNA is isolated from peripheral blood using QIAamp DNA Blood Mini Kit to provide a baseline DNA sequence. Circulating tumor DNA (ctDNA) is extracted from plasma derived from whole blood samples collected in cell-free DNA blood tubes (Adisn) using the QIAsymphony automated or manual extraction method (Qiagen). Using a proprietary algorithm, putative, clonal variants present in the tumor but absent in the germline DNA are identified to design the customized multiplex PCR assay. Whole-exome sequencing is performed on tumor and peripheral blood DNA using the proprietary Qustreet whole-exome sequencing assay. Pathology services are performed at [facility], [address] [place] [address], [address], [address], and whole exome sequencing is performed at [facility] (CLIA ID# [id number]), [address] [place] [address]. Disclaimer The extraction, library preparation, and sequencing for this test were performed by [facility] [employer] [address] [place] [address] A [address] [address] (CLIA ID [id number]). The data analysis and reporting for this test were performed by [facility] [address], [place] [address] (CLIA ID [id number]). This test was developed and its performance characteristics determined by [facility]. The test has not been cleared or approved by the U.S. Food and Drug Administration (FDA). CAP accredited, ISO 51037 certified, and CLIA certified. Pathology services and whole exome sequencing for this test were performed by [facility], [address] [place] [address] (CLIA ID [id number]). 2020 [employer] ([employer]). All Rights Reserved. Blood Venous blood specimen / Unknown (Port) Long-term Catheter / Unknown 06/26/2025 9:58 AM EDT 06/26/2025 10:00 AM EDT us Ren [place] BLOOD ORDERABLES Telma l Result [facility] [address] [place] [address], * Iron & Total Iron Binding Capacity, Plasma (Includes Transferrin) (06/26/2025 9:58 AM EDT) Iron, Plasma 117 30 - 160 ug/dL 06/26/2025 11:16 AM EDT [facility] Transferrin, Plasma 233 200 - 360 mg/dL 06/26/2025 11:16 AM EDT [facility] Total Iron Binding Capacity, Plasma 291 240 - 450 ug/mL 06/26/2025 11:16 AM EDT [facility] Transferrin Saturation 40 14 - 50 % 06/26/2025 11:16 AM EDT [facility] Blood Venous blood specimen / Unknown (Port) Long-term Catheter / Unknown 06/26/2025 9:58 AM EDT 06/26/2025 10:21 AM EDT us Ren Saeed MD LAB BLOOD ORDERABLES Final R esult [facility] [address] [place] [address] * (ABNORMAL) CBC and Differential (06/26/2025 9:58 AM EDT) WBC Count 4.17 3.70 - 10.30 10*3/uL LAB HEMATOLOGY METHOD 06/26/2025 10:32 AM EDT [facility] RBC Count 4.37 3.90 - 5.20 10*6/uL LAB HEMATOLOGY METHOD 06/26/2025 10:32 AM EDT [facility] HGB 12.6 11.2 - 15.7 g/dL LAB HEMATOLOGY METHOD 06/26/2025 10:32 AM EDT [facility] HCT 39.1 34.0 - 45.0 % LAB HEMATOLOGY METHOD 06/26/2025 10:32 AM EDT [facility] Platelet Count 116(L) 155 - 369 10*3/uL LAB HEMATOLOGY METHOD 06/26/2025 10:32 AM EDT [facility] MCV 90 79 - 98 fL LAB HEMATOLOGY METHOD 06/26/2025 10:32 AM EDT [facility] MCH 28.8 26.0 - 32.0 pg LAB HEMATOLOGY METHOD 06/26/2025 10:32 AM EDT [facility] MCHC 32.2 30.7 - 35.5 g/dL LAB HEMATOLOGY METHOD 06/26/2025 10:32 AM EDT [facility] RDW 13.6 11.5 - 14.5 % LAB HEMATOLOGY METHOD 06/26/2025 10:32 AM EDT [facility] MPV 12.7(H) 8.8 - 12.5 fL LAB HEMATOLOGY METHOD 06/26/2025 10:32 AM EDT [facility] nRBC 0.0 <=0.0 per 100 WBCs LAB HEMATOLOGY METHOD 06/26/2025 10:32 AM EDT [facility] Differential Type Automated LAB HEMATOLOGY METHOD 06/26/2025 10:32 AM EDT [facility] Neutrophils % 69 % LAB HEMATOLOGY METHOD 06/26/2025 10:32 AM EDT [facility] Lymphocytes % 15 % LAB HEMATOLOGY METHOD 06/26/2025 10:32 AM EDT [facility] Monocytes % 12 % LAB HEMATOLOGY METHOD 06/26/2025 10:32 AM EDT [facility] Eosinophils % 2 % LAB HEMATOLOGY METHOD 06/26/2025 10:32 AM EDT [facility] Basophils % 1 % LAB HEMATOLOGY METHOD 06/26/2025 10:32 AM EDT [facility] Immature Granulocytes % 1 % LAB HEMATOLOGY METHOD 06/26/2025 10:32 AM EDT [facility] Neutrophils Absolute 2.89 1.60 - 6.10 10*3/uL LAB HEMATOLOGY METHOD 06/26/2025 10:32 AM EDT [facility] Lymphocytes Absolute 0.64(L) 1.20 - 3.90 10*3/uL LAB HEMATOLOGY METHOD 06/26/2025 10:32 AM EDT [facility] Monocytes Absolute 0.49 0.30 - 0.90 10*3/uL LAB HEMATOLOGY METHOD 06/26/2025 10:32 AM EDT [facility] Eosinophils Absolute 0.09 0.00 - 0.50 10*3/uL LAB HEMATOLOGY METHOD 06/26/2025 10:32 AM EDT [facility] Basophils Absolute 0.04 0.00 - 0.10 10*3/uL LAB HEMATOLOGY METHOD 06/26/2025 10:[address] [facility] Immature Granulocytes Absolute 0.02 0.00 - 0.06 10*3/uL LAB HEMATOLOGY METHOD 06/26/2025 10:32 AM EDT [facility] Blood Venous blood specimen / Unknown (Port) Long-term Catheter / Unknown 06/26/2025 9:58 AM EDT 06/26/2025 10:23 AM EDT Narrative [facility] - 06/26/2025 10:32 AM EDT Therapeutic decision making should be based on absolute values, rather than percentages. Ren Saeed MD LAB BLOOD ORDERABLES Final R esult Performing Organization Address [facility]/ZIP Co de Phone Number [facility] [address] [place] [address] * (ABNORMAL) Prealbumin, Plasma (06/26/2025 9:58 AM EDT) Prealbumin, Plasma 17.6(L) 20.0 - 41.0 mg/dL 06/26/2025 11:[address] [facility] Blood Venous blood specimen / Unknown (Port) Long-term Catheter / Unknown 06/26/2025 9:58 AM EDT 06/26/2025 10:21 AM EDT Ren Saeed MD LAB BLOOD ORDERABLES Final R esult Performing Organization Address City/[facility]/[place] [address] * CEA, Serum (06/26/2025 9:58 AM EDT) CEA, Serum <1.8 <4.0 ng/mL 06/26/2025 11:[address] [facility] Blood Venous blood specimen / Unknown (Port) Long-term Catheter / Unknown 06/26/2025 9:58 AM EDT 06/26/2025 10:21 AM EDT Narrative [facility] - 06/26/2025 11:47 AM EDT Normal range for smokers: < 5.5 ng/ml Normal range for non-smokers: <=4.0 ng/ml Performed by [employer] electrochemiluminescent immunoassay. Results obtained with different test methods or kits cannot be used interchangeably. us Ren Saeed MD LAB BLOOD ORDERABLES Final R esult [facility] [address] [place] [address] * (ABNORMAL) Comprehensive Metabolic Panel, Plasma (06/26/2025 9:58 AM EDT) Pathologist [facility] Glucose, Plasma 100(H) 74 - 99 mg/dL 06/26/2025 11:16 AM EDT [facility] BUN, Plasma 11 8 - 23 mg/dL 06/26/2025 11:16 AM EDT [facility] Creatinine, Plasma 0.74 0.60 - 1.10 mg/dL 06/26/2025 11:16 AM EDT [facility] BUN/Creatinine Ratio 15 06/26/2025 11:16 AM EDT [facility] Sodium, Plasma 141 136 - 145 mmol/L 06/26/2025 11:16 AM EDT [facility] Potassium, Plasma 4.1 3.6 - 4.9 mmol/L 06/26/2025 11:16 AM EDT [facility] Chloride, Plasma 106 97 - 107 mmol/L 06/26/2025 11:16 AM EDT [facility] CO2, Plasma 24 22 - 29 mmol/L 06/26/2025 11:16 AM EDT [facility] Anion Gap 11 6 - 16 mmol/L 06/26/2025 11:16 AM EDT [facility] Total Calcium, Plasma 9.3 8.9 - 10.2 mg/dL 06/26/2025 11:16 AM EDT [facility] Total Protein 6.3 6.3 - 7.9 g/dL 06/26/2025 11:16 AM EDT [facility] Albumin, Plasma 4.0 3.5 - 5.2 g/dL 06/26/2025 11:16 AM EDT [facility] AST, Plasma 32 10 - 35 U/L 06/26/2025 11:16 AM EDT [facility] ALT, Plasma 31 10 - 35 U/L 06/26/2025 11:16 AM EDT [facility] Alkaline Phosphatase, Plasma 329(H) 46 - 142 U/L 06/26/2025 11:16 AM EDT [facility] Total Bilirubin, Plasma 0.5 0.2 - 1.1 mg/dL 06/26/2025 11:16 AM EDT [facility] eGFRcr 92.2 mL/min/1.7 3m*2 06/26/2025 11:16 AM EDT [facility] Comment:Reported eGFRcr in m L/min/1.73m2 is based the CKD-EPI 2020 equation that does not use a race coefficient. Blood Venous blood specimen / Unknown (Port) Long-term Catheter / Unknown 06/26/2025 9:58 AM EDT 06/26/2025 10:21 AM EDT us Ren Saeed MD LAB BLOOD ORDERABLES Final R esult [facility] [address] [place] [address] * CT Pelvis w IV Contrast (06/22/2025 10:21 AM EDT) Anatomical Region Laterality Modality Pelvis Computed Tomogra phy Impressions 06/22/2025 11:11 AM EDT Chest: No evidence of metastatic disease Pelvis: No evidence of metastatic disease. CRITICAL RESULT: No. COMMUNICATION: Per this written report. Drafted by Charo Marcial MD on 06/22/2025 10:29 AM Final report signed by Charo Marcial MD on 06/22/2025 11:11 AM Narrative 06/22/2025 11:11 AM EDT CLINICAL INDICATION: Colon cancer metastasized to liver TECHNIQUE: Multiple axial CT images were obtained of the chest and pelvis following administration of IV contrast, Omnipaque 300, 100 mL. Reformatted images in the coronal and sagittal planes were generated from the axial data set to facilitate diagnostic accuracy. Total DLP (Dose-Length Product): 424.15 mGy.cm (accession [id number]), 424.15 mGy.cm (accession [id number]) Please note: The reported value represents the total of one or more individual components during the CT acquisition on this date and at this time, and as such, the same value may appear in more than one CT report depending on the interpreting/reporting physicians. COMPARISON: CT from 03/06/2025 FINDINGS: Chest: Lymph Nodes and Mediastinum: There is a 12 nodule in the enlarged left thyroid. No thoracic adenopathy is evident. Cardiovascular: There is a right internal jugular port catheter terminating at the inferior cavoatrial junction. There is cardiomegaly. Enlarged pulmonary arteries. No pulmonary embolus is seen. No great vessel stenosis. Lungs and Pleura: There is left nodular apical scar in, similar to prior. Redemonstration of gas attenuation and reticulation in the left lung base.There is a 6 mm subpleural nodule in the right lower lobe, similar to prior (series 3, image 86). No new pulmonary nodule. No pleural effusions or suspicious thickening. Musculoskeletal and Body Wall: No suspicious osseous abnormality Upper abdomen: .Please refer to MRI report for characterization of abdominal findings. Pelvis: GI Tract/Mesentery/Peritoneum: .There are changes of right hemicolectomy. Postsurgical changes from interval small bowel resection with mesenteric lymphadenectomy. Interval resection of the previously reported nodule in the lower abdomen/upper pelvis but was appreciated on December study. Postsurgical stranding mainly in the right lower abdomen with adjacent subcentimeter ileocolic lymph nodes, appear slightly prominent compared to prior. Pelvic Viscera: The bladder is distended. Uterus is retroflexed. No adnexal lesion. Lymph Nodes/Vasculature: No lymphadenopathy is evident. No large vessel occlusion is seen. Free Fluid: No free fluid Musculoskeletal and Body Wall: No suspicious osseous abnormality. Postsurgical changes are noted deep to anterior abdominal wall Procedure Note Charo Marcial MD - 06/22/2025 CLINICAL INDICATION: Colon cancer metastasized to liver TECHNIQUE: Multiple axial CT images were obtained of the chest and pelvis followingadministration of IV contrast, Omnipaque 300, 100 mL. Reformatted imagesin the coronal and sagittal planes were generated from the axial data setto facilitate diagnostic accuracy. Total DLP (Dose-Length Product): 424.15 mGy.cm (accession [id number]),424.15 mGy.cm (accession [id number]) Please note: The reported valuerepresents the total of one or more individual components during the CTacquisition on this date and at this time, and as such, the same value mayappear in more than one CT report depending on the interpreting/reportingphysicians. COMPARISON: CT from 03/06/2025 FINDINGS: Chest: Lymph Nodes and Mediastinum: There is a 12 nodule in the enlarged leftthyroid. No thoracic adenopathy is evident. Cardiovascular: There is a right internal jugular port catheterterminating at the inferior cavoatrial junction. There is cardiomegaly.Enlarged pulmonary arteries. No pulmonary embolus is seen. No great vesselstenosis. Lungs and Pleura: There is left nodular apical scar in, similar to prior.Redemonstration of gas attenuation and reticulation in the left lungbase.There is a 6 mm subpleural nodule in the right lower lobe, similar toprior (series 3, image 86). No new pulmonary nodule. No pleural effusionsor suspicious thickening. Musculoskeletal and Body Wall: No suspicious osseous abnormality Upper abdomen: .Please refer to MRI report for characterization ofabdominal findings. Pelvis: GI Tract/Mesentery/Peritoneum: .There are changes of right hemicolectomy.Postsurgical changes from interval small bowel resection with mesentericlymphadenectomy. Interval resection of the previously reported nodule inthe lower abdomen/upper pelvis but was appreciated on December study.Postsurgical stranding mainly in the right lower abdomen with adjacentsubcentimeter ileocolic lymph nodes, appear slightly prominent compared toprior. Pelvic Viscera: The bladder is distended. Uterus is retroflexed. Noadnexal lesion. Lymph Nodes/Vasculature: No lymphadenopathy is evident. No large vesselocclusion is seen. Free Fluid: No free fluid Musculoskeletal and Body Wall: No suspicious osseous abnormality.Postsurgical changes are noted deep to anterior abdominal wall IMPRESSION: Chest: No evidence of metastatic disease Pelvis: No evidence of metastatic disease. CRITICAL RESULT: No. COMMUNICATION: Per this written report. Drafted by Charo Marcial MD on 06/22/2025 10:29 AM Final report signed by Charo Marcial MD on 06/22/2025 11:11 AM us Ren Saeed MD IMG CT PROCEDURES Final Resu lt * CT Chest w IV Contrast (06/22/2025 10:21 AM EDT) Anatomical Region Laterality Modality Chest Computed Tomogra phy Impressions 06/22/2025 11:11 AM EDT Chest: No evidence of metastatic disease Pelvis: No evidence of metastatic disease. CRITICAL RESULT: No. COMMUNICATION: Per this written report. Drafted by Charo Marcial MD on 06/22/2025 10:29 AM Final report signed by Charo Marcial MD on 06/22/2025 11:11 AM Narrative 06/22/2025 11:11 AM EDT CLINICAL INDICATION: Colon cancer metastasized to liver TECHNIQUE: Multiple axial CT images were obtained of the chest and pelvis following administration of IV contrast, Omnipaque 300, 100 mL. Reformatted images in the coronal and sagittal planes were generated from the axial data set to facilitate diagnostic accuracy. Total DLP (Dose-Length Product): 424.15 mGy.cm (accession [id number]), 424.15 mGy.cm (accession [id number]) Please note: The reported value represents the total of one or more individual components during the CT acquisition on this date and at this time, and as such, the same value may appear in more than one CT report depending on the interpreting/reporting physicians. COMPARISON: CT from 03/06/2025 FINDINGS: Chest: Lymph Nodes and Mediastinum: There is a 12 nodule in the enlarged left thyroid. No thoracic adenopathy is evident. Cardiovascular: There is a right internal jugular port catheter terminating at the inferior cavoatrial junction. There is cardiomegaly. Enlarged pulmonary arteries. No pulmonary embolus is seen. No great vessel stenosis. Lungs and Pleura: There is left nodular apical scar in, similar to prior. Redemonstration of gas attenuation and reticulation in the left lung base.There is a 6 mm subpleural nodule in the right lower lobe, similar to prior (series 3, image 86). No new pulmonary nodule. No pleural effusions or suspicious thickening. Musculoskeletal and Body Wall: No suspicious osseous abnormality Upper abdomen: .Please refer to MRI report for characterization of abdominal findings. Pelvis: GI Tract/Mesentery/Peritoneum: .There are changes of right hemicolectomy. Postsurgical changes from interval small bowel resection with mesenteric lymphadenectomy. Interval resection of the previously reported nodule in the lower abdomen/upper pelvis but was appreciated on December study. Postsurgical stranding mainly in the right lower abdomen with adjacent subcentimeter ileocolic lymph nodes, appear slightly prominent compared to prior. Pelvic Viscera: The bladder is distended. Uterus is retroflexed. No adnexal lesion. Lymph Nodes/Vasculature: No lymphadenopathy is evident. No large vessel occlusion is seen. Free Fluid: No free fluid Musculoskeletal and Body Wall: No suspicious osseous abnormality. Postsurgical changes are noted deep to anterior abdominal wall Procedure Note Charo Marcial MD - 06/22/2025 CLINICAL INDICATION: Colon cancer metastasized to liver TECHNIQUE: Multiple axial CT images were obtained of the chest and pelvis followingadministration of IV contrast, Omnipaque 300, 100 mL. Reformatted imagesin the coronal and sagittal planes were generated from the axial data setto facilitate diagnostic accuracy. Total DLP (Dose-Length Product): 424.15 mGy.cm (accession [id number]),424.15 mGy.cm (accession [id number]) Please note: The reported valuerepresents the total of one or more individual components during the CTacquisition on this date and at this time, and as such, the same value mayappear in more than one CT report depending on the interpreting/reportingphysicians. COMPARISON: CT from 03/06/2025 FINDINGS: Chest: Lymph Nodes and Mediastinum: There is a 12 nodule in the enlarged leftthyroid. No thoracic adenopathy is evident. Cardiovascular: There is a right internal jugular port catheterterminating at the inferior cavoatrial junction. There is cardiomegaly.Enlarged pulmonary arteries. No pulmonary embolus is seen. No great vesselstenosis. Lungs and Pleura: There is left nodular apical scar in, similar to prior.Redemonstration of gas attenuation and reticulation in the left lungbase.There is a 6 mm subpleural nodule in the right lower lobe, similar toprior (series 3, image 86). No new pulmonary nodule. No pleural effusionsor suspicious thickening. Musculoskeletal and Body Wall: No suspicious osseous abnormality Upper abdomen: .Please refer to MRI report for characterization ofabdominal findings. Pelvis: GI Tract/Mesentery/Peritoneum: .There are changes of right hemicolectomy.Postsurgical changes from interval small bowel resection with mesentericlymphadenectomy. Interval resection of the previously reported nodule inthe lower abdomen/upper pelvis but was appreciated on December.Postsurgical stranding mainly in the right lower abdomen with adjacentsubcentimeter ileocolic lymph nodes, appear slightly prominent compared toprior. Pelvic Viscera: The bladder is distended. Uterus is retroflexed. Noadnexal lesion. Lymph Nodes/Vasculature: No lymphadenopathy is evident. No large vesselocclusion is seen. Free Fluid: No free fluid Musculoskeletal and Body Wall: No suspicious osseous abnormality.Postsurgical changes are noted deep to anterior abdominal wall IMPRESSION: Chest: No evidence of metastatic disease Pelvis: No evidence of metastatic disease. CRITICAL RESULT: No. COMMUNICATION: Per this written report. Drafted by Charo Marcial MD on 06/22/2025 10:29 AM Final report signed by Charo Marcial MD on 06/22/2025 11:11 AM us Ren Saeed MD IMG CT PROCEDURES Final Resu lt * MR Abdomen w and wo IV Contrast (06/22/2025 8:46 AM EDT) Anatomical Region Laterality Modality Abdomen Magnetic Resonan ce Impressions 06/22/2025 9:01 AM EDT Stable postsurgical and postablation changes in the liver as described above. Stable postablation changes in segment 7 with no convincing evidence of residual/recurrent disease . No new suspicious liver lesions. CRITICAL RESULT: No. COMMUNICATION: Per this written report. Drafted by Mary Anne Vidal MD on 06/22/2025 8:58 AM Final report signed by Mary Anne Vidal MD on 06/22/2025 9:01 AM Narrative 06/22/2025 9:01 AM EDT CLINICAL INDICATION: Colon cancer metastasized to liver TECHNIQUE: MR imaging of the abdomen was performed with and without intravenous contrast material using the following sequences: coronal single shot T2 weighted fast spin echo, axial T2 weighted sequences with and without fat saturation, axial dual phase gradient echo, pre and dynamic postcontrast 3-D T1 weighted gradient echo with fat saturation (axial and coronal), and axial diffusion. 7.6 mL of Eovist was administered. COMPARISON: MRI scan of the abdomen 03/09/2025, 03/06/2025 CT, 01/12/2025 PET/CT, 01/02/2025 MR, 07/18/2024 FINDINGS: Liver: Volume redistribution of the liver. No significant fat or iron deposition. Redemonstration of multiple simple hepatic cysts with the largest in segment 7 measuring approximately 3.5 cm. Stable postsurgical changes from prior left lateral hepatectomy, right hemiliver resection and ablation zones in segment 7 and 4A/B. Stable postablation changes in segment 7 with the ablation zone measuring approximately 3.8 x 2.7 cm, previously 4 x 3.3 cm. There is no evidence of residual suspicious enhancement along the ablation zone margins. Unchanged arterially enhancing lesion at the hepatic dome likely representing an FNH, measuring approximately 2.5 cm (series 12 image 14). No new suspicious liver lesions to suggest metastases. Gallbladder and biliary tree: Prior cholecystectomy.. Postcholecystectomy ectasia, similar to prior. No significant intrahepatic ductal dilatation. Pancreas: Normal intrinsic signal intensity. No suspicious mass. Spleen: Similar borderline enlargement measuring 13 cm in craniocaudal dimension. No suspicious mass. Adrenal Glands: Normal morphology. Kidneys: No hydronephrosis or suspicious mass. Vasculature: Unchanged low signal intensity and likely thrombus within the posterior division of the right portal vein (series 14 image 26). Normal caliber of the abdominal aorta. The remaining portal vein, splenic vein and SMV are patent. Lymph Nodes: No suspicious adenopathy. Fluid Survey: No free fluid. Musculoskeletal: No aggressive marrow signal abnormality. Redemonstrated postsurgical changes in the ventral abdomen. Procedure Note Mary Anne Vidal MD - 06/22/2025 CLINICAL INDICATION: Colon cancer metastasized to liver TECHNIQUE: MR imaging of the abdomen was performed with and without intravenouscontrast material using the following sequences: coronal single shot [id number] fast spin echo, axial T2 weighted sequences with and without fatsaturation, axial dual phase gradient echo, pre and dynamic postcontrast3-D T1 weighted gradient echo with fat saturation (axial and coronal), andaxial diffusion. 7.6 mL of Eovist was administered. COMPARISON: MRI scan of the abdomen 03/09/2025, 03/06/2025 CT, 01/12/2025 PET/CT,01/02/2025 MR, 07/18/2024 FINDINGS: Liver: Volume redistribution of the liver. No significant fat or irondeposition. Redemonstration of multiple simple hepatic cysts with thelargest in segment 7 measuring approximately 3.5 cm. Stable postsurgicalchanges from prior left lateral hepatectomy, right hemiliver resection andablation zones in segment 7 and 4A/B. Stable postablation changes insegment 7 with the ablation zone measuring approximately 3.8 x 2.7 cm,previously 4 x 3.3 cm. There is no evidence of residual suspiciousenhancement along the ablation zone margins. Unchanged arteriallyenhancing lesion at the hepatic dome likely representing an FNH, measuringapproximately 2.5 cm (series 12 image 14). No new suspicious liverlesions to suggest metastases. Gallbladder and biliary tree: Priorcholecystectomy.. Postcholecystectomy ectasia, similar to prior. Nosignificant intrahepatic ductal dilatation. Pancreas: Normal intrinsic signal intensity. No suspicious mass. Spleen: Similar borderline enlargement measuring 13 cm in craniocaudaldimension. No suspicious mass. Adrenal Glands: Normal morphology. Kidneys: No hydronephrosis or suspicious mass. Vasculature: Unchanged low signal intensity and likely thrombus within theposterior division of the right portal vein (series 14 image 26). Normalcaliber of the abdominal aorta. The remaining portal vein, splenic veinand SMV are patent. Lymph Nodes: No suspicious adenopathy. Fluid Survey: No free fluid. Musculoskeletal: No aggressive marrow signal abnormality. Redemonstratedpostsurgical changes in the ventral abdomen. IMPRESSION: Stable postsurgical and postablation changes in the liver as describedabove. Stable postablation changes in segment 7 with no convincingevidence of residual/recurrent disease . No new suspicious liverlesions. CRITICAL RESULT: No. COMMUNICATION: Per this written report. Drafted by Mary Anne Vidal MD on 06/22/2025 8:58 AM Final report signed by Mary Anne Vidal MD on 06/22/2025 9:01 AM us Ren Saeed MD IM MRI PROCEDURES Final Res ult * ED HIV 1/2 Antibody/Antigen Screen w/Reflex to HIV 1/2 Differentiation (08/16/2023 3:29 PM EDT) HIV 1 & 2 Antibody/Antigen Screen Non Reactive Non Reactive 08/16/2023 4:35 PM EDT [facility] Comment:Screening for HIV 1 & 2 antibodies, and P24 antigen is NONREACTIVE. No confirmatory testing is required. Blood Venous blood specimen / Unknown Venipuncture / Unknown 08/16/2023 3:29 PM EDT 08/16/2023 3:53 PM EDT us Chester Lipscomb MD LAB BLOOD ORDERABLES Final Resul t Performing Organization Address [facility] de Phone Number [facility]ALTHCARE [facility] [address] [place] [address] * Hepatitis C Antibody - ED (08/16/2023 3:29 PM EDT) Hepatitis C Antibody Negative Negative 08/16/2023 4:35 PM EDT [facility] Blood Venous blood specimen / Unknown Venipuncture / Unknown 08/16/2023 3:29 PM EDT 08/16/2023 3:53 PM EDT us Chester Lipscomb MD LAB BLOOD ORDERABLES Final Resul t Performing Organization Address [facility] de Phone Number [facility] [address] [place] [address] * Colonoscopy (11/02/2022 11:43 AM EST) Anatomical Region Laterality Modality Endoscopy Narrative 11/02/2022 11:43 AM EST Table formatting from the original result was not included. Impression Overall Impression: Surveillance colonoscopy completed in the setting of right colon cancer. Initially stage II. Subsequent CT imaging consistent with patent metastatic disease. Further evaluation in progress. Colonoscopy completed. Normal. Healthy-appearing ileocolic anastomosis. No masses or lesions. Normal retroflexion. Recommendation Repeat colonoscopy in 3 years Indication Adenocarcinoma of cecum (CMS/HCC) Medications midazolam (Versed) injection 3 mg fentaNYL (Sublimaze) injection 75 mcg (Totals for administrations occurring from 1058 to 1142 on 11/02/22) Staff Staff Role Naif Del Cid RN Endo Nurse Etienne Novak MD Proceduralist Yury Patterson MD No role selected Jose Garza RN Endo Nurse Unknown Endo Nurse 1 Endo Nurse Preprocedure A history and physical has been performed, and patient medication allergies have been reviewed. The patient's tolerance of previous anesthesia has been reviewed. The risks and benefits of the procedure and the sedation options and risks were discussed with the patient. All questions were answered and informed consent obtained. Details of the Procedure The patient underwent moderate sedation, which was administered by the procedural nurse. The patient's blood pressure, heart rate, level of consciousness, oxygen and respirations were monitored throughout the procedure. A digital rectal exam was performed. A perianal exam was performed. The scope was introduced through the anus and advanced to the site of the anastomosis. Retroflexion was performed in the rectum. The quality of bowel preparation was evaluated using the [place] Bowel Preparation Scale with scores of: right colon = not assessed, transverse colon = 3, left colon = 3. The total BBPS score was 6. Bowel prep was adequate. The patient experienced no blood loss. The procedure was not difficult. The patient tolerated the procedure well. There were no apparent complications. Conscious sedation administered by myself, LISETH Novak MD; monitored and without complication. Naif Del Cid RN was independent observer. See nursing notes for details. Attestation I personally performed the entire procedure Events Procedure Events Event Event Time ENDO SCOPE IN TIME 11/02/2022 11:30 AM ENDO CECUM REACHED 11/02/2022 11:35 AM ENDO SCOPE OUT TIME 11/02/2022 11:41 AM Specimens No specimens were documented in this log. Findings Healthy ihgv-[id number] ileocolonic anastomosis in the proximal transverse colon Etienne Novak MD GI PROCEDURE ORDERABLES Final Result from Last 3 Months or Most Recently Relevant to Health Maintenance Additional Health Concerns Active Problems Noted Date Diagnosed Date Autogenerated Problem 06/11/2025 [place] [address] Advance Directives * Full Code (Latest Code Status on File) Date Activated Date Inactivated Comments 02/05/2025 11:40 AM 02/11/2025 6:49 PM * Full Code Date Activated Date Inactivated Comments 12/02/2023 9:38 AM 12/03/2023 2:36 AM Question Answer Comments Patient has decision-making capacity? Yes * Full Code Date Activated Date Inactivated Comments 08/16/2023 10:14 PM 08/19/2023 5:33 PM Question Answer Comments Patient has decision-making capacity? Yes * Full Code Date Activated Date Inactivated Comments 07/05/2023 12:48 PM 07/27/2023 5:35 PM Question Answer Comments Patient has decision-making capacity? Yes Care Teams Sheet Metal Shop Supervisor Relationship Specialty Start Date End Date Paul Arevalo MD [address] [facility] [address] [place] [address] PCP - General 04/04/21 Emerita Gao DDS [id number] [place] [address] Dentist Dentist 07/21/21 Tuyet Hogue Dentissally Dental Commercial Art Instructor 07/21/21 Suha Marshall MD [address] [phone] Medical Oncologist Medical Oncology 11/29/22
--- OUTSIDE RECORDS SUMMARY | 2025-08-28 07:52 | XMS_ITS | Encounter Summary ---
Author Organization Healthcare Address [address] [place] [address] Care Team Providers Care Technology Instructor Name Role Phone Paul Arevalo MD Primary Care Provider + [phone] Emerita Gao DDS Unavailable + Tuyet Hogue Unavailable Unavailable Suha Marshall MD Unavailable [phone] Encounter Details Date Type Department Care Team (Late st Contact Info) Description 11/12/2022 Lab Requisition [facility] [address] [place] [phone] Suha Marshall MD 800 [facility] [address] [place] [address] Malignant neoplasm of cecum (CMS/HCC) [...] Encounters Date Type Department Care Team (Late Contact Info) Description 09/25/2025 7:30 AM EST Appointment [facility] Radiology [address] [place] [address] 09/25/2025 9:20 AM EST Appointment [facility] CT [address] [place] [address] 10/02/2025 9:10 AM EST Office Visit [facility] [address] [place] [address] Ren Saeed MD 800 [facility] [address] [place] [address] 10/29/2025 10:10 AM EST Appointment [facility] [address] [place] [address] Etienne Novak MD [address] [place] [address] documented as of this encounter Procedures Procedure Name Priority Date/Time Associated Diagnosis Comments AP MISCELLANEOUS LAB TEST (SO) Routine 11/12/2022 12:00 AM EST Malignant neoplasm of cecum (CMS/HCC) documented in this encounter Results * - AP Miscellaneous Test (11/12/2022 12:00 AM EST) Test name AZ Profile-Ca ris 11/30/2022 9:23 AM EST [facility] Comment:[id number] C6 Test Result see scan 11/30/2022 9:[address] [facility] See Scanned Result 11/30/2022 9:23 AM EST [facility] Tissue 11/12/2022 11/12/2022 11: 10 AM EST us Suha Marshall MD LAB REF LAB BLOOD AND FLUID ORD Final Result [facility] [address] [place] [address] documented in this encounter Visit Diagnoses Diagnosis [...] documented as of this encounter Care Teams Technology Instructor Relationship Specialty Start Date End Date Paul Arevalo MD [address] [phone] PCP - General 04/04/21 Emerita Gao DDS [address] [facility] [address] [place] [address] Dentist Dentist 07/21/21 Tuyet Hogue Dentist Dental Professor Of Economics 07/21/21 Suha Marshall MD [address] [facility] [address] [place] [address] Medical Oncologist Medical Oncology 11/29/22 documented as of this encounter
--- OUTSIDE RECORDS SUMMARY | 2025-08-28 07:52 | XMS_ITS | Encounter Summary ---
Author Organization Healthcare Address [address] [place] [address] Care Team Providers Care Gas Analyst Name Role Phone Paul Arevalo MD Primary Care Provider + [phone] Emerita Gao DDS Unavailable + Tuyet Hogue Unavailable Unavailable Suha Marshall MD Unavailable [phone] Reason for Visit * Reason Comments Med Refill Encounter Details Date Type Department Care Team ([facility] st Contact Info) Description 09/24/2023 Refill [facility] [address] [place] [address] Ren Saeed MD [address] [phone] Social History Tobacco Use Types Packs/Day Years Used Date Smoking Tobacco: Never Passive Smoke Exposure: Never Smokeless Tobacco: Never Alcohol Use Standard Drinks/Week Comments Yes 0 (1 standard drink = 0.6 oz pur e alcohol) ocassionally, PHQ-2 Answer Date Recorded Patient Health Questionnaire-2 Score 0 09/27/2023 CAGE ASSESSMENT Answer Date Recorded Cage unable [...] drink first t kim in the morning (EYE-SLEEVE BOTTOM FELLER) to steady your nerves or to get [...] as of this encounter Functional Status * Over the past 2 weeks, how often have you been bothered by any of the following problems? Question Answer Date of Assessment Author Little interest or pleasure in doing things Not at all 09/27/2023 10:30 AM Stan Alvarez CNA Feeling down, depressed, or hopeless Not at all 09/27/2023 10:30 AM Ria Alvarez CNA Patient Health Questionnaire-2 Score 0 09/27/2023 10:30 AM Demetri Alvarez CNA documented as of this encounter Plan of Treatment Upcoming Encounters Date Type Department Care Team (Late st Contact Info) Description 09/25/2025 7:30 AM EST Appointment [facility] Radiology [address] [place] [address] 09/25/2025 9:20 AM EST Appointment [facility] CT [address] [place] [address] 10/02/2025 9:10 AM EST Office Visit [facility] Multidisciplinary Oncology Clinic [address] [place] [address] Ren Saeed MD [address] [address] 10/29/2025 10:10 AM EST Appointment [facility] End[facility] [address] [place] [phone] Etienne Novak MD [address] [place] [address] documented as of this encounter Visit Diagnoses Not on filedocumented in this encounter Additional Health Concerns Assessment Noted Time A fall risk assessment has been complete d for the patient 2023 1:35 PM EDT A Body Mass Index follow-up plan has been documented for the patient 09/22/2023 1:30 PM EDT documented as of this encounter Care Teams Gas Analyst Relationship Specialty Start Date End Date Paul Arevalo MD [address] [facility] [address] [place] [address] PCP - General 04/04/21 Emerita Gao DDS [address] [facility] [address] [place] [phone] Dentist Dentist 07/21/21 Tuyet Hogue Dentist Dental Expense Clerk 07/21/21 Suha Marshall MD [address] [facility] [address] [place] [address] Medical Oncologist Medical Oncology 11/29/22 documented as of this encounter
--- OUTSIDE RECORDS SUMMARY | 2025-08-28 07:52 | XMS_ITS | Encounter Summary ---
Author Organization Healthcare Address [address] [place] [address] Care Team Providers Care Nurse Anesthesia Program Director Name Role Phone Paul Arevalo MD Primary Care Provider + [phone] Emerita Gao DDS Unavailable + Tuyet Hogue Unavailable Unavailable Suha Marshall MD Unavailable [phone] Encounter Details Date Type Department Care Team (Late st Contact Info) Description 11/11/2022 Lab Requisition [facility] [address] [place] [id number] Suha Marshall MD 800 [facility] [address] [place] [address] Malignant neoplasm of cecum (CMS/HCC) [...] S Radiology [address], 1st [place] [address] 09/25/2025 9:20 AM EST Appointment [facility] CT [address], 2nd [place] [address] 10/02/2025 9:10 AM EST Office Visit [facility] [address] [place] [address] Ren Saeed MD [address] [address] 10/29/2025 10:10 AM EST Appointment [facility] [address] [place] [address] Etienne Novak MD [address] [place] [address] documented as of this encounter Procedures Procedure Name Priority Date/Time Associated Diagnosis Comments AP MISCELLANEOUS LAB TEST (SO) Routine 11/11/2022 12:00 AM EST Malignant neoplasm of cecum (CMS/HCC) documented in this encounter Results * - AP Miscellaneous Test (11/11/2022 12:00 AM EST) Test name Parul Lynn 12/08/2022 8:57 AM EST [facility] Comment:[id number] C6 Test Result see scan 12/08/2022 8:57 AM EST [facility] See Scanned Result 12/08/2022 8:57 AM EST [facility] Tissue 11/11/2022 11/11/2022 1:0 8 PM EST us Suha Marshall MD LAB REF LAB BLOOD AND FLUID ORD Final Result [facility] [address] [place] [address] documented in this encounter Visit Diagnoses Diagnosis [...] documented as of this encounter Care Teams Nurse Anesthesia Program Director Relationship Specialty Start Date End Date Paul Arevalo MD [address] [place] [address] PCP - General 04/04/21 Emerita Gao DDS [address] [place] [id number] Dentist Dentist 07/21/21 Tuyet Hogue Dentist Dental Disease Case Manager Rn 07/21/21 Suha Marshall MD 800 [facility] [address] [place] [id number] Medical Oncologist Medical Oncology 11/29/22 documented as of this encounter
--- OUTSIDE RECORDS SUMMARY | 2025-08-28 07:52 | XMS_ITS | Patient Health Record ---
Author Organization [facility] Address [address] [place] [id number] Care Team Providers Care Marketing Project Coordinator Name Role Phone aPul Arevalo Primary Care Provider Allergies Allergen (clinical drug ingredient) Drug/Non Drug Allergy documented on EMR Reaction Allergy Type Onset Date Status sulfamethoxazole / trimethoprim Bactrim rash Drug Allergy Active Results Component Value Reference Range Notes P-Magnesium Reviewed date:09/21/2024 10:09:15 AM Interpretation:Normal Performing Lab: Notes/Report: CLIA: [id number] Sen Tena MD, Ear Specialist [address] [place] [address] , [address], [place] [address] Test performed by [facility] Magnesium 2.2 1.6-2.4 mg/dL P-Phosphorus Reviewed date:09/21/2024 10:09:15 AM Interpretation:Normal Performing Lab: Notes/Report: Test performed by [facility] [address] [place] [address] , [address], [place] [address] Sen Tena MD, Ear Specialist CLIA: [id number] Phosphorus 3.7 2.5-4.5 mg/dL P-TSH reflex to FT4 Reviewed date:09/21/2024 10:09:15 AM Interpretation:Normal Performing Lab: Notes/Report: Test performed by [facility] [address] [place] [address] , [address], [place] [address] Sen Tena MD, Ear Specialist CLIA: [id number] TSH reflex to FT4 2.55 0.43-5.25 mU/L P-Vitamin D 25-Hydroxy Reviewed date:09/21/2024 10:09:15 AM Interpretation:25.4 Performing Lab: Notes/Report: Test performed by [facility] [address] [place], [place] [address] , [address], [place] [address] Sen Tena MD, Ear Specialist CLIA: [id number] Vitamin D 25-Hydroxy 25.4 30.0-100.0 ng/mL Interpretation [...] developed and its performance characteristics determined by [facility]. It has not been cleared or approved by the US Food and Drug Administration. This test was performed in a CLIA certified laboratory and is intended for clinical purposes. Vitamin E (Hrwu-Jcaww-Scieckples) 1.2 0.0-6.0 mg/L Performed By: [facility] [address] [place] [address] Ear Specialist: Andrei Waters MD, PhD CLIA Number: [id number] CBC Venipuncture (in house) Reviewed date:08/15/2025 01:37:41 [...] Interpretation:Normal Performing Lab: Notes/Report: Test performed by [facility] [address] [place], [place] [address] , [address], [place] [address] Sen Tena MD, Ear Specialist CLIA: [id number] Vitamin B12 199 770-8759 pg/mL P-Comprehensive Metabolic Pa laurie (CMP) Reviewed date:08/15/2025 01:37:41 PM Interpretation:alk phos 399 Performing Lab: Notes/Report: Test performed by [facility] [address] [place] [address] , [address], [place] [address] Sen Tena MD, Ear Specialist CLIA: [id number] Sodium 142 135-145 mmol/L Potassium 4.4 3.5-5.3 [...] Interpretation:Normal Performing Lab: Notes/Report: Test performed by [facility] [address] [place] [address] , [address], [place] [address] Sen Tena MD, Ear Specialist CLIA: [id number] Thyroxine Free (free T4) 1.35 0.86-1.76 ng/dL P-Iron Reviewed date:08/15/2025 01:37:41 PM Interpretation:Normal Performing Lab: Notes/Report: Test performed by [facility] [address] , [place] [address] Sen Tena MD, Ear Specialist CLIA: [id number] Iron 93 37-145 ug/dL P-TSH reflex to FT4 Reviewed date:08/15/2025 01:37:41 PM Interpretation:0.02 Performing Lab: Notes/Report: Test performed by [facility] [address] , [address], [place] [address] Sen Tena MD, Ear Specialist CLIA: [id number] TSH reflex to FT4 0.02 0.43-5.25 mU/L P-Vitamin D 25-Hydroxy Reviewed date:08/15/2025 01:37:41 PM Interpretation:40.9 Performing Lab: Notes/Report: Test performed by [facility] [address] [place] [address] , [address], [place] [address] Sen Tena MD, Ear Specialist CLIA: [id number] Vitamin D 25-Hydroxy 40.9 30.0-100.0 ng/mL Interpretation of Vitamin D 25 [place]: < 20 ng/mL - Deficiency 20 - 29 ng/mL - Insufficiency 30 - 100 ng/mL - Sufficiency > 100 ng/mL - Super-therapeutic- toxicity may occur above this level. Clinical correlation required. P-Vitamin B1 (Thiamine), Ser um/Plasma, LC/MS/MS Reviewed date:09/21/2024 10:09:15 AM Interpretation: Performing Lab: Notes/Report: Test Cancelled Test Cancelled Unable to p erform testing due to improper specimen type received P-Iron with Transferrin Satu ration Reviewed date:09/21/2024 10:09:15 AM Interpretation:15 Performing Lab: Notes/Report: Test performed by [facility] [address] [place] [address] , [address], [place] [id number] Sen Tena MD, Ear Specialist CLIA: [id number] Iron 69 37-145 ug/dL Transferrin 330 200-360 mg/dL Transferrin Saturation Percentage 15 15-50 % P-Comprehensive Metabolic Pa laurie (CMP) Reviewed date:09/21/2024 10:09:15 AM Interpretation:gluc 121, Cr 1.14, gfr 55, alk phos 124 Performing Lab: Notes/Report: Test performed by [facility] [address] [place] [address] , [address], [place] [address] Sen Tena MD, Ear Specialist CLIA: [id number] Sodium 141 135-145 mmol/L Potassium 3.9 3.5-5.3 [...] 0.7 <0.2-1.2 mg/dL A/G Ratio 1.8 1.1-2.5 Vitamin B1 (Thiamine), Blood , LC/MS/MS Reviewed [...] developed and its performance characteristics determined by [facility]. It has not been cleared or approved by the US Food and Drug Administration. This test was performed in a CLIA certified laboratory and is intended for clinical purposes. Performed By: [facility] [address] [place] [address] Ear Specialist: Andrei Waters MD, PhD CLIA Number: [id number] P-Vitamin B12 Reviewed date:09/21/2024 10:09:15 AM Interpretation:Normal Performing Lab: Notes/Report: Test performed by [facility], [address] , [facility], [place] [address] Sen Tena MD, Ear Specialist CLIA: [id number] Vitamin B12 544 552-4660 pg/mL CBC Venipuncture (in house) Reviewed date:09/12/2024 11:01:29 [...] - 38 platlet 146 100 - 400 P-Ferritin Reviewed date:09/21/2024 10:09:15 AM Interpretation:Normal Performing Lab: Notes/Report: Test performed by [facility] [address] [place] [address] , [address], [place] [address] Sen Tena MD, Ear Specialist CLIA: [id number] Ferritin 104.0 13.0-301.0 ng/mL sleep study Reviewed date:04/26/2025 07:55:03 AM Interpretation:severe ENEDINA and severe O2 desat Performing Lab: Notes/Report: severe ENEDINA and severe O2 desat Medications Medication SIG (Take, Route, Frequency, Duration) Notes Start Date End Date Status Probiotic - as directed Orally Active Lactulose 10 GM/15ML 15 mL as needed Ora lly Once a day; Duration: 30 days 08/14/2025 Active DULoxetine HCl 60 MG 1 capsule Orally On ce a day; Duration: 30 day(s) Active Pantoprazole Sodium 40 MG 1 tablet Orall y Once a day; Duration: 30 day(s) Active Ursodiol 300 MG 1 capsule Orally Twi ce a day Active CPAP machine and supplies - AutoPap 05/07 as directed G47.30 04/26/2025 Active Verapamil HCl ER 120 MG 1 tablet Orally Once a day Active Ubrelvy 100 MG 1 tablet as needed, may take second dose at least 2 hours after first dose up to 2 tablets per day as needed Orally Once a day 02/17/2025 Active Immunizations Vaccine Route Administration Date Status Comme nts Tetanus Tdap-Adacel (over 7yrs) Unknown 06/16/2021 Administered COVID 19 Moderna Unknown 11/20/2020 Administered COVID 19 Moderna Unknown 12/20/2020 Administered COVID 19 Moderna Unknown 10/10/2021 Administered Hepatitis A (adult) Unknown 09/19/2018 Administered Hepatitis A (adult) IM Intramuscular 04/10/2019 Administer ed DT, 7 YEARS OR OLDER Unknown 01/25/1997 Administered Problems Problem Type SNOMED Code ICD Code Onset Dates Problem Status W/U Status Risk Notes Problem Hyperlipidemia (35107256) Hyperlipidemia (272.4) Active confirmed Problem Vitamin D deficiency (09553336) Vitamin D deficiency (E55.9) Active confirmed Problem Obstipation (310924356) Obstipation (K59.00) Active confirmed Problem Headache (60847362) Headache above the eye region (R51) Active confirmed Problem Sciatica (67994684) Lumbago with sciatica, right side (M54.41) Active confirmed Problem Chronic pain (97644239) Other chronic pain (G89.29) Active confirmed Problem 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) (568637112) 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) Active confirmed Problem Right side sciatica (953319078290165) Sciatica, right side (M54.31) Active confirmed Problem Excessive thirst (16142140) Polydipsia (R63.1) Active confirmed Problem Thyroid nodule (880828365) Thyroid nodule (E04.1) Active confirmed Problem Displacement of lumbar intervertebral disc without myelopathy (33727030) Bulging lumbar disc (M51.26) Active confirmed Problem Iron deficiency anemia due to chronic blood loss (846107121) Iron deficiency anemia due to chronic blood loss (D50.0) Active confirmed Problem Migraine with aura (3924234) Migraine with aura and without status migrainosus, not intractable (G43.109) Active confirmed Problem Iron deficiency anemia (28211485) Iron deficiency anemia, unspecified iron deficiency anemia type (D50.9) Active confirmed Problem Malignant neoplasm of colon (540583375) Malignant neoplasm of colon, unspecified part of colon (C18.9) Active confirmed Problem Thyroid enlargement (0605941) Thyroid enlargement (E04.9) Active confirmed Problem Obese class I (finding) (173075927520076) Obesity (BMI 30.0-34.9) (E66.9) Active confirmed Problem Degenerative disc disease (24517938) DDD (degenerative disc disease), lumbar (M51.36) Active confirmed Problem Sleep apnea (23734974) Severe sleep apnea (G47.30) Active confirmed Problem Lumbosacral spondylosis without myelopathy (15740539) Facet hypertrophy of lumbar region (M47.816) Active confirmed Problem Obstructive sleep apnea syndrome (74906934) ENEDINA on CPAP (G47.33) Active confirmed Vital Signs Heart Rate 93 /min 08/14/2025 Blood pressure diastolic 70 mm Hg 08/14/2025 Height 65 in 08/14/2025 Blood pressure systolic 122 mm Hg 08/14/2025 Weight 169 lbs 08/14/2025 BMI 28.12 kg/m2 08/14/2025 Encounters Encounter Location Date Provider Diagnosis [facility] [address] [facility] [address] [place], [place] [id number] 09/11/2024 [place] Fatigue, unspecified type R53.83 ; Iron deficiency anemia, unspecified iron deficiency anemia type D50.9 and Vitamin D deficiency E55.9 [facility] [address] [place], [place] [id number] 02/17/2025 Paul [place] Migraine with aura a nd without status migrainosus, not intractable G43.109 ; Snores R06.83 and Witnessed apneic spells R06.81 [facility] [address] [facility] [address] [place], [place] [id number] 08/14/2025 Paul [place] ENEDINA on CPAP G47.33 ; Vitamin D deficiency E55.9 ; Iron deficiency anemia, unspecified iron deficiency anemia type D50.9 ; Other fatigue R53.83 ; Chronic constipation K59.09 and BMI 28.0-28.9,adult Z68.28 [facility] [address] [facility] [address] [place], [place] [id number] 08/24/2025 [place] [facility] [address] [facility] [address] [place], [place] [id number] 09/19/2024 [place] [facility] [address] [facility] [address] [place] [id number] 09/21/2024 Paul [place] [facility] [address] [facility] [address] [place], [place] [id number] 09/27/2024 Paul [place] [facility] [address] [facility] [address] [place] [id number] 09/27/2024 Paul [place] [facility] [address] [place], [place] [id number] 02/19/2025 [place] [facility] [address] [place] [id number] 02/20/2025 Paul [place] [facility] [address] [place] [id number] 04/26/2025 [place] [facility] [address] [place] [id number] 04/27/2025 [place] [facility] [address] [place], [place] [id number] 08/15/2025 Paul [place] Assessments Encounter Date Diagnosis (ICD Code) Assessment Notes Treatment Notes Treatment Clinical Notes Section Notes 09/11/2024 Fatigue, unspecified type (ICD-10 - R53.83) 09/11/2024 Iron deficiency anemia, unspecified iron deficiency anemia type (ICD-10 - D50.9) 02/17/2025 Migraine with aura and without status migrainosus, not intractable (ICD-10 - G43.109) 02/17/2025 Snores (ICD-10 - R06.83) 08/14/2025 Vitamin D deficiency (ICD-10 - E55.9) 08/14/2025 ENEDINA on CPAP (ICD-10 - G47.33) Need CPAP compliance report for [facility] 08/14/2025 Iron deficiency anemia, unspecified iron deficiency anemia type (ICD-10 - D50.9) 02/17/2025 Witnessed apneic spells (ICD-10 - R06.81) 09/11/2024 Vitamin D deficiency (ICD-10 - E55.9) 08/14/2025 Other fatigue (ICD-10 - R53.83) 08/14/2025 Chronic constipation (ICD-10 - K59.09) 08/14/2025 BMI 28.0-28.9,adult (ICD-10 - Z68.28) Plan Of Treatment No Information Insurance Providers Payer Name Payer Address Payer Phone Subscriber Number Group Number Insured Name Patient Relationship to Insured Coverage Start Date Coverage End Date [employer] [address] [place] [address] [id number] ALTHEA VILLAVICENCIO Self - patient is the insured Medications Administered Medication Instructions Date of Administration Dosage Notes B-12 09/12/2021 1 mL Morphine 07/18/2016 2 mg Phenergan 12.5 mgs. IM 04/20/2008 12.5 Phenergan 12.5 mgs. IM 07/18/2016 12.5 mL Medical (General) History Medical History History ICD Code allergic rhinitis Colon Cancer stage II, negat clair node x 14, - 2018 - Dr. Novak at , no chemo Degenerative Disc Disease, Lumbar, xray 2017, MRI 2019 Lumbar facet arthropathy Sciatica, s/p lumbar epidural March 2020 a sally Miller in [place] Metastatic disease of liver 2021, t reated at Surgical History Surgery Date(Month/Year) Blood Transfusion- 2 units 05/2019 Colonoscopy - Adenocarcinoma 06/2019 08/09/2019 RT Leg Epidural Injection - Rgiht leg Resection of Small Intestine 02/05/2025 Hospitalization History Reason Date(Month/Year) Back Pain- [facility] [place]
--- NOTE | 2025-08-28 07:53 | CT_ITS ---
FINAL REPORT TECHNIQUE: Thin section axial images are obtained through the abdomen and pelvis after intravenous contrast. Reconstruction images were obtained from the axial data. Exam was performed using dose reduction techniques. CLINICAL HISTORY: Upper abdominal pain, stage 4 colon cancer with mets to the liver COMPARISON: 09/28/2024 FINDINGS: LIVER: There are postoperative changes of partial left hepatectomy. There are several hepatic cysts. There is a new, hypervascular lesion in the posterior dome of the right hepatic lobe measuring 24 mm. There has been interval increase in size of a hypodense lesion in the posterior right hepatic lobe measuring 35 mm, previously measured 17 mm. Lesion in the anterior right hepatic lobe measures 29 mm, previously measured 22 mm. There is a new lesion in the central liver which appears to be obstructing the right biliary system. GALLBLADDER/BILIARY SYSTEM: Gallbladder is absent. SPLEEN: Enlarged measuring 14 cm. PANCREAS: Unremarkable. ADRENALS: Unchanged. KIDNEYS/URETERS/BLADDER: No hydronephrosis, renal mass, or renal stone. Unremarkable urinary bladder. GI TRACT: Small hiatal hernia. Mild wall thickening is seen of the distal stomach which could be related to distal gastritis. There is no evidence of small bowel obstruction. There are postoperative changes of both the small and large bowel. The appendix is absent. There is diverticulosis without evidence of diverticulitis. PELVIC ORGANS: Uterus is unremarkable for patient's age. LYMPH NODES/RETROPERITONEUM/MESENTERY: There has been interval increase in size of the several celiac and gastrohepatic ligament lymph nodes. For example, a gastrohepatic lymph node measures 8 mm, previously measured 5 mm. Mesenteric lymph nodes in the right lower quadrant have also increased in size. Although, they do not meet size criteria for lymphadenopathy. There is new abnormal attenuation within the omentum of the upper abdominal wall at the midline. Peritoneal metastasis not excluded. Abdominal aorta is normal in caliber. ABDOMINAL WALL: Abdominal wall is intact. FREE FLUID: No ascites. BONES: No acute osseous abnormality. IMPRESSION: 1. Progression of hepatic metastasis with new metastasis in the central liver which appear to obstruct the biliary system of the right hepatic lobe. 2. Interval increase in size and upper abdominal lymph nodes and mesenteric lymph nodes. Metastatic disease not excluded. 3. New abnormal attenuation in the omentum of the upper abdomen, peritoneal metastasis a consideration. Reviewed, Interpreted and Dictated by Lakeisha Sheth MD Transcribed by Connie Kauffman Authenticated and [facility]
--- NOTE | 2025-08-28 07:53 | CT_ITS ---
FINAL REPORT TECHNIQUE: Axial imaging of the chest is obtained after the administration of contrast. 3-D MIP reformatted images were also obtained and reviewed per PE protocol. This study was performed with techniques to keep radiation doses as low as reasonably achievable (ALARA). Individualized dose reduction techniques using automated exposure control or adjustment of mA and/or kV according to the patient's size were employed. CLINICAL HISTORY: Chest pain, hx of cancer COMPARISON: 09/27/2024 FINDINGS: The pulmonary arteries are well filled. There is no evidence of pulmonary embolus. There is no aortic dissection. Heart size is normal. Again seen is enlargement of the central pulmonary arteries suggestive of pulmonary arterial hypertension. Left thyroid nodules are unchanged. There is a right port in place. There is no mediastinal, hilar, or axillary lymphadenopathy. There is been interval improvement in ground glass opacity in the left lower lobe with resolved right lower lobe ground glass opacity. There are areas of atelectasis or scarring in the upper lobes bilaterally. No suspicious nodules are seen. There is no pleural or pericardial effusion. No acute osseous abnormality. IMPRESSION: No evidence of pulmonary embolism or aortic dissection. Findings suggestive of pulmonary arterial hypertension. Improved left and resolved right lung ground glass opacities. Reviewed, Interpreted and Dictated by Lakeisha Sheth MD Transcribed by Connie Kauffman Authenticated and [facility]
--- NOTE | 2025-08-28 07:54 | ECG_ITS ---
APPROVED REPORT Exam: Resting ECG HR:70 bpm ECG Measurements Heart Rate 70 AXES IL 155 P 77 QRSd 83 QRS 69 QT 394 T 78 QTc 414 Conclusion Normal sinus rhythm Normal axis Normal intervals No STEMI Electronically signed by : Rick Hoover, 08/28/2025 17:04:08
--- NOTE | 2025-08-28 07:58 | ED_ITS ---
Discharge Plan Disposition Patient Disposition: Xfer Other Condition: Good Prescriptions Prescriptions: No Action ursodiol 300 mg capsule 300 mg PO BID verapamil 120 mg capsule,ext rel. pellets 24 hr See Rx Instructions .ROUTE .COMPLEX Qty: 90 5RF Dose Instruction: TAKE ONE CAPSULE BY MOUTH ONCE A DAY Rx Instructions: TAKE ONE CAPSULE BY MOUTH ONCE A DAY duloxetine 60 mg capsule,delayed release(DR/EC) 60 mg PO DAILY pantoprazole 40 mg tablet,delayed release (DR/EC) 40 mg PO HS ferrous sulfate [FeroSul] 325 mg (65 mg iron) tablet 325 mg PO DAILY Probiotic Formula (inulin) 1 billion-250 cell-mg capsule 1 cap PO DAILY Referrals Follow up/Referrals: Paul Arevalo MD [Primary Care Provider, Medical] - See instructions Activity Restrictions/Add. Instructions Additional Instructions/Restrictions: Please present to the [facility] for evaluation of hepatic tumors and elevated bilirubin. Clinical Impressions Clinical Impression: Metastasis to liver, Transaminitis, Hyperbilirubinemia Stand Alone Forms Stand Alone Forms: Transfer Record - ED Print Language Print Language: Serbian Discharge ED Provider: Rick Hoover General Adult HPI General Chief complaint: Chest Pain Stated complaint: indegestion Time Seen by Provider: 08/28/25 07:46 Mode of Arrival: Ambulatory Source of Information: Patient Description of Symptoms (Recalled from ER Triage Doc. by RN): patient states she has hd pressure in her chest with excesssive burping since wednesday, she reports lastnight it got much worse with nausea but she couldnt come due to having grandkids. History of Present Illness HPI narrative: This is a 59-year-old female patient, with past medical history of supraventricular tachycardia, chronic hyponatremia, GERD, and stage IV colon cancer with mets to the liver status post colon resection, partial hepatectomy, cholecystectomy, and appendectomy, who is presenting to the emergency department today for evaluation of abdominal pain. Patient describes this pain as a pressure-like sensation in the epigastrium that radiates into the chest. She states that this pain has been going on for the last several days and significantly worsened last night. She has had associated nausea with no vomiting. She states that she has been chronically constipated and has not passed a bowel movement for the last 24 hours. She denies hematochezia or melena. No hematemesis. The pain does not radiate into her arms, neck, jaw, or back. She states that in the past she has had a small bowel obstruction necessitating NG tube decompression. Related Data Home Medications ?Medication ?Instructions ?Recorded ?Confirmed pantoprazole 40 mg tablet,delayed 40 mg PO HS 09/14/23 12/14/24 release Bacillus coagulans-inulin 1 1 cap PO DAILY 09/16/24 billion cell-250 mg capsule (Probiotic Formula (inulin)) ferrous sulfate 325 mg (65 mg 325 mg PO DAILY 09/16/24 12/14/24 iron) tablet (FeroSul) duloxetine 60 mg capsule,delayed 60 mg PO DAILY 12/14/24 release ursodiol 300 mg capsule 300 mg PO BID 12/14/2412/14 Previous Rx's ?Medication ?Instructions ?Recorded verapamil 120 mg 24 hr See Rx Instructions .Route 0 07/02/25 capsule,extended release .COMPLEX #90 caps Allergies Allergy/AdvReac Type Severity Reaction Status Date / Time Sulfa (Sulfonamide Allergy Verified 12/14/24 13:40 Antibiotics) sulfamethoxazole (From Allergy Verified 12/14/24 13:40 Bactrim) trimethoprim (From Bactrim) Allergy Verified 12/14/24 13:40 PFS PFS Disclaimer: The information contained in this section may have been updated after the patient was seen, as this information can be updated by other users. Medical History Metastatic colon cancer to liver Acute respiratory failure with hypoxia Pleural effusion on right SVT (supraventricular tachycardia) Right ventricular hypertrophy Dyspnea on exertion Tachycardia Dysrhythmia Lesion of liver Hepatic cyst Multiple pulmonary nodules Degenerative disc disease Right sided sciatica Surgical History History of cholecystectomy History of partial surgical removal of colon History of surgery of liver History of removal of both ovaries History of colonoscopy History of tubal ligation Hx of BSO (bilateral salpingo-oophorectomy) Family History Mother Pancreatic cancer Father Multiple myeloma Other Cancer Hypertension Social History Smoking Status: Never smoker alcohol intake: current alcohol intake frequency: holidays/special occasions only substance use type: denies use current occupational status: other Travel in the last 8 weeks?: None household members: spouse housing: house current occupational exposures/hazards: No caffeine: No Have you lived/traveled outside [place] in past 30 days?: No Contact w/someone who lives/traveled outside US past 30 days?: No Exposure to someone with infectious disease in past 14 days?: No Do you have a fever (greater than 100.4 F or 38 C)?: No Have you tested positive for COVID-19?: No Exposed to someone with COVID-19 in past 14 days?: No Do you have a sore throat?: No Do you have a cough?: No Do you have any weakness?: No Do you have any diarrhea?: No Are you experiencing any unusual bleeding?: No Do you have any muscle aches/pain?: No Do you have any abdominal pain?: No Are you experiencing loss of taste or smell?: No Other Medical History Have you received the Flu Vaccine for this season: No Have you received the Pneumonia Vaccine: No ROS Obtained: Yes Systems reviewed as appropriate & no additional complaints except as documented Physical Exam General General appearance: other (See MDM) Respiratory Respiratory exam: Present other (See MDM) Cardiovascular Cardiovascular exam: Present other (See MDM) Neurological Exam Neurological exam: Present other (See MDM) Medical Decision Making Medical Records Medical records reviewed: Yes I reviewed the patient's medical records. Screening: Per USPSTF and CDC recommendations, given the prevalence of disease in our region, it is our hospital?s policy to screen for HIV and viral Hepatitis for all patients aged 18 and over and those with ongoing risk factors. Ari Inquiry Pt receiving controlled substance: No Ari was queried for this patient: No Vital Signs: 08/28/25 07:45 08/28/25 08:00 08/28/25 08:30 Temperature 97.9 F Temperature Source Oral Pulse Rate 70 65 Pulse Rate [Right Radial] 77 Respiratory Rate 15 15 Blood Pressure 109/67 L 108/57 L Blood Pressure [Right Arm] 123/103 H Blood Pressure Mean [Right Arm] 109 Blood Pressure Source [Right Arm] Automatic Cuff Blood Pressure Position [Right Arm] Supine 02 Sat by Pulse Oximetry 96 96 94 L Oxygen Delivery Method Room Air Room Air 08/28/25 09:00 08/28/25 09:30 08/28/25 10:00 Temperature Temperature Source Pulse Rate 67 65 73 Pulse Rate [Right Radial] Respiratory Rate Blood Pressure 121/74 109/66 L 117/53 L Blood Pressure [Right Arm] Blood Pressure Mean [Right Arm] Blood Pressure Source [Right Arm] Blood Pressure Position [Right Arm] 02 Sat by Pulse Oximetry 96 95 96 Oxygen Delivery Method Lab Data Lab Results 08/28/25 08:00: WBC 5.7, RBC 4.76, Hgb 13.6, Hct 41.2, MCV 86.6, MCH 28.6, MCHC 33.0, RDW 12.8, Plt Count 149, MPV 12.7 H, Neut % (Auto) 73.5, Lymph % (Auto) 11.4, [place] % (Auto) 13.5 H, Eos % (Auto) 0.7, Baso % (Auto) 0.7, Neut # (Auto) 4.2, Lymph # (Auto) 0.7, [place] # (Auto) 0.8, Eos # (Auto) 0.0, Baso # (Auto) 0.0, PT 11.1, INR 1.00, Sodium 139, Potassium 4.2, Chloride 103, Carbon Dioxide 27, Anion Gap 13.2, BUN 7, Creatinine 0.80, Estimated Creat Clear 72, Estimated GFR 73, Est GFR ( Amer) 88, Glucose 115 H, Lactate 1.2, Calcium 9.7, Total Bilirubin 3.7 H, AST 95 H, ALT 94 H, Alkaline Phosphatase 507 H, Troponin I < 0.01, Total Protein 6.7, Albumin 4.1, Globulin 2.6, Albumin/Globulin Ratio 1.6, Lipase 110 08/28/25 08:00 08/28/25 08:00 Orders (Tests/Meds): ED MEDICATIONS Generic Name Dose Route Start Last Admin Trade Name Freq PRN Reason Stop Dose Admin Sodium Chloride 10 ml 08/28/25 08:40 08/28/25 08:42 Sodium Chloride 0.9% 10ml Syr (Rad Only) IV 09/27/25 08:39 10 ml NEEDED PRN Administration Maintain IV Site Discontinued Medications Generic Name Dose Route Start Last Admin Trade Name Freq PRN Reason Stop Dose Admin Lactated Ringer's 1,000 mls @ 999 mls/hr 08/28/25 07:53 08/28/25 09:47 Lactated Ringer's 1000 Ml Bag IV 08/28/25 08:53 Infused .Q1H1M ONE Infusion Iopamidol 70 ml 08/28/25 08:40 08/28/25 08:42 Iopamidol-370 (76%);100ml Bottle IV 08/28/25 08:41 70 ml ONCE ONE Administration Morphine Sulfate 4 mg 08/28/25 07:53 08/28/25 08:01 Morphine 4mg/Ml Syringe IV 08/28/25 07:54 4 mg ONCE ONE Administration Ondansetron HCl 4 mg 08/28/25 07:53 08/28/25 08:01 Ondansetron 4mg/2ml Vial IV 08/28/25 07:54 4 mg ONCE ONE Administration Sodium Chloride 50 ml 08/28/25 08:40 08/28/25 08:42 0.9 % Sodium Chloride 50 Ml Vial IV 08/28/25 08:41 50 ml ONCE ONE Administration ORDERS Category Date Time Status CT abdomen pelvis w con Stat Cat Scan 08/28/25 07:[address] angio chest PE protocol Stat Cat Scan 08/28/25 07:53 Completed CBC w/Auto Diff [Complete Blood Count Auto Diff] Stat Lab 08/28/25 08:00 Completed CMP [Comprehensive Metabolic Panel] Stat Lab 08/28/25 08:00 Completed Lactic Acid Stat Lab 08/28/25 08:00 Completed Lipase Stat Lab 08/28/25 08:00 Completed PT INR [Prothrombin Time INR] Stat Lab 08/28/25 08:00 Completed Troponin I Q3H Lab 08/28/25 11:00 Ordered Troponin I Q3H Lab 08/28/25 14:00 Ordered Troponin I Stat Lab 08/28/25 08:00 Completed Medical Decision Narrative: In summary, this is a 59-year-old female patient who is presenting to the emergency department today for evaluation of epigastric abdominal pain radiating into the chest that is characterized as a pressure-like sensation. She has associated constipation and nausea. Comorbidities include a past medical history of supraventricular tachycardia, chronic hyponatremia, and stage IV colon cancer with mets to the liver status post partial colectomy, partial hepatectomy, cholecystectomy, and appendectomy. On initial evaluation of the patient they were resting comfortably in no acute distress and nontoxic in appearance. They are hemodynamically stable, saturating well room air, and are neurologically intact. On physical examination her heart and lungs are clear to auscultation bilaterally. She has focal tenderness in the right upper quadrant and epigastric region. She has no lower extremity erythema or edema. Mucous membranes appear somewhat dry. Differential diagnosis includes acute coronary syndrome, myocardial infarction, pulmonary embolism, dissection, gastritis, esophagitis, pancreatitis, intra- abdominal abscess, small bowel obstruction, among others. Initial workup included hematologic labs as well as a CT pulmonary embolism study and a CT scan of the abdomen pelvis with IV contrast. Initial interventions included milligrams of morphine and 4 mg of Zofran and 1 L of lactated Ringer's. EKG was obtained and was personally interpreted by me and demonstrates normal sinus rhythm with a rate of 70 bpm, normal axis, no CO prolongation, narrow QRS, no QTc prolongation. No ST elevation or depression. No overt signs of ischemia or arrhythmia. Labs were personally interpreted by me and demonstrated no leukocytosis or transfusional anemia. PT/INR is normal. CMP demonstrates no electrolyte derangements or acute kidney injury. The patient does have a transaminitis with an AST/ALT of 95/94. Alkaline phosphatase is increased from 288-507. Her baseline bilirubin is 0.9 and today her bilirubin is 3.7. Troponin is less than 0.01 which suggest against myocardial ischemia. CTA of the chest was personally interpreted by me and demonstrates no saddle pulmonary embolus. Official radiology read is in agreement and states the patient does have findings suggestive of pulmonary arterial hypertension with improved and resolved ground glass opacities in the lung. CT scan of the abdomen and pelvis was interpreted by radiology and demonstrates progression of numerous hepatic metastases. There is a new lesion in the right hepatic lobe measuring 24 mm, an old lesion measuring 35 mm which previously measured 17 mm and an additional new lesion that measures 29 mm which is increased in size from 22 mm. These lesions seem to be obstructing the biliary system of the right hepatic lobe. CT findings are likely contributing to her hyperbilirubinemia and transaminitis and elevation of alk phos. Given these findings I feel that this patient necessitates higher level of care. She follows with [facility] as well as Dr. Saeed of surgical oncology at . She is not currently on chemotherapy, immunotherapy, or radiation therapy. I have had an interactive discussion with the transfer center at the [facility]. I spoke to a nurse practitioner in [place] who graciously agreed to accept the patient for transfer to the [facility] emergency department. Following this I had a long conversation with the patient about her condition and she acknowledges understanding of her condition. She has specifically requested that we not transport her by ambulance. She feels very strongly that she would like to be transferred by privately owned vehicle. At this time she is not demonstrating any hemodynamic instability or signs of sepsis so I feel that this is a reasonable formal transport. Patient left the hospital to transfer herself by privately owned vehicle to the [facility] for further evaluation Critical Care Critical Care Time Critical Care Time: No
[2025-08-28] MEDS: ONDANSETRON 4MG/2ML VIAL 4 MG IV (08:01)
[2025-08-28] MEDS: MORPHINE 4MG/ML SYRINGE 4 MG IV (08:01)
[2025-08-28] MEDS: LACTATED RINGERS 1000ML 1,000 ML 999 ML IV (08:01)
[2025-08-28 08:13] LABS: Hematocrit 41.2 % (37.0-47.0); Hemoglobin 13.6 g/dL (12.2-16.2); Immature Granulocytes % 0.2 %; Mean Corpuscular HGB Conc 33.0 g/dL (31.8-35.4); Mean Corpuscular Hemoglobin 28.6 pg (27.0-31.2); Mean Corpuscular Volume 86.6 fl (81-99); Nucleated Red Blood Cells % 0 %; Platelet Count 149 K/mm3 (142-424); Red Blood Count 4.76 M/mm3 (4.20-5.40); Red Cell Distribution Width-SD 40.7 fL; White Blood Count 5.7 K/mm3 (4.8-10.8)
[2025-08-28 08:27] LABS: Alanine Aminotransferase 94 U/L (12-78); Albumin Level 4.1 g/dl (3.5-5.0); Albumin/Globulin Ratio 1.6 (1.1-1.8); Alkaline Phosphatase 507 U/L (38-126); Anion Gap 13.2 mEq/L (5-15); Aspartate Amino Transferase 95 U/L (14-36); Bilirubin,Total 3.7 mg/dl (0.2-1.3); Blood Urea Nitrogen 7 mg/dl (7-17); Calcium 9.7 mg/dl (8.4-10.2); Carbon Dioxide 27 mmol/L (22.0-30.0); Chloride 103 mmol/L (98-107); Creatinine Clearance Estimated 72 mL/min (50-200); Creatinine,Serum 0.80 mg/dl (0.52-1.04); Estimated Glomerular Filt Rate 73 ml/min (>60); GFR (African American) 88 ML/MIN (>60); Globulin 2.6 g/dL (1.3-3.2); Glucose 115 mg/dl (74-100); Lipase 110 U/L (23-300); Potassium 4.2 mmoL/L (3.5-5.1); Sodium 139 mmol/L (136-145); Total Protein,Serum 6.7 g/dl (6.3-8.2)
[2025-08-28 08:39] LABS: Troponin I < 0.01 ng/ml (0.00-0.034)
[2025-08-28] MEDS: IOPAMIDOL-370 (76%);100ML BOTTLE 70 ML IV (08:42)
[2025-08-28] MEDS: SODIUM CHLORIDE 0.9% 10ML SYR (RAD ONLY) 10 ML IV (08:42)
[2025-08-28] MEDS: 0.9 % SODIUM CHLORIDE 50 ML VIAL IV (08:42)
[2025-08-28 08:44] LABS: INR 1.00 (0.9-1.1); Prothrombin Time 11.1 seconds (10.1-12.5)
--- NOTE | 2025-08-28 10:05 | PC.NURSE ---
Called [facility] for possible transfer, images have been powershared
== END 2025-08-28 10:39 | disposition other institution (70) ==
PROVIDERS: Emergency Provider Student in an Organized Health Care Education/Training Program; PCP Family Medicine
DX: R10.13 Epigastric pain (principal); R74.01 Elevation of levels of liver transaminase levels; E80.6 Other disorders of bilirubin metabolism; R74.8 Abnormal levels of other serum enzymes; C18.9 Malignant neoplasm of colon, unspecified; C78.7 Secondary malignant neoplasm of liver and intrahepatic bile duct
CPT/HCPCS: 71275; 74177; 80053; 83605; 83690; 84484; 85025; 85610; 93005; 96361; 96374; 96375; 99285; J2270; J2405; J7120; Q9967

== ENCOUNTER 2025-09-08 00:28 | Emergency (ER) | payer BC, SELFPAY ==
--- OUTSIDE RECORDS SUMMARY | 2024-04-18 07:45 | XMS_ITS ---
Author Organization [facility] Address [address] [place] [id number] Care Team Providers Care Endoscopy Specialty Technician Name Role Phone Paul Arevalo Primary Care Provider Allergies Allergen (clinical drug ingredient) Drug/Non Drug Allergy documented on EMR Reaction Allergy Type Onset Date Status sulfamethoxazole / trimethoprim Bactrim rash Drug Allergy Active Results Component Value Reference Range Notes CBC Fingerstick (in house) Reviewed date:04/18/2024 04:29:42 PM Interpretation: Performing Lab: Notes/Report: wbc 5.4 3.5 - 10 lym 24.3 15 - 50 mid 5.7 2 - 15 gran 70.0 35 - 80 rbc 4.74 3.5 - 5.5 hgb 10.8 11.5 - 16.5 hct 34.8 35 - 55 mcv 73.3 75 - 100 mch 22.8 25 - 35 mchc 31.1 31 - 38 plat 211 100 - 400 REASON FOR VISIT Possible pneumonia Medications Medication SIG (Take, Route, Frequency, Duration) Notes Start Date End Date Status Cefdinir 300 MG 1 cap(s) Orally Two times a day; Duration: 7 days 04/18/2024 Active Zithromax Tri-Gabe 500 MG 1 tablet Orally once daily; Duration: 3 day(s) 04/18/2024 Active DULoxetine HCl 60 MG 1 capsule Orally Once a day; Duration: 30 day(s) Active Pantoprazole Sodium 40 MG 1 tablet Orally Once a day; Duration: 30 day(s) Active Ursodiol 300 MG 1 capsule Orally Twice a day Active Metoprolol Succinate 25 MG 1 capsule Orally Once a day pt takes half tablet for 12.5 mg Active Probiotic - as directed Orally Active Vital Signs Blood pressure systolic 88 mm Hg 04/18/20 24 Blood pressure diastolic 54 mm Hg 024 Heart Rate 88 /min 04/18/2024 Height 65 in 04/18/2024 Weight 137.6 lbs 04/18/2024 BMI 22.90 kg/m2 04/18/2024 Encounters Encounter Location Date Provider Diagnosis [facility] [address] [place] [id number] 04/18/2024 Paul Arevalo Pneumonia of left lo wer lobe due to infectious organism J18.9 Assessments Encounter Date Diagnosis (ICD Code) Assessment Notes Treatment Notes Treatment Clinical Notes Section Notes 04/18/2024 Pneumonia of left lower lobe due to infectious organism (ICD-10 - J18.9) Plan Of Treatment Medication Medication Name Sig Start Date Stop Date Notes Cefdinir 300 MG 1 cap(s) Orally Two times a day; Duration: 7 days 04/18/2024 Zithromax Tri-Gabe 500 MG 1 tablet Orally once daily; Duration: 3 day(s) 04/18/2024 Next Appt Details Follow Up: via phone to repo rt progress, Reason: Progress Notes * ERIC GRAJEDAB:1965 (59 yo F)Acc No.[id number]:04/18/2024 Progress Notes Patient: ALTHEA CHEN Provider: Thomas Arevalo M.D. :1965 A ge:58 Y S ex:Female Date:04/18/2024 Address:[address] [place], [place] [address], [id number] Subjective: * Chief Complaints: * 1 . Possible pneumonia. * HPI: E NT/respiratory: 58 year old female presents with c/o cough P t complains of ongoing greenish yellow sputum production cough after being on abx for 5 days. Pt states she saw Dr. Hollingsworth 04/11 and had some scans done, pt states she was told that she has pneumonia in lt lung and if she was not feeling better after 5 days of Levaquin to see PCP. * ROS: D ERMATOLOGY: no R supriya. n o H matthew. G ASTROENTEROLOGY: no N ausea. n o V omiting. U ROLOGY: no D ifficulty urinating. n o B lood in urine. * Medical History: A llergic rhinitis, Colon Cancer stage II, negative node x 14, - 2018 - Dr. Novak at , no chemo, Degenerative Disc Disease, Lumbar, xray 2017, MRI 2019, Lumbar facet arthropathy, Sciatica, s/p lumbar epidural March 2020 at [facility] in [place]. * Surgical History: B lood Transfusion- 2 units 05/2019, Colonoscopy - Adenocarcinoma 06/2019, [place] - 08/09/2019, Epidural Injection - Rgiht leg 03/2020. * Hospitalization/Major Diagno stic Procedure: B ack Pain- [facility] [place] 07/2018. * Family History: F ather: alive, hypertension. M other: alive, hypertension, gall bladder disease. P aternal Grand Father: . P aternal Grand Mother: . M aternal Grand Father: . M aternal Grand Mother: . 2 sister(s) . 1 son(s) , 1 daughter(s) . . * Social History: C URRENT TOBACCO USE S moking Status: Patient does NOT smoke, Second hand smoke exposure: No. C affeine: yes, frequency:daily. Exercise: yes. Home smoke detector use: yes. Marital Status: . New since last visit: none. Occupation: yes. Past smoking status: no. Occup. exposure: none. Recreational drug use: no. Alcohol: Type: , Frequency: ,Years: , Determination:yes sometimes. Sexually active: yes. Travel ouside [place]: no. * Medications: T aking Probiotic - Tablet Delayed Release as directed Orally , Taking Metoprolol Succinate 25 MG Capsule ER 24 Hour Sprinkle 1 capsule Orally Once a day , Notes to Pharmacist: pt takes half tablet for 12.5 mg, Taking Ursodiol 300 MG Capsule 1 capsule Orally Twice a day , Taking Pantoprazole Sodium 40 MG Tablet Delayed Release 1 tablet Orally Once a day , Taking DULoxetine HCl 60 MG Capsule Delayed Release Particles 1 capsule Orally Once a day , Discontinued Macrobid 100 MG Capsule 1 capsule with food Orally every 12 hrs , Medication List reviewed and reconciled with the patient * Allergies: B actrim: rash - Allergy. Objective: * Vitals: W t:137.6, Temp:98.0, BP:88/54, HR:88, O2 Sat:99% on RA, Nurse:gill, Ht: 65, BMI:22.90. * Examination: E NT/Respiratory: General Appearance: N AD. H eart : R RR, normal S1 S2. L ungs: c lear to auscultation bilaterally. Assessment: * Assessment: 1. P neumonia of left lower lobe due to infectious organism - J18.9 (Primary) Plan: * Treatment: Value Reference Range w bc 5.4 3.5 - 10 * l ym 24.3 15 - 50 * m id 5.7 2 - 15 * g ran 70.0 35 - 80 * r bc 4.74 3.5 - 5.5 * h gb 10.8 11.5 - 16.5 * h ct 34.8 35 - 55 * m cv 73.3 75 - 100 * m ch 22.8 25 - 35 * m chc 31.1 31 - 38 * p lat 211 100 - 400 * Arline Etienne 04/18/2024 12:12:1 9 PM > , Provider reviewed results while patient in office. * Procedure Codes: 9 4760 [place], [address] CAPILLARY BLOOD DRAW, 72058 CBC WITH AUTO DIFF * Follow Up: v ia phone to report progress * Images: Billing Information: * Visit Code: 07593 Office Visit, Est Pt., Level 3. * Procedure Codes: [address] [place]. [address] CAPILLARY BLOOD DRAW. 93162 CBC WITH AUTO DIFF. * Electronic signature of Francine Arevalo MD on 09/08/2025 at 12:34 AM EDT Sign off status: Pending * Provider: Thomas Arevalo M.D. Date: 0 04/18/2024 Generated for Alicia bardales/Jad/Esa on: 12:34 AM EDT History and Physical Notes * HPI (History of Present Illness) Category Sub-Category Detail Notes Category Not es ENT/respiratory cough Pt complains of ongoing greenish yellow sputum production cough after being on abx for 5 days. Pt states she saw Dr. Hollingsworth 05/21 and had some scans done, pt states she was told that she has pneumonia in lt lung and if she was not feeling better after 5 days of Levaquin to see PCP Examination Category Sub-Category Detail Notes Category Not es ENT/Respiratory Heart : RRR, normal S1 S2 Lungs: clear to auscultatio n bilaterally General Appearance: NAD
--- OUTSIDE RECORDS SUMMARY | 2024-09-11 11:45 | XMS_ITS ---
Author Organization [facility] Address [address] [place] [id number] Care Team Providers Care Coal Getter Name Role Phone Paul Arevalo Primary Care Provider [phone] Allergies Allergen (clinical drug ingredient) Drug/Non Drug Allergy documented on EMR Reaction Allergy Type Onset Date Status sulfamethoxazole / trimethoprim Bactrim rash Drug Allergy Active Results Component Value Reference Range Notes CBC Venipuncture (in house) Reviewed date:09/12/2024 11:01:29 AM Interpretation: Performing Lab: Notes/Report: wbc 6.1 3.5 - 10 lymph 21.5% 15 - 50 mid 6.5% 2 - 15 gran 72.0% 35 - 80 rbc 5.11 3.5 - 5.5 hgb 13.8 11.5 - 16.5 hct 42.6 35 - 55 mcv 83.4 75 - 100 mch 27.1 25 - 35 mchc 32.4 31 - 38 platlet 146 100 - 400 P-Vitamin B12 Reviewed date:09/21/2024 10:09:15 AM Interpretation:Normal Performing Lab: Notes/Report: Test performed by [facility], [address] , [address], [place] [address] Sen Tena MD, Medical Technologist Chemistry CLIA: [id number] Vitamin B12 807 121-7033 pg/mL Vitamin B1 (Thiamine), Blood , LC/MS/MS Reviewed date:09/21/2024 10:09:15 AM Interpretation:199 Performing Lab: Notes/Report: Vitamin B1 (Thiamine), Blood, LC/MS/MS 199 70-180 nmol/L INTERPRETIVE INFORMATION: Vitamin B1, Whole Blood This assay measures the concentration of thiamine diphosphate (TDP), the primary active form of vitamin B1. Approximately 90 percent of vitamin B1 present in whole blood is TDP. Thiamine and thiamine monophosphate, which comprise the remaining 10 percent, are not measured. This test was developed and its performance characteristics determined by [facility]. It has not been cleared or approved by the US Food and Drug Administration. This test was performed in a CLIA certified laboratory and is intended for clinical purposes. Performed By: [facility] [address] [place] [id number] Medical Technologist Chemistry: Andrei Waters MD, PhD CLIA Number: [id number] P-Comprehensive Metabolic Pa laurie (CMP) Reviewed date:09/21/2024 10:09:15 AM Interpretation:gluc 121, Cr 1.14, gfr 55, alk phos 124 Performing Lab: Notes/Report: Test performed by [facility] [address] [place], [place] [email or web address], [place] [address] Sen Tena MD, Medical Technologist Chemistry CLIA: [id number] Sodium 141 135-145 mmol/L Potassium 3.9 3.5-5.3 mmol/L Chloride 103 97-108 mmol/L CO2 27 22-32 mmol/L Glucose 121 65-99 mg/dL BUN 17 8-23 mg/dL Creatinine 1.14 0.50-1.00 mg/dL Calcium 10.1 8.6-10.4 mg/dL eGFR by Creatinine 55 >59 mL/min/1.73m2 Protein 7.4 6.0-8.3 g/dL Albumin 4.8 3.5-5.3 g/dL Alkaline Phosphatase 124 35-121 IU/L ALT (SGPT) 19 <5-47 IU/L AST (SGOT) 23 <5-40 IU/L Bilirubin, Total 0.7 <0.2-1.2 mg/dL A/G Ratio 1.8 1.1-2.5 P-Iron with Transferrin Satu ration Reviewed date:09/21/2024 10:09:15 AM Interpretation:15 Performing Lab: Notes/Report: Test performed by [facility] [address] [place], [place] [email or web address] [address] Sen Tena MD, Medical Technologist Chemistry CLIA: [id number] Iron 69 37-145 ug/dL Transferrin 330 200-360 mg/dL Transferrin Saturation Percentage 15 15-50 % P-Ferritin Reviewed date:09/21/2024 10:09:15 AM Interpretation:Normal Performing Lab: Notes/Report: Test performed by [facility] [address] , [facility], [place] [address] Sen Tena MD, Medical Technologist Chemistry CLIA: [id number] Ferritin 104.0 13.0-301.0 ng/mL P-Magnesium Reviewed date:09/21/2024 10:09:15 AM Interpretation:Normal Performing Lab: Notes/Report: Test performed by [facility] [address] , [place] [address] Sen Tena MD, Medical Technologist Chemistry CLIA: [id number] Magnesium 2.2 1.6-2.4 mg/dL P-Phosphorus Reviewed date:09/21/2024 10:09:15 AM Interpretation:Normal Performing Lab: Notes/Report: Test performed by [facility] [address] [place] [address] , [facility] [place] [address] Sen Tena MD, Medical Technologist Chemistry CLIA: [id number] Phosphorus 3.7 2.5-4.5 mg/dL P-TSH reflex to FT4 Reviewed date:09/21/2024 10:09:15 AM Interpretation:Normal Performing Lab: Notes/Report: Test performed by [facility] [address] , [facility] [place] [address] Sen Tena MD, Medical Technologist Chemistry CLIA: [id number] TSH reflex to FT4 2.55 0.43-5.25 mU/L P-Vitamin D 25-Hydroxy Reviewed date:09/21/2024 10:09:15 AM Interpretation:25.4 Performing Lab: Notes/Report: Test performed by [facility] [address] [place] [address] , [facility] [place] [address] Sen Tena MD, Medical Technologist Chemistry CLIA: [id number] Vitamin D 25-Hydroxy 25.4 30.0-100.0 ng/mL Interpretation of Vitamin D 25 OH: < 20 ng/mL - Deficiency 20 - 29 ng/mL - Insufficiency 30 - 100 ng/mL - Sufficiency > 100 ng/mL - Super-therapeutic- toxicity may occur above this level. Clinical correlation required. P-Vitamin E, Serum or Plasma Reviewed date:09/21/2024 10:09:15 AM Interpretation:Normal Performing Lab: Notes/Report: Vitamin E (Alpha-Tocopherol) 7.0 5.5-18.0 mg/L This test was developed and its performance characteristics determined by [facility]. It has not been cleared or approved by the US Food and Drug Administration. This test was performed in a CLIA certified laboratory and is intended for clinical purposes. Vitamin E (Asec-Bgqmw-Qnoqjngkqg) 1.2 0.0-6.0 mg/L Performed By: [facility] [address] [place] [id number] Medical Technologist Chemistry: Andrei Waters MD, PhD CLIA Number: [id number] P-Vitamin B1 (Thiamine), Ser um/Plasma, LC/MS/MS Reviewed date:09/21/2024 10:09:15 AM Interpretation: Performing Lab: Notes/Report: Test Cancelled Test Cancelled Unable to p erform testing due to improper specimen type received REASON FOR VISIT tired no energy Medications Medication SIG (Take, Route, Frequency, Duration) Notes Start Date End Date Status Ferrous Sulfate 325 (65 Fe) MG 1 tablet Orally bid Active Probiotic - as directed Orally Active Ursodiol 300 MG 1 capsule Orally Twi ce a day Active Pantoprazole Sodium 40 MG 1 tablet Orall y Once a day; Duration: 30 day(s) Active Metoprolol Succinate 25 MG 1 capsule Ora lly Once a day Active Feosol Bifera 28 MG 1 tablet Orally Once a day; Duration: 90 days 09/11/2024 Active DULoxetine HCl 60 MG 1 capsule Orally On ce a day; Duration: 30 day(s) Active Problems Problem Type SNOMED Code ICD Code Onset Dates Problem Status W/U Status Risk Notes Problem Iron deficiency anemia (06380475) Iron deficiency anemia, unspecified iron deficiency anemia type (D50.9) Active confirmed Vital Signs Blood pressure systolic 118 mm Hg 09/11/20 24 Blood pressure diastolic 78 mm Hg 024 Heart Rate 70 /min 09/11/2024 Height 65 in 09/11/2024 Weight 154 lbs 09/11/2024 BMI 25.62 kg/m2 09/11/2024 Encounters Encounter Location Date Provider Diagnosis [facility] [address] [place] [id number] 09/11/2024 Paul Arevalo Fatigue, unspecified type R53.83 ; Iron deficiency anemia, unspecified iron deficiency anemia type D50.9 and Vitamin D deficiency E55.9 Assessments Encounter Date Diagnosis (ICD Code) Assessment Notes Treatment Notes Treatment Clinical Notes Section Notes 09/11/2024 Fatigue, unspecified type (ICD-10 - R53.83) 09/11/2024 Iron deficiency anemia, unspecified iron deficiency anemia type (ICD-10 - D50.9) 09/11/2024 Vitamin D deficiency (ICD-10 - E55.9) Plan Of Treatment Medication Medication Name Sig Start Date Stop Date Notes Feosol Bifera 28 MG 1 tablet Orally Once a day; Duration: 90 days 09/11/2024 Next Appt Details Follow Up: via phone to repo rt test results, Reason: Progress Notes * DEDE GRAJEDAMIRYAMB:1965 (59 yo F)Acc No.[id number]:09/11/2024 Progress Notes Patient: ALTHEA CHEN Provider: Thomas Arevalo M.D. :1965 A ge:58 Y S ex:Female Date:09/11/2024 Address:[address] [place], [place] [id number] Subjective: * Chief Complaints: * 1 . Tired no energy. * HPI: E ndocrinology: 58 year old female presents with c/o Fatigue P t complains of being tired all the time . States she noticed it worsening about 2 weeks ago. Pt states that she has a hx of anemia and would like to have some labs drawn today. * ROS: D ERMATOLOGY: no R supriya. [...] Sciatica, s/p lumbar epidural March 2020 at [facility] in [place], Metastatic disease of liver 2021, treated at . * Surgical History: B lood Transfusion- 2 units 05/2019, Colonoscopy - Adenocarcinoma 06/2019, [facility] - 08/09/2019, Epidural Injection - Rgiht leg 03/2020. * Hospitalization/Major Diagno stic Procedure: [place] [facility] [place] * Family History: F ather: alive, [...] ouside US: no. * Medications: T aking Ferrous Sulfate 325 (65 Fe) MG Tablet 1 tablet Orally bid , Taking Probiotic - Tablet Delayed Release as directed Orally , Taking Metoprolol Succinate 25 MG Capsule ER 24 Hour Sprinkle 1 capsule Orally Once a day , Taking Ursodiol 300 MG Capsule 1 capsule Orally Twice a day , Taking Pantoprazole Sodium 40 MG Tablet Delayed Release 1 tablet Orally Once a day , Taking DULoxetine HCl 60 MG Capsule Delayed Release Particles 1 capsule Orally Once a day , Discontinued Zithromax Tri-Gabe 500 MG Tablet 1 tablet Orally once daily , Discontinued Cefdinir 300 MG Capsule 1 cap(s) Orally Two times a day , Discontinued Fluconazole 150 MG Tablet 1 tablet Orally once daily , Medication List reviewed and reconciled with the patient * Allergies: B actrim: rash - Allergy. Objective: * Vitals: W t:154, Temp:97.8, BP:118/78, HR:70, Nurse:kk, Ht: 65, BMI:25.62. * Examination: E ndocrinology: General Appearance: N AD. H EENT: u nremarkable.?Thyroid exam: n o enlargement. H eart: R SR. L ungs: c lear to auscultation.?Extremities: n o leg edema. S kin: n ormal, no rash. N eurologic Exam: I ntact, gait normal. Assessment: * Assessment: 1. F atigue, unspecified type - R53.83 (Primary) 2 . I mary deficiency anemia, unspecified iron deficiency anemia type - D50.9 3 . V itamin D deficiency - E55.9 Plan: * Treatment: Value Reference Range V itamin B12 797 714-1108 - pg/mL * Timur Marcusia 09/21/2024 10:0 9:08 AM >See phone encounter ?LAB: P-Comprehensive Metabolic Panel (CMP) (Collection Date & Time - 09/13/2024 03:40 PM)?gluc 121, Cr 1.14, gfr 55, alk phos 124* Value Reference Range A /G Ratio 1.8 1.1-2.5 - * A lbumin 4.8 3.5-5.3 - g/dL * A lkaline Phosphatase 124 H 35-121 - IU/L * A LT (SGPT) 19 <5-47 - IU/L * A ST (SGOT) 23 <5-40 - IU/L * B ilirubin, Total 0.7 <0.2-1.2 - mg/dL * B UN 17 8-23 - mg/dL * C alcium 10.1 8.6-10.4 - mg/dL * C hloride 103 97-108 - mmol/L * C O2 27 22-32 - mmol/L * C reatinine 1.14 H 0.50-1.00 - mg/dL * G lucose 121 H 65-99 - mg/dL * P otassium 3.9 3.5-5.3 - mmol/L * S odium 141 135-145 - mmol/L * P rotein 7.4 6.0-8.3 - g/dL * e GFR by Creatinine 55 L >59 - mL/min/1.73m2 * Yanna Marcus 09/21/2024 10:0 9:08 AM >See phone encounter ?LAB: P-Magnesium (Collection Date & Time - 09/13/2024 03:40 PM)?Normal* Value Reference Range M agnesium 2.2 1.6-2.4 - mg/dL * AmritYanna 09/21/2024 10:0 9:08 AM >See phone encounter ?LAB: P-Phosphorus (Collection Date & Time - 09/13/2024 03:40 PM)?Normal* Value Reference Range P hosphorus 3.7 2.5-4.5 - mg/dL * AmritYanna 09/21/2024 10:0 9:08 AM >See phone encounter ?LAB: P-TSH reflex to FT4 (Collection Date & Time - 09/13/2024 03:40 PM)? Normal* Value Reference Range T SH reflex to FT4 2.55 0.43-5.25 - mU/L * Yanna Marcus 09/21/2024 10:0 9:08 AM >See phone encounter ?LAB: P-Vitamin E, Serum or Plasma (Collection Date & Time - 09/13/2024 03:40 PM)?Normal* Value Reference Range V itamin E (Alpha-Tocopherol) 7.0 5.5-18.0 - m g/L * V itamin E (Qpjs-Lxqgp-Riwesvognh) 1.2 0.0-6.0 - mg/L * AmritYanna 09/21/2024 10:0 9:08 AM >See phone encounter 2.?Iron deficiency anemia, unspecified iron deficiency anemia type? Start Feosol Bifera Tablet, 28 MG, 1 tablet, Orally, Once a day, 90 days, 90 Tablet, Refills 0. ?LAB: CBC Venipuncture (in house) (Collection Date & Time - 09/11/2024)* Value Reference Range w bc 6.1 3.5 - 10 * l ymph 21.5% 15 - 50 * m id 6.5% 2 - 15 * g ran 72.0% 35 - 80 * r bc 5.11 3.5 - 5.5 * h gb 13.8 11.5 - 16.5 * h ct 42.6 35 - 55 * m cv 83.4 75 - 100 * m ch 27.1 25 - 35 * m chc 32.4 31 - 38 * p latlet 146 100 - 400 * Kamar Etienneira 09/11/2024 4:45:3 7 PM > ?LAB: P-Iron with Transferrin Saturation (Collection Date & Time - 09/13/2024 03:40 PM)?15* Value Reference Range I mary 69 37-145 - ug/dL * T ransferrin 330 200-360 - mg/dL * T ransferrin Saturation Percentage 15 L 15-50 - % * Yanna Marcus 09/21/2024 10:0 9:08 AM >See phone encounter ?LAB: P-Ferritin (Collection Date & Time - 09/13/2024 03:40 PM)?Normal* Value Reference Range F erritin 104.0 13.0-301.0 - ng/mL * Yanna Marcus 09/21/2024 10:0 9:08 AM >See phone encounter 3.?Vitamin D deficiency?LAB: P-Vitamin D 25-Hydroxy (Collection Date & Time - 09/13/2024 03:40 PM)? 25.4* Value Reference Range V itamin D 25-Hydroxy 25.4 L 30.0-100.0 - ng/mL * Yanna Marcus 09/21/2024 10:0 9:08 AM >See phone encounter * Labs: * L ab: Vitamin B1 (Thiamine), Blood, LC/MS/MS (Collection Date & Time - 09/13/2024 03:40 PM) 1 99 Value Reference Range V itamin B1 (Thiamine), Blood, LC/MS/MS 199 H 70 -180 - nmol/L * [facility], [facility] 2024 06:15:07 : This order was created by the Interface. Yanna Marcus 09/21/2024 10:09:08 AM >See phone encounter ?Lab: P-Vitamin B1 (Thiamine), Serum/Plasma, LC/MS/MS (Collection Date & Time - 09/13/2024 03:40PM)* Value Reference Range T est Cancelled Test Cancelled - * [facility], [facility] support 2024 06:15:07 : This order was created by the Interface. Yanna Marcus 09/21/2024 10:09:08 AM >See phone encounter * Procedure Codes: 8 5025 CBC WITH AUTO DIFF * Follow Up: v ia phone to report test results * Images: Billing Information: * Visit Code: 24145 Office Visit, Est Pt., Level 4. * Procedure Codes: 89169 CBC WITH AUTO DIFF. * Electronic signature of Francine Arevalo MD on 09/08/2025 at 12:36 AM EDT Sign off status: Pending * Provider: Thomas Arevalo M.D. Date: 1 Generated for Jamarcusi ng/Fajug/eTransmitting on: 12:36 AM EDT History and Physical Notes * HPI (History of Present Illness) Category Sub-Category Detail Notes Category Not es Endocrinology Fatigue Pt complains of being tired all the time . States she noticed it worsening about 2 weeks ago. Pt states that she has a hx of anemia and would like to have some labs drawn today Examination Category Sub-Category Detail Notes Category Not es Endocrinology HEENT: unremarkable Heart: RSR Lungs: clear to auscultatio n Extremities: no leg edema General Appearance: NAD Skin: normal, no rash Neurologic Exam: Intact, gait normal Thyroid exam: no enlargement
--- OUTSIDE RECORDS SUMMARY | 2024-11-02 07:00 | XMS_ITS ---
Author Organization [facility] Address [address] [facility] [address] [facility] [address] [place] [place] [id number] Care Team Providers Care Chief Supply Chain Officer Name Role Phone Paul Arevalo Primary Care Provider Allergies Allergen (clinical drug ingredient) Drug/Non Drug Allergy documented on EMR Reaction Allergy Type Onset Date Status sulfamethoxazole / trimethoprim Bactrim rash Drug Allergy Active REASON FOR VISIT discharge [facility] Encounters Encounter Location Date Provider Diagnosis [facility] [address] [facility] [address] [facility] [address] [place] [id number] 11/02/2024 Paul Arevalo Plan Of Treatment No Information Progress Notes * TARAS ERICB:1965 (59 yo F)Acc No.[id number]:11/02/2024 Progress Notes Patient: ALTHEA CHEN Provider: Thomas Arevalo M.D. :1965 A ge:59 Y S ex:Female Date:11/02/2024 Address:[place] [id number] Subjective: * Chief Complaints: * 1 . discharge [facility]. * HPI: H PI: 59 year old female presents with c/o Here for follow up on:?[facility] hospitalization, see pt docs. * ROS: D ERMATOLOGY: no R supriya. [...] Sciatica, s/p lumbar epidural March 2020 at [facility] in [place], Metastatic disease of liver 2021, treated at . * Surgical History: B lood Transfusion- 2 units 05/2019, Colonoscopy - Adenocarcinoma 06/2019, [facility] - 08/09/2019, Epidural Injection - Rgiht leg 03/2020. * Hospitalization/Major Diagno stic Procedure: B [place]ck Pain- [facility] [place]. * Family History: F ather: alive, [...] active: yes. Travel ouside [place]: no. * Allergies: B actrim: rash - Allergy. Objective: * Vitals: Assessment: Plan: * Treatment: * Images: Billing Information: * Visit Code: * Procedure Codes: * Electronic signature of Francine Arevalo MD on 09/08/2025 at 12:35 AM EDT Sign off status: Pending * Provider: Thomas Arevalo M.D. Date: 01/03/2024 Generated for Alicia bardales/Jad/Esa on: 12:35 AM EDT History and Physical Notes * HPI (History of Present Illness) Category Sub-Category Detail Notes Category Not es HPI Here for follow up on: [facility] hospitalizatio n, see pt docs
--- OUTSIDE RECORDS SUMMARY | 2025-02-17 06:00 | XMS_ITS ---
Author Organization [facility] Address [address] [place] [id number] Care Team Providers Care Rotating Equipment Specialist Name Role Phone Mickey Paul Primary Care Provider [phone] Allergies Allergen (clinical drug ingredient) Drug/Non Drug [...] Status Risk Notes Problem Migraine with aura (9438696) Migraine with aura and without status migrainosus, not intractable (G43.109) Active confirmed Vital Signs Blood pressure systolic 122 mm Hg 02/18/20 25 Blood pressure diastolic 72 mm Hg 025 Heart Rate 90 /min 02/17/2025 Height 65 in 02/17/2025 Weight 165.5 lbs 02/17/2025 BMI 27.54 kg/m2 02/17/2025 Encounters Encounter Location Date Provider Diagnosis [facility] [address] [place] [phone] 02/17/2025 Paul Arevalo Migraine with aura a [...] Notes * ERIC GRAJEDAB:1965 (59 yo F)Acc No.[id number]:02/17/2025 Progress Notes Patient: ALTHEA CHEN Provider: Thomas Arevalo M.D. :1965 A ge:59 Y S ex:Female Date:02/17/2025 Address:[address] [place], [place] [id number] Subjective: * Chief Complaints: * 1 . [...] Sciatica, s/p lumbar epidural March 2020 at [facility] in [place], Metastatic disease of liver 2021, treated at . * Surgical History: B lood Transfusion- 2 units 05/2019, Colonoscopy - Adenocarcinoma 06/2019, [facility] 08/09/2019, RT Leg Epidural Injection - Rgiht leg 03/2020, Resection of Small Intestine 02/05/2025. * Hospitalization/Major Diagno stic Procedure: [place] [facility] [place]. * Family History: F ather: alive, [...] I do not see anything available on [employer]. pt sts that [facility] no longer does them. sent [...] * Images: Billing Information: * Visit Code: 76692 Office Visit, Est Pt., Level 3. * Procedure Codes: 3074F SYST BP LT 130 MM HG. 3078F DIAST BP < 80 MM HG. * Electronic signature of Francine Arevalo MD on 09/08/2025 at 12:36 AM EDT Sign off status: Pending * Provider: Thomas Arevalo M.D. Date: 0 02/17/2025 Generated for Alicia bardales/Jad/eTransmitting on: 1 12:36 AM EDT History and Physical Notes [...]
--- OUTSIDE RECORDS SUMMARY | 2025-02-23 06:00 | XMS_ITS ---
Author Organization [facility] Address [address] [place] [phone] Care Team Providers Care Pastry Chef Name Role Phone Paul Arevalo Primary Care Provider [phone] REASON FOR VISIT Discharge F/U from , Discuss Order for Sleep Study Encounters Encounter Location Date Provider Diagnosis [facility] [address] [facility] [address] [place] [phone] 02/23/2025 Paul Arevalo Plan Of Treatment No Information Progress Notes * DEDE GRAJEDAMIRYAMB:1965 (59 yo F)Acc No.[id number]:02/23/2025 Progress Notes Patient: ALTHEA CHEN Provider: Thomas Arevalo M.D. :1965 A ge:59 Y S ex:Female Date:02/23/2025 Address:[place] [id number] Subjective: * Chief Complaints: * 1 . Discharge F/U from , Discuss Order for Sleep Study. * Medical History: Objective: * Vitals: Assessment: Plan: * Treatment: * Images: Billing Information: * Visit Code: * Procedure Codes: * Electronic signature of Francine Arevalo MD on 09/08/2025 at 12:35 AM EDT Sign off status: Pending * Provider: Thomas Arevalo M.D. Date: 0 02/23/2025 Generated for Alicia bardales/Jad/Esa on: 1 12:35 AM EDT
--- OUTSIDE RECORDS SUMMARY | 2025-07-26 06:30 | XMS_ITS ---
Author Organization [facility] Address [address] [facility] [facility] [address] [place] [id number] Care Team Providers Care Implant Polisher Name Role Phone Paul Arevalo Primary Care Provider [phone] Allergies Allergen (clinical drug ingredient) Drug/Non Drug Allergy documented on EMR Reaction Allergy Type Onset Date Status sulfamethoxazole / trimethoprim Bactrim rash Drug Allergy Active REASON FOR VISIT lower back pain; going into leg Encounters Encounter Location Date Provider Diagnosis [facility] [address] [place] [id number] 07/26/2025 Paul Arevalo Plan Of Treatment No Information Progress Notes * DEDE VILLAVICENCIOMIRYAMB:1965 (59 yo F)Acc No.[id number]:07/26/2025 Progress Notes Patient: ALTHEA CHEN Provider: Thomas Arevalo M.D. :1965 A ge:59 Y S ex:Female Date:07/26/2025 Address:[address] [id number] Subjective: * Chief Complaints: * 1 . Lower back pain; going into leg. * HPI: L ower back: 59 year old female presents with c/o Low Back Pain P t states she is having lower back pain that raidates down her leg. Pt states this has been going on since?. * ROS: D ERMATOLOGY: no R supriya. [...] Sciatica, s/p lumbar epidural March 2020 at [facility] in [place], Metastatic disease of liver 2021, treated at . * Surgical History: B lood Transfusion- 2 units 05/2019, Colonoscopy - Adenocarcinoma 06/2019, [facility] 08/09/2019, RT Leg Epidural Injection - Rgiht leg 03/2020, Resection of Small Intestine 02/05/2025. * Hospitalization/Major Diagno stic Procedure: B ack Pain- [facility] [place]. * Family History: F ather: alive, hypertension. M other: alive, hypertension, gall bladder disease. P aternal Grand Father: . P aternal Grand Mother: . M aternal Grand Father: . M aternal Grand Mother: . 2 sister(s) . 1 son(s) , 1 daughter(s) . . * Social History: C URRENT TOBACCO USE: No . C affeine: yes, frequency:daily. Exercise: yes. Home [...] * Provider: Thomas Arevalo M.D. Date: 0 07/26/2025 Generated for Alicia bardales/Jad/Esa on: 1 12:35 AM EDT History and Physical Notes * HPI (History of Present Illness) Category Sub-Category Detail Notes Category Not es Lower back Low Back Pain Pt states she is having lower back pain that raidates down her leg. Pt states this has been going on since
--- OUTSIDE RECORDS SUMMARY | 2025-08-14 06:30 | XMS_ITS ---
Author Organization [facility] Address [address] [place] [id number] Care Team Providers Care Water Taxi Driver Name Role Phone Paul Arevalo Primary Care Provider [phone] Allergies Allergen (clinical drug ingredient) Drug/Non Drug Allergy documented on EMR Reaction Allergy Type Onset Date Status sulfamethoxazole / trimethoprim Bactrim rash Drug Allergy Active Results Component Value Reference Range Notes CBC Venipuncture (in house) Reviewed date:08/15/2025 01:37:41 PM Interpretation:Normal Performing Lab: Notes/Report: Normal wbc 4.1 3.5 - 10 lymph 17.8% 15 - 50 mid 5.0% 2 - 15 gran 77.2% 35 - 80 rbc 4.76 3.5 - 5.5 hgb 41.5 11.5 - 16.5 hct 41.5 35 - 55 mcv 87.2 75 - 100 mch 28.9 25 - 35 mchc 33.1 31 - 38 platlet 156 100 - 400 P-Vitamin B12 Reviewed date:08/15/2025 01:37:41 PM Interpretation:Normal Performing Lab: Notes/Report: CLIA: [id number] Sen Tena MD, Piecer Up [facility] , [address], [place] [address] Test performed by [employer] Vitamin B12 001 598-1623 pg/mL P-Comprehensive Metabolic Pa laurie (CMP) Reviewed date:08/15/2025 01:37:41 PM Interpretation:alk phos 399 Performing Lab: Notes/Report: Test performed by [facility] [address] [place] [address] , [address], [place] [address] Sen Tena MD, Piecer Up CLIA: [id number] Sodium 142 135-145 mmol/L Potassium 4.4 3.5-5.3 mmol/L Chloride 105 97-108 mmol/L CO2 27 20-32 mmol/L Glucose 86 65-99 mg/dL BUN 12 8-23 mg/dL Creatinine 0.84 0.50-1.00 mg/dL Calcium 9.5 8.6-10.4 mg/dL eGFR by Creatinine 79 >59 mL/min/1.73m2 Protein 6.5 6.0-8.3 g/dL Albumin 4.3 3.5-5.3 g/dL Alkaline Phosphatase 399 35-121 IU/L ALT (SGPT) 30 <5-47 IU/L AST (SGOT) 33 <5-40 IU/L Bilirubin, Total 0.8 <0.2-1.2 mg/dL A/G Ratio 2.0 1.1-2.5 P-T4 Free (thyroxine) Reviewed date:08/15/2025 01:37:41 PM Interpretation:Normal Performing Lab: Notes/Report: Test performed by [facility] [address] [place] [address] , [place] [id number] Sen Tena MD, Piecer Up CLIA: [id number] Thyroxine Free (free T4) 1.35 0.86-1.76 ng/dL P-Iron Reviewed date:08/15/2025 01:37:41 PM Interpretation:Normal Performing Lab: Notes/Report: Test performed by [facility] [address] [place] [address] , [address], [place] [id number] Sen Tena MD, Piecer Up CLIA: [id number] Iron 93 37-145 ug/dL P-TSH reflex to FT4 Reviewed date:08/15/2025 01:37:41 PM Interpretation:0.02 Performing Lab: Notes/Report: Test performed by [facility] [address] [place] [address] , [address], [place] [address] Sen Tena MD, Piecer Up CLIA: [id number] TSH reflex to FT4 0.02 0.43-5.25 mU/L P-Vitamin D 25-Hydroxy Reviewed date:08/15/2025 01:37:41 PM Interpretation:40.9 Performing Lab: Notes/Report: Test performed by [facility] [address] [place] [address] , [address], [place] [address] Sen Tena MD, Piecer Up CLIA: [id number] Vitamin D 25-Hydroxy 40.9 30.0-100.0 ng/mL Interpretation of Vitamin D 25 OH: < 20 ng/mL - Deficiency 20 - 29 ng/mL - Insufficiency 30 - 100 ng/mL - Sufficiency > 100 ng/mL - Super-therapeutic- toxicity may occur above this level. Clinical correlation required. REASON FOR VISIT F/U CPAP machine Medications Medication SIG (Take, Route, Frequency, Duration) Notes Start Date End Date Status Lactulose 10 GM/15ML 15 mL as needed Ora lly Once a day; Duration: 30 days 08/14/2025 Active CPAP machine and supplies - AutoPap 05/07 as directed G47.30 04/26/2025 Active Verapamil HCl ER 120 MG 1 tablet Orally Once a day Active DULoxetine HCl 60 MG 1 capsule Orally On ce a day; Duration: 30 day(s) Active Pantoprazole Sodium 40 MG 1 tablet Orall y Once a day; Duration: 30 day(s) Active Ursodiol 300 MG 1 capsule Orally Twi ce a day Active Ubrelvy 100 MG 1 tablet as needed, may take second dose at least 2 hours after first dose up to 2 tablets per day as needed Orally Once a day 02/17/2025 Active Probiotic - as directed Orally Active Problems Problem Type SNOMED Code ICD Code Onset Dates Problem Status W/U Status Risk Notes Problem Obstructive sleep apnea syndrome (33248303) ENEDINA on CPAP (G47.33) Active confirmed Vital Signs Blood pressure systolic 122 mm Hg 08/14/20 25 Blood pressure diastolic 70 mm Hg 025 Heart Rate 93 /min 08/14/2025 Height 65 in 08/14/2025 Weight 169 lbs 08/14/2025 BMI 28.12 kg/m2 08/14/2025 Encounters Encounter Location Date Provider Diagnosis [facility] [address] [place] [id number] 08/14/2025 Paul Arevalo ENEDINA on CPAP G47.33 ; Vitamin D deficiency E55.9 ; Iron deficiency anemia, unspecified iron deficiency anemia type D50.9 ; Other fatigue R53.83 ; Chronic constipation K59.09 and BMI 28.0-28.9,adult Z68.28 Assessments Encounter Date Diagnosis (ICD Code) Assessment Notes Treatment Notes Treatment Clinical Notes Section Notes 08/14/2025 ENEDINA on CPAP (ICD-10 - G47.33) Need CPAP compliance report for Phuc 08/14/2025 Vitamin D deficiency (ICD-10 - E55.9) 08/14/2025 Iron deficiency anemia, unspecified iron deficiency anemia type (ICD-10 - D50.9) 08/14/2025 Other fatigue (ICD-10 - R53.83) 08/14/2025 Chronic constipation (ICD-10 - K59.09) 08/14/2025 BMI 28.0-28.9,adult (ICD-10 - Z68.28) Plan Of Treatment Medication Medication Name Sig Start Date Stop Date Notes Lactulose 10 GM/15ML 15 mL as needed Ora lly Once a day; Duration: 30 days 08/14/2025 Treatment Notes Assessment Notes ENEDINA on CPAP Need CPAP compliance report for Phuc Next Appt Details Follow Up: via phone to repo rt progress, Reason: Progress Notes * ERIC GRAJEDAB:1965 (59 yo F)Acc No.[id number]:08/14/2025 Patient: ALTHEA CHEN Provider: Thomas Arevalo M.D. :1965 A ge:59 Y S ex:Female Date:08/14/2025 Address:[address] [place], [place] [address], [id number] Subjective: * Chief Complaints: * 1 . F/U CPAP machine. * HPI: H PI: 59 year old female presents with c/o Patient is here today for?Pt here for CPAP checkup and compliance for insurance, see pt docs for report. Pt states she uses CPAP every night and she is no longer snoring but is still tired all the time . * ROS: C ONSTITUTIONAL: Fatigue yes. G ASTROENTEROLOGY: Constipation y es. * Medical History: A llergic rhinitis, Colon Cancer stage II, negative node x 14, - 2018 - Dr. Novak at , no chemo, Degenerative Disc Disease, Lumbar, xray 2017, MRI 2019, Lumbar facet arthropathy, Sciatica, s/p lumbar epidural March 2020 at [facility] in [place], Metastatic disease of liver 2021, treated at . * Surgical History: B lood Transfusion- 2 units 05/2019, Colonoscopy - Adenocarcinoma 06/2019, [facility] 08/09/2019, RT Leg Epidural Injection - Rgiht leg 03/2020, Resection of Small Intestine 02/05/2025. * Hospitalization/Major Diagno stic Procedure: B ack Pain- [facility] 07/2018. * Family History: F ather: alive, [...] ouside US: no. * Medications: T aking Verapamil HCl ER 120 MG Tablet Extended Release 1 tablet Orally Once a day , Taking Probiotic - Tablet Delayed Release as directed Orally , Taking Ursodiol 300 MG Capsule 1 capsule Orally Twice a day , Taking Pantoprazole Sodium 40 MG Tablet Delayed Release 1 tablet Orally Once a day , Taking DULoxetine HCl 60 MG Capsule Delayed Release Particles 1 capsule Orally Once a day , Taking Ubrelvy 100 MG Tablet 1 tablet as needed, may take second dose at least 2 hours after first dose up to 2 tablets per day as needed Orally Once a day , Taking CPAP machine and supplies - - AutoPap 05/07 as directed , Notes to Pharmacist: G47.30, Discontinued Methocarbamol 500 MG Tablet 1 tablet Orally every 4 hrs , Discontinued Enoxaparin Sodium 30 MG/0.3ML Solution Prefilled Syringe 0.3 mL Injection every 12 hrs , Discontinued Ferrous Sulfate 325 (65 Fe) MG Tablet 1 tablet Orally bid , Discontinued Metoprolol Succinate 25 MG Capsule ER 24 Hour Sprinkle 1 capsule Orally Once a day , Discontinued Feosol Bifera 28 MG Tablet 1 tablet Orally Once a day , Discontinued Fluconazole 100 MG Tablet 1 tablet Orally once daily , Medication List reviewed and reconciled with the patient * Allergies: B actrim: rash - Allergy. Objective: * Vitals: W t: 169, Temp: 97.9, BP: 122/70, HR: 93, Nurse: gill, Ht: 65, BMI:28.12. * Examination: G eneral Examination: General Appearance: N AD. H eart: R SR. L ungs:?clear to auscultation. P eripheral pulses: n ormal (2+) bilaterally. E xtremities:?no leg edema. Assessment: * Assessment: 1. O SA on CPAP - G47.33 (Primary) 2 . V itamin D deficiency - E55.9 ? 3 . I mary deficiency anemia, unspecified iron deficiency anemia type - D50.9 ? 4 . O ther fatigue - R53.83 5 . C hronic constipation - K59.09 & #160; 6 . B DE 28.0-28.9,adult - Z68.28 Plan: * Treatment: 2. V itamin D deficiency L AB: P-Vitamin D 25-Hydroxy (Collection Date & Time - 08/14/2025 10:22 AM) 4 0.9 Value Reference Range V itamin D 25-Hydroxy 40.9 30.0-100.0 - ng/mL * Brittny Ng 08/15/2025 01: 37:35 PM EDT > See phone encounter 3.?Iron deficiency anemia, unspecified iron deficiency anemia type?LAB: P-Iron (Collection Date & Time - 08/14/2025 10:22 AM)?Normal* Value Reference Range I mary 93 37-145 - ug/dL * Brittny Ng 08/15/2025 01: 37:35 PM EDT > See phone encounter ?LAB: CBC Venipuncture (in house) (Collection Date & Time - 08/14/2025)? Normal* Value Reference Range w bc 4.1 3.5 - 10 * l ymph 17.8% 15 - 50 * m id 5.0% 2 - 15 * g ran 77.2% 35 - 80 * r bc 4.76 3.5 - 5.5 * h gb 41.5 11.5 - 16.5 * h ct 41.5 35 - 55 * m cv 87.2 75 - 100 * m ch 28.9 25 - 35 * m chc 33.1 31 - 38 * p latlet 156 100 - 400 * Dadagertrude Yelitza 08/14/2025 1 1:47:53 AM EDT > Brittny Ng 08/15/2025 01:37:35 PM EDT > See phone encounter 4.?Other fatigue?LAB: P-Vitamin B12 (Collection Date & Time - 08/14/2025 10:22 AM)?Normal* Value Reference Range V itamin B12 890 858-9880 - pg/mL * Brittny Ng 08/15/2025 01: 37:35 PM EDT > See phone encounter ?LAB: P-Comprehensive Metabolic Panel (CMP) (Collection Date & Time - 08/14/2025 10:22 AM)?alk phos 399* Value Reference Range A /G Ratio 2.0 1.1-2.5 - * A lbumin 4.3 3.5-5.3 - g/dL * A lkaline Phosphatase 399 H 35-121 - IU/L * A LT (SGPT) 30 <5-47 - IU/L * A ST (SGOT) 33 <5-40 - IU/L * B ilirubin, Total 0.8 <0.2-1.2 - mg/dL * B UN 12 8-23 - mg/dL * C alcium 9.5 8.6-10.4 - mg/dL * C hloride 105 97-108 - mmol/L * C O2 27 20-32 - mmol/L * C reatinine 0.84 0.50-1.00 - mg/dL * G lucose 86 65-99 - mg/dL * P otassium 4.4 3.5-5.3 - mmol/L * S odium 142 135-145 - mmol/L * P rotein 6.5 6.0-8.3 - g/dL * e GFR by Creatinine 79 >59 - mL/min/1.73m2 * Brittny Ng 08/15/2025 01: 37:35 PM EDT > See phone encounter ?LAB: P-TSH reflex to FT4 (Collection Date & Time - 08/14/2025 10:22 AM)? 0.02* Value Reference Range T SH reflex to FT4 0.02 L 0.43-5.25 - mU/L * Brittny Ng 08/15/2025 01: 37:35 PM EDT > See phone encounter 5.?Chronic constipation? Start Lactulose Solution, 10 GM/15ML, 15 mL as needed, Orally, Once a day, 30 days, 450 ML, Refills1.?? * Labs: * L ab: P-T4 Free (thyroxine) (Collection Date & Time - 08/14/2025 10:22 AM) N ormal Value Reference Range T hyroxine Free (free T4) 1.35 0.86-1.76 - ng/d L * [facility], IT support 08/15/2025 08:25:06 : This order was created by the Interface. Brittny Ng 08/15/2025 01:37:35 PM EDT > See phone encounter * Procedure Codes: 8 5025 CBC WITH AUTO DIFF, 1036F TOBACCO NON-USER, 3074F SYST BP LT 130 MM HG, 3078F DIAST BP < 80 MM HG * Follow Up: v ia phone to report progress * Images: Billing Information: * Visit Code: 52091 Office Visit, Est Pt., Level 4. * Procedure Codes: 24998 CBC WITH AUTO DIFF. 1036F TOBACCO NON-USER. 3074F SYST BP LT 130 MM HG. 3078F DIAST BP < 80 MM HG. * Electronic signature of Francine Arevalo MD on 09/08/2025 at 12:34 AM EDT Sign off status: Pending * Provider: Thomas Arevalo M.D. Date: 0 08/14/2025 Generated for Jamarcusi ng/Faxing/eTransmitting on: 1 12:34 AM EDT History and Physical Notes * HPI (History of Present Illness) Category Sub-Category Detail Notes Category Not es HPI Patient is here today for Pt her e for CPAP checkup and compliance for insurance, see pt docs for report. Pt states she uses CPAP every night and she is no longer snoring but is still tired all the time Examination Category Sub-Category Detail Notes Category Not es General Examination Heart: RSR Lungs: clear to auscultatio n Extremities: no leg edema General Appearance: NAD Peripheral pulses: normal (2+) bilatera lly
--- OUTSIDE RECORDS SUMMARY | 2025-08-28 18:09 | XMS_ITS | Encounter Summary ---
Author Organization Healthcare Address [address] [place] [address] Care Team Providers Care Software Test Manager Name Role Phone Gudelia Arevalo MD Primary Care Provider + [phone] Emerita Gao DDS Unavailable + Tuyet Hogue Unavailable Unavailable Suha Marshall MD Unavailable [phone] Reason for Visit * Reason Comments Abdominal Pain * Auth/Cert (Routine) Specialty Diagnoses / Procedures Referred By Chago zavala Referred To Contact Diagnoses Abdominal pain, epigastric Hepatic METs Home Munguia MD [address] [address] Phone: tel: fax: [facility] Emergency Department [address] [place] [address] Phone: tel: Referral ID Status Reason Start Date Expiration Date Visits Re quested Visits Authorized [id number] 1 1 Encounter Details Date Type Department Care Team (Late st Contact Info) Description 08/28/2025 6:09 PM EDT - 08/30/2025 6:30 PM EDT Hospital Encounter [facility]patient [facility] [address] [place] [address] Paul Chatterjee MD [address] [place] [address] Leonard Jones MD [address] [place] [address] Home Munguia MD [address] [facility] [address] [place] [address] Ren Saeed MD [address] [address] Abdominal pain, epigastric (Primary Dx); Early satiety; Metastases to the liver Discharge Disposition: Home or Self Care Social History Tobacco Use Types Packs/Day Years Used Date Smoking Tobacco: Never Passive Smoke Exposure: Never Smokeless Tobacco: Never Alcohol Use Standard Drinks/Week Comments Not Currently 0 (1 standard drink = 0.6 oz pur e alcohol) ocassionally, PHQ-2 Answer Date Recorded Patient Health Questionnaire-2 Score 0 06/26/2025 PHQ-9 Answer Date Recorded Patient Health Questionnaire-9 Score 0 03/06/2025 Humiliation, Afraid, Rape, and Kick questionnair e Answer Date Recorded Within the last year, have y ou been afraid of your partner or ex-partner? No 08/29/2025 Within the last year, have y ou been humiliated or emotionally abused in other ways by your partner or ex-partner? No Within the last year, have y ou been kicked, hit, slapped, or otherwise physically hurt by your partner or ex-partner? No 08/29/2025 Within the last year, have y ou been raped or forced to have any kind of sexual activity by your partner or ex-partner? No 08/29/2025 Overall Financial Resource Strain (CARDIA) Answe r Date Recorded How hard is it for you to pa y for the very basics like food, housing, medical care, and heating? Not very hard 08/29/2025 Hunger Vital Sign Answer Date Recorded Within the past 12 months, y ou worried that your food would run out before you got the money to buy more. Never true 08/29/20 25 Within the past 12 months, t he food you bought just didn't last and you didn't have money to get more. Never true 08/29/2025 PRAPARE - Transportation Answer Date Re corded In the past 12 months, has l ack of transportation kept you from medical appointments or from getting medications? No 06/2025 In the past 12 months, has l ack of transportation kept you from meetings, work, or from getting things needed for daily living? No 08/29/2025 Housing Stability Vital Sign Answer Mehul e Recorded In the last 12 months, was t here a time when you were not able to pay the mortgage or rent on time? No 08/29/2025 In the past 12 months, how m any times have you moved where you were living? 0 08/29/2025 At any time in the [facility], were you homeless or living in a long term (including now)? No 08/29/2025 [facility] Utilities Answer Date Recorded In the past 12 months has th e electric, gas, oil, or water company threatened to shut off services in your home? No 08/29/2025 CAGE ASSESSMENT Answer Date Recorded Cage unable [...] drink first t kim in the morning (EYE-TERRY CLOTH CUTTER HAND) to steady your nerves or to get [...] Sign Reading Time Taken Comments Blood Pressure 128/85 08/30/2025 4:02 PM EDT Pulse 78 08/30/2025 4:02 PM EDT Temperature 37.1 C (98.7 F) 08/30/2025 4:02 PM EDT Respiratory Rate 16 08/30/2025 3:24 AM EDT Oxygen Saturation 95% 08/30/2025 4:02 PM EDT Inhaled Oxygen Concentration - - Weight 77.3 kg (170 lb 6.7 oz) 08/30/2025 4:02 P M EDT Height 165.1 cm (5' 5 ) 08/28/2025 5:21 PM EDT Body Mass Index 28.36 08/28/2025 5:21 PM EDT documented in this encounter Functional Status * Calculated C-SSRS Risk Score (Lifetime/Recent) Answer Date of Assessment Author No Risk Indicated 08/29/2025 10:00 PM EDT Meghann Payne RN * Question Answer Date of Assessment Author 1. Wish to be (Past 1 Month) No 025 10:00 PM EDT Meghann Payne RN 2. Non-Specific Active Suici binu Thoughts (Past 1 Month) No 08/29/2025 10:00 PM EDT Meghann Payne RN 6. Suicidal Behavior (Lifetime) No 10:00 PM EDT Meghann Payne RN documented as of this encounter Medications at Time of Discharge Bacillus Coagulans-Inulin (Probiotic Formula) 1-250 BILLION-MG capsule Take 1 tablet by mouth daily. 02/12/2025 ondansetron ODT (Zofran-ODT) 4 MG disintegrating tablet Dissolve 1 tablet on the tongue every 6 hours as needed for nausea or vomiting for up to 30 doses. 30 tablet 08/30/2025 pantoprazole (Protonix) 40 MG EC tablet Take 1 tablet by mouth daily. 01/05/2025 Probiotic Product (acidophilus probiotic blend) capsule Take 1 capsule by mouth daily. promethazine (Phenergan) 25 MG tablet TAKE ONE TABLET BY MOUTH EVERY 8 HOURS NEEDED FOR NAUSEA/VOMITIN G 30 tablet 05/05/2024 sodium phosphates (Osmoprep) 1.102-0.398 g tabletIndications:Alfredo wel Evacuation 10am take dose of 4 OsmoPrep tablets Q 15 w/ 8 oz. clear liquids for a total of 5 doses or 20 tablets. 6pm take dose of 4 OsmoPrep tablets Q 15 w/ 8 oz. clear liquids for a total of 3 doses or 12 tablets. 32 tablet 06/19/2025 ubrogepant (Ubrelvy) 100 MG tablet Take 1 tablet by mouth 1 (one) time each day at the same time. 02/17/2025 ursodiol (Actigall) 300 MG capsule Take 1 capsule by mouth 2 times a day. 01/05/2025 verapamil ER (Veralan PM) 120 MG 24 hr capsule Take 1 capsule by mouth nightly. 01/15/2025 oxyCODONE (Roxicodone) 5 MG immediate release tablet Take 1 tablet by mouth every 6 hours as needed for moderate pain for up to 3 days. 20 tablet 08/30/2025 documented as of this encounter Miscellaneous Notes * Nursing Note - Kaiser Lynch RN - 08/30/2025 6:30 PM EDT Patient leaving facility at this time. Patient declined need for wheelchair transportation to [facility]. All personal belongings taken from room. * Addendum Note - Hermilo Melendez - 08/30/2025 6:30 PM EDTEncounter addended by: Hermilo Melendez on: 09/06/2025 7:43 AM Actions taken: Utilization Review data saved * Addendum Note - Tiffany Ellis RN - 08/30/2025 6:30 PM EDTEncounter addended by: Tiffany Ellis RN on: 09/06/2025 5:17 PM Actions taken: Flowsheet accepted, Utilization Review saved, Utilization Review data saved * Addendum Note - Tiffany Ellis RN - 08/30/2025 6:30 PM EDTEncounter addended by: Tiffany Ellis RN on: 09/07/2025 11:13 AM Actions taken: Utilization Review data saved * Addendum Note - Ca Dos Santos - 08/30/2025 6:30 PM EDTEncounter addended by: Ca Dos Santos on: 09/07/2025 12:41 PM Actions taken: Utilization Review data saved * Nursing Note - Kaiser Lynch RN - 08/30/2025 5:07 PM EDT Discharge instructions completed with patient. Patient denies questions related to discharge plan and follow up care. Awaiting transportation arrival. * [facility] - Kaiser Lynch RN - 08/30/2025 5:03 PM EDT Images from the original note were not included. [id number] Endoscopy Unit: Caring for Yourself after an Endoscopic Retrograde Cholangiopancreatography (ERCP) What precautions do I need to take after my procedure? You will get a medicine that makes you sleep during treatment. It may affect you for the next 24 hours. ? Do not drive or go home alone. Someone must be with you until you get home. ? For 24 hours, do not make legal decisions, drive, or use dangerous equipment. ? You may continue taking your home medicines unless your doctor tells you otherwise. When can I eat or drink? You may eat as you normally would, unless otherwise told by your doctor. Start with a small amount of bland foods. Then move on to your normal foods as tolerated. Spicy or greasy foods may increase your chance of nausea due to the medicines you received during the procedure. How active can I be? You should move around as you are able. Do your normal activities if you feel you can. Sexual activity is fine unless your doctor tells you otherwise. How do I find out my biopsy results? If you had a biopsy, it may take 7-10 days for biopsy results. These results will be available in the patient portal, [facility], or you can call the doctor who ordered your procedure. When should I call the doctor? Call 911 right away or go to the nearest emergency department if you have any of these: ? Difficulty breathing ? Severe pain in the throat ? Severe pain in the chest or belly ? Vomiting that does not go away ? Fever of 101??F or higher ? Yellow skin or eyes ? Blood in your stool ? Redness or tenderness of the IV site that lasts longer than 48 hours ? Any other worrisome symptoms These may be related to a complication and need medical attention. If you do not tell your doctor, the problem may get worse. Our contact information: For the Endoscopy Provider, call and ask for the Endoscopy Fellow on-call. * [facility] Kaiser Lynch RN - 08/30/2025 5:02 PM EDT Images from the original note were not included. 1087 Oxycodone Oral Tablet, Immediate Release Brand Names: Oxaydo, Roxicodone What is this medicine? Oxycodone (qm-g-HLT-done) is an opioid pain reliever. It is used to treat moderate to severe pain. What should I tell my health care provider before I take this medicine? They need to know if you have any of these conditions: ? Whitehall's disease ? Brain tumor or head injury ? Personal or family history of drug abuse or addiction ? Heart disease ? Frequent alcohol use ? Kidney disease ? Liver disease ? Lung disease, asthma, or breathing problems ? Depression, anxiety, or other psychiatric disease ? Allergy or unusual reaction to oxycodone, acetaminophen or other pain relievers ? , trying to get , or How should I use this medicine? Take this medicine as prescribed by your doctor, and follow the directions on the prescription label. ? Take this medicine as prescribed by your doctor. Follow the directions on the prescription label. ? Do not take this medicine more often than directed. ? This medicine should be taken with a full glass of water. ? If it upsets your stomach, you may take it with food. You do not have to take this medicine with food. ? Do not crush, cut, chew, lick, wet, soak, or otherwise manipulate a tablet before taking. ? Do not share this medicine with others. This medicine is only for you. ? The pharmacy will give you a special medication guide each time you machine operator hop picker this medicine. ? Overdosage: Taking too much of this medicine can be deadly. Your doctor may prescribe another medicine with this medicine to treat an accidental overdose. If you think you have taken too much of this medicine, call 911 immediately. What if I miss a dose? If you miss a dose, you may take it as soon as you remember. If it is almost time for your next dose, take only that dose. Do not take double or extra doses. What may interact with this medicine? ? Alcohol ? Medicines for sleep, depression, anxiety, or psychiatric diseases ? Seizure medicines like gabapentin, pregabalin, phenytoin, or phenobarbital ? Other pain medicines like tramadol, hydrocodone, fentanyl, or morphine ? Muscle relaxers ? Certain nausea medicines like chlorpromazine or promethazine ? Cannabinoids like droperidol ? Certain antibiotics like erythromycin, clarithromycin, rifampin, ritonavir, voriconazole, or ketoconazole ? Allergy medicines like diphenhydramine This list may not describe all possible interactions. Give your health care provider a list of all the medicines, herbs, non-prescription drugs, or dietary supplements you use. Also tell them if you smoke, drink alcohol, or use illegal drugs. Some items may interact with your medicine. What should I watch for while using this medicine? ? Before you start taking this medicine, talk with your doctor about how long you should be on thismedicine. You should also talk to your doctor about other things you can do to treat pain, including other medicines or non-drug treatments like meditation or acupuncture. While taking this medicine,tell your doctor if your pain does not go away or gets worse or if you have a new or different typeof pain. ? It is possible you could become dependent on this medicine. The risk of dependence increases the longer you are on the medicine. Dependence is not addiction; however, if you have a personal or family history of addiction, you are at higher risk for becoming addicted to this medicine. Talk to yourdoctor if you are worried about dependence or addiction. ? If you take this medicine for a long time and suddenly stop taking this medicine, you may withdraw from this medicine. Withdrawal from this medicine may cause sweating, pain, diarrhea, anxiety, tremor, and other symptoms. Stopping the medicine slowly can reduce withdrawal symptoms. ? This medicine may cause dizziness or drowsiness, especially when you change doses or first start the medicine. Do not drive, use machinery, or do anything dangerous until you know how your body reacts to this medicine. ? This medicine causes constipation. Unless your doctor tells you not to, you should take a stool softener while on this medicine. Tell your doctor if you have not had a bowel movement in 3 or more days while on this medicine. ? This medicine can also cause dry mouth. Drinking water, chewing gum, or sucking on hard candy canhelp. It is important to keep regular dentist appointments. What side effects may I notice from receiving this medicine? Side effects that you should report to your doctor or health care specialist as soon as possible: ? allergic reactions like skin rash, itching or hives, swelling of the face, lips, or tongue ? breathing problems ? confusion ? craving for the medicine or withdrawal symptoms with a missed dose ? feeling faint or lightheaded, falls ? trouble passing urine or change in the amount of urine ? unusually weak or tired Side effects that usually do not require medical attention (report to your doctor or health care specialist if they continue or are bothersome): ? constipation ? dry mouth ? itching ? nausea, vomiting ? upset stomach This list may not describe all possible side effects. Call your doctor for medical advice about side effects. You may report side effects to FDA at 0-356-XRH-4252. Where should I keep my medicine? This medicine should be kept in a locked cabinet away from children and protected from theft. This medicine can be abused. Do not share this medicine with anyone. Selling or giving away this medicineis against the law. Store at room temperature (60-80??F) in a dry place that is protected from light. Do not save unused medicine that is no longer needed. Unused medicine should be taken to a proper disposal location. To find a disposal location, visit [employer]/[facility]/[place]. If you cannot take unused medicine to a proper location, you can mix the medicine with coffee grounds or stanton litter and dispose of in the normal trash. Your doctor may also give you a special disposal pouch for this medicine. You can also flush the medicine down the toilet. * Philip Daniel - Kaiser Lynch RN - 08/30/2025 5:02 PM EDT Images from the original note were not included. [id number] Ondansetron WHY is this medicine prescribed? Ondansetron is used to prevent nausea and vomiting caused by cancer chemotherapy, radiation therapy, and surgery. Ondansetron is in a class of medications called serotonin 5-HT3 receptor antagonists.It works by blocking the action of serotonin, a natural substance that may cause nausea and vomiting. HOW should this medicine be used? Ondansetron comes as a tablet, a rapidly disintegrating (dissolving) tablet, film, and an oral solution (liquid) to take by mouth. The first dose of ondansetron is usually taken 30 minutes before thestart of chemotherapy, 1 to 2 hours before the start of radiation therapy, or 1 hour before surgery. Additional doses are sometimes taken one to three times a day during chemotherapy or radiation therapy and for 1 to 2 days after the end of treatment. Follow the directions on your prescription label carefully, and ask your doctor or pharmacist to explain any part you do not understand. Take ondans etron exactly as directed. Do not take more or less of it or take it more often than prescribed by your doctor. Do not chew the film. If you are taking the rapidly disintegrating tablet, remove the tablet from the package just beforeyou take your dose. To open the package, do not try to push the tablet through the foil backing of the blister. Instead, use dry hands to peel back the foil backing. Gently remove the tablet and immediately place the tablet on the top of your tongue. The tablet will dissolve in a few seconds and can be swallowed with saliva. Are there OTHER USES for this medicine? This medication may be prescribed for other uses. Ask your doctor or pharmacist for more information. What SPECIAL PRECAUTIONS should I follow? Before taking ondansetron, ? tell your doctor and pharmacist if you are allergic to ondansetron, alosetron (Lotronex), dolasetron (Anzemet), granisetron (Kytril), palonosetron (Aloxi, in [place]yn[place]), any other medications, or anyof the ingredients in ondansetron products. Ask your pharmacist for a list of the ingredients. ? tell your doctor if you are receiving apomorphine (Apokyn). Your doctor will probably tell you not to take ondansetron if you are receiving this medication. ? some medications should not be taken with ondansetron. Other medications may cause dosing changesor extra monitoring when taken with ondansetron. Make sure you have discussed any medications you are currently taking or plan to take before starting ondansetron with your doctor and pharmacist. Before starting, stopping, or changing any medications while taking ondansetron, please get the advice of your doctor or pharmacist. ? tell your doctor if you or anyone in your family has or has ever had long QT syndrome (condition that increases the risk of developing an irregular heartbeat that may cause fainting or sudden ), or another type of irregular heart beat or heart rhythm problem, or if you have or have ever had low blood levels of magnesium or potassium in your blood, heart failure (HF; condition in which the heart cannot pump enough blood to other parts of the body), or liver disease. ? tell your doctor if you are , plan to become , or are breast- feeding. If you become while taking ondansetron, call your doctor. ? if you have phenylketonuria (PKU, an inherited condition in which a special diet must be followedto prevent damage to your brain that can cause severe intellectual disability), you should know that the orally disintegrating tablets contain aspartame that forms phenylalanine. What SPECIAL DIETARY instructions should I follow? Unless your doctor tells you otherwise, continue your usual diet. What should I do IF I FORGET to take a dose? Take the missed dose as soon as you remember it. However, if it is almost time for the next dose, skip the missed dose and continue your regular dosing schedule. Do not take a double dose to make up for a missed one. What SIDE EFFECTS can this medicine cause? Some side effects can be serious. If you experience any of the following symptoms, call your doctorimmediately or seek emergency medical treatment: ? blurred vision or vision loss ? rash ? hives ? itching ? swelling of the eyes, face, lips, tongue, throat, hands, feet, ankles, or lower legs ? hoarseness ? difficulty breathing or swallowing ? chest pain ? shortness of breath ? dizziness, light-headedness, or fainting ? fast, slow or irregular heartbeat ? agitation ? hallucinations (seeing things or hearing voices that do not exist) ? fever ? excessive sweating ? confusion ? nausea, vomiting, or diarrhea ? loss of coordination ? stiff or twitching muscles ? seizures ? coma (loss of consciousness) Ondansetron may cause other side effects. Call your doctor if you have any unusual problems while you are taking this medication. What should I know about STORAGE and DISPOSAL of this medication? Keep this medication in the container it came in, tightly closed, and out of reach of children. Store the tablets and rapidly disintegrating tablets away from light, at room temperature or in the refrigerator. Store the solution in the bottle upright at room temperature and away from light, excess heat, and moisture (not in the bathroom). Keep all medication out of sight and reach of children as many containers are not child-resistant. Always lock safety caps. Place the medication in a safe location - one that is up and away and out of their sight and reach. https://www.upandaway.org Dispose of unneeded medications in a way so that pets, children, and other people cannot take them.Do not flush this medication down the toilet. Use a medicine take-back program. Talk to your pharmacist about take-back programs in your community. Visit the FDA's Safe Disposal of Medicines website h ttps://goo.gl/c4Rm4p for more information. What should I do in case of OVERDOSE? In case of overdose, call the poison control helpline at . Information is also available online at https://www.poisonhelp.org/help. If the victim has collapsed, had a seizure, has trouble breathing, or can't be awakened, immediately call emergency services at 591. Symptoms of overdose may include: ? sudden loss of vision for a short time ? dizziness or lightheadedness ? fainting ? constipation ? irregular heart beat What OTHER INFORMATION should I know? Keep all appointments with your doctor. Do not let anyone else take your medication. Ask your pharmacist any questions you have about refilling your prescription. Keep a written list of all of the prescription and nonprescription (czju-pga-fxzdudp) medicines, vitamins, minerals, and dietary supplements you are taking. Bring this list with you each time you visit a doctor or if you are admitted to the hospital. You should carry the list with you in case of damon rgencies. Brand Name(s): ? Zofran?? ? Zofran?? ODT ? Zuplenz?? also available generically This report on medications is for your information only, and is not considered individual patient advice. Because of the changing nature of drug information, please consult your physician or pharmacist about specific clinical use. The [employer] represents that the information provided hereunder was formulated with a reasonable standard of care, and in conformity with professional standards in the field. The [employer] makes no representations or warranties, express or implied, including, but not limited to, any implied warranty of merchantability and/or fitness for a particular purpose, with respect to such information and specifically disclaims all such warranties. Users are advised that decisions regarding drug therapy are complex medical decisions requiring the independent, informed decision of an appropriate health care specialist, and the information is provided for informational purposes only. The entire monograph for a drug should be reviewed for a thorough understanding of the drug's actions, uses and side effects. The [employer] does not endorse or recommend the use of any drug.The information is not a substitute for medical care. AHFS?? Patient Medication Information?. ?? Copyright, 2023. The [employer]??, [address], [address], [place], [place]. All Rights Reserved. Duplication for commercial use must be authorized by [facility]. Selected Revisions: June 10, 2024. AHFS?? Patient Medication Information?. ?? Copyright, 2024 * Discharge Summary - Rick Villarreal APRN - 08/30/2025 4:56 PM EDT Hospitalization Admit Date/Time: 08/28/2025 6:09 PM Admitting Attending: Home Munguia Discharge Date: 08/30/25 Discharge Attending Physician: Ren Saeed MD PCP name and Address: Gudelia Arevalo MD [address] [facility] [address] / [place] [id number] Referring provider name and address: Rick Hoover, [address] [place] [address] Chief Concern, Brief History of Present Illness, and Hospital Course Marisa Villavicencio is a 59 y.o. female with a past medical history of metastatic colorectal adenocarcinoma s/p right colectomy in 2018 and a partial hepatectomy/microwave ablation in 2022 for liver metastases who presented to the [facility] on 08/28/2025 with 24-48 hours abdominal pain and c/f biliary o bstruction Hospital course significant for as follows: 08/29: MRCP was significant for Interval increase in bile duct dilatation in the right hemiliver likely secondary to suspected interval increase in size of a centrally located hepatic metastasis. No extrahepatic duct stricture. 08/30: GI consulted for potential ERCP. Recommending repeat scans prior to ERCP Discharge medication to highlight: - Pain medication: Patient will be discharged with Tylenol for regular daily pain management. Patient will also be prescribed oxycodone for as needed breakthrough severe pain. - Restart home meds as listed below On 08/30/25, patient has been hemodynamically stable and deemed medically appropriate for discharge.Currently, the patient's pain is well controlled on an oral regimen. They have return of bowel function and are tolerating a regular diet with no nausea/vomiting. There were no difficulties voiding. The patient will be discharged to Home. Follow-up appointments: - The patient will follow-up with Dr. Saeed in clinic 1 week after ERCP at outpatient GI. Surgeries and Procedures Medication List .. acidophilus probiotic blend capsule Take 1 capsule by mouth daily. DULoxetine [address] capsule Commonly known as: Cymbalta Take 1 capsule by mouth daily. Do not crush or chew. ondansetron ODT 4 MG disintegrating tablet Commonly known as: Zofran-ODT Dissolve 1 tablet on the tongue every 6 hours as needed for nausea or vomiting for up to 30 doses. oxyCODONE 5 MG immediate release tablet Commonly known as: Roxicodone Take 1 tablet by mouth every 6 hours as needed for moderate pain for up to 3 days. pantoprazole 40 MG EC tablet Commonly known as: Protonix Take 1 tablet by mouth daily. Probiotic Formula 1-250 BILLION-MG capsule Take 1 tablet by mouth daily. promethazine 25 MG tablet Commonly known as: Phenergan TAKE ONE TABLET BY MOUTH EVERY 8 HOURS NEEDED FOR NAUSEA/VOMITING sodium phosphates 1.102-0.398 g tablet Commonly known as: Osmoprep 10am take dose of 4 OsmoPrep tablets Q 15 w/ 8 oz. clear liquids for a total of 5 doses or 20 tablets. 6pm take dose of 4 OsmoPrep tablets Q 15 w/ 8 oz. clear liquids for a total of 3 doses or 12 tablets. Ubrelvy 100 MG tablet Generic drug: ubrogepant Take 1 tablet by mouth 1 (one) time each day at the same time. ursodiol 300 MG capsule Commonly known as: Actigall Take 1 capsule by mouth 2 times a day. verapamil ER 120 MG 24 hr capsule Commonly known as: Veralan PM Take 1 capsule by mouth nightly. Where to Get Your Medications These medications were sent to [facility] - [address], [facility] [id number] ondansetron ODT 4 MG disintegrating tablet oxyCODONE 5 MG immediate release tablet Discharge Diagnosis Medical Problems Active and Resolved Hospital Problems Hospital * (Principal) Abdominal pain, epigastric Outpatient Follow-Up Future Appointments Date Time Provider Department [facility] 7[facility]30 [facility] [facility]/02/[facility]25 9:10 AM Ren Saeed MD [facility] 10/29/2025 10:10 AM [facility] Test Results Pending At Discharge Pertinent Physical Exam At Time of Discharge Physical Exam Constitutional: General: She is not in acute distress. Appearance: Normal appearance. She is not ill-appearing. HENT: Head: Normocephalic and atraumatic. Mouth/Throat: Mouth: Mucous membranes are moist. Eyes: General: No scleral icterus. Extraocular Movements: Extraocular movements intact. Conjunctiva/sclera: Conjunctivae normal. Cardiovascular: Rate and Rhythm: Normal rate. Pulmonary: Effort: Pulmonary effort is normal. Abdominal: General: Abdomen is flat. There is no distension. Palpations: Abdomen is soft. Tenderness: There is no abdominal tenderness. There is no guarding or rebound. Comments: Previous midline incision well approximated and appears fully healed. No erythema, edema and non tender to palpation. Musculoskeletal: General: Normal range of motion. Skin: General: Skin is warm and dry. Coloration: Skin is not jaundiced. Neurological: General: No focal deficit present. Mental Status: She is alert and oriented to person, place, and time. Mental status is at baseline. Psychiatric: Mood and Affect: Mood normal. Behavior: Behavior normal. Thought Content: Thought content normal. Judgment: Judgment normal. Discharge Disposition/Condition Disposition: Home Condition: Stable (s/sx potential problems absent or manageable) I spent >30 minutes of patient care and instruction time in preparation for this discharge. Cosigned by Ren Saeed MD at 09/05/2025 11:35 AM EDT Associated attestation - Ren Saeed MD - 09/05/2025 11:35 AM EDT I attest to being involved in providing substantive part of the medical decision making in patient care. On my personal review of the imaging there was bilobar biliary dilatation associated with a centralhepatic metastasis. I reviewed this case with Dr. Sudarshan Duffy, and have made a referral to him for an ERCP with stents in both sides of the liver. We will tentatively plan for SBRT of the lesion after stents are in place. * Consults - Patric Xie MD - 08/30/2025 2:10 PM EDTAssociated Order(s): Inpatient consult to Gastroenterology Inpatient consult to Gastroenterology Consult performed by: Patric Xie MD Consult ordered by: Rick Villarreal APRN Gastroenterology & Hepatology Initial Consult Note Reason for Consult: Concern for biliary obstruction HPI Marisa Villavicencio is a 59 y.o. female with PMH of metastatic colorectal adenocarcinoma s/p R hemicolectomy 2018 and partial hepatectomy 2022 and multiple MWA (most recently 01/2025), small bowel resection and incisional hernia repair 01/2025 on whom we were consulted for concern for biliary obstruction. She presented to OSH with 2 days of abdominal pain with bilirubin elevation to 3.[address] findings of possible biliary ductal dilation, and then was transferred to 08/28/25 for further evaluation. MRCP 08/29 showed possible mild narrowing of left hepatic duct, also narrowing of right hepatic duct with interval increase in bile duct dilatation in R hemiliver likely 2/2 suspected interval increase in size of a centrally located hepatic metastasis; no extrahepatic duct stricture/extrinsic compression or choledocholithiasis; no PD dilatation. LFTs have since downtrended with normalization ofbilirubin. She reports haven't been on any oncologic systemic therapy since 2022? She reports intermittent epigastric/RUQ pain that improved from yesterday. No prior ERCP. ROS 14 point ROS completed and negative except as above. Past Medical History[1] Surgical History[2] Family History[3] Social History[4] Objective Vitals: 08/29/25 2150 08/30/25 0324 08/30/25 0807 08/30/25 1145 BP: 129/80 111/73 119/78 116/77 BP Location: Right arm Patient Position: Lying Pulse: 88 74 85 80 Resp: 16 Temp: 36.5 ??C (97.7 ??F) 36.7 ??C (98.1 ??F) 36.8 ??C (98.2 ??F) 36.9 ??C (98.4 ??F) TempSrc: Oral SpO2: 91% 94% 93% 95% Weight: 77.1 kg (169 lb 15.6 oz) Height: BMI: Body mass index is 28.29 kg/m??. Physical Exam: Physical Examination: GEN: awake, alert, NAD HEENT: non-icteric sclera, EMOI, CV: regular rate, well-perfused RESP: no increased WOB, symmetric chest rise GI: soft, mildly tender epigastrium/RUQ, non-distended MSK: moves limbs spontaneously NEURO: no gross focal deficits SKIN: warm and dry PSYCH: appropriate I/O: I/O last 3 completed shifts: In: 2127.3 (27.9 mL/kg) [P.O.:300; I.V.:1827.3 (24 mL/kg)] Out: 500 (6.6 mL/kg) [Urine:500 (0.2 mL/kg/hr)] Weight: 76.2 kg I/O this shift: In: 725 [I.V.:725] Out: 300 [Urine:300] Medications (scheduled): Current Scheduled Medications[5] Medications (continous): Current Continuous Medications[6] Medications (PRN): Current PRN Medications[7] Labs: CBC: Results from last 7 days Lab Units 08/30/25 0348 08/28/25 1842 WBC 10*3/uL 3.34* 5.28 HEMOGLOBIN g/dL 11.5 12.4 HEMATOCRIT % 36.1 37.3 PLATELETS 10*3/uL 106* 114* CMP: Results from last 7 days Lab Units 08/30/25 0348 08/28/25 1842 SODIUM mmol/L 141 137 POTASSIUM mmol/L 3.8 3.8 CHLORIDE mmol/L 106 101 CO2 mmol/L 27 24 BUN mg/dL 10 9 CREATININE mg/dL 0.74 0.79 CALCIUM mg/dL 8.7* 9.8 BILIRUBIN TOTAL mg/dL 0.7 3.6* ALKALINE PHOSPHATASE U/L 362* 450* ALT U/L 53* 80* AST U/L 34 72* GLUCOSE mg/dL 112* 111* Blood Product Administration History None Imaging: MRCP Rapid Result Date: 08/30/2025 Impression: Limited noncontrast examination. Interval increase in bile duct dilatation in the righthemiliver likely secondary to suspected interval increase in size of a centrally located hepatic metastasis. No extrahepatic duct stricture. CRITICAL RESULT: No. COMMUNICATION: Per this written report. By electronically signing this report, I, the attending physician, attest that I have personally reviewed the images/data for the above examination(s) and agree with the final edited report. Drafted by BERNICE Ding on 08/30/2025 8:01 AM Final report signed by Laith Aguilar MD on 08/30/2025 10:38 AM Procedure: Reviewed Assessment and Plan Marisa Villavicencio is a 59 y.o. female with PMH of metastatic colorectal adenocarcinoma s/p R hemicolectomy 2018 and partial hepatectomy/MWA 2022, small bowel resection and incisional hernia repair 01/2025 on whom we were consulted for concern for biliary obstruction. #Biliary dilatation in the setting of hepatic metastases from colorectal adenocarcinoma - resented to OSH with 2 days of abdominal pain with bilirubin elevation to 3.[address] findingsof possible biliary ductal dilation - MRCP 08/29 showed possible mild narrowing of left hepatic duct, also narrowing of right hepatic duct with interval increase in bile duct dilatation in R hemiliver likely 2/2 suspected interval increase in size of a centrally located hepatic metastasis; no extrahepatic duct stricture/extrinsic compression or choledocholithiasis; no PD dilatation. -LFTs have since downtrended with normalization of bilirubin. -afebrile, no WBC -low clinical suspicion of cholangitis/infection RECS: -trend LFTs -no plan for inpatient ERCP at this time given normalization of bilirubin and improvement of overall symptoms. May continue to reassess the need for ERCP on outpatient basis Thank you for the opportunity to participate in this patient's care. Patient seen and examined and plan discussed with Dr. Musa Xie MD Gastroenterology Fellow, PGY-6 08/30/25 [1] Past Medical History: Diagnosis Date Abnormal uterine [...] pain 07/08/2023 Continue prn oxy and dilaudid Sinusitis 03/06/25 Sleep apnea no cpap. mouth guard in use Thyroid nodule Ventral hernia without obstruction or gangrene 02/01/2025 [2] Past Surgical History: Procedure Laterality Date CHOLECYSTECTOMY 07/08/23 COLECTOMY PARTIAL / TOTAL Right w/appendectomy COLON SURGERY 07/2019 COLONOSCOPY N/A Colonoscopy from [facility] LIVER SURGERY Right 07/05/2023 ex lap, partial hepatectomy x 2 (seg 2/3, seg 7), MWA x 1 (seg 5), cholecystectomy OOPHORECTOMY 07/2019 with Colon surgery SMALL INTESTINE SURGERY 02/05/2025 small bowel resection x 2, ventral hernia repair TUBAL LIGATION N/A Tubal ligation from [facility] UPPER GASTROINTESTINAL ENDOSCOPY [3] Family History Problem Relation Name Age of Onset Pancreatic cancer Mother Chloe [place] FH: pancreatic cancer Hypertension Mother Chloe [place] Cancer Mother Chloe [place] Multiple myeloma Father Jaylen [place] FH: multiple myeloma Hypertension Father Jaylen [place] Arthritis Father Jaylen [place] Cancer Father Jaylen [place] Breast cancer Other FH: breast cancer Malig Hyperthermia Neg Hx Anesthesia problems Neg Hx [4] Social History Tobacco Use Smoking status: Never Passive exposure: Never Smokeless tobacco: Never Vaping Use Vaping status: Never Used Substance Use Topics Alcohol use: Not Currently Comment: ocassionally, Drug use: Never [5] DULoxetine, 60 mg, Oral, Daily enoxaparin, 30 mg, Subcutaneous, Daily methocarbamol, 500 mg, Oral, q8h mupirocin, 1 Application, Each Nostril, BID pantoprazole, 40 mg, Intravenous, Daily sodium chloride, 10 mL, Intravenous, q12h verapamil SR, 120 mg, Oral, Nightly [6] lactated Ringer's, 100 mL/hr, Last Rate: 100 mL/hr (08/30/25 [facility]) [7] PRN medications: acetaminophen, ondansetron ODT OR ondansetron OR ondansetron, oxyCODONE OR oxyCODONE, Insert peripheral IV AND Saline lock IV AND sodium chloride AND sodium chloride Cosigned by Valdimir Vigil MD at 08/30/2025 5:30 PM EDT Associated attestation - Vladimir Vigil MD - 08/30/2025 5:30 PM EDT I saw and evaluated the patient with the resident/fellow. I discussed the case with the resident/fellow and agree with the findings and plan as documented. * Hospital Course - Rick Villarreal APRN - 08/30/2025 11:05 AM EDT Marisa Villavicencio is a 59 y.o. female with a past medical history of metastatic colorectal adenocarcinoma s/p right colectomy in 2018 and a partial hepatectomy/microwave ablation in 2022 for liver metastases who presented to the [facility] on 08/28/2025 with 24-48 hours abdominal pain and c/f biliary o bstruction Hospital course significant for as follows: 08/29: MRCP was significant for Interval increase in bile duct dilatation in the right hemiliver likely secondary to suspected interval increase in size of a centrally located hepatic metastasis. No extrahepatic duct stricture. 08/30: GI consulted for potential ERCP. Recommending repeat scans prior to ERCP Discharge medication to highlight: - Pain medication: Patient will be discharged with Tylenol for regular daily pain management. Patient will also be prescribed oxycodone for as needed breakthrough severe pain. - Restart home meds as listed below On 08/30/25, patient has been hemodynamically stable and deemed medically appropriate for discharge.Currently, the patient's pain is well controlled on an oral regimen. They have return of bowel function and are tolerating a regular diet with no nausea/vomiting. There were no difficulties voiding. The patient will be discharged to Home. Follow-up appointments: - The patient will follow-up with Dr. Saeed in clinic 1 week after ERCP at outpatient GI. * Progress Notes - Irving Whalen MD - 08/30/2025 8:58 AM EDT Images from the original note were not included. Department of Surgery Division of Surgical Oncology Surgery Progress Note 08/30/25 Marisa Villavicencio Subjective Subjective: HPI CONSULT (): 59 yo F PMH metastatic colorectal adenocarcinoma s/p right hemicolectomy (2018) and partial hepatectomy/microwave ablation (2022) who presented with 2 day abdominal pain with possibly biliary obstruction with pancreatic duct dilation. Interval: VSS. AF. RA. Pain is well controlled. T bili 0.7 from 3.6 yesterday I/O 24h: I: 300 PO, 1827 IV O: 500 UOP. Edited by: Irving Whalen MD at 08/30/2025 0858 Review of Systems: Relevant review of systems was obtained as able and is negative unless stated above in HPI. Objective Objective: Vital signs: Vitals: 08/30/25 0807 BP: 119/78 Pulse: 85 Resp: Temp: 36.8 ??C (98.2 ??F) SpO2: 93% Physical Exam: Physical Exam Constitutional: Appearance: Normal appearance. Cardiovascular: Rate and Rhythm: Normal rate. Pulmonary: Effort: Pulmonary effort is normal. Abdominal: General: Abdomen is flat. Palpations: Abdomen is soft. Comments: Previous midline incision well approximated and appears fully healed. No erythema, edema and non tender to palpation. Skin: General: Skin is warm and dry. Neurological: General: No focal deficit present. Mental Status: She is alert and oriented to person, place, and time. Psychiatric: Mood and Affect: Mood normal. Behavior: Behavior normal. Intake/Output Summary (Last 24 hours) at 08/30/2025 0858 Last data filed at 08/30/2025 0843 Gross per 24 hour Intake 1439 ml Output 800 ml Net 639 ml Lines/Drains/Tubes: Patient Lines/Drains/Airways Status Active Airway None Output by Drain (mL) 08/28/25 07 - 08/28/25 1859 08/28/25 1900 - 08/29/25 0659 08/29/25 07 - 08/29/25 1859 08/29/25 1900 - 08/30/25 0659 08/30/25 0700 - 08/30/25 0858 Patient has no LDAs of requested type attached. Labs in last 18 hours: CBC WBC 3.34 (L) Hb 11.5 Plt 106 (L) Hct 36.1 ANC ?? INR ??, PTT ??, Anti-Xa ?? MCV 89 BMP Na 141 Cl 106 BUN 10 Glu 112 (H) K 3.8 Co2 27 Cr 0.74 Ca 8.7 (L) iCa ?? Mg 2.0, Phos 3.6 Lactate ?? LFT AST 34 AlkPhos 362 (H) T Prot 5.5 (L) ALK 53 (H) Bili 0.7 Alb ?? D.Bili ?? Lab Trends: H/H Results from last 7 days Lab Units 08/30/25 0348 08/28/25 1842 HEMOGLOBIN g/dL 11.5 12.4 HEMATOCRIT % 36.1 37.3 INR Cr Results from last 7 days Lab Units 08/30/25 0348 08/28/25 1842 CREATININE mg/dL 0.74 0.79 Lactate No lab exists for component: LACTTEVEN Radiographic Interpretation: No imagining today. Medications reviewed. Vital signs reviewed. Labs reviewed. Assessment/Plan Assessment and Plan: Medical Problems Problem List * (Principal) Abdominal pain, epigastric Adenocarcinoma of cecum (CMS/HCC) Overview Addendum 07/14/2023 12:51 PM by Ren Pan, INSURANCE RISK MANAGER, DNP -57yF with cecal cancer with metachronous metastasis to the liver (09/2022) s/p colon resection in 2019 and chemotherapy. - OR on 07/05 for exlap with lysis of adhesions, liver US, segment 5 microwave ablation, left lateral segmentectomy, segment 7 partial hepatectomy, cholecystectomy with Dr. Saeed. . - 07/08 CT abdomen showing Extensive post procedural changes of the liver parenchyma. There is a gascontaining fluid collection along the medial aspect of the right lobe as discussed. Sterility of this collection is indeterminate though an abscess could have a similar appearance. Incisional hernia, without obstruction or gangrene (Chronic) Overview Signed 02/06/2025 11:16 AM by Eve Wayne APRN 02/05/2025: ex lap, SBRx2 w/ mesenteric lymphadenectomy [Darlin] Primary hernia repair [Ricki] Abdominal carcinomatosis (CMS/HCC) Hepatic cyst Hx of BSO (bilateral salpingo-oophorectomy) Hyperlipidemia Lesion of liver Metastatic disease Migraine with aura and without status migrainosus, not intractable Multiple pulmonary nodules Nausea Obesity (BMI 30.0-34.9) Other chronic pain Overweight (BMI 25.0-29.9) Right ventricular hypertrophy Malignant neoplasm of colon Overlapping malignant neoplasm of colon (CMS/HCC) GERD (gastroesophageal reflux disease) Overview Addendum 07/14/2023 12:51 PM by Ren Pan APRN, DNP PPI Transaminitis Overview Addendum 07/23/2023 9:47 AM by Mckenzie Padilla MD - US duplex of portal venous and hepatic artery flow obtained 07/23/23 Electrolyte abnormality Overview Addendum 02/06/2025 11:18 AM by Eve Wayne APRN - daily/PRN CMP, Mg, Phos - replete as appropriate - goal: K>4, phos>3, mg>2 Present on Admission: Abdominal pain, epigastric Plan: [ ] F/u MRCP read [ ] Figure out ERCP plan, restart diet and pLOV accordingly. - MRCP read pending - Will consider GI consult for possible ERCP after MRCP read - NPO since midnight Diet: NPO, LR @ 100 GI: PPI Abx: none Pain: tylenol, methocarbamol. DVT ppx: pLOV Edited by: Irving Whalen MD at 08/30/2025 0804 Dispo: Continue Current Level of Care Irving Whalen MD Cosigned by Ren Saeed MD at 09/05/2025 11:33 AM EDT Associated attestation - Ren Saeed MD - 09/05/2025 11:33 AM EDT I saw and evaluated the patient with the resident/fellow. I discussed the case with the resident/fellow and agree with the findings and plan as documented. * Care Plan - Kaiser Lynch RN - 08/30/2025 8:30 AM EDT Problem: Adult Inpatient Plan of Care Goal: Plan of Care Review 08/30/2025958 by Kaiser Lynch RN Outcome: Ongoing, Progressing 08/30/2025956 by Kaiser Lynch RN Outcome: Ongoing, Progressing Flowsheets (Taken 08/30/2025829) Progress: no change Plan of Care Reviewed With: patient Goal: Patient-Specific Goal (Individualized) 08/30/2025958 by Kaiser Lynch RN Outcome: Ongoing, Progressing Flowsheets (Taken 08/30/2025829) Patient/Family-Specific Goals (Include Timeframe): pt will remain free of falls during stay Individualized Care Needs: support/education Anxieties, Fears or Concerns: upcoming testing 08/30/2025956 by Kaiser Lynch RN Outcome: Ongoing, Progressing Goal: Absence of Hospital-Acquired Illness or Injury 08/30/2025958 by Kaiser Lynch RN Outcome: Ongoing, Progressing 08/30/2025956 by Kaiser Lynch RN Outcome: Ongoing, Progressing Intervention: Identify and Manage Fall Risk Flowsheets (Taken 08/30/2025829) Safety Promotion/Fall Prevention: clutter-free environment maintained Intervention: Prevent Skin Injury Flowsheets (Taken 08/30/2025829) Body Position: weight shifting Skin Protection: protective footwear used Intervention: Prevent and Manage VTE (Venous Thromboembolism) Risk Flowsheets (Taken 08/30/2025829) VTE Prevention/Management: SCDs (sequential compression devices) off Intervention: Prevent Infection Flowsheets (Taken 08/30/2025829) Infection Prevention: cohorting utilized environmental surveillance performed equipment surfaces disinfected hand hygiene promoted personal protective equipment utilized rest/sleep promoted Goal: Optimal Comfort and Wellbeing 08/30/2025958 by Kaiser Lynch RN Outcome: Ongoing, Progressing 08/30/2025956 by Kaiser Lynch RN Outcome: Ongoing, Progressing Intervention: Monitor Pain and Promote Comfort Flowsheets (Taken 08/30/2025829) Pain Management Interventions: (patient declined PRN oxycodone at this time, requested to wait a bit ) pain management plan reviewed with patient/caregiver Intervention: Provide Person-Centered Care Flowsheets (Taken 08/30/2025829) Trust Relationship/Rapport: care explained choices provided emotional support provided empathic listening provided questions answered questions encouraged reassurance provided thoughts/feelings acknowledged Problem: Pain Acute Goal: Optimal Pain Control and Function 08/30/2025958 by Kaiser Lynch RN Outcome: Ongoing, Progressing 08/30/2025956 by Kaiser Lynch RN Outcome: Ongoing, Progressing Intervention: Optimize Psychosocial Wellbeing Flowsheets (Taken 08/30/2025829) Supportive Measures: relaxation techniques promoted self-care encouraged self-reflection promoted self-responsibility promoted verbalization of feelings encouraged Diversional Activities: Box[employer] television Spiritual Activities Assistance: personal rituals encouraged affirmation provided Intervention: Develop Pain Management Plan Flowsheets (Taken 08/30/2025829) Pain Management Interventions: (patient declined PRN oxycodone at this time, requested to wait a bit ) pain management plan reviewed with patient/caregiver Intervention: Prevent or Manage Pain Flowsheets Taken 08/30/2025829 by Kaiser Lynch RN Bowel Elimination Promotion: adequate fluid intake promoted ambulation promoted Sleep/Rest Enhancement: awakenings minimized consistent schedule promoted Medication Review/Management: medications reviewed Taken 08/29/20252215 by Meghann Payne RN Sensory Stimulation Regulation: care clustered lighting decreased quiet environment promoted Problem: Infection Goal: Absence of Infection Signs and Symptoms 08/30/2025958 by Kaiser Lynch RN Outcome: Ongoing, Progressing 08/30/2025956 by Kaiser Lynch RN Outcome: Ongoing, Progressing Intervention: Prevent or Manage Infection Flowsheets (Taken 08/30/2025829) Infection Management: aseptic technique maintained Fever Reduction/Comfort Measures: lightweight bedding lightweight clothing Isolation Precautions: precautions maintained * Care Plan - Meghann Payne RN - 08/29/2025 10:18 PM EDT Problem: Adult Inpatient Plan of Care Goal: Plan of Care Review Outcome: Ongoing, Progressing Flowsheets (Taken 08/29/20252215) Progress: improving Plan of Care Reviewed With: patient Goal: Patient-Specific Goal (Individualized) Outcome: Ongoing, Progressing Flowsheets (Taken 08/29/20252199) Patient/Family-Specific Goals (Include Timeframe): Patient will remain free from injury this shift Individualized Care Needs: Safety Anxieties, Fears or Concerns: none Goal: Absence of Hospital-Acquired Illness or Injury Outcome: Ongoing, Progressing Intervention: Identify and Manage Fall Risk Flowsheets (Taken 08/29/20252215) Safety Promotion/Fall Prevention: activity supervised Intervention: Prevent Infection Flowsheets (Taken 08/29/20252215) Infection Prevention: environmental surveillance performed equipment surfaces disinfected hand hygiene promoted personal protective equipment utilized rest/sleep promoted single patient room provided Goal: Optimal Comfort and Wellbeing Outcome: Ongoing, Progressing Intervention: Monitor Pain and Promote Comfort Flowsheets (Taken 08/29/20252215) Pain Management Interventions: pain management plan reviewed with patient/caregiver Intervention: Provide Person-Centered Care Flowsheets (Taken 08/29/20252215) Trust Relationship/Rapport: care explained choices provided emotional support provided empathic listening provided questions answered questions encouraged reassurance provided thoughts/feelings acknowledged Problem: Pain Acute Goal: Optimal Pain Control and Function Outcome: Ongoing, Progressing Intervention: Optimize Psychosocial Wellbeing Flowsheets (Taken 08/29/20252215) Supportive Measures: active listening utilized mindfulness techniques promoted positive reinforcement provided relaxation techniques promoted self-care encouraged Diversional Activities: television smartphone Intervention: Develop Pain Management Plan Flowsheets (Taken 08/29/20252215) Pain Management Interventions: pain management plan reviewed with patient/caregiver Intervention: Prevent or Manage Pain Flowsheets (Taken 08/29/20252215) Sensory Stimulation Regulation: care clustered lighting decreased quiet environment promoted Bowel Elimination Promotion: ambulation promoted Sleep/Rest Enhancement: awakenings minimized consistent schedule promoted Medication Review/Management: medications reviewed * Progress Notes - Rick Villarreal APRN - 08/29/2025 1:54 PM EDT Images from the original note were not included. Department of Surgery Division of Surgical Oncology Surgery Progress Note 08/29/25 Marisa Villavicencio Subjective Subjective: HPI CONSULT (): 59 yo F PMH metastatic colorectal adenocarcinoma s/p right hemicolectomy (2018) and partial hepatectomy/microwave ablation (2022) who presented with 2 day abdominal pain with possibly biliary obstruction with pancreatic duct dilation. Interval: VSS. AF. RA. Pain improving, endorsed having migraine otherwise no N/V. Non jaundiced plan for MRCP Edited by: Rick Villarreal APRN at 08/29/2025 1354 Review of Systems: Relevant review of systems was obtained as able and is negative unless stated above in HPI. Objective Objective: Vital signs: Vitals: 08/29/25 1135 BP: 112/70 Pulse: 73 Resp: 18 Temp: 36.7 ??C (98 ??F) SpO2: 96% Physical Exam: Physical Exam Vitals reviewed. Constitutional: General: She is not in acute distress. Appearance: She is ill-appearing. HENT: Head: Normocephalic and atraumatic. Nose: Nose normal. Mouth/Throat: Mouth: Mucous membranes are moist. Eyes: General: No scleral icterus. Extraocular Movements: Extraocular movements intact. Conjunctiva/sclera: Conjunctivae normal. Pulmonary: Effort: Pulmonary effort is normal. No respiratory distress. Abdominal: General: There is no distension. Palpations: Abdomen is soft. Tenderness: There is no abdominal tenderness. There is no guarding or rebound. Comments: Previous midline incision well approximated and appears fully healed. No erythema, edema and non tender to palpation. Musculoskeletal: General: Normal range of motion. Cervical back: Normal range of motion. Skin: General: Skin is warm and dry. Coloration: Skin is not jaundiced. Neurological: General: No focal deficit present. Mental Status: She is alert and oriented to person, place, and time. Psychiatric: Mood and Affect: Mood normal. Behavior: Behavior normal. Thought Content: Thought content normal. Judgment: Judgment normal. No intake or output data in the 24 hours ending 08/29/25 1359 Lines/Drains/Tubes: Patient Lines/Drains/Airways Status Active Airway None Output by Drain (mL) 08/27/25 0700 - 08/27/25 1859 08/27/25 1900 - 08/28/25 0659 08/28/25 0700 - 08/28/25 1859 08/28/25 1900 - 08/29/25 0659 08/29/25 0700 - 08/29/25 1359 Patient has no LDAs of requested type attached. Labs in last 18 hours: CBC WBC ?? Hb ?? Plt ?? Hct ?? ANC ?? INR ??, PTT ??, Anti-Xa ?? MCV ?? BMP Na ?? Cl ?? BUN ?? Glu ?? K ?? Co2 ?? Cr ?? Ca ?? iCa ?? Mg ??, Phos ?? Lactate ?? LFT AST ?? AlkPhos ?? T Prot ?? ALK ?? Bili ?? Alb ?? D.Bili ?? Lab Trends: H/H Results from last 7 days Lab Units 08/28/25 1842 HEMOGLOBIN g/dL 12.4 HEMATOCRIT % 37.3 INR Cr Results from last 7 days Lab Units 08/28/25 1842 CREATININE mg/dL 0.79 Lactate No lab exists for component: LACTTEVEN Radiographic Interpretation: I have reviewed the imaging above and agree with the radiologist interpretation. Medications reviewed. Vital signs reviewed. Labs reviewed. Assessment/Plan Assessment and Plan: Medical Problems Problem List * (Principal) Abdominal pain, epigastric Adenocarcinoma of cecum (CMS/HCC) Overview Addendum 07/14/2023 12:51 PM by Ren Pan, INSURANCE RISK MANAGER, DNP -57yF with cecal cancer with metachronous metastasis to the liver (09/2022) s/p colon resection in 2019 and chemotherapy. - OR on 07/05 for exlap with lysis of adhesions, liver US, segment 5 microwave ablation, left lateral segmentectomy, segment 7 partial hepatectomy, cholecystectomy with Dr. Saeed. . - 07/08 CT abdomen showing Extensive post procedural changes of the liver parenchyma. There is a gascontaining fluid collection along the medial aspect of the right lobe as discussed. Sterility of this collection is indeterminate though an abscess could have a similar appearance. Incisional hernia, without obstruction or gangrene (Chronic) Overview Signed 02/06/2025 11:16 AM by Eve Wayne APRN 02/05/2025: ex lap, SBRx2 w/ mesenteric lymphadenectomy [Darlin] Primary hernia repair [Ricki] Abdominal carcinomatosis (CMS/HCC) Hepatic cyst Hx of BSO (bilateral salpingo-oophorectomy) Hyperlipidemia Lesion of liver Metastatic disease Migraine with aura and without status migrainosus, not intractable Multiple pulmonary nodules Nausea Obesity (BMI 30.0-34.9) Other chronic pain Overweight (BMI 25.0-29.9) Right ventricular hypertrophy Malignant neoplasm of colon Overlapping malignant neoplasm of colon (CMS/HCC) GERD (gastroesophageal reflux disease) Overview Addendum 07/14/2023 12:51 PM by Ren Pan APRN, DNP PPI Transaminitis Overview Addendum 07/23/2023 9:47 AM by Mckenzie Padilla MD - US duplex of portal venous and hepatic artery flow obtained 07/23/23 Electrolyte abnormality Overview Addendum 02/06/2025 11:18 AM by Eve Wayne APRN - daily/PRN CMP, Mg, Phos - replete as appropriate - goal: K>4, phos>3, mg>2 Present on Admission: Abdominal pain, epigastric Plan: [ ] FU MRCP, restart diet after - MRCP in the PM - resumed lunch diet, NPO afterwards Diet: NPO, LR @ 100 GI: - Abx: none Pain: tylenol, methocarbamol. DVT ppx: none Edited by: Rick Villarreal APRN at 08/29/2025 6954 Dispo: Continue Current Level of Care Rick Villarreal APRN Cosigned by Ren Saeed MD at 09/05/2025 11:33 AM EDT Associated attestation - Ren Saeed MD - 09/05/2025 11:33 AM EDT I attest to being involved in providing substantive part of the medical decision making in patient care. * Progress Notes - Namrata Cordero P - 08/29/2025 12:03 PM EDT Case Management Adult Initial Progress Note Marisa Villavicencio 59 y.o. female CSN: [id number] Admission: 08/28/2025 6:09 PM Primary Problem: Abdominal pain, epigastric Wire Spinner reviewed chart and spoke with the patient at bedside to complete this Initial Case Management Assessment. PCP: Gudelia Arevalo MD Emergency Contact: Extended Emergency Contact Information Primary Emergency Contact: Anselmo Villavicencio Address: [address] [place] [address] [facility] Mobile Relation: Spouse Insurance: Primary Visit Coverage Payer Plan Sponsor Code Group Number Group Name [facility] [id number] Primary Visit Coverage Subscriber Subscriber ID Subscriber Name Subscriber N Subscriber Address [id number] ANSELMO VILLAVICENCIO [id number] [phone] Secondary Visit Coverage Payer Plan Sponsor Code Group Number Group Name MEDICARE MEDICARE PART A ONLY Secondary Visit Coverage Subscriber Subscriber ID Subscriber Name Subscriber SSN Subscriber Address [id number] MAYE,MARISA R [id number] [address] [phone] Patient information: Primary Caregiver: Self Support System: Immediate family Daily Living Activities: Functional Status: Independent Living Arrangements: Spouse/Significant other Type of Residence: Private residence, Single Level (no steps to enter the home) [address] [place] [address] Smoker in the Home?: N/A Current DME: Equipment Currently Used at Home: none Income Information: Income Source: Retired Income/Expense Information: Income meets expenses Anticipated Discharge Date: 72 hours Patient's Discharge Goal: Home Assistance Available at Discharge: Family and Discharge Transport: Family and Follow Up Transport: Family and and self Home Health / Home Infusion / Outpatient Dialysis Services: N/A Living Will/Advance Directive/Power of Synoptic Meteorologist /Guardian: CRYSTALA- Social Drivers of Health Food Insecurity: No Food Insecurity (08/29/2025) Hunger Vital Sign Worried About Running Out of Food in the Last Year: Never true Ran Out of Food in the Last Year: Never true Alcohol Use: Low Risk (08/16/2023) CAGE ASSESSMENT Cage unable to access: Not on file Cage max number of drinks: 0 drinks Cage Beverages a week: 0 - 7 per week Cage Questionnaire cut down: 0 Cage questionnaire annoyed: 0 Cage questionnaire guilty: 0 Cage questionnaire eye lpc: 0 Cage Overall score: 0 Housing Stability: Low Risk (08/29/2025) Housing Stability Vital Sign Unable to Pay for Housing in the Last Year: No Number of Times Moved in the Last Year: 0 Homeless in the Last Year: No Tobacco Use: Low Risk (07/04/2025) Patient History Smoking Tobacco Use: Never Smokeless Tobacco Use: Never Passive Exposure: Never Transportation Needs: No Transportation Needs (08/29/2025) PRAPARE - Transportation Lack of Transportation (Medical): No Lack of Transportation (Non-Medical): No Depression: Not at risk (06/26/2025) PHQ-2 PHQ-2 Score: 0 Utilities: Not At Risk (08/29/2025) [facility] Utilities Threatened with loss of utilities: No Stress: Not on file Intimate Partner Violence: Not At Risk (08/29/2025) Humiliation, Afraid, Rape, and Kick questionnaire Fear of Current or Ex-Partner: No Emotionally Abused: No Physically Abused: No Sexually Abused: No Physical Activity: Not on file Social Connections: Unknown (08/30/2023) Received from [facility] Family and Community Support Help with Day-to-Day Activities: Not on file Lonely or Isolated: Not on file Financial Resource Strain: Low Risk (08/29/2025) Overall Financial Resource Strain (CARDIA) Difficulty of Paying Living Expenses: Not very hard Additional Comments: SW spoke with MDs this date re: pt's plan of care. According to MDs, this pt is not medically stable for DC this date but may be stable within 72 hrs. Pt lives with her at the address listed in the chart. The home is one level with no steps to enter the home. The pt is independent with ADLS. Pt denied use of any DME equipment. Pt states she has transportation home upon DC. Pt confirmed her PCP and preferred pharmacy is [facility] in [place]. No further SW concerns identified at this time. SW will monitor pt's progress and will follow up with DC planning and needs as appropriate. Namrata Cordero, LAMINATING PRESS OPERATOR, MANUSCRIPTS ARCHIVIST Social Work Senior Department of Case Management [facility] * H&P - Gal Barger MD - 08/28/2025 10:12 PM EDTAssociated Order(s): Consult to Surgical Oncology Images from the original note were not included. [facility] Department of Surgery Division of Surgical Oncology History & Physical Note Reason for Consult: Elevated t bili Requesting Service: Emergency Department Consult Date and Time: 08/28/2025 Consult to Surgical Oncology Consult performed by: Gal Barger MD Consult ordered by: Paul Chatterjee MD Subjective History of Present Illness: Chief Complaint: Abdominal pain Marisa Villavicencio is a 59 y.o. female with PMHx significant for metastatic colorectal adenocarcinoma s/pright colectomy in 2018 and a partial hepatectomy/microwave ablation in 2022 for liver metastases who [facility] with 24-48 hours abdominal pain and c/f biliary obstruction. Additionally, patient reports early satiety but denies emesis or nausea. She presented to outside hospital for these symptoms were obtained CT abdomen and pelvis showing concern for possible biliary dilation and obstruction. Additionally, T bili elevated at 3.6 mild elevation in LFTs. Patient transferred to for further evaluation. On arrival, patient is hemodynamically stable in no acute distress. Patient is minimally tender worst in the right upper quadrant. Patient's surgical and oncologic history described below. 11/07/19: Chest: Stable left lower lobe 4 [...] of decompensated cirrhosis physiology postop. Discharged to [facility] rehab. 08/10/23: postop visit - still at [facility] but going home soon. Pt with large amount of fluid weight gain of ascites and peripheral edema which is pitting. Recommended increased diuretics. Will arrange paracentesis, hepatology consultation for management of what is decompensated cirrhosis physiology. 08/16- [facility] - underwent paracentesis x 2, diuresis, low [...] month later and RTC. 11/02/23- Hospitalized in [facility] for right pleural effusion, drainage [...] of her hospital course was routine. 02/19/2025: [facility] post op follow up. Patient doing well and tolerating a soft diet. Incision looksgood with no issues. Will plan follow up with Dr. Saeed in 2 weeks for second post op visit. Review of Systems: Relevant review of systems was obtained as able and is negative unless stated above in HPI. History Obtained From: Patient Past Medical History: Past Medical History[1] Allergies And Reactions: Allergies[2] Past Surgical History: Surgical History[3] Family Medical History: Family History[4] Reviewed and Non-contributory Social History: Social History Socioeconomic History Marital status: Spouse name: Not on file Number of children: Not on file Years of education: Not on file Highest education level: Not on file Occupational History Not on file Tobacco Use Smoking status: Never Passive exposure: Never Smokeless tobacco: Never Vaping Use Vaping status: Never Used Substance and Sexual Activity Alcohol use: Not Currently Comment: ocassionally, Drug use: Never Sexual activity: Yes control/protection: Female Sterilization Other Topics Concern Not on file Social History Narrative Not on file Social Drivers of Health Financial Resource Strain: Not on file Food Insecurity: No Food Insecurity (02/06/2025) Hunger Vital Sign Worried About Running Out of Food in the Last Year: Never true Ran Out of Food in the Last Year: Never true Transportation Needs: No Transportation Needs (02/06/2025) PRAPARE - Transportation Lack of Transportation (Medical): No Lack of Transportation (Non-Medical): No Physical Activity: Not on file Stress: Not on file Social Connections: Unknown (08/30/2023) Received from [facility] Family and Community Support Help with Day-to-Day Activities: Not on file Lonely or Isolated: Not on file Intimate Partner Violence: Not At Risk (02/06/2025) Humiliation, Afraid, Rape, and Kick questionnaire Fear of Current or Ex-Partner: No Emotionally Abused: No Physically Abused: No Sexually Abused: No Housing Stability: Low Risk (02/06/2025) Housing Stability Vital Sign Unable to Pay for Housing in the Last Year: No Number of Times Moved in the Last Year: 0 Homeless in the Last Year: No Immunizations: Immunization History Administered Date(s) Administered Hep A, Adult 09/19/2018, 04/10/2019 Influenza, Unspecified 10/22/2022 Moderna COVID-19 Vaccine (Varnishing Unit Tool Setter) 12+ years 11/20/2020, 12/20/2020, 10/10/2021 TD (adult), 2 Lf tetanus toxoid, preservative free, adsorbed 01/25/1997 Tdap 06/16/2021 I have updated and confirmed the past medical, surgical, family and social history. Home Medications: Prior to Admission medications Medication Sig Start Date End Date Taking? Authorizing Provider Bacillus Coagulans-Inulin (Probiotic Formula) 1-250 BILLION-MG capsule Take 1 tablet by mouth daily. 02/12/25 Provider, Historical DULoxetine (Cymbalta) [address] capsule Take 1 capsule by mouth daily. Do not crush or chew. Suha Marshall MD FeroSul 325 (65 Fe) MG tablet TAKE ONE TABLET BY MOUTH 2 TIMES A DAY WITH MEALS 02/02/25 Suha Marshall MD pantoprazole (Protonix) 40 MG EC tablet Take 1 tablet (40 mg) by mouth daily. 01/05/25 Provider, Historical Probiotic Product (acidophilus probiotic blend) capsule Take 1 capsule by mouth daily. Provider, Historical promethazine (Phenergan) 25 MG tablet TAKE ONE TABLET BY MOUTH EVERY 8 HOURS NEEDED FOR NAUSEA/VOMITING 05/05/24 Suha Marshall MD sodium phosphates (Osmoprep) 1.102-0.398 g tablet 10am take dose of 4 OsmoPrep tablets Q 15 w/ 8 oz. clear liquids for a total of 5 doses or 20 tablets. 6pm take dose of 4 OsmoPrep tablets Q 15 w/8 oz. clear liquids for a total of 3 doses or 12 tablets. 06/19/25 Etienne Novak MD ubrogepant (Ubrelvy) 100 MG tablet Take 1 tablet by mouth 1 (one) time each day at the same time. 02/17/25 Provider, Historical ursodiol (Actigall) 300 MG capsule Take 1 capsule (300 mg) by mouth 2 (two) times a day. 01/05/25 Provider, Historical verapamil ER (Veralan PM) 120 MG 24 hr capsule Take 1 capsule (120 mg) by mouth nightly. 01/15/25 Provider, Historical Anti-Thrombotic Medications: Is this patient taking warfarin, new oral anti-coagulant, or anti-platelet medication? No If Yes, What Medication: N/A Current Hospital Medications: Current Medications[5] Objective Objective: Visit Vitals BP 128/74 (Patient Position: Sitting) Pulse 71 Temp 36.8 ??C (98.3 ??F) (Oral) Ht 1.651 m (5' 5 ) Wt 76.2 kg (168 lb) SpO2 97% BMI 27.96 kg/m?? @ Physical Exam: Physical Exam Constitutional: General: She is not in acute distress. Appearance: Normal appearance. HENT: Head: Normocephalic and atraumatic. Right Ear: External ear normal. Left Ear: External ear normal. Nose: Nose normal. Mouth/Throat: Mouth: Mucous membranes are moist. Eyes: Pupils: Pupils are equal, round, and reactive to light. Cardiovascular: Rate and Rhythm: Normal rate. Pulmonary: Effort: Pulmonary effort is normal. Abdominal: General: Abdomen is flat. There is no distension. Tenderness: There is abdominal tenderness (RLQ). Musculoskeletal: General: Normal range of motion. Skin: General: Skin is warm. Capillary Refill: Capillary refill takes less than 2 seconds. Neurological: General: No focal deficit present. Mental Status: She is alert and oriented to person, place, and time. Mental status is at baseline. Psychiatric: Mood and Affect: Mood normal. Laboratory: CBC WBC 5.28 Hb 12.4 Plt 114 (L) Hct 37.3 ANC 3.77 INR ??, PTT ??, Anti-Xa ?? MCV 86 BMP Na 137 Cl 101 BUN 9 Glu 111 (H) K 3.8 Co2 24 Cr 0.79 Ca 9.8 iCa ?? Mg ??, Phos ?? Lactate ?? LFT AST 72 (H) AlkPhos 450 (H) T Prot 6.3 ALK 80 (H) Bili 3.6 (H) Alb ?? D.Bili ?? Imaging: Radiographic Interpretation: I have reviewed the imaging above and agree with the radiologist interpretation. Assessment/Plan Assessment & Plan: Marisa Villavicencio is a 59 y.o. female with PMHx notable for metastatic colorectal adenocarcinoma s/p right colectomy in 2018 and a partial hepatectomy/microwave ablation in 2022 for liver metastases who presented to the [facility] on 08/28/2025 with 24-48 hours abdominal pain and c/f biliary obstruction. Recent CT abdomen and pelvis obtained at outside hospital concerning for possible biliary obstruction with pancreatic duct dilation. We will plan for admission for pain control and to obtain MRCP to better evaluate the biliary tree. Final plan pending additional imaging. Plan -[facility] Dispo: Admit to SGO CODE STATUS: full code This Consult, Assessment, and Plan has been discussed with Dr. Fernandez, Attending Physician Gal Barger MD [1] Past Medical History: Diagnosis Date Abnormal uterine [...] pain 07/08/2023 Continue prn oxy and dilaudid Sinusitis 03/06/25 Sleep apnea no cpap. mouth guard in use Thyroid nodule Ventral hernia without obstruction or gangrene 02/01/2025 [2] Allergies Allergen Reactions Sulfa Drugs Hives, Itching, Swelling and Rash Sulfamethoxazole-Trimethoprim Rash [3] Past Surgical History: Procedure Laterality Date CHOLECYSTECTOMY 07/08/23 COLECTOMY PARTIAL / TOTAL Right w/appendectomy COLON SURGERY 07/2019 COLONOSCOPY N/A Colonoscopy from [facility] LIVER SURGERY Right 07/05/2023 ex lap, partial hepatectomy x 2 (seg 2/3, seg 7), MWA x 1 (seg 5), cholecystectomy OOPHORECTOMY 07/2019 with Colon surgery SMALL INTESTINE SURGERY 02/05/2025 small bowel resection x 2, ventral hernia repair TUBAL LIGATION N/A Tubal ligation from [facility] UPPER GASTROINTESTINAL ENDOSCOPY [4] Family History Problem Relation Name Age of Onset Pancreatic cancer Mother Chloe [place] FH: pancreatic cancer Hypertension Mother Chloe [place] Cancer Mother Chloe [place] Multiple myeloma Father Jaylen [place] FH: multiple myeloma Hypertension Father Jaylen [place] Arthritis Father Jaylen [place] Cancer Father Jaylen [place] Breast cancer Other FH: breast cancer Malig Hyperthermia Neg Hx Anesthesia problems Neg Hx [5] No current facility-administered medications for this encounter. Current Outpatient Medications Medication Sig Dispense Refill Bacillus Coagulans-Inulin (Probiotic Formula) 1-250 BILLION-MG capsule Take 1 tablet by mouth daily. DULoxetine (Cymbalta) [address] capsule Take 1 capsule by mouth daily. Do not crush or chew. 30 capsule 3 FeroSul 325 (65 Fe) MG tablet TAKE ONE TABLET BY MOUTH 2 TIMES A DAY WITH MEALS 60 tablet 3 pantoprazole (Protonix) 40 MG EC tablet Take 1 tablet (40 mg) by mouth daily. Probiotic Product (acidophilus probiotic blend) capsule Take 1 capsule by mouth daily. promethazine (Phenergan) 25 MG tablet TAKE ONE TABLET BY MOUTH EVERY 8 HOURS NEEDED FOR NAUSEA/VOMITING 30 tablet 0 sodium phosphates (Osmoprep) 1.102-0.398 g tablet 10am take dose of 4 OsmoPrep tablets Q 15 w/ 8 oz. clear liquids for a total of 5 doses or 20 tablets. 6pm take dose of 4 OsmoPrep tablets Q 15 w/8 oz. clear liquids for a total of 3 doses or 12 tablets. 32 tablet 0 ubrogepant (Ubrelvy) 100 MG tablet Take 1 tablet by mouth 1 (one) time each day at the same time. ursodiol (Actigall) 300 MG capsule Take 1 capsule (300 mg) by mouth 2 (two) times a day. verapamil ER (Veralan PM) 120 MG 24 hr capsule Take 1 capsule (120 mg) by mouth nightly. Cosigned by Home Munguia MD at 09/05/2025 12:35 PM EDT Associated attestation - Home Munguia MD - 09/05/2025 12:35 PM EDT I saw and evaluated the patient with the resident/fellow. I discussed the case with the resident/fellow and agree with the findings and plan as documented. * Care Plan - Sara Lala RN - 08/28/2025 5:09 PM EDT Problem: Adult Inpatient Plan of Care Goal: Plan of Care Review Outcome: Ongoing, Progressing Flowsheets (Taken 08/29/2025 08) Progress: improving Plan of Care Reviewed With: patient Goal: Patient-Specific Goal (Individualized) Outcome: Ongoing, Progressing Flowsheets (Taken 08/29/2025823) Patient/Family-Specific Goals (Include Timeframe): Patient will report pain @ goal this shift Individualized Care Needs: complete imaging Anxieties, Fears or Concerns: pain control Goal: Absence of Hospital-Acquired Illness or Injury Outcome: Ongoing, Progressing Goal: Optimal Comfort and Wellbeing Outcome: Ongoing, Progressing Problem: Pain Acute Goal: Optimal Pain Control and Function 08/29/2025823 by Sara Lala RN Outcome: Ongoing, Progressing 08/29/2025822 by Sara Lala RN Outcome: Ongoing, Progressing Intervention: Optimize Psychosocial Wellbeing Flowsheets (Taken 08/29/2025822) Supportive Measures: decision-making supported goal-setting facilitated self-care encouraged positive reinforcement provided * ED Provider Notes - Kati Yun MD - 08/28/2025 5:09 PM EDT - HPI Chief Complaint Patient presents with Abdominal Pain PIT Note Marisa Villavicencio is a 59 y.o. female who presents to ED with abdominal pain. Pt reports history of colon cancer. Pt reports that she was sent from OSH to see oncology for increased liver lesions and increased bilirubin. Pt reports that she has had RUQ abdominal pain. Pt reports that she has a port. Patient denies fever, chills, cough, chest pain, shortness of breath, nausea, vomiting, and diarrhea. History provided by: Patient cutter gas used: No MAIN ED NOTE//Kati Yun MD: I assumed full responsibility for this patient after transfer to Main ED from [facility]. I personally performed my own history, ROS, and physical. I agree with the above [facility] documentation, however full history, physical and other information is as follows: Marisa Villavicencio is a 59 y.o. 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 Patient presents via private vehicle. Patient has had epigastric abdominal pain for the last 3 days, this has progressively worsened. Reports a sensation of early satiety, denies emesis or nausea. Denies diarrhea, constipation, dysuria hematuria. Denies fevers or weight loss. She does reported cold sweats however this is a chronic issue of the setting of colorectal cancer. Reports she underwent surveillance imaging in June that wasnegative for liver metastases. At OSH, CT abdomen and pelvis on laboratory evaluation were performed, which revealed new liver metastases. They were transferred here for a higher level of care. Patient History Past Medical History[1] Surgical History[2] Family History[3] Social History[4] Allergies: Allergies[5] Physical Exam ED Triage Vitals [08/28/25 1721] Temp Heart Rate Resp BP 36.6 ??C (97.9 ??F) 74 16 131/84 SpO2 Temp Source Heart Rate Source Patient Position 95 % Oral -- -- BP Location FiO2 (%) -- -- Physical Exam Vitals reviewed. Constitutional: General: She is not in acute distress. Appearance: Normal appearance. She is not ill-appearing. HENT: Head: Normocephalic and atraumatic. Right Ear: External ear normal. Left Ear: External ear normal. Nose: Nose normal. Mouth/Throat: Mouth: Mucous membranes are moist. Pharynx: Oropharynx is clear. Eyes: Extraocular Movements: Extraocular movements intact. Conjunctiva/sclera: Conjunctivae normal. Pupils: Pupils are equal, round, and reactive to light. Cardiovascular: Rate and Rhythm: Normal rate and regular rhythm. Pulses: Normal pulses. Pulmonary: Effort: Pulmonary effort is normal. No respiratory distress. Abdominal: General: Abdomen is flat. There is no distension. Palpations: Abdomen is soft. Tenderness: There is abdominal tenderness in the right upper quadrant and epigastric area. Musculoskeletal: General: Normal range of motion. Cervical back: Normal range of motion. Right lower leg: No edema. Left lower leg: No edema. Skin: General: Skin is warm. Capillary Refill: Capillary refill takes less than 2 seconds. Neurological: General: No focal deficit present. Mental Status: She is alert and oriented to person, place, and time. No data recorded ED Course & MDM PIT Note Date/Time: 08/28/2025/5:54 PM Entered by Jatinder Chase, acting as scribe for Dr. Gudelia Weir Scribe Attestation: This note was dictated to me, Jatinder Chase, acting as a scribe for Dr. Gudelia Weir Attending Attestation: The documentation was recorded by Jatinder Chase acting as scribe in my presence at the time of the encounter and accurately reflects the service I personally performed. - Assessment: 59 y.o. female presents to ED with complaint of epigastric abdominal pain. It should be noted that the chronic conditions includes colorectal cancer, which currently is not at goal therapy. This complicates the clinical picture because it Comorbidities: may be exacerbating symptoms, increases the amount and complexity of data to be reviewed, and complicates the clinical workup Differential Diagnosis: Progression/metastatic disease, GERD, cholecystitis, PUD In order to fully explore the differential diagnosis the following treatments and tests were ordered: ED Medication Administration from 08/28/2025 1016 to 08/28/2025 2357 Date/Time Order Dose Route Action 08/28/2025 210 EDT ondansetron (Zofran) injection 4 mg 4 mg Intravenous Given 08/28/2025 210 EDT HYDROmorphone (Dilaudid) injection 0.25 mg 0.25 mg Intravenous Given 08/28/2025 2300 EDT HYDROmorphone (Dilaudid) injection 0.5 mg -- Intravenous Canceled Entry 08/28/2025 2334 EDT acetaminophen (Tylenol) tablet 650 mg 650 mg Oral Given 08/28/2025 2335 EDT ondansetron (Zofran) injection 4 mg 4 mg Intravenous Given All Other Orders Ordered Status Ordering Provider 08/28/25 2215 Consult to Surgical Oncology Once Provider: (Not yet assigned) Ordered KATI YUN 08/28/25 180 CMP STAT Final result GUDELIA WEIR 08/28/25 180 Lipase STAT Final result GUDELIA WEIR 08/28/25 180 CBC w/diff STAT Final result GUDELIA WEIR 08/28/25 180 Hepatitis C Antibody - ED Once Final result GUDELIA WEIR 08/28/25 180 ED Protocol - HIV 1/2 Antibody/Antigen Screen Once Final result GUDELIA WEIR 08/28/25 180 ED HIV 1/2 Antibody/Antigen Screen w/Reflex to HIV 1/2 Differentiation PROCEDURE ONCE Final result GUDEILA WEIR W ED Course as of 08/28/252356 Tue Aug 28, 2025 1837 On my initial evaluation of the patient, they were hemodynamically stable, not in any respiratory distress and alert and oriented. They had initial concerns of epigastric abdominal pain. She wastransferred for concerns of liver metastases. Most recent surveillance imaging of the patient in June was unremarkable for metastases, however there are concerns on CT abdomen and pelvis from outside hospital. Patient did not arrive with reads, pending fax of CT reads from OSH. [SL] 185 I independently reviewed the patient's previous records including the most recent surgical Oncology note on 06/26/2025 which revealed: Patient underwent MRI abdomen and pelvis in June 2025 that was not remarkable for metastatic disease. She follows with surgical Oncology every 3 months, and is scheduled to follow up in September. Given that patient did not have evidence of metastatic disease in June 2025 however there was no concern for this, surgical Oncology will be consulted. [SL] 1957 I personally reviewed patient's previous OSH records which revealed: Imaging: - CT abd pelvis w: Progression of hepatic metastases with new metastasis in his central liver which appeared of struck the biliary system of the right hepatic lobe. Interval increase in size of upper abdominal lymph nodes and mesenteric lymph nodes. New abnormal attenuation in the omentum of the upper abdomen, peritoneal metastases should be considered [SL] 1958 Surgical oncology was consulted for further evaluation and recommendations for the management of new liver metastases. [SL] 1958 Total Bilirubin, Plasma(!): 3.6 0.5 3 months ago [SL] 2237 Pending surg onc recommendations [SL] 2317 On reassessment, patient reported increased pain. Tylenol ordered [SL] ED Course User Index [SL] Kati Yun MD Clinical Impressions as of 08/28/252356 Abdominal pain, epigastric Early satiety Metastases to the liver Social Determinates of Health Risks (including Economic Stability, Education and level of understanding, Healthcare access and quality and concerning social factors): None identified on this visit Ultimately, this patient was was signed out to the oncoming provider (Signed Out) Patient care assumed by oncoming provider, Mariam Hutson MD, at shift change, tentative plan at the time of sign-out was pending surgical Oncology recommendations ED Prescriptions None - [1] Past Medical History: Diagnosis Date Abnormal uterine [...] pain 07/08/2023 Continue prn oxy and dilaudid Sinusitis 03/06/25 Sleep apnea no cpap. mouth guard in use Thyroid nodule Ventral hernia without obstruction or gangrene 02/01/2025 [2] Past Surgical History: Procedure Laterality Date CHOLECYSTECTOMY 07/08/23 COLECTOMY PARTIAL / TOTAL Right w/appendectomy COLON SURGERY 07/2019 COLONOSCOPY N/A Colonoscopy from [facility] LIVER SURGERY Right 07/05/2023 ex lap, partial hepatectomy x 2 (seg 2/3, seg 7), MWA x 1 (seg 5), cholecystectomy OOPHORECTOMY 07/2019 with Colon surgery SMALL INTESTINE SURGERY 02/05/2025 small bowel resection x 2, ventral hernia repair TUBAL LIGATION N/A Tubal ligation from [facility] UPPER GASTROINTESTINAL ENDOSCOPY [3] Family History Problem Relation Name Age of Onset Pancreatic cancer Mother Chloe Lita FH: pancreatic cancer Hypertension Mother Chloe [place] Cancer Mother Chloe [place] Multiple myeloma Father Jaylen [place] FH: multiple myeloma Hypertension Father Jaylen [place] Arthritis Father Jaylen [place] Cancer Father Jaylen [place] Breast cancer Other FH: breast cancer Malig Hyperthermia Neg Hx Anesthesia problems Neg Hx [4] Tobacco Use Smoking status: Never Passive exposure: Never Smokeless tobacco: Never Vaping Use Vaping status: Never Used Substance Use Topics Alcohol use: Not Currently Comment: ocassionally, Drug use: Never [5] Allergies Allergen Reactions Sulfa Drugs Hives, Itching, Swelling and Rash Sulfamethoxazole-Trimethoprim Rash Kati Yun MD Resident 08/28/25 9728 Cosigned by Paul Chatterjee MD at 08/31/2025 11:53 AM EDT Associated attestation - Paul Chatterjee MD - 08/31/2025 11:53 AM EDT Seen by resident only. * ED Triage Notes - Rick Gleason RN - 08/28/2025 5:09 PM EDT Transfer from OSH for oncology. Increase in liver lesions with elevated bilirubin. RUQ pain. -n/v/d, -fevers * Progress Notes - Mariam Barber MD - 08/28/2025 5:09 PM EDT ED TRANSFER OF CARE NOTE Transferring provider: Cathryn Transferring attending: Sen ARVIND Time: 2257 I received sign-out and accepted care of this patient from the previous ED providers caring for this patient. I reviewed the patient's history, exam, work- up, and treatment plan up to this point. Please see the primary ED Provider Note for complete elements of the history, physical exam, and ED course. PERTINENT HISTORY: In brief, Marisa Villavicencio is a 59 y.o. 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 PENDING: I accepted care of this patient from the previous provider while waiting for evaluation and/or recommendations from: Surgical Oncology. Ultimately, the aforementioned service recommended admission to their service. ED Medication Administration from 08/28/2025 1016 to 08/28/2025 2257 Date/Time Order Dose Route Action 08/28/20252100 EDT ondansetron (Zofran) injection 4 mg 4 mg Intravenous Given 08/28/20252105 EDT HYDROmorphone (Dilaudid) injection 0.25 mg 0.25 mg Intravenous Given ED COURSE: ED Course as of 08/29/25 0714 Tue Aug 28, 2025 183 On my initial evaluation of the patient, they were hemodynamically stable, not in any respiratory distress and alert and oriented. They had initial concerns of epigastric abdominal pain. She wastransferred for concerns of liver metastases. Most recent surveillance imaging of the patient in June was unremarkable for metastases, however there are concerns on CT abdomen and pelvis from outside hospital. Patient did not arrive with reads, pending fax of CT reads from OSH. [SL] 185 I independently reviewed the patient's previous records including the most recent surgical Oncology note on 06/26/2025 which revealed: Patient underwent MRI abdomen and pelvis in June 2025 that was not remarkable for metastatic disease. She follows with surgical Oncology every 3 months, and is scheduled to follow up in September. Given that patient did not have evidence of metastatic disease in June 2025 however there was no concern for this, surgical Oncology will be consulted. [SL] 1957 I personally reviewed patient's previous OSH records which revealed: Imaging: - CT abd pelvis w: Progression of hepatic metastases with new metastasis in his central liver which appeared of struck the biliary system of the right hepatic lobe. Interval increase in size of upper abdominal lymph nodes and mesenteric lymph nodes. New abnormal attenuation in the omentum of the upper abdomen, peritoneal metastases should be considered [SL] 1958 Surgical oncology was consulted for further evaluation and recommendations for the management of new liver metastases. [SL] 1959 Total Bilirubin, Plasma(!): 3.6 0.5 3 months ago [SL] 2237 Pending surg onc recommendations [SL] 2317 On reassessment, patient reported increased pain. Tylenol ordered [SL] ED Course User Index [SL] Kati Yun MD Clinical Impressions as of 08/29/25 0714 Abdominal pain, epigastric Early satiety Metastases to the liver Ultimately, this patient Was admitted (Admission) The primary encounter diagnosis was Abdominal pain, epigastric. Diagnoses of Early satiety and Metastases to the liver were also pertinent to this visit.. Patient believed to require admission for the listed diagnoses. The surgical Oncology service was consulted for admission and was agreeable to admit to Acute Floor (Med/Surg). ED Prescriptions None - Mariam Barber MD Cosigned by Paul Chatterjee MD at 08/31/2025 11:42 AM EDT Associated attestation - Paul Chatterjee MD - 08/31/2025 11:42 AM EDT Seen by resident only. documented in this encounter Plan of Treatment Upcoming Encounters Date Type Department Care Team (Late st Contact Info) Description 09/25/2025 7:30 AM EST Appointment [facility] Radiology [address] [place] [phone] 09/25/2025 9:20 AM EST Appointment [facility] CT [address] [place] [address] 10/02/2025 9:10 AM EST Office Visit [facility] [address] [place] [phone] Ren Saeed MD [address] [phone] 10/29/2025 10:10 AM EST Appointment [facility] [address] [place] [address] Etienne Novak MD [address] [place] [address] documented as of this encounter Goals Goal Patient Goal Type Associated Problems Recent Progress Patient-Stated? Author Autogenerat ed Goal Care Plan Autogenerated Problem Stefanie Betts [place] documented as of this encounter Procedures Procedure Name Priority Date/Time Associated Diagnosis Comments CBC W/O DIFFERENTIAL Routine 08/30/2025 3:48 AM EDT PHOSPHORUS, PLASMA Routine 08/30/2025 3: 48 AM EDT MAGNESIUM, PLASMA Routine 08/30/2025 3:4 8 AM EDT COMPREHENSIVE METABOLIC PANEL, PLASMA Routine 08/30/2025 3:48 AM EDT MRCP RAPID STAT 08/29/2025 6:55 PM EDT ED HIV 1/2 ANTIBODY/ANTIGEN SCREEN WITH REFLEX TO HIV I/II DIFFERENTIATION STAT 08/28/2025 6:42 PM EDT ED PROTOCOL HIV 1/2 ANTIBODY/ANTIGEN SCREEN W/REFLEX TO HIV 1/2 ANTIBODY DIFFERENTIATION STAT 08/28/2025 6:42 PM EDT HEPATITIS C ANTIBODY - ED W/REFLEX TO HCV QUANT PCR STAT 08/28/2025 6:42 PM EDT CBC WITH AUTO DIFFERENTIAL STAT 08/28/2025 6:42 PM EDT LIPASE, PLASMA STAT 08/28/2025 6:42 PM EDT COMPREHENSIVE METABOLIC PANEL, PLASMA STAT 08/28/2025 6:42 PM EDT documented in this encounter Results * Magnesium (08/30/2025 3:48 AM EDT) Magnesium, Plasma 2.0 1.9 - 2.4 mg/dL 08/30/2025 4:31 AM EDT [facility] Blood Venous blood specimen / Unknown Venipuncture / Unknown 08/30/2025 3:48 AM EDT 08/30/2025 3:54 AM EDT Home Munguia MD LAB BLOOD ORDERABLES Final Result Performing Organization Address City/[facility]/ZIP Co de Phone Number [facility] [address] [place] [address] * Phosphorus (08/30/2025 3:48 AM EDT) Phosphorus, Plasma 3.6 2.5 - 4.5 mg/dL 08/30/2025 4:31 AM EDT [facility] Blood Venous blood specimen / Unknown Venipuncture / Unknown 08/30/2025 3:48 AM EDT 08/30/2025 3:54 AM EDT us Home Munguia MD LAB BLOOD ORDERABLES Final Result Performing Organization Address City/[facility]/ZIP Co de Phone Number [facility] [address] [place] [address] * (ABNORMAL) Comprehensive Metabolic Panel (08/30/2025 3:48 AM EDT) Glucose, Plasma 112(H) 74 - 99 mg/dL 08/30/2025 4:31 AM EDT [facility] BUN, Plasma 10 8 - 23 mg/dL 08/30/2025 4:31 AM EDT [facility] Creatinine, Plasma 0.74 0.60 - 1.10 mg/dL 08/30/2025 4:31 AM EDT [facility] BUN/Creatinine Ratio 14 08/30/2025 4:31 AM EDT [facility] Sodium, Plasma 141 136 - 145 mmol/L 08/30/2025 4:31 AM EDT [facility] Potassium, Plasma 3.8 3.6 - 4.9 mmol/L 08/30/2025 4:31 AM EDT [facility] Chloride, Plasma 106 97 - 107 mmol/L 08/30/2025 4:31 AM EDT [facility] CO2, Plasma 27 22 - 29 mmol/L 08/30/2025 4:31 AM EDT [facility] Anion Gap 8 6 - 16 mmol/L 08/30/2025 4:31 AM EDT [facility] Total Calcium, Plasma 8.7(L) 8.9 - 10.2 mg/dL 08/30/2025 4:31 AM EDT [facility] Total Protein 5.5(L) 6.3 - 7.9 g/dL 08/30/2025 4:31 AM EDT [facility] Albumin, Plasma 3.3(L) 3.5 - 5.2 g/dL 08/30/2025 4:31 AM EDT [facility] AST, Plasma 34 10 - 35 U/L 08/30/2025 4:31 AM EDT [facility] ALT, Plasma 53(H) 10 - 35 U/L 08/30/2025 4:31 AM EDT [facility] Alkaline Phosphatase, Plasma 362(H) 46 - 142 U/L 08/30/2025 4:31 AM EDT [facility] Total Bilirubin, Plasma 0.7 0.2 - 1.1 mg/dL 08/30/2025 4:31 AM EDT [facility] eGFRcr 92.2 mL/min/1.7 3m*2 08/30/2025 4:31 AM EDT [facility] Comment:Reported eGFRcr in m L/min/1.73m2 is based the CKD-EPI 2020 equation that does not use a race coefficient. Blood Venous blood specimen / Unknown Venipuncture / Unknown 08/30/2025 3:48 AM EDT 08/30/2025 3:54 AM EDT us Home Munguia MD LAB BLOOD ORDERABLES Final Result [facility] [address] [place] [address] * (ABNORMAL) CBC (08/30/2025 3:48 AM EDT) WBC Count 3.34(L) 3.70 - 10.30 10*3/uL LAB HEMATOLOGY METHOD 08/30/2025 4:05 AM EDT [facility] RBC Count 4.07 3.90 - 5.20 10*6/uL LAB HEMATOLOGY METHOD 08/30/2025 4:05 AM EDT [facility] HGB 11.5 11.2 - 15.7 g/dL LAB HEMATOLOGY METHOD 08/30/2025 4:05 AM EDT [facility] HCT 36.1 34.0 - 45.0 % LAB HEMATOLOGY METHOD 08/30/2025 4:05 AM EDT [facility] Platelet Count 106(L) 155 - 369 10*3/uL LAB HEMATOLOGY METHOD 08/30/2025 4:05 AM EDT [facility] MCV 89 79 - 98 fL LAB HEMATOLOGY METHOD 08/30/2025 4:05 AM EDT [facility] MCH 28.3 26.0 - 32.0 pg LAB HEMATOLOGY METHOD 08/30/2025 4:05 AM EDT [facility] MCHC 31.9 30.7 - 35.5 g/dL LAB HEMATOLOGY METHOD 08/30/2025 4:05 AM EDT [facility] RDW 13.0 11.5 - 14.5 % LAB HEMATOLOGY METHOD 08/30/2025 4:05 AM EDT [facility] MPV 13.0(H) 8.8 - 12.5 fL LAB HEMATOLOGY METHOD 08/30/2025 4:05 AM EDT [facility] nRBC 0.0 <=0.0 per 100 WBCs LAB HEMATOLOGY METHOD 08/30/2025 4:05 AM EDT [facility] Blood Venous blood specimen / Unknown Venipuncture / Unknown 08/30/2025 3:48 AM EDT 08/30/2025 3:55 AM EDT us Home Munguia MD LAB BLOOD ORDERABLES Final Result [facility] [address] [place] [address] * MRCP Rapid (08/29/2025 6:55 PM EDT) Anatomical Region Laterality Modality Abdomen Magnetic Resonan ce Impressions 08/30/2025 10:38 AM EDT Limited noncontrast examination. Interval increase in bile duct dilatation in the right hemiliver likely secondary to suspected interval increase in size of a centrally located hepatic metastasis. No extrahepatic duct stricture. CRITICAL RESULT: No. COMMUNICATION: Per this written report. By electronically signing this report, I, the attending physician, attest that I have personally reviewed the images/data for the above examination(s) and agree with the final edited report. Drafted by BERNICE Ding on 08/30/2025 8:01 AM Final report signed by Laith Aguilar MD on 08/30/2025 10:38 AM Narrative 08/30/2025 10:38 AM EDT CLINICAL INDICATION: C/f billiary obsturction. History of.metastatic colorectal adenocarcinoma s/p right hemicolectomy (2018) and partial hepatectomy/microwave ablation (2022) who presented with 2 day abdominal pain with possibly biliary obstruction with pancreatic duct dilation TECHNIQUE: MR imaging of the abdomen was performed without intravenous contrast material using the following sequences: coronal single shot T2 weighted fast spin echo, axial T2 weighted sequences with and without fat saturation, axial dual phase gradient echo, pre and dynamic postcontrast 3-D T1 weighted gradient echo with fat saturation (axial and coronal), and axial diffusion. Heavily T2-weighted 2D MRCP sequences were acquired. In addition, advanced 3D workstation manipulation and review of the data set was performed by the interpreting physician to further define anatomy and possible pathology. Images of areas of interest were created utilizing various techniques. These images were saved and transferred to PACS if significant. COMPARISON: Outside CT abdomen August 28, 2025 MRI abdomen June 22, 2025 FINDINGS: Gallbladder: Prior cholecystectomy. Biliary tree: Possible mild narrowing of the left hepatic duct. There is narrowing right hepatic duct with interval increase in segmental ductal involving right hemiliver. The dilated right hemiliver ducts converge to a site of T2 signal abnormality (14, 4) likely representing a centrally located metastasis. Extrahepatic duct measures approximately 9 mm, similar to prior examination, and tapers smoothly to the level of the ampulla. No choledocholithiasis or extrinsic compression or stricture. Liver: Unchanged liver morphology with post therapeutic changes. No significant hepatic steatosis or iron deposition. Redemonstration of multiple simple hepatic cysts with the largest in segment 7 measuring approximately 2.9cm. (Series 4, image 16). No significant change in post therapeutic changes from hepatic resection and placement. Mildly T2 hyperintense lesion at the hepatic dome previously characterized as FNH, measuring approximately 2.4 cm (series 4, image 8). No suspicious T2 hyperintense liver lesions in central liver liver measuring approximately 2.6 cm, as described above, suspicious for metastases (series 4, image 14) associated peripheral duct dilatation. There is a similar signal abnormality at this site on comparison MRI although it may be slightly larger in size on the current examination (27 mm versus 23 mm). Pancreas: Unremarkable pancreatic parenchyma. No pancreatic duct dilatation. No obvious pancreatic mass. Spleen: Splenomegaly measuring 13 cm. No focal lesions. Adrenal Glands: Unremarkable Kidneys: Unremarkable Fluid Survey: Trace ascites. Mild retroperitoneal edema. Vasculature: Suboptimal assessment given lack of intravenous contrast material. No abdominal aortic aneurysm. Lymph Nodes: No adenopathy. Musculoskeletal: No aggressive marrow signal bodies.. Procedure Note Laith Aguilar MD - 08/30/2025 CLINICAL INDICATION: C/f billiary obsturction. History of.metastatic colorectal adenocarcinomas/p right hemicolectomy (2018) and partial hepatectomy/microwave ablation(2022) who presented with 2 day abdominal pain with possibly biliaryobstruction with pancreatic duct dilation TECHNIQUE: MR imaging of the abdomen was performed without intravenous contrastmaterial using the following sequences: coronal single shot T2 weightedfast spin echo, axial T2 weighted sequences with and without fatsaturation, axial dual phase gradient echo, pre and dynamic postcontrast3-D T1 weighted gradient echo with fat saturation (axial and coronal), andaxial diffusion. Heavily T2-weighted 2D MRCP sequences were acquired. Inaddition, advanced 3D workstation manipulation and review of the data setwas performed by the interpreting physician to further define anatomy andpossible pathology. Images of areas of interest were created utilizingvarious techniques. These images were saved and transferred to PACS ifsignificant. COMPARISON: Outside CT abdomen August 28, 2025 MRI abdomen June 22, 2025 FINDINGS: Gallbladder: Prior cholecystectomy. Biliary tree: Possible mild narrowing of the left hepatic duct. There isnarrowing right hepatic duct with interval increase in segmental ductalinvolving right hemiliver. The dilated right hemiliver ducts converge to asite of T2 signal abnormality (14, 4) likely representing a centrallylocated metastasis. Extrahepatic duct measures approximately 9 mm, similarto prior examination, and tapers smoothly to the level of the ampulla. Nocholedocholithiasis or extrinsic compression or stricture. Liver: Unchanged liver morphology with post therapeutic changes. Nosignificant hepatic steatosis or iron deposition. Redemonstration of multiple simple hepatic cysts with the largest insegment 7 measuring approximately 2.9cm. (Series 4, image 16). Nosignificant change in post therapeutic changes from hepatic resection andplacement. Mildly T2 hyperintense lesion at the hepatic dome previouslycharacterized as FNH, measuring approximately 2.4 cm (series 4, image 8).No suspicious T2 hyperintense liver lesions in central liver livermeasuring approximately 2.6 cm, as described above, suspicious formetastases (series 4, image 14) associated peripheral duct dilatation.There is a similar signal abnormality at this site on comparison MRIalthough it may be slightly larger in size on the current examination (27mm versus 23 mm). Pancreas: Unremarkable pancreatic parenchyma. No pancreatic ductdilatation. No obvious pancreatic mass. Spleen: Splenomegaly measuring 13 cm. No focal lesions. Adrenal Glands: Unremarkable Kidneys: Unremarkable Fluid Survey: Trace ascites. Mild retroperitoneal edema. Vasculature: Suboptimal assessment given lack of intravenous contrastmaterial. No abdominal aortic aneurysm. Lymph Nodes: No adenopathy. Musculoskeletal: No aggressive marrow signal bodies.. IMPRESSION: Limited noncontrast examination. Interval increase in bile duct dilatation in the right hemiliver likelysecondary to suspected interval increase in size of a centrally locatedhepatic metastasis. No extrahepatic duct stricture. CRITICAL RESULT: No. COMMUNICATION: Per this written report. By electronically signing this report, I, the attending physician, attestthat I have personally reviewed the images/data for the aboveexamination(s) and agree with the final edited report. Drafted by BERNICE Ding on 08/30/2025 8:01 AM Final report signed by Laith Aguilar MD on 08/30/2025 10:38 AM Home Munguia MD IMG MRI PROCEDURES Final R esult * ED HIV 1/2 Antibody/Antigen Screen w/Reflex to HIV 1/2 Differentiation (08/28/2025 6:42 PM EDT) [facility] HIV 1 & 2 Antibody/Antigen Screen Non Reactive Non Reactive 08/28/2025 7:47 PM EDT [facility] Comment:Screening for HIV 1 & 2 antibodies, and P24 antigen is NONREACTIVE. No confirmatory testing is required. Blood Venous blood specimen / Unknown Venipuncture / Unknown 08/28/2025 6:42 PM EDT 08/28/2025 6:56 PM EDT Gudelia Weir MD LAB BLOOD ORDERABLES Final Res ult Performing Organization Address City/[facility]/ZIP Co de Phone Number [facility] [address] [place] [address] * Hepatitis C Antibody - ED (08/28/2025 6:42 PM EDT) [facility] Hepatitis C Antibody Negative Negative 08/28/2025 8:15 PM EDT [facility] Blood Venous blood specimen / Unknown Venipuncture / Unknown 08/28/2025 6:42 PM EDT 08/28/2025 6:56 PM EDT Gudelia Weir MD LAB BLOOD ORDERABLES Final Res ult [facility] [address] [place] [address] * (ABNORMAL) CBC w/diff (08/28/2025 6:42 PM EDT) [facility] WBC Count 5.28 3.70 - 10.30 10*3/uL LAB HEMATOLOGY METHOD 08/28/2025 6:50 PM EDT [facility] RBC Count 4.34 3.90 - 5.20 10*6/uL LAB HEMATOLOGY METHOD 08/28/2025 6:50 PM EDT [facility] HGB 12.4 11.2 - 15.7 g/dL LAB HEMATOLOGY METHOD 08/28/2025 6:50 PM EDT [facility] HCT 37.3 34.0 - 45.0 % LAB HEMATOLOGY METHOD 08/28/2025 6:50 PM EDT [facility] Platelet Count 114(L) 155 - 369 10*3/uL LAB HEMATOLOGY METHOD 08/28/2025 6:50 PM EDT [facility] MCV 86 79 - 98 fL LAB HEMATOLOGY METHOD 08/28/2025 6:50 PM EDT [facility] MCH 28.6 26.0 - 32.0 pg LAB HEMATOLOGY METHOD 08/28/2025 6:50 PM EDT [facility] MCHC 33.2 30.7 - 35.5 g/dL LAB HEMATOLOGY METHOD 08/28/2025 6:50 PM EDT [facility] RDW 13.1 11.5 - 14.5 % LAB HEMATOLOGY METHOD 08/28/2025 6:50 PM EDT [facility] MPV 12.6(H) 8.8 - 12.5 fL LAB HEMATOLOGY METHOD 08/28/2025 6:50 PM EDT [facility] nRBC 0.0 <=0.0 per 100 WBCs LAB HEMATOLOGY METHOD 08/28/2025 6:50 PM EDT [facility] Differential Type Automated LAB HEMATOLOGY METHOD 08/28/2025 6:50 PM EDT [facility] Neutrophils % 72 % LAB HEMATOLOGY METHOD 08/28/2025 6:50 PM EDT [facility] Lymphocytes % 13 % LAB HEMATOLOGY METHOD 08/28/2025 6:50 PM EDT [facility] Monocytes % 14 % LAB HEMATOLOGY METHOD 08/28/2025 6:50 PM EDT [facility] Eosinophils % 1 % LAB HEMATOLOGY METHOD 08/28/2025 6:50 PM EDT [facility] Basophils % 0 % LAB HEMATOLOGY METHOD 08/28/2025 6:50 PM EDT [facility] Immature Granulocytes % 0 % LAB HEMATOLOGY METHOD 08/28/2025 6:50 PM EDT [facility] Neutrophils Absolute 3.77 1.60 - 6.10 10*3/uL LAB HEMATOLOGY METHOD 08/28/2025 6:50 PM EDT [facility] Lymphocytes Absolute 0.70(L) 1.20 - 3.90 10*3/uL LAB HEMATOLOGY METHOD 08/28/2025 6:50 PM EDT [facility] Monocytes Absolute 0.75 0.30 - 0.90 10*3/uL LAB HEMATOLOGY METHOD 08/28/2025 6:50 PM EDT [facility] Eosinophils Absolute 0.03 0.00 - 0.50 10*3/uL LAB HEMATOLOGY METHOD 08/28/2025 6:50 PM EDT [facility] Basophils Absolute 0.02 0.00 - 0.10 10*3/uL LAB HEMATOLOGY METHOD 08/28/2025 6:50 PM EDT [facility] Immature Granulocytes Absolute 0.01 0.00 - 0.06 10*3/uL LAB HEMATOLOGY METHOD 08/28/2025 6:50 PM EDT [facility] Blood Venous blood specimen / Unknown Venipuncture / Unknown 08/28/2025 6:42 PM EDT 08/28/2025 6:48 PM EDT Narrative [facility] - 08/28/2025 6:50 PM EDT Therapeutic decision making should be based on absolute values, rather than percentages. Gudelia Weir MD LAB BLOOD ORDERABLES Final Res ult [facility] [address] [place] [address] * Lipase (08/28/2025 6:42 PM EDT) Lipase, Plasma 27 19 - 63 U/L 08/28/2025 7:07 PM EDT [facility] Blood Venous blood specimen / Unknown Venipuncture / Unknown 08/28/2025 6:42 PM EDT 08/28/2025 6:48 PM EDT Gudelia Weir MD LAB BLOOD ORDERABLES Final Res ult [facility] [address] [place] [address] * (ABNORMAL) CMP (08/28/2025 6:42 PM EDT) Glucose, Plasma 111(H) 74 - 99 mg/dL 08/28/2025 7:07 PM EDT [facility] BUN, Plasma 9 8 - 23 mg/dL 08/28/2025 7:07 PM EDT [facility] Creatinine, Plasma 0.79 0.60 - 1.10 mg/dL 08/28/2025 7:07 PM EDT [facility] BUN/Creatinine Ratio 11 08/28/2025 7:07 PM EDT [facility] Sodium, Plasma 137 136 - 145 mmol/L 08/28/2025 7:07 PM EDT [facility] Potassium, Plasma 3.8 3.6 - 4.9 mmol/L 08/28/2025 7:07 PM EDT [facility] Chloride, Plasma 101 97 - 107 mmol/L 08/28/2025 7:07 PM EDT [facility] CO2, Plasma 24 22 - 29 mmol/L 08/28/2025 7:07 PM EDT [facility] Anion Gap 12 6 - 16 mmol/L 08/28/2025 7:07 PM EDT [facility] Total Calcium, Plasma 9.8 8.9 - 10.2 mg/dL 08/28/2025 7:07 PM EDT [facility] Total Protein 6.3 6.3 - 7.9 g/dL 08/28/2025 7:07 PM EDT [facility] Albumin, Plasma 3.9 3.5 - 5.2 g/dL 08/28/2025 7:07 PM EDT [facility] AST, Plasma 72(H) 10 - 35 U/L 08/28/2025 7:07 PM EDT [facility] ALT, Plasma 80(H) 10 - 35 U/L 08/28/2025 7:07 PM EDT [facility] Alkaline Phosphatase, Plasma 450(H) 46 - 142 U/L 08/28/2025 7:07 PM EDT [facility] Total Bilirubin, Plasma 3.6(H) 0.2 - 1.1 mg/dL 08/28/2025 7:07 PM EDT [facility] eGFRcr 85.2 mL/min/1.7 3m*2 08/28/2025 7:07 PM EDT [facility] Comment:Reported eGFRcr in m L/min/1.73m2 is based the CKD-EPI 2020 equation that does not use a race coefficient. 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 documented in this encounter Admitting Diagnoses Diagnosis Abdominal pain, epigastric documented in this encounter Administered Medications Inactive Administered Medications - up to 3 most recent administrations Medication Order MAR Action Action Date Dose Rate Site acetaminophen (Tylenol) tablet 1,000 mg 1,000 mg, Oral, Every 6 hours PRN, Starting on Wed08/29/25 at 0012, Until Wed08/30/25 at 2038, Routine, mild pain Given 08/30/2025 2:19 PM EDT 1,000 mg Given 08/30/2025 5:24 AM EDT 1,000 mg Given 08/29/2025 12:51 PM EDT 1,000 mg acetaminophen (Tylenol) tablet 650 mg 650 mg, Oral, Once, 1 dose, On Wed08/28/25 at 2325, STAT Given 08/28/2025 11:34 PM EDT 650 mg DULoxetine (Cymbalta) DR capsule 60 mg 60 mg, Oral, Daily, First dose on Wed08/29/25 at 0900, Until Discontinued, Routine Given 08/30/2025 8:36 AM EDT 60 mg Given 08/29/2025 8:56 AM EDT 60 mg enoxaparin (Lovenox) syringe 30 mg 30 mg, Subcutaneous, Daily, First dose on Wed08/29/25 at 1710, Until Discontinued, Routine, Hold starts Wed08/31/2025 at 0001 until manually unheld Given 08/29/2025 6:08 PM EDT 30 mg Left Lower Abdomen heparin flush 10 UNIT/ML injection 50 Units 50 Units, Intracatheter, As needed, Starting on Wed08/30/25 at 1732, Until Wed08/30/25 at 2037, Routine, line care Given 08/30/2025 6:13 PM EDT 50 Units HYDROmorphone (Dilaudid) injection 0.25 mg 0.25 mg, Intravenous, Once, 1 dose, On Wed08/28/25 at 2050, STAT Given 08/28/2025 9:06 PM EDT 0.25 mg HYDROmorphone (Dilaudid) injection 0.25 mg 0.25 mg, Intravenous, Once, 1 dose, On Wed08/29/25 at 0745, Routine Given 08/29/2025 8:04 AM EDT 0.25 mg lactated Ringer's infusion 100 mL/hr, Intravenous, Continuous, Starting on Wed08/29/25 at 0015, Until Wed08/30/25 at 2037, Routine New Bag 08/30/2025 10:38 AM EDT 100 mL/hr 100 mL/hr New Bag 08/30/2025 12:09 AM EDT 100 mL/hr 100 mL/hr New Bag 08/29/2025 1:07 AM EDT 100 mL/hr 100 mL/hr methocarbamol (Robaxin) tablet 500 mg 500 mg, Oral, Every 8 hours, First dose on Wed08/29/25 at 0015, Until Discontinued, Routine Given 08/30/2025 2:19 PM EDT 500 mg Given 08/30/2025 8:36 AM EDT 500 mg Given 08/30/2025 12:09 AM EDT 500 mg mupirocin (Bactroban) 2 % ointment 1 Application Each Nostril, 2 times daily, 10 doses, First dose on Wed08/30/25 at 2100, Last dose on Wed09/04/25 at 0900, Routine ondansetron (Zofran) 4 MG/5ML solution 4 mg 4 mg, Oral, Every 6 hours PRN, Starting on Wed08/29/25 at 0012, Until Wed08/30/25 at 2037, Routine, nausea, vomiting ondansetron (Zofran) injection 4 mg 4 mg, Intravenous, Once, 1 dose, On Wed08/28/25 at 2050, STAT Given 08/28/2025 9:01 PM EDT 4 mg ondansetron (Zofran) injection 4 mg 4 mg, Intravenous, Once, 1 dose, On Wed08/28/25 at 2325, STAT Given 08/28/2025 11:35 PM EDT 4 mg ondansetron (Zofran) injection 4 mg 4 mg, Intravenous, Every 6 hours PRN, Starting on Wed08/29/25 at 0012, Until Venessa 08/30/25 at 203, Routine, vomiting, nausea ondansetron ODT (Zofran-ODT) disintegrating tablet 4 mg 4 mg, Oral, Every 6 hours PRN, Starting on Wed08/29/25 at 0012, Until Venessa 08/30/25 at 2037, Routine, nausea, vomiting Given 08/30/2025 2:19 PM EDT 4 mg Given 08/30/2025 8:36 AM EDT 4 mg Given 08/29/2025 6:39 AM EDT 4 mg oxyCODONE (Roxicodone) immediate release tablet 10 mg 10 mg, Oral, Every 6 hours PRN, Starting on Wed08/29/25 at 0743, Until Wed08/30/25 at 2037, Routine, severe pain Given 08/29/2025 8:37 PM EDT 10 mg oxyCODONE (Roxicodone) immediate release tablet 5 mg 5 mg, Oral, Every 6 hours PRN, Starting on Wed08/29/25 at 0743, Until Venessa 08/30/25 at 2037, Routine, moderate pain Given 08/30/2025 10:42 AM EDT 5 mg pantoprazole (Protonix) injection 40 mg 40 mg, Intravenous, Daily, First dose on Wed08/29/25 at 1710, Until Discontinued, Routine Given 08/30/2025 8:36 AM EDT 40 mg Given 08/29/2025 6:08 PM EDT 40 mg prochlorperazine (Compazine) injection 10 mg 10 mg, Intravenous, Once, 1 dose, On Wed08/29/25 at 0710, Routine Given 08/29/2025 7:32 AM EDT 10 mg sodium chloride 0.9 % flush 10 mL 10 mL, Intravenous, Every 12 hours, First dose on Wed08/29/25 at 0015, Until Discontinued, Routine Given 08/30/2025 12:08 AM EDT 10 mL Given 08/29/2025 11:47 AM EDT 10 mL Given 08/29/2025 1:00 AM EDT 10 mL sodium chloride 0.9 % flush 10 mL 10 mL, Intravenous, As needed, Starting on Wed08/29/25 at 0010, Until Venessa 08/30/25 at 2038, Routine, line care verapamil SR (Calan-SR) ER tablet 120 mg 120 mg, Oral, Nightly, First dose on Wed08/29/25 at 0015, Until Discontinued Given 08/29/2025 8:39 PM EDT 120 mg Given 08/29/2025 1:03 AM EDT 120 mg documented in this encounter Active and Recently Administered Medications Times are shown in EDT. Scheduled Medication Order 08/28/2025 08/29/2025 08/30/2025 acetaminophen (Tylenol) tablet 650 mg (COMPLETED) 650 mg, Oral, Once, 1 dose, On Wed08/28/25 at 2325, STAT 2334 (Given - Provider: Tina Monae) DULoxetine (Cymbalta) DR capsule 60 mg 60 mg, Oral, Daily, First dose on Wed08/29/25 at 0900, Until Discontinued, Routine 0856 (Given - Provider: Sara Lala RN) 0836 (Given - Provider: Kaiser Sanchez RN) enoxaparin (Lovenox) syringe 30 mg 30 mg, Subcutaneous, Daily, First dose on Wed08/29/25 at 1710, Until Discontinued, Routine, Hold starts Wed08/31/2025 at 0001 until manually unheld 1808 (Given - Provider: Sara Lala RN) 0001 (Held by provider - Provider: Marcio Cortez MD - Reason: Upcoming test/procedure)0900 (Dose Auto Held - Provider: Marcio Cortez MD)1212 (Unheld by provider - Provider: Rick Villarreal APRN) HYDROmorphone (Dilaudid) injection 0.25 mg (COMPLETED) 0.25 mg, Intravenous, Once, 1 dose, On Wed08/28/25 at 2050, STAT 2106 (Given - Provider: Tina Monae) HYDROmorphone (Dilaudid) injection 0.25 mg (COMPLETED) 0.25 mg, Intravenous, Once, 1 dose, On Wed08/29/25 at 0745, Routine 0804 (Given - Provider: Sara Lala RN) methocarbamol (Robaxin) tablet 500 mg 500 mg, Oral, Every 8 hours, First dose on Wed08/29/25 at 0015, Until Discontinued, Routine 0103 (Given - Provider: Tina Monae)0856 (Given - Provider: Sara Lala RN)1723 (Not Given - Provider: Sara Lala RN - Reason: Patient/family refused) 0009 (Given - Provider: Meghann Payne RN)0836 (Given - Provider: Kaiser Sanchez, ANDREA)1419 (Given - Provider: Kaiser Sanchez, ANDREA) mupirocin (Bactroban) 2 % ointment 1 Application Each Nostril, 2 times daily, 10 doses, First dose on Wed08/30/25 at 2100, Last dose on Wed09/04/25 at 0900, Routine ondansetron (Zofran) injection 4 mg (COMPLETED) 4 mg, Intravenous, Once, 1 dose, On Wed08/28/25 at 2050, STAT 2101 (Given - Provider: Tina Monae) ondansetron (Zofran) injection 4 mg (COMPLETED) 4 mg, Intravenous, Once, 1 dose, On Wed08/28/25 at 2325, STAT 2335 (Given - Provider: Tina Monae) pantoprazole (Protonix) injection 40 mg 40 mg, Intravenous, Daily, First dose on Wed08/29/25 at 1710, Until Discontinued, Routine 1808 (Given - Provider: Sara Lala RN) 0836 (Given - Provider: Kaiser Sanchez, ANDREA) prochlorperazine (Compazine) injection 10 mg (COMPLETED) 10 mg, Intravenous, Once, 1 dose, On Wed08/29/25 at 0710, Routine 0732 (Given - Provider: Sara Lala RN) sodium chloride 0.9 % flush 10 mL(Linked Group 1) 10 mL, Intravenous, Every 12 hours, First dose on Wed08/29/25 at 0015, Until Discontinued, Routine 0100 (Given - Provider: Tina Monae)1147 (Given - Provider: Sara Lala, ANDREA) 0008 (Given - Provider: Meghann Payne, ANDREA)1229 (Not Given - Provider: Kaiser Sanchez, ANDREA - Reason: Hold for condition: must add comment - Comment: IVFs infusing) verapamil SR (Calan-SR) ER tablet 120 mg 120 mg, Oral, Nightly, First dose on Wed08/29/25 at 0015, Until Discontinued 0103 (Given - Provider: Tina Monae)2038 (Given - Provider: Rodrigo Grullon) Continuous Medication Order 08/28/2025 08/29/2025 08/30/2025 lactated Ringer's infusion 100 mL/hr, Intravenous, Continuous, Starting on Wed08/29/25 at 0015, Until Venessa 08/30/25 at 2037, Routine 0107 (New Bag - Provider: Tina Monae) 0009 (New Bag - Provider: Meghann Payne, ANDREA)1038 (New Bag - Provider: Kaiser Sanchez, ANDREA) PRN Medication Order 08/28/2025 08/29/2025 08/30/2025 acetaminophen (Tylenol) tablet 1,000 mg 1,000 mg, Oral, Every 6 hours PRN, Starting on Wed08/29/25 at 0012, Until Venessa 08/30/25 at 2037, Routine, mild pain 0639 (Given - Provider: Tina Monae)1251 (Given - Provider: Sara Lala, ANDREA) 0524 (Given - Provider: Meghann Payne, ANDREA)1419 (Given - Provider: Kaiser Sanchez, ANDREA) heparin flush 10 UNIT/ML injection 50 Units 50 Units, Intracatheter, As needed, Starting on Venessa 08/30/25 at 1732, Until Venessa 08/30/25 at 2037, Routine, line care 1813 (Given - Provid er: Kaiser Sanchez, ANDREA) ondansetron (Zofran) 4 MG/5ML solution 4 mg(Linked Group 2) 4 mg, Oral, Every 6 hours PRN, Starting on Wed08/29/25 at 0012, Until Venessa 08/30/25 at 2037, Routine, nausea, vomiting 0639 (See Alternative - Provider: Tina Monae) 0836 (See Alternative - Provider: Kaiser Sanchez, ANDREA)1419 (See Alternative - Provider: Kaiser Sanchez, ANDREA) ondansetron (Zofran) injection 4 mg(Linked Group 2) 4 mg, Intravenous, Every 6 hours PRN, Starting on Wed08/29/25 at 0012, Until Venessa 08/30/25 at 2037, Routine, vomiting, nausea 0639 (See Alternative - Provider: Tina Monae) 0836 (See Alternative - Provider: Kaiser Sanchez, ANDREA)1419 (See Alternative - Provider: Kaiser Sanchez, ANDREA) ondansetron ODT (Zofran-ODT) disintegrating tablet 4 mg(Linked Group 2) 4 mg, Oral, Every 6 hours PRN, Starting on Wed08/29/25 at 0012, Until Venessa 08/30/25 at 2037, Routine, nausea, vomiting 0639 (Given - Provider: Tina Monae) 0836 (Given - Provider: Kaiser Sanchez RN)1419 (Given - Provider: Kaiser Sanchez, ANDREA) oxyCODONE (Roxicodone) immediate release tablet 10 mg(Linked Group 3) 10 mg, Oral, Every 6 hours PRN, Starting on Wed08/29/25 at 0743, Until Venessa 08/30/25 at 2037, Routine, severe pain 2036 (Given - Provider: Rodrigo Grullon) 1042 (See Alternative - Provider: Kaiser Sanchez RN) oxyCODONE (Roxicodone) immediate release tablet 5 mg(Linked Group 3) 5 mg, Oral, Every 6 hours PRN, Starting on Wed08/29/25 at 0743, Until Venessa 08/30/25 at 2037, Routine, moderate pain 2036 (See Alternative - Provider: Rodrigo Grullon) 1042 (Given - Provider: Kaiser Sanchez RN) sodium chloride 0.9 % flush 10 mL(Linked Group 1) 10 mL, Intravenous, As needed, Starting on Wed08/29/25 at 0010, Until Venessa 08/30/25 at 2037, Routine, line care Linked Groups Order Group 1: Insert peripheral IV (CANCELED) Once, On Wed08/29/25 at 0011, For 1 occurrence And Saline lock IV (CANCELED) Once, On Wed08/29/25 at 0011, For 1 occurrence And sodium chloride 0.9 % flush 10 mLJump to med 10 mL, Intravenous, Every 12 hours, First dose on Wed08/29/25 at 0015, Until Discontinued, Routine And sodium chloride 0.9 % flush 10 mLJump to med 10 mL, Intravenous, As needed, Starting on Wed08/29/25 at 0010, Until Wed08/30/25 at 2037, Routine, line care Group 2: ondansetron ODT (Zofran-ODT) disintegrating tablet 4 mgJump to med 4 mg, Oral, Every 6 hours PRN, Starting on Wed08/29/25 at 0012, Until Wed08/30/25 at 2037, Routine, nausea, vomiting Or ondansetron (Zofran) injection 4 mgJump to med 4 mg, Intravenous, Every 6 hours PRN, Starting on Wed08/29/25 at 0012, Until Wed08/30/25 at 2037, Routine, vomiting, nausea Or ondansetron (Zofran) 4 MG/5ML solution 4 mgJump to med 4 mg, Oral, Every 6 hours PRN, Starting on Wed08/29/25 at 0012, Until Wed08/30/25 at 2037, Routine, nausea, vomiting Group 3: oxyCODONE (Roxicodone) immediate release tablet 5 mgJump to med 5 mg, Oral, Every 6 hours PRN, Starting on Wed08/29/25 at 0743, Until Wed08/30/25 at 2037, Routine, moderate pain Or oxyCODONE (Roxicodone) immediate release tablet 10 mgJump to med 10 mg, Oral, Every 6 hours PRN, Starting on Wed08/29/25 at 0743, Until Wed08/30/25 at 2037, Routine, severe pain documented in this encounter Additional Health Concerns Active Problems Noted Date Diagnosed Date Autogenerated Problem 06/11/2025 Assessment Noted Time PHQ-9 Depression Total Score: 0 03/06/20 2:14 PM EDT A fall risk assessment has been complete d for the patient 06/26/2025 10:00 AM EDT A Body Mass Index follow-up plan has been documented for the patient 08/30/2025 5:04 PM EDT documented as of this encounter Care Teams Software Test Manager Relationship Specialty Start Date End Date Gudelia Arevalo MD [address] [address] PCP - General 04/04/21 Emerita Gao DDS [address] [facility] [address] [place] [id number] Dentist Dentist 07/21/21 Tuyet Hogue Dentist Dental Stave Log Ripsaw Operator 07/21/21 Suha Marshall MD [address] [facility] [address] [place] [id number] Medical Oncologist Medical Oncology 11/29/22 documented as of this encounter
[2025-09-08] VITALS (13 sets, daily range): BP systolic 108–141; BP diastolic 65–90; PULSE 67–83; RESP 11–16; TEMP 37–37.2; O2SAT 89–99; BMI 27.4
--- OUTSIDE RECORDS SUMMARY | 2025-09-08 00:34 | XMS_ITS | Encounter Summary ---
Author Organization Healthcare Address [address] [place] [address] Care Team Providers Care Systems Integration Analyst Name Role Phone Paul Arevalo MD Primary Care Provider + [phone] Emerita Gao DDS Unavailable + Tuyet Hogue Unavailable Unavailable Suha Marshall MD Unavailable [phone] Encounter Details Date Type Department Care Team (Late st Contact Info) Description 11/12/2022 Lab Requisition [facility] [address] [place] [phone] Suha Marshall MD 800 [facility] [address] [place] [address] Malignant neoplasm of cecum (CMS/HCC) [...] S Radiology [address], [address]st [place] [address] 09/25/2025 9:20 AM EST Appointment [facility] [address], [address]nd [place] [address] 10/02/2025 9:10 AM EST Office Visit [facility] [address] [place] [address] Ren Saeed MD 800 [facility] 1st [place] [address] 10/29/2025 10:10 AM EST Appointment [facility] [address] [place] [address] Etienne Novak MD [address] [place] [address] documented as of this encounter Procedures Procedure Name Priority Date/Time Associated Diagnosis Comments AP MISCELLANEOUS LAB TEST (SO) Routine 11/12/2022 12:00 AM EST Malignant neoplasm of cecum (CMS/HCC) documented in this encounter Results * - AP Miscellaneous Test (11/12/2022 12:00 AM EST) Test name DC Profile-Ca ris 11/30/2022 9:23 AM EST [facility] Comment:[id number] C6 Test Result see scan 11/30/2022 9:23 AM EST [facility] See Scanned Result 11/30/2022 9:23 AM EST [facility] Tissue 11/12/2022 11/12/2022 11: 10 AM EST us Suha Marshall MD LAB REF LAB BLOOD AND FLUID ORD Final Result [facility] [address] [place] [address] documented in this encounter Visit Diagnoses Diagnosis [...] documented as of this encounter Care Teams Systems Integration Analyst Relationship Specialty Start Date End Date Paul Arevalo MD [address] [id number] PCP - General 04/04/21 Emerita Gao DDS [address] [facility] [address] [place] [address] Dentist Dentist 07/21/21 Tuyet Hogue Dentist Dental Human Resources Assistant 07/21/21 Suha Marshall MD [address] [facility] [address] [place] [address] Medical Oncologist Medical Oncology 11/29/22 documented as of this encounter
--- OUTSIDE RECORDS SUMMARY | 2025-09-08 00:34 | XMS_ITS | Encounter Summary ---
Author Organization Healthcare Address [address] [place] [address] Care Team Providers Care Social Insurance Adviser Name Role Phone Paul Arevalo MD Primary Care Provider + [phone] Emerita Gao DDS Unavailable + Tuyet Hogue Unavailable Unavailable Suha Marshall MD Unavailable [phone] Encounter Details Date Type Department Care Team (Late st Contact Info) Description 11/11/2022 Lab Requisition [facility] [address] [place] [address] Suha Marshall MD [address] [facility] [address] [place] [address] Malignant neoplasm of cecum (CMS/HCC) [...] [facility] Radiology [address], 1st [place] [address] 09/25/2025 9:20 AM EST Appointment [facility] [address]nd [place] [address] 10/02/2025 9:10 AM EST Office Visit [facility] Multidisciplinary Oncology Clinic [address] [place] [address] Ren Saeed MD 800 [facility] [address]st [place] [address] 10/29/2025 10:10 AM EST Appointment [facility] [address] [place] [address] Etienne Novak MD [address] [place] [address] documented as of this encounter [...] EST Case Report Surgical Pathology Report Case: [id number] Authorizing Provider: Suha Marshall MD Collected: 11/12/2022 0704 Ordering Location: [facility] Lab Received: 11/11/2022 1546 Pathologist: Mica Fallon MD Specimen: INSIDE BLOCK [id number] 11/16/2022 8:36 AM EST [facility] Tissue 11/12/2022 7:04 AM EST 11/11/2022 3:46 PM EST us Suha Marshall MD LAB PATHOLOGY ORDERABLES Final Result [facility] [address] [place] [address] documented in this encounter Visit Diagnoses Diagnosis [...] documented as of this encounter Care Teams Social Insurance Adviser Relationship Specialty Start Date End Date Paul Arevalo MD 12[address] [facility] [address] [place] [address] PCP - General 04/04/21 Emerita Gao DDS [address] [place] [address] Dentist Dentist 07/21/21 Tuyet Hogue Dentist Dental Train Examiner 07/21/21 Suha Marshall MD 800 [facility] [address] [place] [address] Medical Oncologist Medical Oncology 11/29/22 documented as of this encounter
--- OUTSIDE RECORDS SUMMARY | 2025-09-08 00:34 | XMS_ITS | Encounter Summary ---
Author Organization Healthcare Address [address] [place] [address] Care Team Providers Care Asphalt Still Operator Name Role Phone Paul Arevalo MD Primary Care Provider + [phone] Emerita Gao DDS Unavailable + Tuyet Hogue Unavailable Unavailable Suha Marshall MD Unavailable [phone] Encounter Details Date Type Department Care Team (Late st Contact Info) Description 11/11/2022 Lab Requisition [facility] [address] [place] [phone] Suha Marshall MD 800 [facility] [address] [place] [address] Malignant neoplasm of cecum (CMS/HCC) [...] S Radiology [address], 1st [place] [address] 09/25/2025 9:20 AM EST Appointment [facility] [address], 2nd [place] [address] 10/02/2025 9:10 AM EST Office Visit [facility] [address] [place] [address] Ren Saeed MD [address] [address] 10/29/2025 10:10 AM EST Appointment [facility] [address] [place] [address] Etienne Novak MD [address] [place] [address] documented as of this encounter Procedures Procedure Name Priority Date/Time Associated Diagnosis Comments AP MISCELLANEOUS LAB TEST (SO) Routine 11/11/2022 12:00 AM EST Malignant neoplasm of cecum (CMS/HCC) documented in this encounter Results * - AP Miscellaneous Test (11/11/2022 12:00 AM EST) Test name Parul Lynn 12/08/2022 8:57 AM EST [facility] Comment:[id number] C6 Test Result see scan 12/08/2022 8:57 AM EST [facility] See Scanned Result 12/08/2022 8:57 AM EST [facility] Tissue 11/11/2022 11/11/2022 1:0 8 PM EST us Suha Marshall MD LAB REF LAB BLOOD AND FLUID ORD Final Result [facility] [address] [place] [address] documented in this encounter Visit Diagnoses Diagnosis [...] documented as of this encounter Care Teams Asphalt Still Operator Relationship Specialty Start Date End Date Paul Arevalo MD [address] [place] [address] PCP - General 04/04/21 Emerita Gao DDS [address] [place] [address] Dentist Dentist 07/21/21 Tuyet Hogue Dentist Dental Dowel Inserting Machine Operator 07/21/21 Suha Marshall MD 800 [facility] [address] [place] [address] Medical Oncologist Medical Oncology 11/29/22 documented as of this encounter
--- OUTSIDE RECORDS SUMMARY | 2025-09-08 00:35 | XMS_ITS | Encounter Summary ---
Author Organization [facility] Address [address] [place] [address] Care Team Providers Care Magazine Journalist Name Role Phone Paul Arevalo MD Primary Care Provider [phone] Emerita Gao DDS Unavailable + Tuyet Hogue Unavailable Unavailable Suha Marshall MD Unavailable [phone] Reason for Referral * Imaging (Routine) - Authorized Specialty Diagnoses / Procedures Referred By Chago zavala Referred To Contact Gastroenterology Diagnoses Colon cancer metastasized to liver Procedures ERCP 3 - Grade 3 Ren Saeed MD [address] [address] Phone: tel: fax: Referral ID Status Reason Start Date Expiration Date Visits Requested Visits Authorized [id number] Authorized Specialty Services Required 03/02/2027 1 1 Encounter Details Date Type Department Care Team (Latest Contact Info) Description 08/31/2025 Orders Only [facility] [address] [place] [address] Ren Saeed MD [address] [address] Colon cancer metastasized to liver (Primary Dx) Social History Tobacco Use Types [...] any time in the past 12 m [facility], were you homeless or living in a jail (including now)? No 08/29/2025 [facility] Utilities [...] drink first t kim in the morning (EYE-BACCARAT MANAGER) to steady your nerves or to get [...] Info) Description 09/25/2025 7:30 AM EST Appointment [facility] Radiology [address], 1st [place] [address] 09/25/2025 9:20 AM EST Appointment [facility] [address], 2nd [place] [address] 10/02/2025 9:10 AM EST Office Visit [facility] [address] [place] [address] Ren Saeed MD [address] [phone] 10/29/2025 10:10 AM EST Appointment [facility] [address] [place] [address] Etienne Novak MD [address] [place] [address] Scheduled Orders Name Type Priority Associated Diagnoses Orde r Schedule ERCP 3 - Grade 3 Endoscopy Routine Colon cancer metastasized to liver Expected: 08/31/2025, Expires: 08/31/2026 documented as of this encounter Goals Goal Patient Goal Type Associated Problems Recent Progress Patient-Stated? Author Autogenerat ed Goal Care Plan Autogenerated Problem Stefanie Eve Betts documented as of this encounter Visit Diagnoses Diagnosis Colon cancer [...] documented as of this encounter Care Teams Magazine Journalist Relationship Specialty Start Date End Date Paul Arevalo MD 1210 [facility] [address] [place] [address] PCP - General 04/04/21 Emerita Gao DDS [address] [place] [address] Dentist Dentist 07/21/21 Tuyet Hogue Dentist Dental Mechanical Manufacturing Technician 07/21/21 Suha Marshall MD 800 [facility] [address] [place] [address] Medical Oncologist Medical Oncology 11/29/22 documented as of this encounter
--- OUTSIDE RECORDS SUMMARY | 2025-09-08 00:35 | XMS_ITS | Encounter Summary ---
Author Organization [facility] Address [address] [place] [address] Care Team Providers Care Electroplating Laborer Name Role Phone Paul Arevalo MD Primary Care Provider + [phone] Emeriat Gao DDS Unavailable + Tuyet Hogue Unavailable Unavailable Suha Marshall MD Unavailable [phone] Encounter Details Date Type Department Care Team (Late st Contact Info) Description 09/21/2023 Lab Requisition [facility] [address] [place] [address] Ren Saeed MD [address] [address] Malignant neoplasm of cecum (CMS/HCC) [...] drink first t kim in the morning (EYE-CLINICAL RN LIAISON) to steady your nerves or to get [...] Info) Description 09/25/2025 7:[address] [facility] Radiology [address]st [place] [address] 09/25/2025 9:20 AM EST Appointment [facility] [address], [address]nd [place] [address] 10/02/2025 9:10 AM EST Office Visit [facility] [address] [place] [address] Ren Saeed MD [address] [phone] 10/29/2025 10:10 AM EST Appointment [facility] [address] [place] [address] Etienne Novak MD [address] [facility] [address] [place] [address] documented as of this encounter Procedures Procedure Name Priority Date/Time Associated Diagnosis Comments HISTORICAL SURGICAL PATHOLOGY ADDENDUM Routine 09/21/2023 Malignant neoplasm of cecum (CMS/HCC) documented in this encounter Results * Historical Surgical Pathology Addendum (09/21/2023) Historical Case Information This case was collected on 07/05/2023 was originally reported as case [id number]. The entire surgical pathology report can be viewed as a scanned document attached to this report. 09/21/2023 2:06 PM EDT [facility] Case Report Historical Case Addendum/Amen dment Case: [id number] Authorizing Provider: Ren Saeed MD Collected: 09/21/2023 Ordering Location: [facility] Lab Received: 09/21/2023 1019 Pathologist: Reanna Beavers MD Specimen: [id number] 09/21/2023 2:06 PM EDT [facility] [...] Fin al Result [facility] [address] [place] [address] documented in this encounter Visit Diagnoses Diagnosis [...] documented as of this encounter Care Teams Electroplating Laborer Relationship Specialty Start Date End Date Paul Arevalo MD 1210 [facility] [address] [place] [address] PCP - General 04/04/21 Emerita Gao DDS [address] [facility] [address] [place] [address] Dentist Dentist 07/21/21 Tuyet Hogue Dentist Dental Genetics Physician 07/21/21 Suha Marshall MD 800 [facility] [address] [place] [address] Medical Oncologist Medical Oncology 11/29/22 documented as of this encounter
--- OUTSIDE RECORDS SUMMARY | 2025-09-08 00:35 | XMS_ITS | Patient Health Record ---
Author Organization [facility] Address [address] [place] [id number] Care Team Providers Care Green Chain Worker Name Role Phone Paul Arevalo Primary Care [...] Interpretation:Normal Performing Lab: Notes/Report: Test performed by [facility] [place] , [address], [place] [address] Sen Tena MD, Journeyman Plumber CLIA: [id number] Vitamin B12 988 519-2941 pg/mL P-Comprehensive Metabolic Pa laurie (CMP) Reviewed date:08/15/2025 01:37:41 PM Interpretation:alk phos 399 Performing Lab: Notes/Report: Test performed by [facility] [address] [place] [address] , [place] [address] Sen Tena MD, Journeyman Plumber CLIA: [id number] Sodium 142 135-145 mmol/L Potassium 4.4 3.5-5.3 [...] Interpretation:Normal Performing Lab: Notes/Report: Test performed by [facility] [address] [place] [address] , [place] [address] Sen Tena MD, Journeyman Plumber CLIA: [id number] Thyroxine Free (free T4) 1.35 0.86-1.76 ng/dL P-Iron Reviewed date:08/15/2025 01:37:41 PM Interpretation:Normal Performing Lab: Notes/Report: Test performed by [facility] [address] [place] [address] , [address], [place] [id number] Sen Tena MD, Journeyman Plumber CLIA: [id number] Iron 93 37-145 ug/dL P-TSH reflex to FT4 Reviewed date:08/15/2025 01:37:41 PM Interpretation:0.02 Performing Lab: Notes/Report: Test performed by [facility] [address] [place] [address] , [place] [address] Sen Tena MD, Journeyman Plumber CLIA: [id number] TSH reflex to FT4 0.02 0.43-5.25 mU/L P-Vitamin D 25-Hydroxy Reviewed date:08/15/2025 01:37:41 PM Interpretation:40.9 Performing Lab: Notes/Report: Test performed by [facility] [address] [place] [address] , [place] [address] Sen Tena MD, Journeyman Plumber CLIA: [id number] Vitamin D 25-Hydroxy 40.9 30.0-100.0 ng/mL Interpretation of Vitamin D 25 OH: < 20 ng/mL - Deficiency 20 - 29 ng/mL - Insufficiency 30 - 100 ng/mL - Sufficiency > 100 ng/mL - Super-therapeutic- toxicity may occur above this level. Clinical correlation required. P-Iron with Transferrin Satu ration Reviewed date:09/21/2024 10:09:15 AM Interpretation:15 Performing Lab: Notes/Report: Test performed by [facility] [address] [place] [address] [facility] [place] [address] Sen Tena MD, Journeyman Plumber CLIA: [id number] Iron 69 37-145 ug/dL Transferrin 330 200-360 mg/dL Transferrin Saturation Percentage 15 15-50 % P-Magnesium Reviewed date:09/21/2024 10:09:15 AM Interpretation:Normal Performing Lab: Notes/Report: Test performed by [facility] [address] [place] [address] , [place] [address] Sen Tena MD, Journeyman Plumber CLIA: [id number] Magnesium 2.2 1.6-2.4 mg/dL P-Vitamin E, Serum or Plasma Reviewed date:09/21/2024 10:09:15 AM Interpretation:Normal Performing Lab: Notes/Report: Vitamin E (Alpha-Tocopherol) 7.0 5.5-18.0 mg/L This test was developed and its performance characteristics determined by [facility]. It has not been cleared or approved by the US Food and Drug Administration. This test was performed in a CLIA certified laboratory and is intended for clinical purposes. Vitamin E (Vmrj-Ysffc-Ghkjchtppt) 1.2 0.0-6.0 mg/L Performed By: [facility] [address] [place] [address] Journeyman Plumber: Andrei Waters MD, PhD CLIA Number: [id number] P-Vitamin D 25-Hydroxy Reviewed date:09/21/2024 10:09:15 AM Interpretation:25.4 Performing Lab: Notes/Report: Test performed by [facility] , [address], [place] [address] Sen Tena MD, Journeyman Plumber CLIA: [id number] Vitamin D 25-Hydroxy 25.4 30.0-100.0 ng/mL Interpretation of Vitamin D 25 OH: < 20 ng/mL - Deficiency 20 - 29 ng/mL - Insufficiency 30 - 100 ng/mL - Sufficiency > 100 ng/mL - Super-therapeutic- toxicity may occur above this level. Clinical correlation required. P-TSH reflex to FT4 Reviewed date:09/21/2024 10:09:15 AM Interpretation:Normal Performing Lab: Notes/Report: Test performed by [facility] [address] , [place] [address] Sen Tena MD, Journeyman Plumber CLIA: [id number] TSH reflex to FT4 2.55 0.43-5.25 mU/L P-Phosphorus Reviewed date:09/21/2024 10:09:15 AM Interpretation:Normal Performing Lab: Notes/Report: [facility] , [address], [place] [address] Sen Tena MD, Journeyman Plumber CLIA: [id number] Phosphorus 3.7 2.5-4.5 mg/dL P-Ferritin Reviewed date:09/21/2024 10:09:15 AM Interpretation:Normal Performing Lab: Notes/Report: Test performed by [facility] [address] , [address], [place] [address] Sen Tena MD, Journeyman Plumber CLIA: [id number] Ferritin 104.0 13.0-301.0 ng/mL P-Comprehensive Metabolic Pa laurie (CMP) Reviewed date:09/21/2024 10:09:15 AM Interpretation:gluc 121, Cr 1.14, gfr 55, alk phos 124 Performing Lab: Notes/Report: [facility] by [facility] [address] , [address], [place] [address] Sen Tena MD, Journeyman Plumber CLIA: [id number] Sodium 141 135-145 mmol/L Potassium 3.9 3.5-5.3 [...] 0.7 <0.2-1.2 mg/dL A/G Ratio 1.8 1.1-2.5 P-Vitamin B12 Reviewed date:09/21/2024 10:09:15 AM Interpretation:Normal Performing Lab: Notes/Report: Test performed by [facility] [address] , [address], [place] [address] Sen Tena MD, Journeyman Plumber CLIA: [id number] Vitamin B12 661 575-2710 pg/mL CBC Venipuncture (in house) Reviewed date:09/12/2024 [...] 38 platlet 146 100 - 400 P-Vitamin B1 (Thiamine), Ser um/Plasma, LC/MS/MS Reviewed date:09/21/2024 10:09:15 AM Interpretation: Performing Lab: Notes/Report: Test Cancelled Test Cancelled Unable to p erform testing due to improper specimen type received Vitamin B1 (Thiamine), Blood , LC/MS/MS Reviewed [...] developed and its performance characteristics determined by [facility]. It has not been cleared or approved by the US Food and Drug Administration. This test was performed in a CLIA certified laboratory and is intended for clinical purposes. Performed By: [facility] [address] [place] [address] Journeyman Plumber: Andrei Waters MD, PhD CLIA Number: [id number] sleep study Reviewed date:04/26/2025 07:55:03 AM Interpretation:severe [...] Status W/U Status Risk Notes Problem Hyperlipidemia (14210452) Hyperlipidemia (272.4) Active confirmed Problem Vitamin D deficiency (25267742) Vitamin D deficiency (E55.9) Active confirmed Problem Obstipation (391488696) Obstipation (K59.00) Active confirmed Problem Headache (95111991) Headache above the eye region (R51) Active confirmed Problem Sciatica (14130930) Lumbago with sciatica, right side (M54.41) Active confirmed Problem Chronic pain (75740006) Other chronic pain (G89.29) Active confirmed Problem 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) (465133669) 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) Active confirmed Problem Right side sciatica (035451190586113) Sciatica, right side (M54.31) Active confirmed Problem Excessive thirst (91864797) Polydipsia (R63.1) Active confirmed Problem Thyroid nodule (803796809) Thyroid nodule (E04.1) Active confirmed Problem Displacement of lumbar intervertebral disc without myelopathy (16202103) Bulging lumbar disc (M51.26) Active confirmed Problem Iron deficiency anemia due to chronic blood loss (823554099) Iron deficiency anemia due to chronic blood loss (D50.0) Active confirmed Problem Migraine with aura (7828809) Migraine with aura and without status migrainosus, not intractable (G43.109) Active confirmed Problem Iron deficiency anemia (90063801) Iron deficiency anemia, unspecified iron deficiency anemia type (D50.9) Active confirmed Problem Malignant neoplasm of colon (633598709) Malignant neoplasm of colon, unspecified part of colon (C18.9) Active confirmed Problem Thyroid enlargement (2071922) Thyroid enlargement (E04.9) Active confirmed Problem Obese class I (finding) (722599415811671) Obesity (BMI 30.0-34.9) (E66.9) Active confirmed Problem Degenerative disc disease (65442625) DDD (degenerative disc disease), lumbar (M51.36) Active confirmed Problem Sleep apnea (19008135) Severe sleep apnea (G47.30) Active confirmed Problem Lumbosacral spondylosis without myelopathy (84299169) Facet hypertrophy of lumbar region (M47.816) Active confirmed Problem Obstructive sleep apnea syndrome (23181076) ENEDINA on CPAP (G47.33) Active confirmed Vital Signs Heart Rate 93 /min 08/14/2025 Blood pressure diastolic 70 mm Hg 08/14/2025 Height 65 in 08/14/2025 Blood pressure systolic 122 mm Hg 08/14/2025 Weight 169 lbs 08/14/2025 BMI 28.12 kg/m2 08/14/2025 Encounters Encounter Location Date Provider Diagnosis [facility] [address] [facility] [address] [place], [place] [id number] 09/11/2024 Paul Graham Fatigue, unspecified type R53.83 ; Iron deficiency anemia, unspecified iron deficiency anemia type D50.9 and Vitamin D deficiency E55.9 [facility] [address] [place], [place] [id number] 02/17/2025 Paul Graham Migraine with aura a nd without status migrainosus, not intractable G43.109 ; Snores R06.83 and Witnessed apneic spells R06.81 [facility] [address] [facility] [address] [place] [id number] 08/14/2025 Paul Graham ENEDINA on CPAP G47.33 ; Vitamin D deficiency E55.9 ; Iron deficiency anemia, unspecified iron deficiency anemia type D50.9 ; Other fatigue R53.83 ; Chronic constipation K59.09 and BMI 28.0-28.9,adult Z68.28 [facility] [address] [facility] [address] [place] [id number] 09/19/2024 Paul Graham [facility] [address] [facility] [address] [place] [id number] 09/21/2024 Paul Graham [facility] [address] [facility] [address] [place] [id number] 09/27/2024 Paul Graham [facility] [address] [facility] [address] [place] [id number] 09/27/2024 Paul Graham [facility] [address] [facility] [address] [place] [id number] 02/19/2025 Paul Graham [facility] [address] [place] [id number] 02/20/2025 Paul Graham [facility] [address] [place] [id number] 04/26/2025 Paul Graham [facility] [address] [place] [id number] 04/27/2025 Paul Graham [facility] [address] [place] [id number] 08/15/2025 Paul Graham [facility] [address] [place] [id number] 08/24/2025 Paul Graham Assessments Encounter Date Diagnosis (ICD Code) Assessment Notes Treatment Notes Treatment Clinical Notes Section Notes 08/14/2025 Vitamin D deficiency (ICD-10 - E55.9) 08/14/2025 ENEDINA on CPAP (ICD-10 - G47.33) Need CPAP compliance report for Phuc 02/17/2025 Migraine with aura and without status migrainosus, not intractable (ICD-10 - G43.109) 02/17/2025 Snores (ICD-10 - R06.83) 09/11/2024 Fatigue, unspecified type (ICD-10 - R53.83) [...] SAUL ACOSTA [employer] [address] [place] [address] [phone] [id number] ALTHEA VILLAVICENCIO Self - patient is the [...] epidural March 2020 a sally Miller in [place] Metastatic disease of liver 2021, t reated at Surgical History Surgery Date(Month/Year) Blood Transfusion- 2 units 05/2019 Colonoscopy - Adenocarcinoma 06/2019 08/09/2019 RT Leg Epidural Injection - Rgiht leg Resection of Small Intestine 02/05/2025 Hospitalization History Reason Date(Month/Year) [place] [facility] [place]
--- OUTSIDE RECORDS SUMMARY | 2025-09-08 00:35 | XMS_ITS | Encounter Summary ---
Author Organization Healthcare Address [address] [place] [address] Care Team Providers Care Production Miner Name Role Phone Paul Arevalo MD Primary Care Provider + [phone] Emerita Gao DDS Unavailable + Tuyet Hogue Unavailable Unavailable Suha Marshall MD Unavailable [phone] Reason for Visit * Reason Comments Med Refill Encounter Details Date Type Department Care Team ([facility] st Contact Info) Description 09/24/2023 Refill [facility] [address] [place] [address] Ren Saeed MD [address] [phone] Social History Tobacco Use Types Packs/Day Years [...] drink first t kim in the morning (EYE-CHEMICAL EQUIPMENT SALES ENGINEER) to steady your nerves or to get [...] Info) Description 09/25/2025 7:30 AM EST Appointment [facility] Radiology [address], 1st [place] [address] 09/25/2025 9:20 AM EST Appointment [facility] [address], 2nd [place] [address] 10/02/2025 9:10 AM EST Office Visit [facility] Multidisciplinary Oncology Clinic [address] [place] [address] Ren Saeed MD [address] [address] 10/29/2025 10:10 AM EST Appointment [facility] [address] [place] [address] Etienne Novak MD [address] [place] [address] documented as of this encounter Visit Diagnoses Not on filedocumented in this encounter Additional Health Concerns Assessment Noted Time A fall risk assessment has been complete d for the patient 2023 1:35 PM EDT A Body Mass Index follow-up plan has been documented for the patient 09/22/2023 1:30 PM EDT documented as of this encounter Care Teams Production Miner Relationship Specialty Start Date End Date Paul Arevalo MD [address] [facility] [address] [place] [address] PCP - General 04/04/21 Emerita Gao DDS [address] [facility] [address] [place] [address] Dentist Dentist 07/21/21 Tuyet Hogue Dentist Dental Manager Gas 07/21/21 Suha Marshall MD [address] [facility] [address] [place] [address] Medical Oncologist Medical Oncology 11/29/22 documented as of this encounter
--- OUTSIDE RECORDS SUMMARY | 2025-09-08 00:35 | XMS_ITS | Encounter Summary ---
Author Organization [facility] Address [address] [place] [address] Care Team Providers Care Bundle Packer Name Role Phone Paul Arevalo MD Primary Care Provider + [phone] Emerita Gao DDS Unavailable + Tuyet Hogue Unavailable Unavailable Suha Marshall MD Unavailable [phone] Encounter Details Date Type Department Care Team (Late st Contact Info) Description 08/28/2025 Orders Only External Location [address] [place] [address] Rick Hoover, DO [address] [place] [phone] Social History Tobacco Use Types Packs/Day Years [...] any time in the past 12 m [facility], were you homeless or living in a senior care (including now)? No 08/29/2025 [facility] Utilities Answer Date Recorded In the past 12 months has th e [employer], gas, oil, or water [employer] threatened to shut off services in your [...] drink first t kim in the morning (EYE-SLIPCOVER CUTTER) to steady your nerves or to get [...] Payne RN documented as of this encounter Plan of Treatment Upcoming Encounters Date Type Department Care Team (Late st Contact Info) Description 09/25/2025 7:30 AM EST Appointment [facility] Radiology [address] 1st [place] [address] 09/25/2025 9:20 AM EST Appointment [facility] [address] 2nd [place] [address] 10/02/2025 9:10 AM EST Office Visit [facility] Multidisciplinary Oncology Clinic [address] [place] [address] Ren Saeed MD [address] [phone] 10/29/2025 10:10 AM EST Appointment [facility] [address] [place] [address] Eitenne Novak MD [address] [place] [address] documented as of this encounter Goals Goal Patient Goal Type Associated Problems Recent Progress Patient-Stated? Author Autogenerat ed Goal Care Plan Autogenerated Problem Eve Gil documented as of this encounter Procedures Procedure Name Priority Date/Time Associated Diagnosis Comments CT OUTSIDE IMAGES 08/28/2025 8:42 AM EDT documented in this encounter Results * CT OUTSIDE IMAGES (08/28/2025 8:42 AM EDT) Anatomical Region Laterality Modality Computed Tomogra phy 08/28/2025 8:42 AM EDT Rick Hoover DO IM CT PROCEDURES Edited Res ult - Final documented in this encounter Visit Diagnoses Not on filedocumented [...] documented as of this encounter Care Teams Bundle Packer Relationship Specialty Start Date End Date Paul Arevalo MD [address] [facility] [address] [address] PCP - General 04/04/21 Emerita Gao DDJim [address] [place] [address] Dentist Dentist 07/21/21 Tuyet Hogue Dentist Dental Retail Sales Vitamin Consultant 07/21/21 Suha Marshall MD 800 [facility] [address] [place] [address] Medical Oncologist Medical Oncology 11/29/22 documented as of this encounter
--- OUTSIDE RECORDS SUMMARY | 2025-09-08 00:35 | XMS_ITS | Encounter Summary ---
Author Organization Healthcare Address [address] [place] [address] Care Team Providers Care Public Health Sanitarian Technician Name Role Phone Paul Arevalo MD Primary Care Provider + [phone] Emerita Gao DDS Unavailable + Tuyet Hogue Unavailable Unavailable Suha Marshall MD Unavailable [phone] Reason for Visit * Reason Comments Med Refill Encounter Details Date Type Department Care Team (Late st Contact Info) Description 09/05/2024 Refill [facility] [address] [place] [address] Eve Wayne, NOL[place] [address] [phone] Social History Tobacco Use Types Packs/Day Years [...] drink first t kim 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, 1st [place] [address] 09/25/2025 9:20 AM EST Appointment [facility] [address], 2nd [place] [address] 10/02/2025 9:10 AM EST Office Visit [facility] [address] [place] [phone] Ren Saeed MD [address] [phone] 10/29/2025 10:10 AM EST Appointment [facility] [address] [place] [address] Etienne Novak MD [address] [facility] [address] [place] [address] documented as of this encounter Visit Diagnoses Not on filedocumented in this encounter Additional Health Concerns Assessment Noted Time A fall risk assessment has been complete d for the patient 07/18/2024 2:49 PM EDT A Body Mass Index follow-up plan has been documented for the patient 07/27/2024 11:36 AM EDT documented as of this encounter Care Teams Public Health Sanitarian Technician Relationship Specialty Start Date End Date Paul Arevalo MD 1210 [facility] [address] [place] [phone] PCP - General 04/04/21 Emerita Gao DDS [address] [facility] [address] [place] [address] Dentist Dentist 07/21/21 Tuyet Hogue Dentist Dental Oil Fire Specialist 07/21/21 Suha Marshall MD [address] Brittny Hornrickson [facility] [address] [place] [address] Medical Oncologist Medical Oncology 11/29/22 documented as of this encounter
--- OUTSIDE RECORDS SUMMARY | 2025-09-08 00:35 | XMS_ITS | Encounter Summary ---
Author Organization [facility] Address [address] [place] [address] Care Team Providers Care Hand Salter Name Role Phone Paul Arevalo MD Primary Care Provider + [phone] Emerita Gao DDS Unavailable + Tuyet Hogue Unavailable Unavailable Suha Marshall MD Unavailable [phone] Encounter Details Date Type Department Care Team (Latest Contact Info) Description 08/29/2025 Travel Social History Tobacco Use Types Packs/Day Years [...] any time in the past 12 m [facility], were you homeless or living in a senior care (including now)? 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 1st [place] [address] 09/25/2025 9:20 AM EST Appointment [facility] [address] 2nd [place] [address] 10/02/2025 9:10 AM EST Office Visit [facility] Multidisciplinary Oncology Clinic [address] [place] [phone] Ren Saeed MD 800 [facility] 1st [place] [address] 10/29/2025 10:10 AM EST Appointment [facility] [address] [place] [phone] Etienne Novak MD [address] [facility] [address] [place] [address] documented as of this encounter Goals Goal Patient Goal Type Associated Problems Recent Progress Patient-Stated? Author Autogenerat ed Goal Care Plan Autogenerated Problem Eve Gil documented as of this encounter Visit Diagnoses [...] documented as of this encounter Care Teams Hand Salter Relationship Specialty Start Date End Date Paul Arevalo MD 1210 [facility] [address] [place] [address] PCP - General 04/04/21 Emerita Gao DDS [address] [facility] [address] [place] [address] Dentist Dentist 07/21/21 Tuyet Hogue Dentist Dental Hair Baler 07/21/21 Suha Marshall MD 800 [facility] [address] [place] [address] Medical Oncologist Medical Oncology 11/29/22 documented as of this encounter
--- OUTSIDE RECORDS SUMMARY | 2025-09-08 00:35 | XMS_ITS | Encounter Summary ---
Author Organization [facility] Address [address] [place] [address] Care Team Providers Care Restaurant Culinary Manager Name Role Phone Paul Arevalo MD Primary Care Provider + [phone] Emerita Gao DDS Unavailable + Tuyet Hogue Unavailable Unavailable Suha Marshall MD Unavailable [phone] Encounter Details Date Type Department Care Team (Latest Contact Info) Description 08/28/2025 Travel Social History Tobacco Use Types Packs/Day [...] any time in the past 12 m [facility], were you homeless or living in a senior care (including now)? 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 Wish to be (Past 1 Month) No 025 6:46 PM EDT Leslie Dee, RN 2. Non-Specific Active Suici binu Thoughts (Past 1 Month) No 08/28/2025 6:46 PM EDT Lowell Dee, RN 6. Suicidal Behavior (Lifetime) No 5 6:46 PM EDT Leslie Dee, RN documented as of this encounter Plan of Treatment Upcoming Encounters Date Type Department Care Team (Late st Contact Info) Description 09/25/2025 7:30 AM EST Appointment [facility] Radiology [address] 1[address] [place] [address] 09/25/2025 9:20 AM EST Appointment [facility] [address] [place] [address] 10/02/2025 9:10 AM EST Office Visit [facility] Multidisciplinary Oncology Clinic [address] [place] [phone] Ren Saeed MD 800 [facility] 1st [place] [address] 10/29/2025 10:10 AM EST Appointment [facility] [address] [place] [address] Etienne Novak MD [address] [facility] [address] [place] [address] documented as of this encounter [...] documented as of this encounter Care Teams Restaurant Culinary Manager Relationship Specialty Start Date End Date Paul Arevalo MD 1210 [facility] [address] [place] [address] PCP - General 04/04/21 Emerita Gao DDS [address] [facility] [address] [place] [phone] Dentist Dentist 07/21/21 Tuyet Hogue Dentist Dental Fabric Finisher 07/21/21 Suha Marshall MD 800 [facility] [address] [place] [address] Medical Oncologist Medical Oncology 11/29/22 documented as of this encounter
--- OUTSIDE RECORDS SUMMARY | 2025-09-08 00:36 | XMS_ITS | Clinical Summary ---
Author Organization [facility] Address [address] [place] [address] Care Team Providers Care [place] Supervisor Name Role Phone Paul Arevalo MD Primary Care Provider + [phone] Emerita Gao DDS Unavailable + Tuyet Hogue Unavailable Unavailable Suha Marshall MD Unavailable [phone] Allergies Active Allergy Reactions Criticality Noted Date Comments Sulfa Drugs Hives,Itching,Swelling,Rash High 022 Sulfamethoxazole-Trimethop rim Rash Low 01/16/2025 Medications promethazine (Phenergan) 25 MG tablet TAKE ONE TABLET BY MOUTH EVERY 8 HOURS NEEDED FOR NAUSEA/VOMIT ING 30 tablet 05/05/20 24 Active pantoprazole (Protonix) 40 MG EC tablet Take 1 tablet by mouth daily. 01/05/20 25 Active verapamil ER (Veralan PM) 120 MG 24 hr capsule Take 1 capsule by mouth nightly. 01/15/20 25 Active ursodiol (Actigall) 300 MG capsule Take 1 capsule by mouth 2 times a day. 01/05/20 25 Active Probiotic Product (acidophilus probiotic blend) capsule Take 1 capsule by mouth daily. Active Bacillus Coagulans-Inulin (Probiotic Formula) 1-250 BILLION-MG capsule Take 1 tablet by mouth daily. 02/13/20 25 Active ubrogepant (Ubrelvy) 100 MG tablet Take 1 tablet by mouth 1 (one) time each day at the same time. 02/18/20 25 Active DULoxetine (Cymbalta) [address] capsule Take 1 capsule by mouth daily. Do not crush or chew. 30 capsule 3 05/11/20 25 Active sodium phosphates (Osmoprep) 1.102-0.398 g tabletIndications: Bowel Evacuation 10am take dose of 4 OsmoPrep tablets Q 15 w/ 8 oz. clear liquids for a total of 5 doses or 20 tablets. 6pm take dose of 4 OsmoPrep tablets Q 15 w/ 8 oz. clear liquids for a total of 3 doses or 12 tablets. 32 tablet 06/19/20 25 Active ondansetron ODT (Zofran-ODT) 4 MG disintegrating tablet Dissolve 1 tablet on the tongue every 6 hours as needed for nausea or vomiting for up to 30 doses. 30 tablet 08/30/20 25 Active FeroSul 325 (65 Fe) MG tablet TAKE ONE TABLET BY MOUTH 2 TIMES A DAY WITH MEALS 60 tablet 3 02/03/20 25 025 Discontinu ed(Stop Taking at Discharge) oxyCODONE (Roxicodone) 5 MG immediate release tablet Take 1 tablet by mouth every 6 hours as needed for moderate pain for up to 3 days. 20 tablet 08/30/20 25 025 Active Problems Problem Noted Date Diagnosed Date Abdominal carcinomatosis 03/06/2025 Hepatic cyst 03/06/2025 Hx of BSO (bilateral salpingo-oophorectomy) 02/20 Hyperlipidemia 03/06/2025 Lesion of liver 03/06/2025 Metastatic disease 03/06/2025 Migraine with aura and witho ut status migrainosus, not intractable 03/06/2025 Multiple pulmonary nodules 03/06/2025 Nausea 03/06/2025 Obesity (BMI 30.0-34.9) 03/06/2025 Other chronic pain 03/06/2025 Overweight (BMI 25.0-29.9) 03/06/2025 Right ventricular hypertrophy 03/06/2025 Malignant neoplasm of colon 03/06/2025 Abdominal pain, epigastric 03/06/2025 Incisional hernia, without obstruction or gangre [...] venous and hepatic artery flow obtained 07/23/23 GERD (gastroesophageal reflux disease) Overview (07/14/2023): PPI 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 - OR on 07/05 for [...] an abscess could have a similar appearance. Resolved Problems Problem Noted Date Diagnosed Date Resolved Date Avulsion fracture of distal fibula 03/06/2025 08/29/2025 Contusion of rib on left side 03/06/2025 08/29/2025 Bulging lumbar disc 03/06/2025 08/29/20 25 DDD (degenerative disc disease), lumbar 03/06/2025 08/29/2025 Facet hypertrophy of lumbar region 03/06/2025 08/29/2025 Dyspnea on exertion 03/06/2025 08/29/20 25 Dysrhythmia 03/06/2025 08/29/2025 Headache 03/06/2025 08/29/2025 Hypertensive urgency 03/06/2025 025 Hyponatremia 03/06/2025 08/29/2025 Iron deficiency anemia due t o chronic blood loss 03/06/2025 08/29/2025 Iron deficiency anemia 03/06/202508/29 Laceration of left index finger 03/06/2025 08/29/2025 Malignant pleural effusion 03/06/2025 1 Migraine 03/06/2025 08/29/2025 Obstipation 03/06/2025 08/29/2025 Polydipsia 03/06/2025 08/29/2025 Postmenopausal bleeding 03/06/202506/2025 Lumbago with sciatica, right side 03/06/2025 08/29/2025 Sciatica, right side 03/06/2025 025 Sinusitis 03/06/2025 08/12/2025 Strep throat 03/06/2025 08/29/2025 SVT (supraventricular tachycardia) 03/06/2025 08/29/2025 Thyroid enlargement 03/06/2025 08/29/20 25 Thyroid nodule 03/06/2025 08/29/2025 Vitamin D deficiency 03/06/2025 025 Vomiting 03/06/2025 08/29/2025 Acute bronchitis 03/06/2025 08/12/2025 Chest pain 03/06/2025 08/29/2025 Pleural effusion on right 03/06/2025 Ventral hernia without obstr uction or gangrene [...] Overview (07/14/2023): WBCs downtrending Afebrile See PNA Anemia 07/06/2023 08/29/2025 Overview (07/17/2023): Stable Transfuse <7 Neuropathy 07/06/2023 08/29/2025 Overview (07/06/2023): 2/2 to chemotherapy Hypertension 07/06/2023 08/29/2025 History of migraine 07/06/2023 08/29/20 Eczematous dermatitis of left lower eyelid 01/23/2016 08/29/2025 Overview (03/06/2025): From Automated Load;Provider: Andrei Mahan;Status: Active Pain of upper abdomen 2024 Encounters Date Type Department Care Team Description 08/31/2025 Orders Only [facility] [address] Ren Saeed MD Colon cancer metastasized to liver (Primary Dx) 08/29/2025 Travel 08/28/2025 6:09 PM EDT - 08/30/2025 6:30 PM EDT Hospital Encounter [facility] [address] [address] Paul Chatterjee MD Prabhu, Ashwin B, MD Ibrahim-Zada, Irada, MD Cavnar, Michael J, MD Abdominal pain, epigastric (Primary Dx); Early satiety; Metastases to the liver Discharge Disposition: Home or Self Care 08/28/2025 Travel 08/28/2025 Telephone [facility] [address] [address] Ren Saeed MD 08/28/2025 Telephone [facility] Multidisciplinary Oncology Clinic [address] Ren Saeed MD 08/28/2025 Orders Only External Location [address] [address] Rick Hoover, 08/28/2025 Orders Only External Location [address] [place] [phone] Rick Hooevr, 07/04/2025 Refill [facility] [address] [place] [address] Ren Saeed MD 06/26/2025 10:10 AM EDT Office Visit [facility] Multidisciplinary Oncology Clinic [address] [place] [phone] Ren Saeed MD Colon cancer metastasized to liver (CMS/HCC) (Primary Dx) 06/26/2025 9:50 AM EDT Clinical Support [facility] Mult[facility]cology Clinic [address] [place] [address] Colon cancer metastasized to liver (CMS/HCC) 06/26/2025 Travel 06/22/2025 9:22 AM EDT - 06/22/2025 11:59 PM EDT Hospital Encounter [facility] Radiology [address] [place] [address] Colon cancer metastasized to liver (CMS/HCC) Discharge Disposition: Home or Self Care 06/22/2025 7:39 AM EDT - 06/22/2025 9:21 AM EDT Hospital Encounter [facility] Radiology [address] [place] [address] Colon cancer metastasized to liver (CMS/HCC) Discharge Disposition: Home or Self Care 06/22/2025 Travel 06/19/2025 Orders Only [facility] [address] [place] [address] Etienne Novak MD 06/19/2025 Orders Only [facility] [address] [place] [address] Etienne Novak MD 06/14/2025 Telephone [facility] General Surgery [address] [place] [address] Etienne Novak MD 06/14/2025 Orders Only [facility] [address] [place] [phone] Etienne Novak MD 06/11/2025 Orders Only [facility] [address] [place] [address] Etienne Novak MD Adenocarcinoma of cecum (CMS/HCC) [...] any time in the past [address] [facility], were you homeless or living in a mcc (including now)? No 08/29/2025 [facility] Utilities Answer Date Recorded In the past 12 months has th e [employer], gas, oil, or water company threatened to [...] drink first t kim in the morning (EYE-MOTION STUDY ANALYST) to steady your nerves or to get [...] Mass Index 28.36 08/28/2025 5:21 PM EDT Plan of Treatment Upcoming Encounters Date Type Department Care Team (Late st Contact Info) Description 09/25/2025 7:30 AM EST Appointment [facility] Radiology [address] [place] [phone] 09/25/2025 9:20 AM EST Appointment [facility] [address] [place] [address] 10/02/2025 9:10 AM EST Office Visit [facility] Multidisciplinary Oncology Clinic [address] [place] [phone] Ren Saeed MD [address] [facility] [address] [place] [phone] 10/29/2025 10:10 AM EST Appointment [facility] End[facility] [address] [place] [phone] Etienne Novak MD [address] [facility] [address] [place] [phone] Health Maintenance Due Date Last Done Comments [facility]-/Child/Adol SDOH Screenings 1963 [facility]-Pneumococcal Vaccine: 50+ Years (1 of 2 - PCV) 1982 [facility]-Zoster Vaccines (1 of 2) 1982 [facility]-Pap Smear 1984 [facility]-Cervical Cancer Screening 1993 [facility]-HPV/Cotest 1993 [facility]-Breast Cancer Screening 2013 [facility]-RSV Vaccine: 60+ Years or (1 - Risk 60-74 years 1-dose series) 2023 FYS-AHVIE-21 Vaccine ( season) 2025 10/10/2021, 12/20/2020, 11/20/2020 [facility]-Influenza Vaccine (#1) 2025 10/22/2022 Colonoscopy 11/01/2025 11/02/2022, 07/23, 08/05/2020 [facility]- SDOH Screenings 02/27/2026 [facility]-Adult SDOH Screenings 02/27/2026 08/29/2025 [facility]-Depression Screening 06/26/2026 025, 03/06/2025, 08/26/2023 [facility]-DTaP,Tdap,and Td Vaccines (2 - Td or Tdap) 06/16/2031 06/16/2021, 01/25/1997 [facility]-Hepatitis A Vaccines Completed 04/10/2019, 08/23 [facility]-HIV Screening Completed 08/28/2025, , 11/24/2022 [facility]-Hepatitis C Screening Completed 2024, 08/16/2023, 11/26/2022 [facility]-Obesity Intervention Completed 025, 06/26/2025, 03/06/2025, Additional history exists HPV Vaccines Aged Out [...] [employer] Implanted Type Area Bronze Plater Device Identifier Shelf Expiration Date Model / Serial / Lot Port Clearvue Power 8fr - [id number] Implanted:Qty: 1 on 11/06/2022 by Carlos Griffiths MD at [facility] [employer]-[id number] / / Procedures Procedure Name Priority Date/Time Associated Diagnosis Comments MAGNESIUM, PLASMA Routine 08/30/2025 3:4 8 AM EDT PHOSPHORUS, PLASMA Routine 08/30/2025 3: 48 AM EDT COMPREHENSIVE METABOLIC PANEL, PLASMA Routine 08/30/2025 3:48 AM EDT CBC W/O DIFFERENTIAL Routine 08/30/2025 3:48 AM EDT MRCP RAPID [...] PANEL, PLASMA STAT 08/28/2025 6:[address] OUTSIDE IMAGES 08/28/2025 8:[address] OUTSIDE IMAGES 08/28/2025 8:4 2 AM EDT IRON & TOTAL IRON BINDING CAPACITY, PLASMA [...] EDT Colon cancer metastasized to liver (CMS/HCC) COLONOSCOPY Routine 11/02/2022 11:43 AM EST Adenocarcinoma of cecum (CMS/HCC) from Last 3 Months or Most Recently Relevant to Health Maintenance Results * (ABNORMAL) CBC (08/30/2025 3:48 AM EDT) WBC Count 3.34(L) 3.70 - 10.30 10*3/uL LAB HEMATOLOGY METHOD 08/30/2025 4:05 AM EDT [facility] RBC Count 4.07 3.90 - 5.20 10*6/uL LAB HEMATOLOGY METHOD 08/30/2025 4:05 AM EDT [facility] HGB 11.5 11.2 - 15.7 g/dL LAB HEMATOLOGY METHOD 08/30/2025 4:05 AM EDT [facility] HCT 36.1 34.0 - 45.0 % LAB HEMATOLOGY METHOD 08/30/2025 4:05 AM EDT [facility] Platelet Count 106(L) 155 - 369 10*3/uL LAB HEMATOLOGY METHOD 08/30/2025 4:05 AM EDT [facility] MCV 89 79 - 98 fL LAB HEMATOLOGY METHOD 08/30/2025 4:05 AM EDT [facility] MCH 28.3 26.0 - 32.0 pg LAB HEMATOLOGY METHOD 08/30/2025 4:05 AM EDT [facility] MCHC 31.9 30.7 - 35.5 g/dL LAB HEMATOLOGY METHOD 08/30/2025 4:05 AM EDT [facility] RDW 13.0 11.5 - 14.5 % LAB HEMATOLOGY METHOD 08/30/2025 4:05 AM EDT [facility] MPV 13.0(H) 8.8 - 12.5 fL LAB HEMATOLOGY METHOD 08/30/2025 4:05 AM EDT [facility] nRBC 0.0 <=0.0 per 100 WBCs LAB HEMATOLOGY METHOD 08/30/2025 4:05 AM EDT [facility] Blood Venous blood specimen / Unknown Venipuncture / Unknown 08/30/2025 3:48 AM EDT 08/30/2025 3:55 AM EDT us Home Munguia MD LAB BLOOD ORDERABLES Final Result [facility] [address] [place] [address] * Phosphorus (08/30/2025 3:48 AM EDT) Phosphorus, Plasma 3.6 2.5 - 4.5 mg/dL 08/30/2025 4:31 AM EDT [facility] Blood Venous blood specimen / Unknown Venipuncture / Unknown 08/30/2025 3:48 AM EDT 08/30/2025 3:54 AM EDT us Home Munguia MD LAB BLOOD ORDERABLES Final Result [facility] [address] [place] [address] * Magnesium (08/30/2025 3:48 AM EDT) Magnesium, Plasma 2.0 1.9 - 2.4 mg/dL 08/30/2025 4:31 AM EDT [facility] Blood Venous blood specimen / Unknown Venipuncture / Unknown 08/30/2025 3:48 AM EDT 08/30/2025 3:54 AM EDT Home Munguia MD LAB BLOOD ORDERABLES Final Result [facility] [address] [place] [address] * (ABNORMAL) Comprehensive Metabolic Panel (08/30/2025 3:48 AM EDT) Only the most recent of3 resultswithin the time period is included. Glucose, Plasma 112(H) 74 - 99 mg/dL 08/30/2025 4:31 AM EDT [facility] BUN, Plasma 10 8 - 23 mg/dL 08/30/2025 4:31 AM EDT [facility] Creatinine, Plasma 0.74 0.60 - 1.10 mg/dL 08/30/2025 4:31 AM EDT [facility] BUN/Creatinine Ratio 14 08/30/2025 4:31 AM EDT [facility] Sodium, Plasma 141 136 - 145 mmol/L 08/30/2025 4:31 AM EDT [facility] Potassium, Plasma 3.8 3.6 - 4.9 mmol/L 08/30/2025 4:31 AM EDT [facility] Chloride, Plasma 106 97 - 107 mmol/L 08/30/2025 4:31 AM EDT [facility] CO2, Plasma 27 22 - 29 mmol/L 08/30/2025 4:31 AM EDT [facility] Anion Gap 8 6 - 16 mmol/L 08/30/2025 4:31 AM EDT [facility] Total Calcium, Plasma 8.7(L) 8.9 - 10.2 mg/dL 08/30/2025 4:31 AM EDT [facility] Total Protein 5.5(L) 6.3 - 7.9 g/dL 08/30/2025 4:31 AM EDT [facility] Albumin, Plasma 3.3(L) 3.5 - 5.2 g/dL 08/30/2025 4:31 AM EDT [facility] AST, Plasma 34 10 - 35 U/L 08/30/2025 4:31 AM EDT [facility] ALT, Plasma 53(H) 10 - 35 U/L 08/30/2025 4:31 AM EDT [facility] Alkaline Phosphatase, Plasma 362(H) 46 - 142 U/L 08/30/2025 4:31 AM EDT [facility] Total Bilirubin, Plasma 0.7 0.2 - 1.1 mg/dL 08/30/2025 4:31 AM EDT [facility] eGFRcr 92.2 mL/min/1.7 3m*2 08/30/2025 4:31 AM EDT [facility] Comment:Reported eGFRcr in m L/min/1.73m2 is based the CKD-EPI 2020 equation that does not use a race coefficient. Blood Venous blood specimen / Unknown Venipuncture / Unknown 08/30/2025 3:48 AM EDT 08/30/2025 3:54 AM EDT us Home Munguia MD LAB BLOOD ORDERABLES Final Result [facility] [address] [place] [address] * MRCP Rapid (08/29/2025 6:55 PM EDT) [...] HIV 1/2 Differentiation (08/28/2025 6:42 PM EDT) HIV 1 & 2 Antibody/Antigen Screen Non Reactive Non Reactive 08/28/2025 7:47 PM EDT [facility] Comment:Screening for HIV 1 & 2 antibodies, and P24 antigen is NONREACTIVE. No confirmatory testing is required. Blood Venous blood specimen / Unknown Venipuncture / Unknown 08/28/2025 6:42 PM EDT 08/28/2025 6:56 PM EDT us Paul Garcia MD LAB BLOOD ORDERABLES Final Res ult [facility] [address] [place] [address] * Hepatitis C Antibody - ED (08/28/2025 6:42 PM EDT) Pathologist [facility] Hepatitis C Antibody Negative Negative 08/28/2025 8:15 PM EDT [facility] Blood Venous blood specimen / Unknown Venipuncture / Unknown 08/28/2025 6:42 PM EDT 08/28/2025 6:56 PM EDT us Paul Garcia MD LAB BLOOD ORDERABLES Final Res ult [facility] [address] [place] [address] * (ABNORMAL) CBC w/diff (08/28/2025 6:42 PM EDT) Only the most recent of2 resultswithin the time period is included. Pathologist [facility] WBC Count 5.28 3.70 - 10.30 10*3/uL LAB HEMATOLOGY METHOD 08/28/2025 6:50 PM EDT [facility] RBC Count 4.34 3.90 - 5.20 10*6/uL LAB HEMATOLOGY METHOD 08/28/2025 6:50 PM EDT [facility] HGB 12.4 11.2 - 15.7 g/dL LAB HEMATOLOGY METHOD 08/28/2025 6:50 PM EDT [facility] HCT 37.3 34.0 - 45.0 % LAB HEMATOLOGY METHOD 08/28/2025 6:50 PM EDT [facility] Platelet Count 114(L) 155 - 369 10*3/uL LAB HEMATOLOGY METHOD 08/28/2025 6:50 PM EDT [facility] MCV 86 79 - 98 fL LAB HEMATOLOGY METHOD 08/28/2025 6:50 PM EDT [facility] MCH 28.6 26.0 - 32.0 pg LAB HEMATOLOGY METHOD 08/28/2025 6:50 PM EDT [facility] MCHC 33.2 30.7 - 35.5 g/dL LAB HEMATOLOGY METHOD 08/28/2025 6:50 PM EDT [facility] RDW 13.1 11.5 - 14.5 % LAB HEMATOLOGY METHOD 08/28/2025 6:50 PM EDT [facility] MPV 12.6(H) 8.8 - 12.5 fL LAB HEMATOLOGY METHOD 08/28/2025 6:50 PM EDT [facility] nRBC 0.0 <=0.0 per 100 WBCs LAB HEMATOLOGY METHOD 08/28/2025 6:50 PM EDT [facility] Differential Type Automated LAB HEMATOLOGY METHOD 08/28/2025 6:50 PM EDT [facility] Neutrophils % 72 % LAB HEMATOLOGY METHOD 08/28/2025 6:50 PM EDT [facility] Lymphocytes % 13 % LAB HEMATOLOGY METHOD 08/28/2025 6:50 PM EDT [facility] Monocytes % 14 % LAB HEMATOLOGY METHOD 08/28/2025 6:50 PM EDT [facility] Eosinophils % 1 % LAB HEMATOLOGY METHOD 08/28/2025 6:50 PM EDT [facility] Basophils % 0 % LAB HEMATOLOGY METHOD 08/28/2025 6:50 PM EDT [facility] Immature Granulocytes % 0 % LAB HEMATOLOGY METHOD 08/28/2025 6:50 PM EDT [facility] Neutrophils Absolute 3.77 1.60 - 6.10 10*3/uL LAB HEMATOLOGY METHOD 08/28/2025 6:50 PM EDT [facility] Lymphocytes Absolute 0.70(L) 1.20 - 3.90 10*3/uL LAB HEMATOLOGY METHOD 08/28/2025 6:50 PM EDT [facility] Monocytes Absolute 0.75 0.30 - 0.90 10*3/uL LAB HEMATOLOGY METHOD 08/28/2025 6:50 PM EDT [facility] Eosinophils Absolute 0.03 0.00 - 0.50 10*3/uL LAB HEMATOLOGY METHOD 08/28/2025 6:50 PM EDT [facility] Basophils Absolute 0.02 0.00 - 0.10 10*3/uL LAB HEMATOLOGY METHOD 08/28/2025 6:50 PM EDT [facility] Immature Granulocytes Absolute 0.01 0.00 - 0.06 10*3/uL LAB HEMATOLOGY METHOD 08/28/2025 6:50 PM EDT [facility] Blood Venous blood specimen / Unknown Venipuncture / Unknown 08/28/2025 6:42 PM EDT 08/28/2025 6:48 PM EDT Narrative [facility] - 08/28/2025 6:50 PM EDT Therapeutic decision making should be based on absolute values, rather than percentages. Paul Garcia MD LAB BLOOD ORDERABLES Final Res ult Performing Organization Address [facility]/ZIP Co de Phone Number [facility] [address] [place] [address] * Lipase (08/28/2025 6:42 PM EDT) Lipase, Plasma 27 19 - 63 U/L 08/28/2025 7:07 PM EDT [facility] Blood Venous blood specimen / Unknown Venipuncture / Unknown 08/28/2025 6:42 PM EDT 08/28/2025 6:48 PM EDT Paul Garcia MD LAB BLOOD ORDERABLES Final Res ult Performing Organization Address [facility] [place] [address] * CT OUTSIDE IMAGES (08/28/2025 8:42 AM EDT) Only the most recent of2 resultswithin the time period is included. Anatomical Region Laterality Modality Computed Tomogra phy 08/28/2025 8:42 AM EDT Rick Hoover DO IMG CT PROCEDURES Edited Res ult - Final * (ABNORMAL) Signatera Only Single Draw (06/26/2025 [...] due to limited ctDNA shed. 1 Ihsan CAPUTO, Devyn DE LEONC, Héctor JOE, et al. Personalized circulating tumor DNA analysis as a predictive biomarker in solid tumor patients treated with pembrolizumab. Nature Cancer. 2020;1(9):873-881. 2 Stuart ADAMS, Kendal Ramachandran, et al., Circulating Tumor DNA in Stage [...] samples collected in cell-free DNA blood tubes ([employer]) using the [employer] automated or manual extraction method ([employer]). Using a proprietary algorithm, putative, clonal variants present in the tumor but absent in the germline DNA are identified to design the customized multiplex PCR assay. Whole-exome sequencing is performed on tumor and peripheral blood DNA using the proprietary [employer] whole-exome sequencing assay. Pathology services are performed at [facility], [address] [place] [address], and whole exome sequencing is performed at [facility] (CLIA ID# [id number]), [address] [place] [address]. Disclaimer The extraction, library preparation, and sequencing for this test were performed by [facility] [id number] [place] [address] [address], [place] [address] (CLIA ID [id number]). The data analysis and reporting for this test were performed by [facility] [address]. [address], [place] [address] (CLIA ID [id number]). This test was developed and its performance characteristics determined by [facility]. The test has not been cleared or approved by the U.S. Food and Drug Administration (FDA). CAP accredited, ISO 52097 certified, and CLIA certified. Pathology services and whole exome sequencing for this test were performed by [facility], [address] [place] [address] (CLIA ID [id number]). 2020 [employer]. All Rights Reserved. Blood Venous blood specimen / Unknown (Port) Long-term Catheter / Unknown 06/26/2025 9:58 AM EDT 06/26/2025 10:00 AM EDT Ren Saeed MD [facility] B[facility] Telma l Result [facility] [address] [place] [address], [place] * Iron & Total Iron Binding Capacity, Plasma (Includes Transferrin) (06/26/2025 9:58 AM EDT) Iron, Plasma 117 30 - 160 ug/dL 06/26/2025 11:16 AM EDT [facility] Transferrin, Plasma 233 200 - 360 mg/dL 06/26/2025 11:16 AM EDT [facility] Total Iron Binding Capacity, Plasma 291 240 - 450 ug/mL 06/26/2025 11:16 AM EDT [facility] Transferrin Saturation 40 14 - 50 % 06/26/2025 11:16 AM EDT [facility] Blood Venous blood specimen / Unknown (Port) Long-term Catheter / Unknown 06/26/2025 9:58 AM EDT 06/26/2025 10:21 AM EDT Ren Saeed MD LAB BLOOD ORDERABLES Final R esult Performing Organization Address [facility] Co de Phone Number [facility] [address] [place] [address] * (ABNORMAL) Prealbumin, Plasma (06/26/2025 9:58 AM EDT) Prealbumin, Plasma 17.6(L) 20.0 - 41.0 mg/dL 06/26/2025 11:16 AM EDT [facility] Blood Venous blood specimen / Unknown (Port) Long-term Catheter / Unknown 06/26/2025 9:58 AM EDT 06/26/2025 10:21 AM EDT Ren Saeed MD LAB BLOOD ORDERABLES Final R esult [facility] [address] [place] [address] * CEA, Serum (06/26/2025 9:58 AM EDT) CEA, Serum <1.8 <4.0 ng/mL 06/26/2025 11:47 AM EDT [facility] Blood Venous blood specimen / Unknown ([place]) Long-term Catheter / Unknown 06/26/2025 9:58 AM EDT 06/26/2025 10:21 AM EDT Narrative [facility] - 06/26/2025 11:47 AM EDT Normal range for smokers: < 5.5 ng/ml Normal range for non-smokers: <=4.0 ng/ml Performed by [employer] electrochemiluminescent immunoassay. Results obtained with different test methods or kits cannot be used interchangeably. us Ren Saeed MD LAB BLOOD ORDERABLES Final R esult [facility] [address] [place] [address] * CT Pelvis w IV Contrast (06/22/2025 [...] Total DLP (Dose-Length Product): 424.15 mGy.cm (accession [id number]), 424.15 mGy.cm (accession [id number]) Please note: The reported value represents the [...] Total DLP (Dose-Length Product): 424.15 mGy.cm (accession [id number]),424.15 mGy.cm (accession [id number]) Please note: The reported valuerepresents the total [...] Total DLP (Dose-Length Product): 424.15 mGy.cm (accession [id number]), 424.15 mGy.cm (accession [id number]) Please note: The reported value represents the [...] lower abdomen/upper pelvis but was appreciated on December. Postsurgical stranding mainly in the right lower [...] Total DLP (Dose-Length Product): 424.15 mGy.cm (accession [id number]),424.15 mGy.cm (accession [id number]) Please note: The reported valuerepresents the total [...] lower abdomen/upper pelvis but was appreciated on February study.Postsurgical stranding mainly in the right lower [...] COMMUNICATION: Per this written report. Drafted by Cahro Marcial MD on 06/22/2025 10:29 AM Final [...] using the following sequences: coronal single shot F3zogxabci fast spin echo, axial T2 weighted sequences [...] 06/22/2025 9:01 AM us Ren Saeed MD IMG MRI PROCEDURES Final Res ult * Colonoscopy (11/02/2022 11:43 AM EST) Anatomical [...] of bowel preparation was evaluated using the [place] Bowel Preparation Scale with scores of: right [...] were documented in this log. Findings Healthy tqmh-aq-axex ileocolonic anastomosis in the proximal transverse colon Etienne Novak MD GI PROCEDURE ORDERABLES Final Result from Last 3 Months or Most Recently Relevant to Health Maintenance Additional Health Concerns Active Problems Noted Date Diagnosed Date Autogenerated Problem 06/11/2025 Insurance OMAR WATSON [id number] [place] [address] Advance Directives * Full Code (Latest Code Status on File) Date Activated Date Inactivated Comments 08/29/2025 12:13 AM 08/30/2025 8:43 PM Question Answer Comments I have reviewed the capacity from the link above and, if needed, have updated to appropriate status: Yes * Full Code Date Activated Date Inactivated Comments 02/05/2025 11:40 [...] Patient has decision-making capacity? Yes Care Teams Cold Mill Supervisor Relationship Specialty Start Date End Date Paul Arevalo MD [address] [facility] [facility] [address] [place] [address] PCP - General 04/04/21 Emerita Gao DDS [address] [facility] [address] [place] [address] Dentist Dentist 07/21/21 Tuyet Hogue Dentist Dental Floor Layer Apprentice 07/21/21 Suha Marshall MD [address] [facility] [address] [place] [address] Medical Oncologist Medical Oncology 11/29/22
--- OUTSIDE RECORDS SUMMARY | 2025-09-08 00:36 | XMS_ITS | Data Portability ---
Author Organization OMAR LAWANDA [facility] Address [address] [facility] [address] [place] [address] Assessment Encounter Date Assessment Date Assessment LastModified by Organization Details LastModified Time 10/19/2022 10/19/2022 Follow up yearly kenzie Not available 08/06/2022 07:56:56 03/01/2024 03/01/2024 Follow up yearly [email or web address] Not available 02/29/2024 09:00:37 11/06/2024 11/06/2024 F/u pending path [email or web address] Not available 11/06/2024 14:27:52 07/10/2025 07/10/2025 F/u annually Not available 0 07/10/2025 13:47:34 Plan of Treatment Reminders Order Date Submit Date Provider Last Modified By Organization Details Last Modified Time Details Appointments None recorded. Lab surgical pathology study 2023 024 [facility], [address] [place] [address], [phone], 4 16:21:01 surgical pathology study 2023 024 [facility], [address] [place] [address], [phone], 4 15:18:52 Referral None recorded. Procedures None recorded. Surgeries None recorded. Imaging None recorded. Medication Orders betamethaso ne dipropionat e 0.05 % topical cream 2021 022 [email or web address] Not available 11/28/202 2 14:59:24 Patient TargetsNo targets recorded. Patient Instructions Encounter Date Encounter Id Patient Instructions Last Modified By Organization Details Last Modified Time 10/19/2022 [id number] Risks/Benefits/O p tions/Side Effects of diagnosis and treatment discussed. UV protection and signs of skin cancer discussed [email or web address] Not available 08/06/2022 07:56:56 03/01/2024 [id number] Risks/Benefits/O p tions/Side Effects of diagnosis and treatment discussed. UV protection and signs of skin cancer discussed [email or web address] Not available 02/29/2024 09:00:40 11/06/2024 [id number] Risks/Benefits/O p tions/Side Effects of diagnosis and treatment discussed. UV protection and signs of skin cancer discussed Not available 11/03/2024 12:59:29 07/10/2025 [id number] Risks/Benefits/O p tions/Side Effects of diagnosis and treatment discussed. UV protection and signs of skin cancer discussed [email or web address] Not available 07/10/2025 13:28:54 Reason for Referral None Reported. Results Created Date Observation Date Name Description Value Unit Range Abnormal Flag Note LastModifiedBy Organization Detail LastModifiedTime 04/01/20 20 04/02/2020 SARS CoV 2 RNA (COVI D-19) , QL, carton marker machine-P CR, respi rator y speci men sars cov2 result NEGATI VE normal TEST REFER RED TO Solar is Diagn ostic s LABOR ATORY . SEE SCANN ED REFER ENCE LAB REPOR T. PRINT ED REPOR T RECEI HANNY IN THE LABOR ATORY : 04/02 Not Available [facility] [address] [facility], [place], [address], 04/02/2020 17:31:28 03/01/20 24 03/01/2024 SURGI LLOYD surgical SEE BELOW abnormal Depar tment of Patho logy Surgi lloyd Patho logy Repor t NAME: JOSE MARIA REESE MARISA PATH. :[id number] Copy to: Diagn [...] 15:18 Page 1 of 1 Not Available [facility] [address] [place] [address], [place], [address], 03/03/2024 15:18:51 11/06/20 24 11/06/2024 SURGI LLOYD [...] RECUR RENT BCC Gross Descr iptio n: Patie nt's name and date of verif ied. [...] noted above . ELIZABETH GILBERT M.D. Caitlyn gibbs Out Date: 11/07 16:20 Page 1 of 1 Not Available [facility] [address] [place], [address], 11/07/2024 16:21:01 Result Notes None recorded. Problems Name Problem SNOMED Code Status Onset Date Resolution Date Notes Provider Name and Address Organization Details Recorded Time Eczematou s dermatiti s of lower eyelid 002811481 Active 2015 From Automated Load;Provi lori: Olivia Mahan tatus: Active Not Available [facility] 6 10:39:48 Eczematou s dermatiti s of upper eyelid 854134486 Active 2015 From Automated Load;Provi lori: Olivia Mahan tatus: Active Not Available [facility] 10:39:48 Problem Notes None recorded. Procedures Surgical History Date Name Laterality Status Provider Name and Address Organization Details Recorded Time 11/06/20 24 Destruction MN Lesion; face, ear, eyelid, nose, lip completed BONNIE CHAVIRA MD [address] [place], [address], [facility] 11/08/2024 13:10:58 11/06/20 24 Destruction BN Lesions completed Stephanie Rick [facility] 11/06/2024 14:14:39 03/01/20 24 Biopsy Skin Lesion; Tangential completed Jerrica Pruett [facility] 03/01/2024 09:14:35 10/19/20 22 Destruction Premalignant Lesion(s) completed Jerrica Pruett [facility] 10/19/2022 14:21:13 04/03/20 20 Injection - Interlaminar Epidural Steroid completed BRADFORD VERMA MD [address] [place], [address], [facility] 04/03/2020 09:29:39 11/03/20 19 Destruction Premalignant Lesion(s) completed Jerrica Pruett [facility] 11/03/2019 14:37:59 01/26/20 18 Destruction Premalignant Lesion(s) completed Clarita Graham [facility] 01/25/2018 16:54:11 Partial removal of colon completed Raya Cavazos [facility] 03/25/2020 11:58:21 Imaging Results None recorded. [...] Not Available Not Available Not Available Vitals None Recorded Social History Question Answer Notes LastModified by Organizat ion Details LastModified Time Tobacco Smoking Status Never Smoker Mary Grace Starks [facility] 12/03/2016 08:20:37 What Was The Date Of Your Most Recent Tobacco Screening? 03/25/2020 [email or web address] Information not available 03/25/2020 Sex: Female Functional Status None recorded. Mental Status None recorded. Family History Nothing Reported Notes:NO FAMILY HX OF MM SKI N CANCER Medical History Condition Response Varicose Veins Y Skin Problems N Autoimmune disease N Squamous Cell Carcinoma N Basal Cell Carcinoma Y Skin Cancer N Cancer Y Eczema Y Melanoma N Other Skin Condition N Acne Y Gynecological HistoryNo gynecological history recorded. Obstetrics History GPAL:G 0 P 0 0 0 0 Immunizations Vaccine Type Date Status Note Provider Nam e and Address Organization Details Recorded Time Td (adult), 2 Lf tetanus toxoid, preservative free, adsorbed 7 completed Not Available [facility] 07/10/2025 13:22:03 Hep A, adult 8 completed Not Available [facility] 07/10/2025 13:22:03 Hep A, adult 9 completed Not Available [facility] 07/10/2025 13:22:03 COVID-19, mRNA, LNP-S, PF, 100 mcg/0.5mL dose or 50 mcg/0.25mL dose 0 completed Not Available [facility] 07/10/2025 13:22:03 COVID-19, mRNA, LNP-S, PF, 100 mcg/0.5mL dose or 50 mcg/0.25mL dose 1 completed Not Available [facility] 07/10/2025 13:22:03 Tdap 1 completed Not Available [facility] 07/10/2025 13:22:03 COVID-19, mRNA, LNP-S, PF, 100 mcg/0.5mL dose or 50 mcg/0.25mL dose 1 completed Not Available [facility] 07/10/2025 13:22:03 Past Encounters Encounter ID Performer Location Encounter Start Date Encounter Closed Date Diagnosis/Indication Diagnosis SNOMED-CT Code Diagnosis ICD10 Code Diagnosis IMO Codes Diagnosis Note [id number] YOSELYN ALVARADO APRN [facility] [address] [place] [address] 12/03/2016 08:04:36 12/03/2016 09:12:55 Rosacea 029593974 L71.9 flaring not clearing with 40mg qd and topicals not helped in pastincrea se Doxy 100mg qd-bid prn flare usually only has to take couple weeks for intermitte nt flares to control after she completes the last 3 days of bactrim she is on she will start doxy [id number] NOLA MARTINES [place] [address] [place] [address] 01/25/2018 15:57:44 01/26/2018 08:02:07 Senile hyperkeratosis 104390229 L82.1 BENIGN APPEARANCE , PT REASSURED Actinic keratosis L57.0 CRYO X 3AK'S VS SUPERFICIA L BCC DISCUSSED BIOPSY IF PERSISTANT RTCSEE PROCEDURE NOTEPATIEN T ADVISED WHAT TO EXPECT FROM FREEZING Solar lentiginosis 69925 2006 L81.4 BENIGN APPEARANCE , PT REASSURED Multiple b enign melanocytic nevi 411637554 D22.9 BENIGN APPEARANCE , PT REASSURED Rosacea 822207110 L71.9 MILD -MODERATE FLARES CONTINUE DOXYCYCLIN E 100 MG BID PRN FLARES THEN DECREASE TO DOXYCYCLIN E 40MG QHS MAINTENANC E CONT UV PROTECTION DAILY TOPICALS INEFFECTIV E IN PAST History of malignant basal cell neoplasm of skin 459880941 Z85.828 NO RECURENCE 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 Actinic keratosis L57.0 Mid nasal bridge - LN Solar lentiginosis 2006 L81.4 Reassuranc e and education regarding the disorder and options. Multiple b enign melanocytic nevi 344118216 D22.9 Reassuranc e and education regarding the disorder and options. History of malignant basal cell neoplasm of skin 910281195 Z85.828 left anterior vertex - doing well Generalize d essential telangiectasia 234976100 I78.1 Reassuranc e and education regarding the disorder and options. [id number] EPHRAIM BARR MD [facility] [address] [place] [address] 03/18/2020 10:05:43 03/18/2020 10:43:11 Lumbar radiculopathy 553008406 M54.16 [id number] BRADFORD VERMA MD [facility] [address] [place] [address] 03/25/2020 11:40:59 03/25/2020 13:21:04 Lumbar radiculopathy 979332143 M54.16 [id number] BRADFORD VERMA MD [facility] OF SERVICE PROFESSIO NAL CHARGES [address] [facility], [address] [place] [address] 04/03/2020 09:18:44 04/05/2020 08:49:28 Lumbar radiculopathy 716071926 M54.16 [id number] BONNIE CHAVIRA MD [facility] [address] [place] [address] 10/19/2022 13:44:15 10/19/2022 15:12:01 History of malignant basal cell neoplasm of skin 677345900 Z85.828 left anterior vertex - doing well Senile hyperkeratosis 39 1176903 L82.1 Reassuranc e Solar lentiginosis 65257 2007 L81.4 Reassuranc e Multiple b enign melanocytic nevi 271874723 D22.9 Reassuranc e Generalize d essential telangiectasia 468985771 I78.1 Reassuranc e Actinic keratosis 523887 007 L57.0 Left brow - LN Hemangioma 587369492 D18 .00 Reassuranc e and education regarding the disorder and options. Eczema 38713401 L30.9 per historyRef ill Betamethas one dipropiona te cream [id number] BONNIE CHAVIRA MD [facility] [address] [place] [address] 03/01/2024 08:37:31 03/01/2024 11:05:44 History of malignant basal cell neoplasm of skin 508434466 Z85.828 Left anterior vertex - doing well Solar lentiginosis 97665 2006 L81.4 Reassuranc e Multiple b enign melanocytic nevi 345589084 D22.9 Reassuranc e Hemangioma 725252683 D18 .00 Reassuranc e Raised duran orrheic keratosis 5764460496 57979 L82.1 Reassuranc e Neoplasm o f uncertain behavior of skin 53932848 D48.5 right nasal bridge -Recommend ed shave biopsy - r/o BCCpatient agreeable - informed consent signedphot o in chartsee procedure noteWould lean toward Mohs if (+)Wound care instructio n providedfo llow up pending path results [id number] MD [facility] [address] [place] [address] 11/06/2024 13:46:59 11/06/2024 14:49:19 History of malignant basal cell neoplasm of skin 993245826 Z85.828 Left anterior vertex - doing well Right nasal bridge - s/p Mohs - see below Raised duran orrheic keratosis 7511345353 87402 L82.1 Reassuranc e Solar lentiginosis 77413 2006 L81.4 Reassuranc e Neoplasm o f uncertain behavior of skin 93091334 D48.5 Inflamed s eborrheic keratosis 513484603 L82.0 LN x 1 Basal cell carcinoma of nose 258261995 C44.311 Scar on nasal bridge has a 4mm crust on rightEduca tion, thenshave removaland base destroyed with electrodes sication.R /O recurrent BCCConsent and photo obtainedSe e procedure notePt tolerated wellWound care informatio n providedF/ u pending path [id number] MD EBONIE [facility] [address] [place] [address] 07/10/2025 13:20:11 07/10/2025 14:26:59 History of malignant basal cell neoplasm of skin 664279481 Z85.828 Left anterior vertex - doing well Right nasal bridge s/p Mohs, recurrent, 2nd bx untreated - photo comparison today, doing well, monitor for changes Epidermoid cyst 81111432 6 L72.0 58175 Lt lower brow ridgeDiscu ssed dx and tx optionsRec ommend further evaluation by Dr. Jaylen Luque, Oculoplast ic Surgeon, for tx Health Concerns Section Related Observation LastModified by Organization Detai ls LastModified Time None Recorded Concern Status LastModified by Organization Details LastModified Time None Recorded Advance Directives Directive None Recorded Payers Insurance Date Sequence Insurance Name Policy Number Policy Crowley Covered Member ID Crowley Member ID Guarantor Name 04/03/2020 1 [employer] [id number] Marisa Grajeda [id number] Marisa Grajeda 10/16/[address] [facility] [id number] Marisa Grajeda [id number] Marisa Grajeda 07/07/2025 1 [place] [id number] Anselmo Brittney Grajeda [id number] 1 Marisa Grajeda Notes Date Note Type Note Provider Name and Address Organization Details Recorded Time 10/19/2022 text/html ROS as noted in the HPI ESTABLISHED Patient Monitor: BCC LOCATION: left browDURATION: x monthsSYMPTOMS: roughTREATMENTS: none Denies any other new, changing, or bleeding lesions, or other rashes, feels well , good mood and has no family history of melanoma. BONNIE CHAVIRA MD [address] [place] [address], [address], [facility] 10/19/2022 14:56:41 03/01/2024 text/html ROS as noted in the [facility] Established Patient Monitor: BCC LOCATION: mid nasal bridgeDURATION: x monthsSYMPTOMS: bleedsTREATMENTS : LN in 2019 Denies any other new, changing, or bleeding lesions, or other rashes, feels well , good mood and has no family history of melanoma. BONNIE CHAVIRA MD [address] [place] [address], [address], [facility] 03/01/2024 09:17:42 11/06/2024 text/html ROS as noted in the HPI Established Patient - presents for 4 month recheck s/p Mohs for bx proven BCC on Rt nasal bridge. Pt reports site continues to bleed and she thinks BCC is returning. Monitor: BCC denies any other new, changing, or bleeding lesions, or other rashes, feels well , good mood and has no family history of melanoma. 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 Primary BCC treated w/ Mohs x02/2025, pt states she did not schedule to have second Mohs procedure. She reports site healed well, no concerns. Monitor: BCCPt has Colon CA stage IV x2019 w/ mets to liver x2022 LOCATION: Lt eyelid DURATION: Months SYMPTOMS: Cyst TREATMENTS: None denies any other new, changing, or bleeding lesions, or other rashes, feels well , good mood and has no family history of melanoma. BONNIE CHAVIRA MD [address] [place] [address], [address], [facility] 07/10/2025 17:22:12 OBGyn Episode No OBEpisode recorded.
--- OUTSIDE RECORDS SUMMARY | 2025-09-08 00:36 | XMS_ITS | Encounter Summary ---
Author Organization [facility] Address [address] [place] [address] Care Team Providers Care Perishable Fruit Inspector Name Role Phone Paul Arevalo MD Primary Care Provider + [phone] Emerita Gao DDS Unavailable + Tuyet Hogue Unavailable Unavailable Suha Marshall MD Unavailable [phone] Encounter Details Date Type Department Care Team (Late st Contact Info) Description 07/19/2023 Lab Requisition [facility] [address] [place] [address] Charles Mojica MD [address] [facility] [address] [place] [address] Encounter for general adult medical [...] drink first t kim in the morning (EYE-COMBINATION MACHINE TOOL SETTER) to steady your nerves or to [...] Info) Description 09/25/2025 7:30 AM EST Appointment [facility] Radiology [address] [place] [address] 09/25/2025 9:20 AM EST Appointment [facility] [address] [place] [address] 10/02/2025 9:10 AM EST Office Visit [facility] [address] [place] [address] Ren Saeed MD [address] [address] 10/29/2025 10:10 AM EST Appointment [facility] [address] [place] [address] Etienne Novak MD [address] [place] [address] documented as of this encounter Procedures Procedure Name Priority Date/Time Associated Diagnosis Comments MULTI DRUG RESISTANCE TEST Routine 07/19/2023 12:30 PM EDT Encounter for general adult medical examination without abnormal findings documented in this encounter Results * Multi Drug Resistance Test (07/19/2023 12:30 PM EDT) Culture No growth at day 2 07/21/2023 11:28 AM EDT [facility] Swab (Nares and Chantale Rectal) 07/19/2023 12:30 PM EDT 07/19/2023 6:47 PM EDT us Charles Mojica MD LAB MICROBIOLOGY - GEN ERAL ORDERABLES Final Result [facility] [address] [place] [address] documented in this encounter Visit Diagnoses Diagnosis [...] documented as of this encounter Care Teams Perishable Fruit Inspector Relationship Specialty Start Date End Date Paul Arevalo MD [address] [place] [facility] [address] [place] [address] PCP - General 04/04/21 Emerita Goa DDS [address] [place] [address] Dentist Dentist 07/21/21 Tuyet Hogue Dentist Dental Railroad Track Inspector 07/21/21 Suha Marshall MD [address] [address] Medical Oncologist Medical Oncology 11/29/22 documented as of this encounter
--- OUTSIDE RECORDS SUMMARY | 2025-09-08 00:36 | XMS_ITS ---
Author Organization [facility] Address [address] [place] [address] Care Team Providers Care Marketing Regional Consultant Name Role Phone Paul Arevalo MD Primary Care Provider + [phone] Emerita Gao DDS Unavailable + Tuyet Hogue Unavailable Unavailable Suha Marshall MD Unavailable [phone] Active Problems Problem Noted Date Diagnosed [...] [Ricki] Overlapping malignant neoplasm of colon 10/29/20 23 Electrolyte abnormality 07/09/2023 Overview (02/06/2025): - daily/PRN [...] an abscess could have a similar appearance. Current Treatment and Therapy Plans (ONC) MED ONC OUTPATIENT ELECTROLYTE REPLACEMENT PROTOCOL* Plan Start Date: 03/08/2023 Plan Provider:Suha Marshall MD Linked Problems Adenocarcinoma of cecum (CMS /HCC) Treatment Medications No medications scheduled. Past Treatment and Therapy Plans Oncology Treatment Plan Name Start Date Discontinue Date Treatment Medications Discontinue Reason Plan Provider Cycles [id number]-PM C: BXQ-350 with [id number] + Bevacizumab: Leucovorin + Fluorouracil + OXALIplatin + Bevacizumab Every 14 Days x 2 Every 28 Days 11/30/2022 10/05/2023 5-FU (Adrucil) infusion - for home use ([facility] supplied)5-FU CHEMO INFUSION ([facility] SUPPLIED) CADD ORDERABLEbevacizu mab-awwb (MVASI)bevacizuma b-awwb (Mvasi) [...] 03/06/2025 08/29/2025 Polydipsia 03/06/2025 08/29/2025 Postmenopausal bleeding 03/06/2025 1006/2025 Lumbago with sciatica, right side 03/06/2025 08/29/2025 Sciatica, right side 03/06/2025 025 Sinusitis 03/06/2025 08/12/2025 Strep throat 03/06/2025 08/29/2025 SVT (supraventricular tachycardia) 03/06/2025 08/29/2025 Thyroid enlargement 03/06/2025 08/29/20 Thyroid nodule 03/06/2025 08/29/2025 Vitamin D deficiency [...] 07/06/2023 08/29/2025 History of migraine 07/06/2023 08/29/20 25 Eczematous dermatitis of left lower eyelid 01/23/2016 08/29/2025 Overview (03/06/2025): From Automated Load;Provider: Andrei Mahan;Status: Active Pain of upper abdomen 2024
--- OUTSIDE RECORDS SUMMARY | 2025-09-08 00:36 | XMS_ITS | Encounter Summary ---
Author Organization Healthcare Address [address] [place] [address] Care Team Providers Care Cable Tv Installer Name Role Phone Paul Arevalo MD Primary Care Provider + [phone] Emerita Gao DDS Unavailable + Tuyet Hogue Unavailable Unavailable Suha Marshall MD Unavailable [phone] Reason for Visit * Reason Comments Med Refill Encounter Details Date Type Department Care Team (Late st Contact Info) Description 07/04/2025 Refill [facility] [address] [place] [address] Ren Saeed MD [address] [phone] Social History Tobacco Use Types Packs/Day Years [...] any time in the past 12 m [facility], were you homeless or living in a penitentiary (including now)? No 02/06/2025 CAGE ASSESSMENT Answer [...] drink first t kim in the morning (EYE-CARPET OR RUG LAYER HELPER) to steady your nerves or to get rid of a hangover? 0 08/16/2023 CAGE Questionnaire Score 0 023 Utilities Answer Date Recorded In the past 12 months has th e electric, gas, oil, or water [employer] threatened to shut off services in your [...] Info) Description 09/25/2025 7:30 AM EST Appointment [facility] Radiology [address], 1st [place] [address] 09/25/2025 9:20 AM EST Appointment [facility] [address], [address]nd [place] [address] 10/02/2025 9:10 AM EST Office Visit [facility] [address] [place] [address] Ren Saeed MD [address] [address] 10/29/2025 10:10 AM EST Appointment [facility] [address] [place] [phone] Etienne Novak MD [address] [place] [address] documented as of this encounter [...] as of this encounter Care Teams Cable Tv Installer Relationship Specialty Start Date End Date Paul Arevalo MD [address] [facility] [address] [place] [address] PCP - General 04/04/21 Emerita Gao DDS [address] [facility] [address] [place] [address] Dentist Dentist 07/21/21 Tuyet Hogue Dentist Dental Rag Room Supervisor 07/21/21 Suha Marshall MD [address] [facility] [address] [place] [address] Medical Oncologist Medical Oncology 11/29/22 documented as of this encounter
--- OUTSIDE RECORDS SUMMARY | 2025-09-08 00:36 | XMS_ITS | Encounter Summary ---
Author Organization Healthcare Address [address] [place] [address] Care Team Providers Care Psychological Assistant Name Role Phone Paul Arevalo MD Primary Care Provider + [phone] Emerita Gao DDS Unavailable + Tuyet Hogue Unavailable Unavailable Suha Marshall MD Unavailable [phone] Encounter Details Date Type Department Care Team (Late st Contact Info) Description 08/28/2025 Telephone [facility] [address] [place] [address] Ren Saeed MD [address] [address] Social History Tobacco Use Types Packs/Day Years [...] money to buy more. Never true 08/29/20 Within the past 12 months, t he [...] any time in the past 12 m [facility], were you homeless or living in a [facility] (including now)? No 08/29/2025 [facility] Utilities Answer Date Recorded In the past 12 months has th e [employer], gas, oil, or water [employer] threatened to shut off services in your [...] drink first t kim in the morning (EYE-WEAVE DEFECT CHARTING CLERK) to steady your nerves or to get [...] encounter Miscellaneous Notes * Telephone Encounter - Marita Crowley RN - 08/28/2025 10:35 AM EDT Attempted to call pt with no answer, LVM message sent to provider that we are aware and to call back if needed. * Telephone Encounter - Dana Vogel - 08/28/2025 10:28 AM EDT Patient Phone Message Reason for Call: Patient is at [facility]. Her liver lesions are growing. She is going to head to [facility] but wants Dr. Saeed to look at her CT scans and blood work. Asking to give her a call. Best contact number and optimal time of day to reach caller: [phone] Note: Please do not reply to this message. Follow-up communication and further actions as a result of this message need to be communicated with the patient directly, if the patient is not active onMyChart. If the patient is active on MyChart, they will receive notification of the communication/outcome via MyChart. documented in this encounter Plan of Treatment Upcoming Encounters Date Type Department Care Team (Late st Contact Info) Description 09/25/2025 7:30 AM EST Appointment [facility] Radiology [address], 1st [place] [address] 09/25/2025 9:20 AM EST Appointment [facility] CT [address]nd [place] [address] 10/02/2025 9:10 AM EST Office Visit [facility] [address] [place] [address] Ren Saeed MD 800 [facility] 1st [place] [address] 10/29/2025 10:10 AM EST Appointment [facility] [address] [place] [address] Etienne Novak MD [address] [facility] [address] [place] [address] documented as of this encounter [...] documented as of this encounter Care Teams Psychological Assistant Relationship Specialty Start Date End Date Paul Aervalo MD [address] [facility] [address] [place] [address] PCP - General 04/04/21 Emerita Gao DDS [address] [place] [address] Dentist Dentist 07/21/21 Tuyet Hogue Dentist Dental Plastering Contractor 07/21/21 Suha Marshall MD [address] [facility] [address] [place] [address] Medical Oncologist Medical Oncology 11/29/22 documented as of this encounter
--- OUTSIDE RECORDS SUMMARY | 2025-09-08 00:36 | XMS_ITS | Encounter Summary ---
Author Organization [facility] Address [address] [place] [address] Care Team Providers Care Transportation Department Supervisor Name Role Phone Paul Arevalo MD Primary Care Provider + [phone] Emerita Gao DDS Unavailable + Tuyet Hogue Unavailable Unavailable Suha Marshall MD Unavailable [phone] Encounter Details Date Type Department Care Team (Late st Contact Info) Description 07/12/2023 Lab Requisition [facility] [address] [place] [address] Charles Mojica MD [address] [facility] [address] [place] [address] Encounter for general adult medical [...] drink first t kim in the morning (EYE-SHOE FITTER) to steady your nerves or to get [...] Description 09/25/2025 7:30 AM EST Appointment [facility] Radiology [address], 1st [place] [address] 09/25/2025 9:20 AM EST Appointment [facility] CT [address], [address]nd [place] [address] 10/02/2025 9:10 AM EST Office Visit [facility] Multidisciplinary Oncology Clinic [address] [place] [address] Ren Saeed MD 800 [facility] [address] [place] [address] 10/29/2025 10:10 AM EST Appointment [facility] [address] [place] [address] Etienne Novak MD [address] [place] [address] documented as of this encounter Procedures Procedure [...] ERAL ORDERABLES Final Result [facility] [address] [place] [address] documented in this encounter Visit Diagnoses Diagnosis [...] documented as of this encounter Care Teams Transportation Department Supervisor Relationship Specialty Start Date End Date Paul Arevalo MD 1210 [facility] [address] [place] [address] PCP - General 04/04/21 Emerita Gao DDS [address] [place] [address] Dentist Dentist 07/21/21 Tuyet Hogue Dentist Dental Flotation Tender 07/21/21 Suha Marshall MD [address] [address] Medical Oncologist Medical Oncology 11/29/22 documented as of this encounter
--- OUTSIDE RECORDS SUMMARY | 2025-09-08 00:36 | XMS_ITS | Encounter Summary ---
Author Organization Healthcare Address [address] [place] [address] Care Team Providers Care Medical Radiation Therapist Name Role Phone Paul Arevalo MD Primary Care Provider + [phone] Emerita Gao DDS Unavailable + Tuyet Hogue Unavailable Unavailable Suha Marshall MD Unavailable [phone] Encounter Details Date Type Department Care Team (Late st Contact Info) Description 08/28/2025 Orders Only External Location [address] [place] [address] Rick [place], DO [address] [place] [phone] Social History Tobacco Use Types Packs/Day Years [...] any time in the past 12 m [facility], were you homeless or living in a half-way (including now)? No 08/29/2025 [facility] Utilities Answer Date Recorded In the past 12 months has th e [employer], gas, oil, or water [employer] threatened to shut off services in your [...] drink first t kim in the morning (EYE-TRAILER STEERER) to steady your nerves or to get [...] Info) Description 09/25/2025 7:30 AM EST Appointment [facility] Radiology [address] 1st [place] [address] 09/25/2025 9:20 AM EST Appointment [facility] CT [address] 2nd [place] [address] 10/02/2025 9:10 AM EST Office Visit [facility] Multidisciplinary Oncology Clinic [address] [place] [address] Ren Saeed MD [address] [phone] 10/29/2025 10:10 AM EST Appointment [facility] [address] [place] [address] Etienne Novak MD [address] [place] [address] documented as of this [...] documented as of this encounter Care Teams Medical Radiation Therapist Relationship Specialty Start Date End Date Paul Arevalo MD 1210 [facility] [address] [address] PCP - General 04/04/21 Emerita Gao DDJim [address] [place] [address] Dentist Dentist 07/21/21 Tuyet Hogue Dentist Dental Forestry Tree Pruner 07/21/21 Suha Marshall MD 800 [facility] [address] [place] [address] Medical Oncologist Medical Oncology 11/29/22 documented as of this encounter
--- OUTSIDE RECORDS SUMMARY | 2025-09-08 00:36 | XMS_ITS | Clinical Summary ---
Author Organization [facility] Address [address] [place] [address] Care Team Providers Care Guide Winder Name Role Phone Paul Arevalo MD Primary Care Provider + [phone] Allergies Active Allergy Reactions Criticality Noted Date [...] CANCER SCREENING Discontinued HEPATITIS C SCREENING Completed 08/28/2025 , 08/16/2023, 11/26/2022 COLOGUARD Discontinued COLON CANCER SCREENING 5 YEA R [address]COPY Discontinued [address] COLONOGRAPHY Discontinued FECAL OCCULT BLOOD TEST Discontinued FIT Testing (1 year) Discontinued Insurance Buddy OMAR [employer]ARTINE[employer] [id number] [facility] PPO Care Teams Guide Winder Relationship Specialty Start Date End Date Paul Arevalo MD [address] [place] [address] [place] [address] PCP - General Family Medicine 09/24/23
--- OUTSIDE RECORDS SUMMARY | 2025-09-08 00:36 | XMS_ITS | Encounter Summary ---
Author Organization Healthcare Address [address] [place] [address] Care Team Providers Care Paramedic Supervisor Name Role Phone Paul Arevalo MD Primary Care Provider + [phone] Emerita Gao DDS Unavailable + Tuyet Hogue Unavailable Unavailable Suha Marshall MD Unavailable [phone] Encounter Details Date Type Department Care Team (Late st Contact Info) Description 08/28/2025 Telephone [facility] [address] [place] [address] Ren Saeed MD [address] [address] Social History Tobacco Use Types [...] any time in the past 12 m [facility], were you homeless or living in a correction (including now)? No 08/29/2025 [facility] Utilities Answer Date Recorded In the past 12 months has th e [employer], gas, oil, or water [employer] threatened to shut off services in your [...] drink first t kim in the morning (EYE-JUDICIAL REPORTER) to steady your nerves or to get [...] Encounter - Marita Crowley RN - 08/28/2025 1:53 PM EDT Duplicate encounter, pt was relayed message when she returned call earlier. * Telephone Encounter - Navdeep Godinez - 08/28/2025 1:52 PM EDT Patient Phone Message Reason for Call: Ms. Grajeda returning Marita call Best contact number and optimal time of day to reach caller: [phone] Note: Please do not reply to this [...] Info) Description 09/25/2025 7:30 AM EST Appointment [facility] Radiology [address], 1st [place] [address] 09/25/2025 9:20 AM EST Appointment [facility] CT [address] 2nd [place] [address] 10/02/2025 9:10 AM EST Office Visit [facility] [address] [place] [address] Ren Saeed MD [address] [address] 10/29/2025 10:10 AM EST Appointment [facility] [address] [place] [address] Etienne Novak MD [address] [facility] [address] [place] [address] documented as of this encounter Goals Goal Patient Goal Type Associated Problems Recent Progress Patient-Stated? Author Autogenerat ed Goal Care Plan Autogenerated Problem Teagan Gilah Ca documented as of this encounter Visit Diagnoses [...] documented as of this encounter Care Teams Paramedic Supervisor Relationship Specialty Start Date End Date Paul Arevalo MD [facility] [address] [address] PCP - General 04/04/21 Emerita Gao DDS [address] [place] [address] Dentist Dentist 07/21/21 Tuyet Hogue Dentist Dental Contracting Support Specialist 07/21/21 Suha Marshall MD 800 [facility] [address] [place] [address] Medical Oncologist Medical Oncology 11/29/22 documented as of this encounter
--- OUTSIDE RECORDS SUMMARY | 2025-09-08 00:36 | XMS_ITS | Continuity of Care Document ---
Author Organization [facility] Address [address] [place] [address] Assessment Encounter Date Assessment Date Assessment LastModified by Organization Details LastModified Time 07/10/2025 07/10/2025 F/u annually Not available 0 07/10/2025 13:47:34 Plan of Treatment Reminders Order Date Submit Date Provider Last Modified By Organization Details Last Modified Time Details Appointments None record ed. Lab None record ed. Referral None record ed. Procedures None record ed. Surgeries None record ed. Imaging None record ed. Medication Orders None record ed. Patient TargetsNo targets recorded. Patient Instructions Encounter Date Encounter Id Patient Instructions Last Modified By Organization Details Last Modified Time 07/10/2025 [id number] Risks/Benefits/O p tions/Side Effects of diagnosis and treatment discussed. UV protection and signs of skin cancer discussed Not available 07/10/2025 13:28:54 Reason for Referral None Reported. Problems Name Problem SNOMED Code Status Onset Date Resolution Date Notes Provider Name and Address Organization Details Recorded Time Eczematou s dermatiti s of lower eyelid 761956973 Active 2015 From Automated Load;Provi lori: Olivia Mahan tatus: Active Not Available [facility] 6 10:39:48 Eczematou s dermatiti s of upper eyelid 873639077 Active 2015 From Automated Load;Provi lori: Andrei Mahan;S tatus: Active Not Available [employer] 6 10:39:48 Problem Notes None recorded. Procedures Surgical History Date Name Laterality Status Provider Name and Address Organization Details Recorded Time 11/06/20 24 Destruction MN Lesion; face, ear, eyelid, nose, lip completed BONNIE CHAVIRA MD [address] [place], [address], [facility] 11/08/2024 13:10:58 11/06/20 24 Destruction BN Lesions completed Stephanie Rick [facility] 11/06/2024 14:14:39 03/01/20 24 Biopsy Skin Lesion; Tangential completed Jerricaalexus Pruett [facility] 03/01/2024 09:14:35 10/19/20 22 Destruction Premalignant Lesion(s) completed [facility] 10/19/2022 14:21:13 04/03/20 20 Injection - Interlaminar Epidural Steroid completed BRADFORD VERMA MD [address] [place], [address], [facility] 04/03/2020 09:29:39 11/03/20 19 Destruction Premalignant Lesion(s) completed Jerrica DyerMaryuri [facility] 11/03/2019 14:37:59 01/26/20 18 Destruction Premalignant Lesion(s) completed Clarita Graham [facility] 01/25/2018 16:54:11 Partial removal of colon completed Raya Cavazos [facility] 03/25/2020 11:58:21 Imaging Results None recorded. [...] Smoking Status Never Smoker Mary Grace Starks [facility] 12/03/2016 08:20:37 What Was The Date Of Your Most Recent Tobacco Screening? 03/25/2020 [email or web address] Information not available 03/25/2020 Sex: Female Functional Status None recorded. Mental Status None recorded. Family History Nothing Reported Notes:NO FAMILY HX OF MM SKI N CANCER Medical History Condition Response Varicose Veins Y Skin Problems N Autoimmune disease N Squamous Cell Carcinoma N Basal Cell Carcinoma Y Skin Cancer N Eczema Y Cancer Y Other Skin Condition N Melanoma N Acne Y Gynecological HistoryNo gynecological history recorded. Obstetrics History GPAL:G 0 P 0 0 0 0 Immunizations Vaccine Type Date Status Note Provider Nam e and Address Organization Details Recorded Time Td (adult), 2 Lf tetanus toxoid, preservative free, adsorbed 7 completed Not Available [facility] 07/10/2025 13:22:03 Hep A, adult 8 completed Not Available [facility] 07/10/2025 13:22:03 Hep A, adult 9 completed Not Available [facility] 07/10/2025 13:22:03 COVID-19, mRNA, LNP-S, PF, 100 mcg/0.5mL dose or 50 mcg/0.25mL dose 0 completed Not Available [facility] 07/10/2025 13:22:03 COVID-19, mRNA, LNP-S, PF, 100 mcg/0.5mL dose or 50 mcg/0.25mL dose 1 completed Not Available [facility] 07/10/2025 13:22:03 Tdap 1 completed Not Available [facility] 07/10/2025 13:22:03 COVID-19, mRNA, LNP-S, PF, 100 mcg/0.5mL dose or 50 mcg/0.25mL dose 1 completed Not Available [facility] 07/10/2025 13:22:03 Past Encounters Encounter ID Performer Location Encounter Start Date Encounter Closed Date Diagnosis/Indication Diagnosis SNOMED-CT Code Diagnosis ICD10 Code Diagnosis IMO Codes Diagnosis Note [id number] BONNIE CHAVIRA MD [facility] [address] [place] [address] 07/10/2025 13:20:11 07/10/2025 14:26:59 History of malignant basal cell neoplasm of skin 095712258 Z85.828 Left anterior vertex - doing well Right nasal bridge s/p Mohs, recurrent, 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 Jaylen Luque, Oculoplast ic Surgeon, for tx Health Concerns Section Related Observation LastModified by Organization Detai ls LastModified Time None Recorded Concern Status LastModified by Organization Details LastModified Time None Recorded Payers Encounter Date Sequence Insurance Name Policy Number Policy Crowley Covered Member ID Crowley Member ID Guarantor Name 07/10/2025 1 [employer] [id number] Anselmo Grajeda [id number] Marisa Grajeda Notes Date Note Type Note Provider Name and Address Organization Details Recorded Time 07/10/2025 text/html ROS as noted in the [...] family history of melanoma. BONNIE CHAVIRA MD [facility] [place], [address], [facility] 07/10/2025 17:22:12 OBGyn Episode No OBEpisode recorded.
--- NOTE | 2025-09-08 00:52 | HMH.EDGENADL ---
Discharge Plan Disposition Patient Disposition: Xfer Short-Term Hosp Condition: Fair Prescriptions Prescriptions: No Action ursodiol 300 mg capsule 300 mg PO BID verapamil 120 mg capsule,ext rel. pellets 24 hr See Rx Instructions .ROUTE .COMPLEX Qty: 90 5RF Dose Instruction: TAKE ONE CAPSULE BY MOUTH ONCE A DAY Rx Instructions: TAKE ONE CAPSULE BY MOUTH ONCE A DAY duloxetine 60 mg capsule,delayed release(DR/EC) 60 mg PO DAILY pantoprazole 40 mg tablet,delayed release (DR/EC) 40 mg PO HS ferrous sulfate [FeroSul] 325 mg (65 mg iron) tablet 325 mg PO DAILY Probiotic Formula (inulin) 1 billion-250 cell-mg capsule 1 cap PO DAILY Referrals Follow up/Referrals: Paul Arevalo MD [Primary Care Provider, Medical] - See instructions Clinical Impressions Clinical Impression: Right upper quadrant abdominal pain, Hyperbilirubinemia, Transaminitis, Metastatic cancer Print Language Print Language: [place] Discharge ED Provider: Oleg Williamson General Adult HPI General Chief complaint: PAIN Stated complaint: sternum pain, liver cancer Time Seen by Provider: 09/08/25 00:37 Mode of Arrival: Ambulatory Source of Information: Patient Description of Symptoms (Recalled from ER Triage Doc. by RN): PT presents to the ED for evaluation of midsternal pain. PT stated she was seen in the ED over a week ago and was sent to and was dx with a blockage of the ducts to the Liver. PT stated she is awaiting surgery. History of Present Illness HPI narrative: 59-year-old female with stage IV cancer presents to the ER for evaluation of pain in the right upper quadrant radiating to the epigastric area. She denies chest pain or difficulty breathing. Patient states she was seen in the ER over a week ago and sent to for concerns of biliary duct blockage. She was admitted for 2 days at . She gets her treatment management at [facility] but has not yet follow-up with GI because her oncologist did not like the GI physician who initially saw her. She states she is still awaiting GI follow-up but states she is having the same pain tonight that brought her into the ER 10 days ago. She is nauseous but not vomiting. She took Zofran at home. She also took Tylenol and ibuprofen at home. She states she has been avoiding taking her oxycodone because she has think she needs to do in the morning and does not like the way it makes her feel after. She states morphine controlled her pain last time. She understands she may need to be transferred back to . Denies fevers or chills, no diarrhea or constipation, states her last bowel movement was today. Related Data Home Medications ?Medication ?Instructions ?Recorded ?Confirmed pantoprazole 40 mg tablet,delayed 40 mg PO HS 09/14/23 12/14/24 release Bacillus coagulans-inulin 1 1 cap PO DAILY 09/16/24 12/14/24 billion cell-250 mg capsule (Probiotic Formula (inulin)) ferrous sulfate 325 mg (65 mg 325 mg PO DAILY 09/16/24 12/14/24 iron) tablet (FeroSul) duloxetine 60 mg capsule,delayed 60 mg PO DAILY 09/27/24 12/14/24 release ursodiol 300 mg capsule 300 mg PO BID 12/14/24 12/14/24 Previous Rx's ?Medication ?Instructions ?Recorded verapamil 120 mg 24 hr See Rx Instructions .Route 07/02/25 capsule,extended release .COMPLEX #90 caps Allergies Allergy/AdvReac Type Severity Reaction Status Date / Time Sulfa (Sulfonamide Allergy Verified 12/14/24 13:40 Antibiotics) sulfamethoxazole (From Allergy Verified 12/14/24 13:40 Bactrim) trimethoprim (From Bactrim) Allergy Verified 12/14/24 13:40 PFSH PFS Disclaimer: The information contained in this section may have been updated after the patient was seen, as this information can be updated by other users. Medical History Metastatic colon cancer to liver Acute respiratory failure with hypoxia Pleural effusion on right SVT (supraventricular tachycardia) Right ventricular hypertrophy Dyspnea on exertion Tachycardia Dysrhythmia Lesion of liver Hepatic cyst Multiple pulmonary nodules Degenerative disc disease Right sided sciatica Surgical History History of cholecystectomy History of partial surgical removal of colon History of surgery of liver History of removal of both ovaries History of colonoscopy History of tubal ligation Hx of BSO (bilateral salpingo-oophorectomy) Family History Mother Pancreatic cancer Father Multiple myeloma Other Cancer Hypertension Social History Smoking Status: Never smoker alcohol intake: current alcohol intake frequency: holidays/special occasions only substance use type: denies use current occupational status: other Travel in the last 8 weeks?: None household members: spouse housing: house current occupational exposures/hazards: No caffeine: No Have you lived/traveled outside [place] in past 30 days?: No Contact w/someone who lives/traveled outside US past 30 days?: No Exposure to someone with infectious disease in past 14 days?: No Do you have a fever (greater than 100.4 F or 38 C)?: No Have you tested positive for COVID-19?: No Exposed to someone with COVID-19 in past 14 days?: No Do you have a sore throat?: No Do you have a cough?: No Do you have any weakness?: No Do you have any diarrhea?: No Are you experiencing any unusual bleeding?: No Do you have any muscle aches/pain?: No Do you have any abdominal pain?: No Are you experiencing loss of taste or smell?: No Other Medical History Have you received the Flu Vaccine for this season: No Have you received the Pneumonia Vaccine: No ROS Obtained: Yes Systems reviewed as appropriate & no additional complaints except as documented per HPI Physical Exam General General appearance: alert and in no apparent distress Head Head exam: atraumatic and normocephalic Eye Eye exam: Present PERRL and EOMI; Absent scleral icterus ENT ENT exam: Present mucous membranes moist Neck Neck exam: Present normal inspection and full ROM Chest Chest inspection: Present symmetric chest wall rise Respiratory Respiratory exam: Present normal lung sounds bilaterally; Absent respiratory distress, wheezes or stridor Cardiovascular Cardiovascular exam: Present regular rate and normal rhythm Abdominal Exam Abdominal exam: Present soft, tenderness (Right upper quadrant) and guarding (Voluntary right upper quadrant); Absent distention, rebound or rigidity Extremities Exam Extremities exam: Present full ROM and normal capillary refill; Absent edema Neurological Exam Neurological exam: Present alert and oriented X3; Absent motor sensory deficit Psychiatric Psychiatric exam: Present normal affect and normal mood Skin Skin exam: Present warm and dry Medical Decision Making Medical Records Medical records reviewed: Yes I reviewed the patient's medical records. Screening: Per USPSTF and CDC recommendations, given the prevalence of disease in our region, it is our hospital?s policy to screen for HIV and viral Hepatitis for all patients aged 18 and over and those with ongoing risk factors. Ari Inquiry Pt receiving controlled substance: No Vital Signs: 09/08/25 00:37 09/08/25 00:43 09/08/25 01:30 Temperature 98.6 F 98.9 F Temperature Source Oral Oral Pulse Rate 83 72 Pulse Rate [Right] 83 Respiratory Rate 16 16 15 Blood Pressure 141/89 H 131/90 Blood Pressure [Right Arm] 141/84 H Blood Pressure Mean [Right Arm] 103 02 Sat by Pulse Oximetry 97 97 99 Oxygen Delivery Method Room Air Room Air Oxygen Flow Rate (LPM) 09/08/25 02:00 09/08/25 02:30 09/08/25 03:00 Temperature Temperature Source Pulse Rate 74 74 72 Pulse Rate [Right] Respiratory Rate 12 14 16 Blood Pressure 139/85 126/79 112/66 Blood Pressure [Right Arm] Blood Pressure Mean [Right Arm] 02 Sat by Pulse Oximetry 99 92 L 95 Oxygen Delivery Method Room Air Room Air Room Air Oxygen Flow Rate (LPM) 09/08/25 03:28 09/08/25 03:30 09/08/25 03:33 Temperature Temperature Source Pulse Rate 67 69 Pulse Rate [Right] Respiratory Rate 13 12 Blood Pressure 112/66 109/65 L Blood Pressure [Right Arm] Blood Pressure Mean [Right Arm] 02 Sat by Pulse Oximetry 89 L 95 98 Oxygen Delivery Method Room Air Room Air Nasal Cannula Oxygen Flow Rate (LPM) 2 09/08/25 04:00 09/08/25 04:16 Temperature Temperature Source Pulse Rate 69 71 Pulse Rate [Right] Respiratory Rate 12 11 L Blood Pressure 108/69 L 108/69 L Blood Pressure [Right Arm] Blood Pressure Mean [Right Arm] 02 Sat by Pulse Oximetry 97 98 Oxygen Delivery Method Room Air Nasal Cannula Oxygen Flow Rate (LPM) 2 Lab Data Lab Results 09/08/25 01:11: WBC 6.1, RBC 4.66, Hgb 13.1, Hct 40.0, MCV 85.8, MCH 28.1, MCHC 32.8, RDW 12.7, Plt Count 168, MPV 12.4 H, Neut % (Auto) 70.1, Lymph % (Auto) 15.7, [place] % (Auto) 11.7 H, Eos % (Auto) 1.5, Baso % (Auto) 0.7, Neut # (Auto) 4.3, Lymph # (Auto) 1.0, [place] # (Auto) 0.7, Eos # (Auto) 0.1, Baso # (Auto) 0.0, PT 11.4, INR 1.03, Sodium 136, Potassium 3.9, Chloride 100, Carbon Dioxide 26, Anion Gap 13.9, BUN 13, Creatinine 0.80, Estimated Creat Clear 70, Estimated GFR 73, Est GFR ( Amer) 88, Glucose 146 H, Lactate 1.7, Calcium 9.5, Total Bilirubin 2.2 H, AST 80 H, ALT 53, Alkaline Phosphatase 570 H, Troponin I < 0.01, Total Protein 6.3, Albumin 3.9, Globulin 2.4, Albumin/Globulin Ratio 1.6, Lipase 148 09/08/25 01:11 09/08/25 01:11 Orders (Tests/Meds): ED MEDICATIONS Generic Name Dose Route Start Last Admin Trade Name Freq PRN Reason Stop Dose Admin Sodium Chloride 10 ml 09/08/25 02:48 09/08/25 02:50 Sodium Chloride 0.9% 10ml Syr (Rad Only) IV 10/08/25 02:47 10 ml NEEDED PRN Administration Maintain IV Site Discontinued Medications Generic Name Dose Route Start Last Admin Trade Name Freq PRN Reason Stop Dose Admin Lactated Ringer's 1,000 mls @ 999 mls/hr 09/08/25 00:48 09/08/25 02:16 Lactated Ringer's 1000 Ml Bag IV 09/08/25 01:48 Infused .Q1H1M ONE Infusion Iopamidol 80 ml 09/08/25 02:48 09/08/25 02:50 Iopamidol-370 (76%);100ml Bottle IV 09/08/25 02:49 80 ml ONCE ONE Administration Morphine Sulfate 8 mg 09/08/25 00:46 09/08/25 01:04 Morphine 4mg/Ml Syringe IV 09/08/25 00:47 8 mg ONCE ONE Administration Morphine Sulfate 4 mg 09/08/25 04:06 09/08/25 04:13 Morphine 4mg/Ml Syringe IV 09/08/25 04:07 4 mg ONCE ONE Administration Ondansetron HCl 4 mg 09/08/25 00:46 09/08/25 01:04 Ondansetron 4mg/2ml Vial IV 09/08/25 00:47 4 mg ONCE ONE Administration Ondansetron HCl 4 mg 09/08/25 04:06 09/08/25 04:13 Ondansetron 4mg/2ml Vial IV 09/08/25 04:07 4 mg ONCE ONE Administration Sodium Chloride 40 ml 09/08/25 02:48 09/08/25 02:50 0.9 % Sodium Chloride 50 Ml Vial IV 09/08/25 02:49 40 ml ONCE ONE Administration ORDERS Category Date Time Status CT angio abdomen pelvis Stat Cat Scan 09/08/25 02:03 Completed Complete Blood Count Auto Diff Stat Lab 09/08/25 01:11 Completed Comprehensive Metabolic Panel Stat Lab 09/08/25 01:11 Completed Lactic Acid Stat Lab 09/08/25 01:11 Completed Lipase Stat Lab 09/08/25 01:11 Completed Prothrombin Time INR Stat Lab 09/08/25 01:11 Completed Troponin I Stat Lab 09/08/25 01:11 Completed Medical Decision Narrative: In summary, this 59-year-old female with comorbidities described in the HPI presents to the emergency department today with right upper quadrant and epigastric pain that is worsening, nausea. On initial evaluation patient is hemodynamically stable, afebrile, exam notable for moderate right upper quadrant and epigastric tenderness to palpation with voluntary guarding, no rebound, no distention or rigidity, no obvious jaundice or scleral icterus, remainder of exam reassuring. Differential diagnosis includes but is not limited to metastatic disease, ductal dilation, biliary obstruction, hyperbilirubinemia, transaminitis, I did also consider the possibility of ACS though I have lower suspicion for this since symptoms are consistent with her previous presentation for biliary blockage. Based on these concerns, I ordered hematologic and serum labs, cardiac workup including ECG and cardiac enzymes. I am going to initially get labs and refrain from radiologic studies at this time since patient just had imaging for this exact same complaint 10 days ago and has a known problem that has not yet been managed. If labs are worse, I will reach out to for transfer, if labs are equivocal compared to last time, then I will pursue imaging to further delineate any other potential etiologies such as bowel obstruction or infection. Patient is agreeable to this. EKG personally interpreted demonstrates normal sinus rhythm, rate 68, normal axis, normal [place] and QTc, no STEMI Patient received morphine, Zofran, IV fluids initially for treatment. Labs personally reviewed demonstrate no leukocytosis or anemia, normal platelets, CMP with nonactionable electrolytes, hyperbilirubinemia actually somewhat improved from her previous visit 10 days ago, AST and ALT are also improved, alkaline phosphatase slightly worse at 570 but this is not acutely actionable at this time. Troponin undetectably low less than 0.01 reassuring in the setting of nonischemic ECG against acute cardiac pathology. Serial troponin not indicated. Lipase normal at 148 reassuring against pancreatitis. I discussed lab results with the patient and I am happy that her bilirubin and AST and ALT are somewhat improved however with the patient's worse right upper quadrant abdominal pain today I am concerned about other pathology at this time since her labs are showing signs of improvement from when she was found to have biliary dilation. I discussed with the patient doing CT abdomen pelvis which she is agreeable to. CT angiography was ordered due to patient's hypercoagulable state as an active cancer patient. As patient was heading to CT she let me know that when she left her bilirubin level was 0.6 so her level today at 2.2 is worsened from prior. I attempted to access 's records at this point however the [facility] system is still not working for me and timing out. I am unable to review these records myself. CT abdomen pelvis personally interpreted demonstrates evidence of metastatic lesions, I do not appreciate bowel obstruction. See radiology read for final interpretation which discusses similar appearance to previous. Patient's pain is starting to come back. Additional dose of morphine and Zofran was administered. Patient had been placed on 2 L nasal cannula when she was sleeping because she has a history of ENEDINA and was desaturating while she slept. She does not require the oxygen when awake. Pain is tolerable at this time. We reached out to and I spoke with transfer center nurse who took down the information about the patient. She was able to access labs from the time of patient's discharge and reports that her bilirubin was indeed 0.6 at time of discharge and her alkaline phosphatase was in the 300s. Unfortunately these values are both worse today. They reached out to Dr. Barrow with the surgical oncology team and he recommended transfer to [facility]. Patient was graciously accepted for transfer by Dr. Barrow. She refuses ambulance transfer and would like to go by private vehicle. She does not have any immediately life-threatening pathology or life-sustaining support ongoing at this time so I believe this is appropriate. She was instructed to go directly to [facility], not make stops along the way, and remain n.p.o. until evaluation at that facility. Patient and at bedside are agreeable to this. will take her to . IV removed. Transfer records provided patient. I reassessed the patient immediately prior to transfer, airway patent, GCS 15, pain controlled, hemodynamically stable. Ambulatory. She is appropriate for transfer and stable for transfer by POV. Transferred in stable condition. Critical Care Critical Care Time Critical Care Time: No
[2025-09-08] MEDS: LACTATED RINGERS 1000ML 1,000 ML 999 ML IV (01:04)
[2025-09-08] MEDS: MORPHINE 4MG/ML SYRINGE 8 MG IV (01:04)
[2025-09-08] MEDS: ONDANSETRON 4MG/2ML VIAL 4 MG IV ×2 (01:04→04:13)
--- NOTE | 2025-09-08 01:13 | ECG_ITS ---
APPROVED REPORT Exam: Resting ECG HR:68 bpm ECG Measurements Heart Rate 68 AXES PA 154 P 72 QRSd 86 QRS 28 QT 397 T 50 QTc 414 Conclusion SINUS RHYTHM NORMAL ECG Electronically signed by : RAMOS SOFIA, 09/08/2025 06:57:47
[2025-09-08 01:18] LABS: Hematocrit 40.0 % (37.0-47.0); Hemoglobin 13.1 g/dL (12.2-16.2); Immature Granulocytes % 0.3 %; Mean Corpuscular HGB Conc 32.8 g/dL (31.8-35.4); Mean Corpuscular Hemoglobin 28.1 pg (27.0-31.2); Mean Corpuscular Volume 85.8 fl (81-99); Nucleated Red Blood Cells % 0 %; Platelet Count 168 K/mm3 (142-424); Red Blood Count 4.66 M/mm3 (4.20-5.40); Red Cell Distribution Width-SD 39.6 fL; White Blood Count 6.1 K/mm3 (4.8-10.8)
[2025-09-08 01:32] LABS: Alanine Aminotransferase 53 U/L (12-78); Albumin Level 3.9 g/dl (3.5-5.0); Albumin/Globulin Ratio 1.6 (1.1-1.8); Alkaline Phosphatase 570 U/L (38-126); Anion Gap 13.9 mEq/L (5-15); Aspartate Amino Transferase 80 U/L (14-36); Bilirubin,Total 2.2 mg/dl (0.2-1.3); Blood Urea Nitrogen 13 mg/dl (7-17); Calcium 9.5 mg/dl (8.4-10.2); Carbon Dioxide 26 mmol/L (22.0-30.0); Chloride 100 mmol/L (98-107); Creatinine Clearance Estimated 70 mL/min (50-200); Creatinine,Serum 0.80 mg/dl (0.52-1.04); Estimated Glomerular Filt Rate 73 ml/min (>60); GFR (African American) 88 ML/MIN (>60); Globulin 2.4 g/dL (1.3-3.2); Glucose 146 mg/dl (74-100); Lipase 148 U/L (23-300); Potassium 3.9 mmoL/L (3.5-5.1); Sodium 136 mmol/L (136-145); Total Protein,Serum 6.3 g/dl (6.3-8.2)
[2025-09-08 01:59] LABS: Troponin I < 0.01 ng/ml (0.00-0.034)
--- NOTE | 2025-09-08 02:03 | CT_ITS ---
PROCEDURE INFORMATION: Exam: CTA Abdomen and Pelvis With Contrast Exam date and time: 09/08/2025 2:37 AM Age: 59 years old Clinical indication: Abdominal pain; Epigastric; Additional info: Ruq/epigastric pain, known metastatic disease TECHNIQUE: Imaging protocol: Computed tomographic angiography of the abdomen and pelvis with contrast. Exam focused on the arteries. 3D rendering (Not supervised by radiologist): MIP and/or 3D reconstructed images were created by the technologist. Radiation optimization: All CT scans at this facility use at least one of these dose optimization techniques: automated exposure control; mA and/or kV adjustment per patient size (includes targeted exams where dose is matched to clinical indication); or iterative reconstruction. Contrast material: ISOUVE 370; Contrast volume: 80 ml; Contrast route: INTRAVENOUS (IV); COMPARISON: CT ABDOMEN PELVIS W CON 08/28/2025 8:42 AM FINDINGS: Lungs: Nonspecific left lower lobe interstitial thickening. Stable 4 x 3 mm right lower lobe subpleural nodule. Aorta: No aortic aneurysm. No aortic dissection. Celiac and mesenteric arteries: No occlusion or significant stenosis. Renal arteries: No occlusion or significant stenosis. Right iliac arteries: No occlusion or significant stenosis. Left iliac arteries: No occlusion or significant stenosis. Liver: Hepatic granulomas. Multiple unchanged hypodense metastatic hepatic lesions with largest in segment 7 measuring 3.5 x 2.7 cm. Unchanged irregular ill-defined hyperenhancement in hepatic segment 7/8 measuring 1 cm may represent a metastatic lesion. Simple hepatic cyst. Gallbladder and biliary ducts: Cholecystectomy. Mild dilation of the CBD likely secondary to postsurgical changes. Nonspecific hyperdense material in the distal CBD. Pancreas: Unremarkable. No mass. No ductal dilation. Spleen: Splenomegaly. Adrenal glands: Unremarkable. No mass. Kidneys and ureters: Unremarkable. No solid mass. No hydronephrosis. Stomach and bowel: Colonic diverticulosis without diverticulitis. Mucosal thickening of the gastric wall and along the transverse colon may represent an acute gastroenterocolitis. No mechanical bowel obstruction. Surgical changes along the right hemicolon and right lower quadrant small bowel. Appendix: Surgically absent. Intraperitoneal space: Unremarkable. No free air. No significant fluid collection. Lymph nodes: Unremarkable. No enlarged lymph nodes. Urinary bladder: Unremarkable. No mass. Reproductive: Unremarkable as visualized. Bones/joints: No acute fracture. Mild multilevel spondylosis. Soft tissues: Surgical changes along the left hepatic lobe. Midline anterior abdominal wall surgical changes. IMPRESSION: 1. Mucosal thickening of the gastric wall and along the transverse colon may represent an acute gastroenterocolitis. 2. Unchanged known multiple hypodense hepatic metastasis.
[2025-09-08 02:23] LABS: INR 1.03 (0.9-1.1); Prothrombin Time 11.4 seconds (10.1-12.5)
[2025-09-08] MEDS: IOPAMIDOL-370 (76%);100ML BOTTLE 80 ML IV (02:50)
[2025-09-08] MEDS: 0.9 % SODIUM CHLORIDE 50 ML VIAL 40 ML IV (02:50)
[2025-09-08] MEDS: SODIUM CHLORIDE 0.9% 10ML SYR (RAD ONLY) 10 ML IV (02:50)
--- NOTE | 2025-09-08 04:11 | PC.NURSE ---
[facility] called for consult/possible transfer.
[2025-09-08] MEDS: MORPHINE 4MG/ML SYRINGE 4 MG IV (04:13)
== END 2025-09-08 04:56 | disposition short-term general hospital (02) ==
PROVIDERS: Emergency Provider Emergency Medicine; PCP Family Medicine
DX: R10.11 Right upper quadrant pain (principal); R10.13 Epigastric pain; R74.01 Elevation of levels of liver transaminase levels; E80.6 Other disorders of bilirubin metabolism; E83.39 Other disorders of phosphorus metabolism; R11.0 Nausea; C78.7 Secondary malignant neoplasm of liver and intrahepatic bile duct; Z85.038 Personal history of other malignant neoplasm of large intestine
CPT/HCPCS: 74174; 80053; 83605; 83690; 84484; 85025; 85610; 93005; 96361; 96374; 96375; 96376; 99285; J1642; J2270; J2405; J7120; Q9967